=== PATIENT | female | born 1935 | race Caucasian/White ===

== ENCOUNTER 2017-10-30 16:05 | Inpatient (IN) | payer MEDICARE ==
[2017-10-30] MEDS ORDERED: Ondansetron HCl/PF 4 MG/2 ML Vial ONE (16:22)
--- NOTE | 2017-10-30 16:48 | RAD ---
PORTABLE CHEST 10/30/17 PROVIDED CLINICAL HISTORY: Flu-like symptoms. FINDINGS: Comparison 09/02/16. The cardiac and mediastinal silhouette is unchanged in appearance. Vascular calcification involves th e aortic arch. Hiatal hernia is redemonstrated. No focal air space disease, pleural fluid or pneumoth orax apparent. IMPRESSION: No evidence for an acute cardiopulmonary process. POS: OFF
[2017-10-30 16:53] LABS: Hemoglobin 10.9 g/dL (12.0-16.0); Mean Corpuscular HGB CONC 32.3 g/dL (32.0-36.0); Mean Corpuscular Hemoglobin 29.2 pg (27.0-31.0); Mean Corpuscular Volume 90.6 fl (81.0-99.0); Mean Platelet Volume 10.4 fL (7.4-10.4); Platelet Count 66 thou/uL (130-400); RBC Distribution Width 14.7 % (11.5-14.5); Red Blood Cell (RBC) Count 3.72 mill/uL (4.20-5.40); White Blood Cell (WBC) Count 10.9 thou/uL (4.8-10.8)
[2017-10-30] MEDS ORDERED: Piperacillin/Tazobactam 4.5 GM in Sodium Chloride 0.9% 100 ML IVPB SCH (17:00)
[2017-10-30 17:13] LABS: Anisocytosis SLIGHT = 6-15 cells (100X) (0-5/hpf); Band 31 % (5-11); Lymphocytes 11 % (21-51); MDiff Complete? YES; Metamyelocyte 7 % (0-0); Monocytes 13 % (0-10); Neutrophil 33 % (42-75); Ovalocytes SLIGHT = 2-5 cells (100X) (0-1/hpf); PLT Morphology Comment Appears Decreased; Polychromasia SLIGHT = 2-3 cells (100X) (0-2/hpf); Reactive Lymphocytes 5 % (0-10); Tear Drops SLIGHT = 2-5 cells (100X) (0-1/hpf); Vacuoles SLIGHT
[2017-10-30 17:16] LABS: ALT (SGPT) 13 U/L (8-55); AST (SGOT) 35 U/L (5-34); Albumin 2.6 g/dL (3.4-4.8); Alkaline Phosphatase 63 U/L (40-150); Anion Gap 15 mmol/L (10-20); BUN (Urea Nitrogen) 26 mg/dL (9.8-20.1); Bilirubin, Total 0.7 mg/dL (0.2-1.2); Calc. Creatinine Clearance 0 mL/min (70-130); Calcium 6.7 mg/dL (7.8-10.44); Carbon Dioxide 15 mmol/L (23-31); Chloride 106 mmol/L (98-107); Estimated GFR-MDRD 29; Globulin 2.8 g/dL (2.4-3.5); Protein, Total 5.4 g/dL (6.0-8.3); Sodium 133 mmol/L (136-145)
[2017-10-30 17:32] LABS: Glucose 27 mg/dL (83-110); Potassium 2.5 mmol/L (3.5-5.1)
[2017-10-30] MEDS ORDERED: Dextrose 50% Abboject 50 ML SYRINGE ONE (17:36)
[2017-10-30] MEDS ORDERED: Norepinephrine 8 MG/250 ML BAG IVPB PRN (18:54)
[2017-10-30] MEDS ORDERED: D5 1/2 NS w/20 mEq KCL 1,000 ML IV SCH (19:00)
[2017-10-30] MEDS ORDERED: Potassium Chloride 20 MEQ TAB ONE (19:19)
[2017-10-30] MEDS ORDERED: Oseltamivir 75 MG CAP PO SCH (19:30)
[2017-10-30 19:54] LABS: Bilirubin Small (Negative); Blood, Urine Negative (Negative); Clarity CLOUDY (Clear); Glucose, Urine (Dipstick) Negative (Negative); Leukocyte Negative (Negative); Nitrite Negative (Negative); Protein, Urine (Dipstick) 30 mg/dL (Neg-Trace); Specific Gravity, Urine 1.027 (1.002-1.036); Urobilinogen 0.2 mg/dL (0.2-1.0)
[2017-10-30 19:57] LABS: Bacteria/HPF None Seen HPF (None Seen); Squamous Epithelial 0-3 HPF (0-3)
--- NOTE | 2017-10-30 19:59 | RAD ---
PORTABLE CHEST: 10/30/17 HISTORY: Flu symptoms. COMPARISON: 10/30/17 at 4:28 p.m. There are increased interstitial markings in the left lung base which were present on the prior exam dated to 09/02/16. There is no evidence of acute infiltrate. No change from the film earlier today. A central line has been placed via the right subclavian vein and this line appears adequately positio stephanie overlying the SVC. IMPRESSION: Central line appears adequately positioned. No acute change in the chest. POS: [facility]
[2017-10-30 20:00] LABS: Pathc Cast-AUWi Flag 2.98 (0-2.49)
[2017-10-30] MEDS ORDERED: Dexamethasone 10 MG/ML VIAL ONE (20:02)
[2017-10-30 20:03] LABS: CKMB 10.2 ng/mL (0-6.6); Troponin I 0.557 ng/mL (< 0.028)
[2017-10-30 20:14] LABS: Crystals/HPF 1+ AMORPH URATES HPF (Negative); Hyaline Casts/LPF 4-6 HYALINE CAST LPF (0-3 Hyaline); Other Casts/LPF None Seen LPF (0-3 Hyaline)
[2017-10-30] MEDS ORDERED: Norepinephrine 8 MG/0.9% NS 250 ML IVPB SCH (20:45)
[2017-10-30] MEDS ORDERED: Acetaminophen 500 MG TAB PO PRN (20:54)
[2017-10-30] MEDS ORDERED: Ondansetron HCl/PF 4 MG/2 ML Vial IVP PRN (20:54)
[2017-10-30] MEDS ORDERED: Levalbuterol HCl 0.63 MG/3 ML NEB NEB SCH (21:00)
[2017-10-30] MEDS ORDERED: Enoxaparin Sodium 30 MG/0.3 ML SYRINGE SC SCH (21:00)
[2017-10-30 21:05] LABS: Lactic Acid 6.3 mmol/L (0.5-2.2)
[2017-10-30 21:33] LABS: Actual Bicarbonate (HCO3a) 17.9 mEq/L (22-26); Base Excess (BEa) -9.2 mEq/L (0 (+/-) 2.5); CO2 Tension 43.9 mmHg (35.0-45.0); O2 Tension (PaO2) 84.2 mmHg (80.0-100.0); pH, Arterial 7.23 (7.35-7.45)
[2017-10-30 21:34] LABS: Hematocrit-ABG 33.8 % (36.0-47.0)
[2017-10-30 21:35] LABS: Hemoglobin (Hb) 10.3 g/dL (12.0-16.0)
[2017-10-30 21:36] LABS: Analyzer IN Cardio ER; Puncture Site LR
[2017-10-30 21:51] LABS: Troponin I 0.732 ng/mL (< 0.028)
[2017-10-30 21:52] LABS: Anisocytosis SLIGHT = 6-15 cells (100X) (0-5/hpf); Band 55 % (5-11); Burr Cells SLIGHT = 2-5 cells (100X) (0-1/hpf); Lymphocytes 5 % (21-51); MDiff Complete? YES; Mean Corpuscular HGB CONC 31.8 g/dL (32.0-36.0); Mean Corpuscular Hemoglobin 28.9 pg (27.0-31.0); Mean Corpuscular Volume 90.9 fl (81.0-99.0); Mean Platelet Volume 10.4 fL (7.4-10.4); Metamyelocyte 4 % (0-0); Monocytes 16 % (0-10); Neutrophil 20 % (42-75); Ovalocytes SLIGHT = 2-5 cells (100X) (0-1/hpf); PLT Morphology Comment Appears Decreased; Platelet Count 59 thou/uL (130-400); RBC Distribution Width 14.7 % (11.5-14.5); Vacuoles SLIGHT; White Blood Cell (WBC) Count 27.3 thou/uL (4.8-10.8)
[2017-10-30 22:06] LABS: ALT (SGPT) 15 U/L (8-55); AST (SGOT) 40 U/L (5-34); Albumin 2.5 g/dL (3.4-4.8); Alkaline Phosphatase 61 U/L (40-150); Anion Gap 17 mmol/L (10-20); BUN (Urea Nitrogen) 29 mg/dL (9.8-20.1); Bilirubin, Total 0.8 mg/dL (0.2-1.2); Calc. Creatinine Clearance 0 mL/min (70-130); Carbon Dioxide 16 mmol/L (23-31); Chloride 103 mmol/L (98-107); Estimated GFR-MDRD 25; Globulin 2.7 g/dL (2.4-3.5); Glucose 89 mg/dL (83-110); Protein, Total 5.2 g/dL (6.0-8.3); Sodium 133 mmol/L (136-145)
[2017-10-30] MEDS: Piperacillin/Tazobactam 3.375 GM in Sodium Chloride 0.9% 100 ML IVPB SCH (22:27)
[2017-10-30] MEDS ORDERED: Potassium Chloride 40 MEQ in Sodium Chloride 0.9% 250 ML 250 ML IVPB SCH ×2 (23:00→23:30)
[2017-10-30] MEDS ORDERED: Bisacodyl 10 MG SUPP PR PRN (23:08)
[2017-10-30] MEDS ORDERED: Milk Of Magnesia 30 ML UDCUP PO PRN (23:08)
[2017-10-30] MEDS ORDERED: Sodium Chloride 0.9% 1,000 ML IV PRN (23:11)
[2017-10-30] MEDS ORDERED: Vasopressin 40 UNIT, Admixture Fee 1 EACH in Sodium Chloride 0.9% 100 ML IV SCH (23:15)
[2017-10-30] MEDS: Hydrocortisone Sod Succ/PF 100 mg/2 ml Vial IVP SCH (23:47)
[2017-10-30] MEDS: D5 1/2 NS w/20 mEq KCL 1,000 ML IV SCH (23:56)
[2017-10-30] MEDS: Bacteriostatic Water 30 ML VIAL FS SCH (23:56)
--- NOTE | 2017-10-31 02:11 | HP ---
DATE OF ADMISSION: 10/30/2017 CHIEF COMPLAINT: Unresponsiveness. HISTORY OF PRESENT ILLNESS: Patient with flu-like symptoms, body aches, fevers, shortness of breath, congestion. Patient was minimally responsive with EMS evaluation and transport to the emergency dep artment, found to be extremely hypertensive and interosseous and right tibia was placed for initial f luid bolus. Patient became responsive with a glucose resuscitation. Initial glucose was approximate ly 27. She remains hypotensive despite 4 liters normal saline replacement, started on a Levophed dri p, remained alert and speaking throughout. Speaking with the patient, she states she has been feelin g progressively worse over the last week. Had a bout of diarrhea yesterday, unable to have a bowel m ovement today. It feels like she is constipated and reports some abdominal pain. Does report contin ued shortness of breath on nasal cannula; however, she states she has nasal congestion, and cannot br eathe through her nose where the nasal cannula is and is mouth breathing currently. Patient states s he has been compliant with her medications for adrenal insufficiency, blood pressure, and hypothyroid ism on an outpatient basis. History of tobacco use, has p.r.n. Flovent, albuterol inhaler. FORMAL REVIEW OF SYSTEMS: Positive body aches. Positive fever. No eye discharge. Positive congest ion, rhinorrhea. Positive cough, positive shortness of breath. No chest pain or palpitations. Posi tive abdominal pain. Positive diarrhea, positive constipation, no blood in stool. No lower extremit y edema. Patient is weak, denies syncopal episode. 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 Bower, Dr. Kameron israel, Dr. Sharpe, Dr. Benoit on an outpatient basis for prior SIADH with Dr. Benoit. History of lung no dule dating back to 2008, spinal stenosis, and chronic back pain. Patient takes narcotics. OUTPATIENT MEDICATIONS: Include demeclocycline 150 mg, levothyroxine 100 mcg, hydrocortisone 5 mg, E vista 60 mg, temazepam 7.5 mg p.r.n. bedtime, Norvasc 5 mg, ferrous gluconate 324 mg, omeprazole 20 m g, docusate sodium 100 mg, milk of magnesia 400 mg/5 mL, 5 mL p.r.n. SURGERIES: Included bladder suspension, rectocele repair, hysterectomy, removal of pituitary gland p artial in 2011, childbirth x8. SOCIAL HISTORY: Prior tobacco use as above. Nondrinker, no illicit drugs reported. ALLERGIES: SULFA. IMAGING: EKG with rate of 121 accelerated junctional rhythm, slight left axis deviation, no gross ST -wave abnormalities. PHYSICAL EXAMINATION: VITAL SIGNS: On arrival to emergency department, blood pressure of 72/52, pulse of 121, respiratory rate 24, temperature of 97.8, oxygen saturation of 94% on room air. GENERAL: Patient is alert, in mild respiratory distress. HEENT: Normocephalic, atraumatic. Nasal cannula in place. Oral mucosa is dry. NECK: Supple. Patient is elderly and thin. HEART: Tachycardic. No murmurs auscultated. LUNGS: With bilateral rales with expiratory wheezes. ABDOMEN: Protuberant, positive bowel sounds, but slightly diminished. Pain to left lower quadrant. No rebound or guarding present. EXTREMITIES: No lower extremity edema. Prior right tibial myelocyte, right subclavian central line in place, left distal extremity, large bore IV in place. LABORATORY DATA: On review of laboratory work and imaging: Chest x-ray, no pneumothorax, central li ne in place, no acute infiltrates. White blood cell count of 10.9, hemoglobin of 10.9, MCV of 90.6, platelet count of 66, neutrophils of 33%. Sodium of 133, potassium of 2.5, CO2 of 15, creatinine of 1.69, estimated GFR of 29, glucose of 27. Lactic acid of 4.0, calcium of 6.7, AST of 35, ALT of 13. Serum albumin of 2.6, cortisol of 8.9. Troponin I 0.55. Urinalysis cloudy, specific gravity 1.027, positive protein, trace ketones, negative nitrates, small bilirubin, 4 to 6 white blood cells, amaur osis hyaline cast. Influenza type B positive, A negative. ASSESSMENT AND PLAN: Sepsis severe with shock, influenza, hypothyroidism, adrenal insufficiency, acu te kidney injury, acute respiratory failure, hypokalemia, hypoglycemia. Patient is being admitted to ICU on Levophed trip and maintenance fluids running at 150 mL per hour. Repeat CMP and q.2 glucose checks until the patient is stabilized. Trending troponins. At this point, given the patient's thro mbocytopenia, we will hold Lovenox full dose, aspirin; however, at this point. Sequential compressio n devices to be in place. Protonix prophylaxis. Xopenex in scheduled and p.r.n. Regarding the jorgito ent's tobacco history and wheezing. Continue nasal cannula to keep above 90% on Solu-Medrol 20 mg q. 8 hours. Following initial bolus of Decadron in the Emergency Department for a low cortisol and adre nal insufficiency continuing Tamiflu. Continuing vancomycin and Zosyn until cultures were read out a s negative, likely secondary to severe sepsis from influenza following up a TSH, BNP, lactic acid, tr end ABGs. Repeat EKG in a.m. We will trend urine output with strict I's and O's. Petersen catheter in place. Patient reported to be a FULL CODE per her own report with 2 family members at bedside. Thirty minutes of critical care rendered with more than half of that, face to face. We will check ou t to Dr. Richi Mccord, patient's PCP in the morning.
[2017-10-31] MEDS: D5 1/2 NS w/20 mEq KCL 1,000 ML IV SCH (02:41)
[2017-10-31] MEDS: Levalbuterol HCl 0.63 MG/3 ML NEB NEB SCH ×4 (02:42→22:14)
[2017-10-31] MEDS ORDERED: Sodium Chloride 0.9% 1,000 ML IV SCH (03:15)
[2017-10-31 04:17] LABS: Hemoglobin 10.7 g/dL (12.0-16.0); Mean Corpuscular HGB CONC 32.4 g/dL (32.0-36.0); Mean Corpuscular Hemoglobin 29.8 pg (27.0-31.0); Mean Corpuscular Volume 91.9 fl (81.0-99.0); Mean Platelet Volume 10.5 fL (7.4-10.4); Platelet Count 81 thou/uL (130-400); White Blood Cell (WBC) Count 49.6 thou/uL (4.8-10.8)
[2017-10-31 04:19] LABS: ALT (SGPT) 16 U/L (8-55); AST (SGOT) 45 U/L (5-34); Albumin 2.6 g/dL (3.4-4.8); Alkaline Phosphatase 59 U/L (40-150); Anion Gap 13 mmol/L (10-20); BUN (Urea Nitrogen) 25 mg/dL (9.8-20.1); Bilirubin, Total 0.6 mg/dL (0.2-1.2); Calc. Creatinine Clearance 33 mL/min (70-130); Calcium 6.5 mg/dL (7.8-10.44); Carbon Dioxide 15 mmol/L (23-31); Chloride 108 mmol/L (98-107); Estimated GFR-MDRD 38; Globulin 2.6 g/dL (2.4-3.5); Glucose 218 mg/dL (83-110); Potassium 4.1 mmol/L (3.5-5.1); Protein, Total 5.2 g/dL (6.0-8.3); Sodium 132 mmol/L (136-145)
[2017-10-31 04:27] LABS: Critical Call Chem Troponin I RESULT DECREASING; Troponin I 0.602 ng/mL (< 0.028)
[2017-10-31 04:48] LABS: Acanthocytes SLIGHT = 1-5 cells (100X) (None Seen); Band 55 % (5-11); Burr Cells MODERATE= 6-15 cells (100X) (0-1/hpf); Lymphocytes 3 % (21-51); MDiff Complete? YES; Metamyelocyte 12 % (0-0); Monocytes 17 % (0-10); Neutrophil 13 % (42-75); Ovalocytes SLIGHT = 2-5 cells (100X) (0-1/hpf); PLT Morphology Comment Appears Decreased; Vacuoles SLIGHT
[2017-10-31] MEDS: Piperacillin/Tazobactam 3.375 GM in Sodium Chloride 0.9% 100 ML IVPB SCH ×4 (05:14→23:19)
[2017-10-31] MEDS: Hydrocortisone Sod Succ/PF 100 mg/2 ml Vial IVP SCH ×4 (05:14→23:20)
[2017-10-31] MEDS: Bacteriostatic Water 30 ML VIAL FS SCH ×2 (05:15→13:06)
[2017-10-31] MEDS ORDERED: Dextrose 5% in Water 1,000 ML IV PRN (05:45)
[2017-10-31] MEDS ORDERED: Dextrose 50% Abboject 50 ML SYRINGE SLOW IVP PRN (05:45)
[2017-10-31] MEDS ORDERED: Levothyroxine Sodium 100 MCG TAB PO SCH (06:00)
[2017-10-31 07:43] LABS: Free T4 (Free Thyroxine) 1.22 ng/dL (0.70-1.48)
--- NOTE | 2017-10-31 08:23 | PRG ---
DATE OF SERVICE: 10/31/2017 The patient has improved. She is more awake and alert. She complains of being thirsty. Denies ches t pain, denies shortness of breath, just continues to be weak. Of note, she does have a history of a drenal insufficiency. She chronically on Cortef to keep her blood pressure up and her sodium normal. She is tolerating ice chips. OBJECTIVE: VITAL SIGNS: Temperature 94.1, pulse of 95 and regular, respirations 20-24, pulse ox of 95% on 2.5 l iters nasal cannula, blood pressure is now up to 125/58 on Levophed and vasopressin. She was able to wean off of the dopamine. GENERAL: She is awake and alert. She appears uncomfortable, but no acute distress. HEENT: Mucosa is moist. NECK: Supple. HEART: Regular rate and rhythm. LUNGS: With occasional wheezes, but no rales or rhonchi. ABDOMEN: Soft. EXTREMITIES: With no edema. 1+ peripheral pulses in bilateral upper and lower extremities. NEUROLO GIC: She moves all extremities. LABORATORY DATA: White blood cell count is now up to 49.6 thousand. Last night it was 27.3, hemoglo bin and hematocrit 10.7 and 33.1, platelets of 81,000. She has 13% neutrophils, 55% bands, 3% lympho cytes. ABG last night revealed a pH of 7.23, pCO2 of 43.9, pO2 of 48.2, bicarbonate of 17.1, sodium 132, potassium 4.1, chloride 108, CO2 of 15, BUN and creatinine 25 and 1.33 with a GFR of 38, which i s improved from 25 last night. Serum glucose of 218, calcium 6.5, albumin low at 2.6. We will corre ct her calcium, AST of 45, ALT of 16, troponin I is elevated at 0.602. Chest x-ray from last night revealed interstitial markings in the left side, but no acute cardiopulmo nary process. EKG revealed normal sinus rhythm, nonspecific ST-T changes. 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 She has improved somewhat in the ICU, but continues to be on Levophed an d vasopressin to maintain her blood pressure. 1. Respiratory distress and appears to be improved. I doubt that she will need mechanical ventila tion, but will continue to monitor closely. 2. Influenza will continue Tamiflu for influenza type B. 3. Hypotension secondary to shock as well as adrenal insufficiency. We will continue blood pressure support as needed. 4. Adrenal insufficiency. She is on Solu-Cortef. 5. Lymphocytosis, possibly secondary to sepsis. We will continue broad spectrum antibiotics as per Dr. Kapadia. 6. Acute kidney disease has improved with fluid resuscitation. We will continue to monitor. 7. Elevated troponin likely stress due to vasopressors and septic shock. I will check echocardiogra m and consult Cardiology as she has seen Dr. Puga in the past. 8. Electrolyte abnormalities. We will continue to monitor and adjust as necessary. 9. Code status: The patient continues to be full code. We will continue to discuss with family.
[2017-10-31] MEDS: Pantoprazole 40 MG VIAL IVP SCH (09:08)
[2017-10-31] MEDS ORDERED: D5 1/2 NS w/20 mEq KCL 1,000 ML IV SCH (09:13)
[2017-10-31] MEDS: Oseltamivir 6 MG/ML ORAL SUSP PO SCH (09:25)
[2017-10-31] MEDS: Aspirin 325 mg Enteric Coated Tablet PO SCH (09:25)
[2017-10-31] MEDS: Dextrose 5 % And 0.9 % NaCl 1,000 ML IV SCH ×2 (10:00→23:19)
[2017-10-31] MEDS: Calcium Gluconate 4.6 MEQ in Sodium Chloride 0.9% 100 ML IVPB SCH ×2 (10:03→16:27)
--- NOTE | 2017-10-31 10:50 | CON ---
DATE OF CONSULTATION: 10/31/2017 SERVICE: Pulmonary Medicine REASON FOR CONSULTATION: Septic shock. HISTORY OF PRESENT ILLNESS: The patient is an 82-year-old white female with past medical history significant for advanced stage, and adrenal insufficiency, presents to the hospital with flu-like symptoms including bodyaches, fevers, shortness of breath and congestion. She was minimally responsive by EMS when they came to evaluate her. She was hypotensive. An IO was placed in the right tibia. She was brought to the Emergency Department and discovered to have a blood sugar of 27. She got 4 liters of fluid and resuscitation. A central line was placed and she was initiated on Levophed drip. She then recovered her mentation. Urine output never picked up; however, and her blood pressures remain marginal. I got a phone call about her hypotension in the middle of the night. We made some modifications, transduced a CVP and found that she was still low. We started stress doses of steroids, and gave her another liter of fluid. Levophed was titrated up and vasopressin was initiated. This morning, she is making a little bit better urine. She is breathing more comfortably and has no specific complaints presently. PAST MEDICAL HISTORY: 1. Brain neoplasm. 2. Hypothyroidism. 3. Dyslipidemia. 4. Hyponatremia, chronic. 5. Osteoporosis. 6. Hypertension. 7. Adrenal insufficiency. 8. Aortic stenosis. 9. Anemia secondary to iron deficiency. 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 PAST SURGICAL HISTORY: 1. Excision of pituitary gland in 2010. 2. Hysterectomy. 3. Rectocele repair. 4. Bladder suspension surgery. ALLERGIES: SULFA. MEDICATIONS: A list of her inpatient medications were reviewed. Multiple updates were made at this time. SOCIAL HISTORY: Negative for alcohol, tobacco or illicit drug use. She has no exposures to chemicals, asbestos or tuberculosis. FAMILY HISTORY: Noncontributory. REVIEW OF SYSTEMS: General, head, ears, eyes, nose, throat, cardiovascular, respiratory, GI, , musculoskeletal, neurologic and skin is negative except as mentioned in the HPI. PHYSICAL EXAMINATION: VITAL SIGNS: Afebrile, pulse 102, blood pressure 125/58, respirations 22, saturation 98% on 2 liters nasal cannula. GENERAL: The patient is awake and alert. She is in no apparent distress. HEENT: Normocephalic, atraumatic. Sclerae are white, conjunctivae pink. Oral mucosa is moist without lesions. LUNGS: Excellent air entry. There are crackles present in the bibasilar region. HEART: Normal rate, regular. ABDOMEN: Soft, nontender, nondistended. Bowel sounds are positive. MUSCULOSKELETAL: No cyanosis or clubbing. There is no pitting in the bilateral lower extremities. NEUROLOGIC: Grossly nonfocal. LABORATORY DATA: WBC 49.6, hemoglobin 10.7, platelets 81,000. Neutrophil count is 13 with a band count of 55%. PH 7.23, pCO2 43, pO2 85. Creatinine 1.33 and down trending, BUN 25. Chloride 108, sodium 132. AST 45, troponin 0.6 and down trending. Liver function studies are otherwise unremarkable. Blood sugar 205, now. Calcium 6.5. Urinalysis is essentially unremarkable. Blood culture x2 are unremarkable. Influenza A is negative, but influenza B is positive. IMAGING: Chest x-ray demonstrates no acute cardiopulmonary abnormality. There are low lung volumes. Interstitial fullness is present. There is a right- sided subclavian central venous catheter that terminates in perfect position. ASSESSMENT: 1. Acute hypoxic respiratory failure. 2. Acute bronchitis secondary to influenza B. 3. Adrenal insufficiency with current adrenal crisis. 4. Acute kidney injury, resolving. 5. Septic shock. PLAN: We are awaiting blood cultures to result. We are going to continue our empiric antibiotics including Tamiflu for the time being. She is on stress doses of steroids and once she clears her inflammatory profile, she will need to restart her home steroids. We will wean away the Levophed and vasopressin as tolerated. My suspicion is that the shock was not created from the influenza , but more from the adrenal crisis. Once her blood pressures firm up a touch, we will need to start diuresing her as she has had 6-7 liters of fluid over the past 24 hours. Maintenance fluids will be interrupted. 70 minutes have been devoted to this patient in various activities. I personally reviewed all imaging studies and laboratory data noted within this document. For at least half of this time, I was interacting with the patient at the bedside or coordinating care with the care team. For the remainder of the time I was immediately available to the patient in the hospital unit. BAILEE
--- NOTE | 2017-10-31 11:33 | CON ---
DATE OF CONSULTATION: 10/31/2017 RENAL MEDICINE HISTORY OF PRESENT ILLNESS: Ms. Greenwood is an 82-year-old white female who was admitted for decreased mentation. She was found to have flu-like symptoms with body aches and fevers. She was also noted t o be hypoglycemic at that time. At the same time, patient was also noted to be hypotensive. Empiric volume repletion was given with this patient with 4 liters of normal saline. We are now being consu lted for her acute kidney injury. Please note this patient has been seen by the Renal Service previo usly for her hyponatremia. Patient is currently being treated with empiric IV antibiotics. REVIEW OF SYSTEMS: Positive for decreased mentation and decreased appetite. Decreased energy level. No ? of fever. No gross hematuria, no dysuria, no urinary frequency, no syncopal episode, no abdom inal pain, decreased mentation. No diplopia. No gross hematuria, no hematochezia, no melena, no hem atemesis. MEDICATIONS: Currently on D5 half normal saline with 20 mEq at 75 mL per hour, Zosyn 3.375 grams IV q.6, Protonix 40 mg IV, Tamiflu 30 mg once a day, Levophed drip, Solu-CORTEF 50 mg IV q.6, furosemide 40 mg IV daily, calcium gluconate in the IV fluid, Ecotrin 81 mg once a day. PAST MEDICAL HISTORY: Includes the following; 1. History of chronic hyponatremia. 2. Hypothyroidism. 3. Osteoporosis. 4. Hypertension. 5. Adrenal insufficiency. 6. Aortic stenosis. 7. Chronic anemia. 8. History of lung nodules. 9. Brain lesion - benign. PAST SURGICAL HISTORY: Includes, 1. Status post partial removal of the pituitary gland. 2. History of bladder suspension. 3. Status post rectocele repair. 4. Status post hysterectomy. 5. Status post upper and lower GI endoscopy. SOCIAL HISTORY: The patient is and lives in the [place] area, smoked for 10 years one half p ack a day. No IV drug abuse, no alcohol use. No blood transfusions. Sedentary lifestyle. FAMILY HISTORY: No family history of ESRD. ALLERGIES: SULFA. TRAUMA: None. IMMUNIZATIONS: Up to date. HOSPITALIZATIONS: Please see past medical history. PHYSICAL EXAMINATION: VITAL SIGNS: Blood pressure is noted at 187/37, heart rate 66, respiratory rate 23, pulse ox 99%. GENERAL: Awake, lethargic, not in overt distress. SKIN: Decreased turgor. HEENT: She has pinkish conjunctivae, anicteric sclerae. NECK: No neck mass, no carotid bruits, no JVD. CHEST: No deformities. LUNGS: Decreased breath sounds. HEART: Normal sinus rhythm. No murmur, no gallops, no rubs. ABDOMEN: Globular, soft, nontender, no masses. EXTREMITIES: No edema, no deformities. LABORATORY DATA: Laboratories of 10/31/2017; white count 49.6, hemoglobin 10.7. Sodium 132, potassi um 4.1, chloride 108, carbon dioxide 15, BUN 25, creatinine 1.33, glucose 218, calcium 6.5, AST 45, A LT 16, troponin I 0.602. On 10/24/2017, creatinine noted at 1.91. On 09/02/2016, creatinine 0.6. IMAGING DATA: On 10/29/2015, chest x-ray shows no acute process. ASSESSMENT AND PLAN: 1. Acute kidney injury - I suspect this is hemodynamically mediated renal dysfunction based on her h istory of hypertension. She is currently on pressor support. In addition, she received several lite rs of fluid. My plan is to continue current maintenance IV fluid of normal saline at the current rat e of 75 mL per hour. There is no indication for any dialytic intervention with this patient. She is daily on Lasix to enhance urine output. 2. Sepsis - empiric IV antibiotics. 3. Decreased mentation. Clinically, much improved - most likely metabolic in etiology. Agree with current management. Again we will review urinalysis with this patient.
--- NOTE | 2017-10-31 13:55 | CON ---
DATE OF CONSULTATION: 10/31/2017 REASON FOR CONSULTATION: Elevated troponins. HISTORY OF PRESENT ILLNESS: Ms. Greenwood is a very pleasant 82-year-old white female who comes to the ospital for being unresponsive. She was diagnosed with influenza and was hypotensive. She had Levop hed drip started. Blood work showed elevated troponins and Cardiology being consulted for this. She has never really had any heart problems before except for high blood pressure. She saw Dr. Mendiola a very long time ago. She has not seen him in several years. She denies any chest pain, tightness, pressure. She only has flu-like symptoms, fever, chills. She had a bout of diarrhea yesterday as w jillian. PAST MEDICAL HISTORY: 1. Pituitary neoplasia, status post removal. 2. Hypothyroidism. 3. Hyperlipidemia. 4. Chronic hyponatremia. 5. Osteoporosis. 6. Hypertension. 7. Adrenal insufficiency. 8. Aortic stenosis. 9. Anemia secondary to iron deficiency. 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 PAST SURGICAL HISTORY: 1. Pituitary gland excision in 2010. 2. Hysterectomy. 3. Rectocele repair. 4. Bladder suspension. ALLERGIES: Allergic to SULFA DRUGS. OUTPATIENT MEDICATIONS: Reviewed in the MAR and they include, 1. Levothyroxine 100 mcg a day. 2. Docusate p.r.n. 3. Flonase. 4. Tizanidine. 5. Theratears. 6. Evista. 7. Norvasc 5 mg a day. 8. Temazepam 15 mg at bedtime. 9. Hydrocortisone 5 mg a day. 10. Omeprazole 20 mg b.i.d. 11. Demeclocycline 300 mg b.i.d. 12. [place] 10/325 q.4 hours p.r.n. pain. SOCIAL HISTORY: No alcohol, tobacco or drugs. FAMILY HISTORY: Noncontributory. REVIEW OF SYSTEMS: A 12-point review of system is negative unless stated in the history of present i llness. PHYSICAL EXAMINATION: VITAL SIGNS: Temperature 97.7, pulse 100, respiration rate 20, satting 99% on 2 liters, blood pressu re 102/53. GENERAL: Awake, alert and oriented x3, in no respiratory distress. HEENT: Normocephalic, atraumatic. NECK: Supple. Carotid upstroke is normal with no bruits. CARDIOVASCULAR: S1, S2, no S3, S4. There is a grade 3/6 systolic murmur in the right upper sternal border, mid peaking. It radiated to the rest of the precordium. LUNGS: Clear to auscultation. ABDOMEN: Soft, positive bowel sounds. EXTREMITIES: No edema. SKIN: Warm and dry. LABORATORY WORK: Was reviewed. White count of 10 up to 27, then up to 49; hemoglobin of 10.7; plate let count of 81. ABG was reviewed. Chemistries were reviewed. BUN 25, creatinine 1.3 down from 1.9 . Troponin was 0.5, then 0.7, now 0.6. CK-MB was 10, albumin of 2.6. Cortisol was 8.9. Thyroid st udies should just a low free T3 and a low TSH. UA showed trace ketones, small amount of bilirubin, 4 -6 white cells, 4-6 hyaline casts. ASSESSMENT: 1. Non-ST elevation myocardial infarction: Likely demand ischemia from hypotension, which is though t to be from septic shock versus adrenal insufficiency after talking with Dr. Kapadia. 2. Echocardiogram shows normal LV function. 3. Mild aortic valve stenosis: This is unlikely will be causing her blood pressure either. 4. Influenza type B. PLAN: 1. Continue supportive care. 2. She will require further risk stratification as an outpatient about a month or two from now after her acute issues have been resolved. 3. We will continue to follow.
[2017-10-31] MEDS ORDERED: Furosemide 40 MG/4 ML VIAL SLOW IVP SCH (14:00)
[2017-10-31 14:58] VITALS: BMI 29.1
[2017-10-31] MEDS ORDERED: Calcium Gluconate 4.6 MEQ in Sodium Chloride 0.9% 100 ML IVPB SCH (16:00)
[2017-10-31] MEDS: HumaLOG 300 UNITS/3 ML VIAL SC PRN ×2 (19:39→23:20)
[2017-10-31] MEDS ORDERED: Phenergan/Codeine 10-6.25mg/5ml UDCUP PO PRN (20:57)
[2017-10-31] MEDS: Phenergan/Codeine 10-6.25mg/5ml UDCUP PO PRN (21:11)
[2017-10-31] MEDS: Vancomycin HCl 500 MG in Sodium Chloride 0.9% 100 ML IVPB SCH (21:13)
[2017-11-01] MEDS: Phenergan/Codeine 10-6.25mg/5ml UDCUP PO PRN (03:22)
[2017-11-01] MEDS: HumaLOG 300 UNITS/3 ML VIAL SC PRN ×5 (03:35→19:14)
[2017-11-01 04:14] LABS: Band 33 % (5-11); Hemoglobin 9.2 g/dL (12.0-16.0); Lymphocytes 5 % (21-51); MDiff Complete? YES; Mean Corpuscular HGB CONC 32.5 g/dL (32.0-36.0); Mean Corpuscular Hemoglobin 29.3 pg (27.0-31.0); Mean Corpuscular Volume 90.2 fl (81.0-99.0); Mean Platelet Volume 10.3 fL (7.4-10.4); Monocytes 4 % (0-10); Neutrophil 58 % (42-75); PLT Morphology Comment Appears Decreased; Platelet Count 51 thou/uL (130-400); RBC Distribution Width 15.3 % (11.5-14.5); Red Blood Cell (RBC) Count 3.12 mill/uL (4.20-5.40); White Blood Cell (WBC) Count 31.5 thou/uL (4.8-10.8)
[2017-11-01 04:21] LABS: ALT (SGPT) 17 U/L (8-55); AST (SGOT) 35 U/L (5-34); Albumin 2.5 g/dL (3.4-4.8); Alkaline Phosphatase 77 U/L (40-150); Anion Gap 12 mmol/L (10-20); BUN (Urea Nitrogen) 15 mg/dL (9.8-20.1); Bilirubin, Total 0.7 mg/dL (0.2-1.2); Calc. Creatinine Clearance 55 mL/min (70-130); Calcium 6.9 mg/dL (7.8-10.44); Carbon Dioxide 19 mmol/L (23-31); Chloride 102 mmol/L (98-107); Estimated GFR-MDRD 66; Globulin 2.7 g/dL (2.4-3.5); Glucose 201 mg/dL (83-110); Magnesium 1.2 mg/dL (1.6-2.6); Protein, Total 5.2 g/dL (6.0-8.3); Sodium 130 mmol/L (136-145)
[2017-11-01 04:27] LABS: Potassium 2.8 mmol/L (3.5-5.1)
[2017-11-01] MEDS ORDERED: Magnesium Oxide 400 MG TAB PO SCH (06:15)
[2017-11-01] MEDS: Hydrocortisone Sod Succ/PF 100 mg/2 ml Vial IVP SCH ×3 (06:29→17:08)
[2017-11-01] MEDS: HYDROcodone/Acetaminophen 10/325 mg Tablet PO PRN ×2 (06:30→19:15)
[2017-11-01] MEDS ORDERED: Potassium Chloride 20 MEQ TAB PO SCH ×2 (06:30→09:00)
[2017-11-01] MEDS: Piperacillin/Tazobactam 3.375 GM in Sodium Chloride 0.9% 100 ML IVPB SCH ×3 (06:32→17:08)
[2017-11-01] MEDS: Levalbuterol HCl 0.63 MG/3 ML NEB NEB SCH ×3 (06:48→19:02)
[2017-11-01] MEDS: Pantoprazole 40 MG VIAL IVP SCH (08:34)
[2017-11-01] MEDS: Aspirin 325 mg Enteric Coated Tablet PO SCH (08:34)
[2017-11-01] MEDS ORDERED: guaiFENesin/Dextromethorphan 10 ML UDCUP PO PRN (08:58)
[2017-11-01] MEDS ORDERED: Furosemide 40 MG/4 ML VIAL SLOW IVP SCH (09:00)
[2017-11-01] MEDS ORDERED: Magnesium Sulfate 4 GM in Sodium Chloride 0.9% 250 ML 250 ML IVPB SCH (10:00)
[2017-11-01] MEDS: Potassium Chloride 20 MEQ TAB PO SCH ×2 (10:07→15:15)
[2017-11-01] MEDS: Oseltamivir 6 MG/ML ORAL SUSP PO SCH (10:07)
--- NOTE | 2017-11-01 10:22 | PDOC.CTH ---
Cardiology Progress Note - Subjective No new issues. no chest pain, Breathing is at baseline. - Objective Vital Signs Temp Pulse Resp Pulse Ox 11/01/17 09:00 97.7 F 11/01/17 06:52 98 11/01/17 06:48 98 15 98 11/01/17 04:00 98.4 F 10/31/17 23:00 96.4 F L Admit Weight 144 lb Weight 129 lb 10.109 oz 10/31/17 11/01/17 11/02/17 06:59 06:59 06:59 Intake Total 2180 2077.4 600 Output Total 1055 4745 835 Balance 1125 -2667.6 -235 - Physical Examination General/Neuro: alert & oriented x3 Neck: no JVD present Lungs: CTA, unlabored respirations Heart: RRR Abdomen: NT/ND Extremities: other: (no edema) - Telemetry Telemetry Rhythm: NSR - Labs Result Diagrams: 11/01/17 03:31 11/01/17 03:31 Troponin/CKMB CK-MB (CK-2) 10.2 ng/mL (0-6.6) H* 10/30/17 19:05 Troponin I 0.602 ng/mL (< 0.028) H* 10/31/17 03:45 - Assessment/Plan 1. NSTEMI, demand ischemia 2. Influenza type B 3. Mild . PLAN: - Doing well from cardiac standpoint. - May transfer to telemetry floor. - Aspirin and statin before discharge. No indication for full anticoagulation. - Андрей Green
--- NOTE | 2017-11-01 11:44 | PRG ---
DATE OF SERVICE: 11/01/2017 SUBJECTIVE: The patient is feeling much better this morning. She is off of her pressors. She is no w sitting in a chair. She has been okay to be transferred to the floor. OBJECTIVE: VITAL SIGNS: Temperature 97.7, pulse 102, blood pressure 89/45, O2 sat 90%. GENERAL: In no acute distress. She is now sitting in a chair. HEART: Regular rate and rhythm. LUNGS: Relatively clear. ABDOMEN: Soft. EXTREMITIES: With no edema. She is diuresing presently. She diuresed 2600 yesterday and this morni ng she has had greater than 400. LABORATORY DATA: White count 31, down from 49; H and H 9.2 and 28.2. Sodium 130; potassium 2.8; chl oride 102; creatinine 0.83; BUN 15; blood sugar 201, 209, 200. ASSESSMENT: 1. Acute hypoxic respiratory failure, improving. 2. Septic shock from multiple factors including flu B, dehydration, and adrenal crisis. No longer o n pressors. 3. Acute kidney injury, presently being hydrated. 4. Hypokalemia, receiving potassium supplementation. 5. Syndrome of inappropriate antidiuretic hormone secretion. 6. Adrenal insufficiency. 7. Hyponatremia secondary to adrenal adenoma, excised in 2010. 8. Flu with acute bronchitis. 9. FULL CODE. 10. Hypertension. 11. Mild aortic stenosis. 12. [id number]-IC-vmurwgyld myocardial infarction from demand ischemia. PLAN: 1. Transfer to the floor. 2. Continue hydration. 3. We will monitor her diuresis. It seems to be occurring spontaneously. 4. Potassium supplementation. 5. Insulin sliding scale. 6. Maintain Solu-Cortef. 7. Continue Tamiflu. 8. Recheck CBC and comp in a.m.
--- NOTE | 2017-11-01 11:49 | PRG ---
DATE OF SERVICE: 11/01/2017 RENAL MEDICINE SUBJECTIVE: Ms. Greenwood is an 82-year-old white female who was admitted for sepsis syndrome. She had elevated white count. She is being treated with IV antibiotics. She was seen by the Renal Service f or her chronic hyponatremia as well as acute kidney injury. She has been receiving volume repletion and for that reason, creatinine this morning is much improved. She was also seen by Cardiology for t he elevated troponin. Patient is currently feeling better, but still feels tired. She denies any chest pain or shortness o f breath. PHYSICAL EXAMINATION: VITAL SIGNS: Blood pressure is currently 99/45 to as high as 97/49, heart rate 102, respiratory rate 18, and pulse ox 95%. GENERAL: Awake, sitting comfortable, not in distress. SKIN: Adequate turgor. HEENT: Pinkish conjunctivae, anicteric sclerae. NECK: No neck mass, no carotid bruits, no JVD. CHEST: No deformities. LUNGS: Clear breath sounds. No wheezing, no crackles. HEART: Normal sinus rhythm. No murmur, no gallops, no rubs. ABDOMEN: Globular, soft, nontender, no masses. EXTREMITIES: No edema, no deformities. MEDICATIONS: Medications of 11/01/2017 was reviewed. LABORATORY DATA: Laboratories of 11/01/2017; white count 31.5, hemoglobin 9.2, sodium 130, potassium is 2.8, chloride 102, carbon dioxide 19, BUN 15, creatinine 0.83, glucose 201, magnesium 1.2, AST 35 , ALT 17, albumin 2.5. ASSESSMENT AND PLAN: 1. Mild hypokalemia, p.r.n. potassium replacement. 2. Sepsis syndrome - empiric IV antibiotics. 3. Acute kidney injury - hemodynamically mediated renal dysfunction. Creatinine is currently much i mproved after IV hydration. Overall, agree with current management. Continue supportive care. 4. Recheck basic met and CBC in a.m.
--- NOTE | 2017-11-01 11:59 | PRG ---
DATE OF SERVICE: 11/01/2017 SUBJECTIVE: An 82-year-old female, who is complaining of feeling poorly. She got a cough according to family members, nonproductive, but no fever or chills. OBJECTIVE: VITAL SIGNS: Blood pressure 102/51, pulse 105, sats are 97%, respiratory rate 18. CHEST: Reveal decreased breath sounds without any wheezing. CARDIAC: Normal S1, S2. No gallops. ABDOMEN: Soft. No masses. LABORATORY: White count 31,000, H and H 9 and 28, platelet count is low at 51,000. She is thrombocy topenic here. Potassium 2.8, glucose 209. IMPRESSION: 1. Renal failure, stable. 2. Marked leukocytosis. Rule out sepsis. 3. Status post pituitary surgery with ensuing adrenal insufficiency. 4. Influenza B. PLAN: Continue broad-spectrum antibiotics. She can be transferred out of the ICU should her blood p ressure resolve. PT and supportive care. Medicine for cough. We will follow.
[2017-11-01] MEDS: Mometasone/Formoterol 120 PUFF INHALER INH SCH (19:01)
[2017-11-01 21:40] LABS: Vancomycin, Trough 5.5 ug/mL
[2017-11-01] MEDS: Vancomycin HCl 500 MG in Sodium Chloride 0.9% 100 ML IVPB SCH (22:00)
[2017-11-02] MEDS: Hydrocortisone Sod Succ/PF 100 mg/2 ml Vial IVP SCH ×3 (00:14→21:16)
[2017-11-02] MEDS: Piperacillin/Tazobactam 3.375 GM in Sodium Chloride 0.9% 100 ML IVPB SCH ×5 (00:15→23:45)
[2017-11-02] MEDS: HYDROcodone/Acetaminophen 10/325 mg Tablet PO PRN ×4 (03:08→23:51)
[2017-11-02 06:49] LABS: Band 15 % (5-11); Hemoglobin 9.5 g/dL (12.0-16.0); Lymphocytes 2 % (21-51); MDiff Complete? YES; Mean Corpuscular HGB CONC 32.6 g/dL (32.0-36.0); Mean Corpuscular Hemoglobin 28.9 pg (27.0-31.0); Mean Corpuscular Volume 88.5 fl (81.0-99.0); Mean Platelet Volume 11.2 fL (7.4-10.4); Monocytes 5 % (0-10); Neutrophil 77 % (42-75); PLT Morphology Comment Appears Decreased; Platelet Count 47 thou/uL (130-400); RBC Distribution Width 15.3 % (11.5-14.5); Reactive Lymphocytes 1 % (0-10); Red Blood Cell (RBC) Count 3.28 mill/uL (4.20-5.40); White Blood Cell (WBC) Count 28.9 thou/uL (4.8-10.8)
[2017-11-02] MEDS: Levalbuterol HCl 0.63 MG/3 ML NEB NEB SCH ×3 (07:26→22:25)
[2017-11-02] MEDS: Mometasone/Formoterol 120 PUFF INHALER INH SCH ×2 (07:29→22:22)
--- NOTE | 2017-11-02 09:21 | EKG ---
Test Reason : Blood Pressure : / mmHG Vent. Rate : 099 BPM Atrial Rate : 099 BPM P-R Int : 200 ms QRS Dur : 088 ms QT Int : 378 ms P-R-T Axes : 000 031 050 degrees QTc Int : 485 ms Normal sinus rhythm Low voltage QRS Nonspecific T wave abnormality Prolonged QT Abnormal ECG When compared with ECG of 30-OCT-2017 16:23, (Unconfirmed) Significant changes have occurred Confirmed by CHAVA CARREON ([id number]) on 11/02/2017 9:21:06 AM Referred By: JOSE Confirmed By:CHAVA CARREON
[2017-11-02] MEDS: Pantoprazole 40 MG VIAL IVP SCH (09:38)
[2017-11-02] MEDS: Aspirin 325 mg Enteric Coated Tablet PO SCH (09:39)
[2017-11-02] MEDS: Potassium Chloride 20 MEQ TAB PO SCH (09:39)
[2017-11-02] MEDS: Oseltamivir 6 MG/ML ORAL SUSP PO SCH (09:49)
[2017-11-02] MEDS: Vancomycin HCl 500 MG in Sodium Chloride 0.9% 100 ML IVPB SCH ×2 (09:51→21:14)
--- NOTE | 2017-11-02 12:53 | PDOC.CTH ---
Cardiology Progress Note - Subjective She is doing much better today. Feels better overall. Only complaint is cough. - Objective Vital Signs Temp Pulse Resp BP Pulse Ox 11/02/17 12:00 97.8 F 101 H 18 108/67 92 L 11/02/17 08:00 97.7 F 103 H 18 124/75 97 11/02/17 07:26 96 14 97 11/02/17 03:46 97.5 F L 103 H 16 123/72 95 Admit Weight 144 lb Weight 141 lb 1.6 oz 11/01/17 11/02/17 11/03/17 06:59 06:59 06:59 Intake Total 2077.4 4525 240 Output Total 4745 4105 1725 Balance -2667.6 420 -1485 - Physical Examination General/Neuro: alert & oriented x3, NAD Neck: no JVD present Lungs: unlabored respirations Heart: RRR Abdomen: NT/ND Extremities: other: (no edema.) - Labs Result Diagrams: 11/02/17 05:59 11/01/17 03:31 Troponin/CKMB CK-MB (CK-2) 10.2 ng/mL (0-6.6) H* 10/30/17 19:05 Troponin I 0.602 ng/mL (< 0.028) H* 10/31/17 03:45 - Assessment/Plan 1. NSTEMI, demand ischemia 2. Influenza type B 3. Mild . PLAN: - Doing well from cardiac standpoint. - Aspirin and statin before discharge. No indication for full anticoagulation. - Андрей Green
[2017-11-02] MEDS ORDERED: Potassium Chloride 20 MEQ TAB PO SCH ×2 (13:00→17:00)
--- NOTE | 2017-11-02 13:29 | PRG ---
DATE OF SERVICE: 11/02/2017 SUBJECTIVE: Timo is an 82-year-old female who said she is better, less short of breath, less cough. OBJECTIVE: VITAL SIGNS: Sats are 97 on room, pulse 103, temperature 97, blood pressure 124/75.. CHEST: Bilateral crackles. CARDIAC: Normal S1, S2, no gallops. LABORATORY: White count 20, H and H 9 and 29, platelet count is low 47. Renal function is improved. IMPRESSION: 1. Sepsis syndrome, on IV antibiotics. Renal function is improved. 2. Marked deconditioning. 3. Acute thrombocytopenia. PLAN: To note, all cultures are negative. She still has big bandemia, we will continue antibiotics, continue aggressive PT. Continue steroids and deescalate. We will follow.
[2017-11-02 14:24] LABS: Anion Gap 12 mmol/L (10-20); BUN (Urea Nitrogen) 13 mg/dL (9.8-20.1); Calc. Creatinine Clearance 63 mL/min (70-130); Calcium 7.4 mg/dL (7.8-10.44); Carbon Dioxide 24 mmol/L (23-31); Chloride 98 mmol/L (98-107); Estimated GFR-MDRD 79; Glucose 198 mg/dL (83-110); Sodium 131 mmol/L (136-145)
[2017-11-02 14:29] LABS: Potassium 2.7 mmol/L (3.5-5.1)
--- NOTE | 2017-11-02 17:10 | PRG ---
DATE OF SERVICE: 11/02/2017 SUBJECTIVE: The patient continues to improve daily. She is active this morning. She is getting a b ath at this time. She is awake, alert, without complaints. OBJECTIVE: VITAL SIGNS: Temperature 97.8, pulse 101, respirations 18, pulse ox 92, blood pressure 108/67. HEART: Regular rate and rhythm. LUNGS: Clear. ABDOMEN: Soft. EXTREMITIES: Without edema. LABORATORY DATA: White count 28.9, down from 31.5; H and H 9.5 and 29.0, continues to improve; blood sugars 134 and 156. BMP pending. ASSESSMENT: 1. Acute hypoxic respiratory failure, resolved. 2. Septic shock, resolved. 3. Flu B, dehydration. 4. Adrenal crisis, resolved. 5. Acute kidney injury, improving. 6. Hypokalemia, BMP pending this morning. 7. Syndrome of inappropriate antidiuretic hormone. 8. Adrenal insufficiency. 9. Hyponatremia. 10. acute bronchitis. 11. FULL CODE. 12. Hypertension. 13. Mild aortic stenosis. 14. Edk-[id number] myocardial infarction with demand ischemia. PLAN: 1. Continue hydration. 2. Check BMP today. 3. Continue to diurese. 4. Continue insulin sliding scale. 5. Continue to follow.
[2017-11-02] MEDS: HumaLOG 300 UNITS/3 ML VIAL SC PRN (17:19)
--- NOTE | 2017-11-02 21:53 | PRG ---
DATE OF SERVICE: 11/02/2017 SUBJECTIVE: Ms. Greenwood is an 82-year-old white female admitted for sepsis syndrome and was seen by [facility] renal service for acute kidney injury. This was hemodynamically mediated renal dysfunction. There was improvement in renal function with gentle volume repletion. This morning, she was noted to be o n the hypokalemic site. P.r.n. potassium replacement has been given with this patient. We will be a lso checking a magnesium level, if this has not been done yet. No other complaints, she is feeling a little better. Patient denies any chest pain or shortness of breath. OBJECTIVE: VITAL SIGNS: Blood pressure is 108/67, heart rate 96, respiratory rate 16, pulse ox 98%, temperature 97.8. GENERAL: Awake, alert, comfortable, not in distress. SKIN: Adequate turgor. HEENT: She has pinkish conjunctivae, anicteric sclerae. NECK: No neck mass, no carotid bruits, no JVD. CHEST: No deformities. Lungs, clear breath sounds. No wheezing, no crackles. HEART: Normal sinus rhythm. No murmur, no gallops or rubs. ABDOMEN: Globular, soft, nontender. No masses. EXTREMITIES: No edema, no deformities. MEDICATIONS: On 11/02/2017 was reviewed. LABORATORY DATA: On 11/02/2017, white count 28.9, hemoglobin 9.5. Sodium 131, potassium 2.7, chlori de 98, carbon dioxide 24, BUN 13, creatinine 0.71, glucose 198, calcium 7.4. ASSESSMENT AND PLAN: 1. Hypokalemia p.r.n., KCl replacement. We will recheck another potassium and magnesium level in a. m. 2. Acute kidney injury - prerenal azotemia, much improved with volume repletion. 3. Sepsis syndrome - on IV antibiotics. Agree with current management.
[2017-11-03] MEDS: Phenergan/Codeine 10-6.25mg/5ml UDCUP PO PRN ×2 (02:34→23:03)
[2017-11-03] MEDS: Piperacillin/Tazobactam 3.375 GM in Sodium Chloride 0.9% 100 ML IVPB SCH ×4 (05:30→23:03)
[2017-11-03 05:56] LABS: Anion Gap 11 mmol/L (10-20); BUN (Urea Nitrogen) 11 mg/dL (9.8-20.1); Calc. Creatinine Clearance 0 mL/min (70-130); Calcium 7.8 mg/dL (7.8-10.44); Carbon Dioxide 24 mmol/L (23-31); Chloride 103 mmol/L (98-107); Estimated GFR-MDRD 89; Glucose 146 mg/dL (83-110); Magnesium 1.2 mg/dL (1.6-2.6); Potassium 3.4 mmol/L (3.5-5.1); Sodium 135 mmol/L (136-145)
[2017-11-03 06:13] LABS: Band 2 % (5-11); Lymphocytes 4 % (21-51); MDiff Complete? YES; Mean Corpuscular HGB CONC 32.6 g/dL (32.0-36.0); Mean Corpuscular Hemoglobin 29.1 pg (27.0-31.0); Mean Corpuscular Volume 89.3 fl (81.0-99.0); Mean Platelet Volume 10.7 fL (7.4-10.4); Metamyelocyte 1 % (0-0); Monocytes 3 % (0-10); Neutrophil 90 % (42-75); PLT Morphology Comment Appears Decreased; Platelet Count 55 thou/uL (130-400); RBC Distribution Width 15.4 % (11.5-14.5); Red Blood Cell (RBC) Count 3.44 mill/uL (4.20-5.40); White Blood Cell (WBC) Count 13.4 thou/uL (4.8-10.8)
[2017-11-03] MEDS: Levalbuterol HCl 0.63 MG/3 ML NEB NEB SCH ×3 (08:14→22:58)
[2017-11-03] MEDS: Mometasone/Formoterol 120 PUFF INHALER INH SCH (08:17)
--- NOTE | 2017-11-03 08:27 | PRG ---
DATE OF SERVICE: 11/03/2017 SUBJECTIVE: The patient is feeling much better. She has a good appetite, as she complains of some g as pains, which improve with belching. She denies chest pain, shortness of breath, or palpitations. States that she is walking in the room to the bathroom. She continues to have some weakness. Denie s nausea and vomiting. Denies diarrhea. She states that she feels like she is getting better. OBJECTIVE: VITAL SIGNS: Temperature 98.0, pulse of 96, respirations 18, blood pressure 128/78, pulse ox is 97% on room air. GENERAL: She is awake and alert, smiling, in no acute distress. Speech is clear. NECK: Supple. HEART: Regular rate and rhythm with a 3/6 systolic ejection murmur. LUNGS: Clear bilaterally. ABDOMEN: Soft. EXTREMITIES: With no edema. LABORATORY DATA: White blood cell count down to 13,400 from 28,900 with only 2% bands, hemoglobin an d hematocrit 10.0 and 30.7, platelets 55,000. Sodium 135, potassium 3.4, chloride 103, CO2 of 24, BU N and creatinine 11 and 0.64. Serum glucose of 146, calcium 7.8, magnesium is low at 1.2. Blood cul tures have both been negative. Urine culture was negative after 36 hours. C. difficile was negative . Echocardiogram revealed ejection fraction of 50%-55%, grade 1/3 diastolic dysfunction, mild mitral regurg, mild tricuspid regurg, aortic valve sclerosis. ASSESSMENT AND PLAN: This is an 82-year-old female patient with acute influenza, admitted for respir atory failure and dehydration, now improved. 1. Influenza. She is on her last day of Tamiflu. 2. Sepsis syndrome. She has continued to have large bandemia, which is improved today. I will cont inue broad-spectrum antibiotics as per Pulmonary. 3. Hypotension secondary to sepsis syndrome. Hopefully to wean off of her vasopressors today as wel l. 4. Non-Q-wave myocardial infarction secondary to demand ischemia. I appreciate Cardiology. Doing w ell. They recommend aspirin and statin prior to discharge. 5. Acute kidney injury has improved back to her baseline after fluid resuscitation. 6. Hypokalemia. I will continue potassium and magnesium replacement. 7. Deconditioning. Continue physical therapy. I discussed with patient the possibility of a rehabi litation placement. I will initiate consultation and hopefully the patient will be stable for transf er to the rehabilitation or home with home physical therapy in the next couple of days. 8. Adrenal insufficiency. I will continue steroids and slowly wean as she tolerates it.
[2017-11-03] MEDS: Hydrocortisone Sod Succ/PF 100 mg/2 ml Vial IVP SCH (08:35)
[2017-11-03] MEDS: Potassium Chloride 20 MEQ TAB PO SCH (08:36)
[2017-11-03] MEDS: Aspirin 325 mg Enteric Coated Tablet PO SCH (08:36)
[2017-11-03] MEDS ORDERED: Magnesium 2 GM/NS 0.9% 100 ML 2 GM in Premix Bag 1 BAG IVPB SCH (09:00)
[2017-11-03] MEDS ORDERED: Magnesium Oxide 400 MG TAB PO SCH (09:00)
[2017-11-03] MEDS: HYDROcodone/Acetaminophen 10/325 mg Tablet PO PRN ×3 (09:08→20:27)
--- NOTE | 2017-11-03 09:55 | PRG ---
DATE OF SERVICE: 11/03/2017 RENAL MEDICINE SUBJECTIVE: Ms. Greenwood is an 82-year-old white female who was seen by the Renal Service for an acute kidney injury that was hemodynamically mediated. IV volume repletion was done which improved renal f unction. She was noted to be hypokalemic yesterday. P.r.n., potassium replacement was given. I als o noted this morning she was hypomagnesemic. I have given her a dose of 2 grams of IV magnesium. Mihai lamar voices no new complaints. She denies any chest pain, shortness of breath. PHYSICAL EXAMINATION: VITAL SIGNS: Blood pressure is noted at 128/78 with heart rate of 96, respiratory rate is 18, temper ature is 98.6. GENERAL: Awake, alert, comfortable, not in distress. SKIN: Adequate turgor. HEENT: Pinkish conjunctivae. Anicteric sclerae. NECK: No neck mass, no carotid bruits, no JVD. CHEST: No deformities. LUNGS: Clear breath sounds. HEART: Normal sinus rhythm. No murmur, no gallops, no rubs. ABDOMEN: Globular, soft, nontender. No masses. EXTREMITIES: No edema, no deformities. MEDICATIONS: Medications of 11/03/2017 was reviewed. LABORATORY DATA: Laboratories of 11/03/2017; white count 13.4, hemoglobin 10. Sodium 135, potassium 3.4, chloride 103, carbon dioxide 24, BUN 89, BUN is 11, creatinine 0.64, gluco se 146, calcium 7.8, magnesium 1.2. ASSESSMENT AND PLAN: 1. Hypokalemia, much improved. P.r.n. potassium replacement. Try to correct hypomagnesemia at same time. 2. Hypomagnesemia, on magnesium oxide at 400 mg p.o. once daily, 2 grams of IV magnesium sulfate zeeshan l also be given. 3. Acute kidney injury, much improved. Status post volume repletion. Due to the much improved chem istries, we will be signing off. Please recall if needed.
[2017-11-03 09:57] LABS: Vancomycin, Trough 9.8 ug/mL
[2017-11-03] MEDS ORDERED: Vancomycin HCl 750 MG in Sodium Chloride 0.9% 250 ML 250 ML IVPB SCH (11:00)
[2017-11-03] MEDS: Oseltamivir 6 MG/ML ORAL SUSP PO SCH (12:46)
--- NOTE | 2017-11-03 12:56 | PRG ---
DATE OF SERVICE: 11/03/2017 SERVICE: Pulmonary Medicine. INTERVAL HISTORY: The patient is doing absolutely fantastic from a respiratory standpoint. Her bloo d pressures are nice and firm. She denies any current fevers, chills, nausea or vomiting. Otherwise , she is returning to her usual state of health and has no specific complaints. She has been able to transition out of the ICU. She is off of oxygen. PHYSICAL EXAMINATION: VITAL SIGNS: Afebrile, pulse 92, blood pressure 133/76, respirations 22, saturation 93% on room air. GENERAL: Patient is awake, alert, in no apparent distress. LUNGS: Decent air entry. Dependent crackles are minimal. HEART: Normal rate, regular. ABDOMEN: Soft, nontender, nondistended. Bowel sounds are positive. MUSCULOSKELETAL: No cyanosis or clubbing. There is no pitting in the bilateral lower extremities. NEUROLOGIC: Grossly nonfocal. LABORATORY DATA: WBC 13.4 and down trending aggressively, hemoglobin 10.0, platelets 55,000. Potass ium 3.4. Basic metabolic profile is otherwise unremarkable. Magnesium 1.2. C. diff antigen and tox in is unremarkable. Blood cultures x2, urinalysis and urine culture unremarkable. Influenza B is po sitive. ASSESSMENT: 1. Acute hypoxic respiratory failure, resolved. 2. Septic shock, resolved. 3. Adrenal crisis, resolved. 4. Hypokalemia. 5. Hypomagnesemia. PLAN: The patient's acute medical issues are coming to a close. She can be deescalated off of her s tress doses of steroids back on to her p.o. steroids. Magnesium and potassium will be replaced today . Petersen catheter will be removed. We will have her work with physical therapy in order to regain st rength. At this point, no respiratory issue is preventing her disposition. If she demonstrates adeq uate strength, she can likely transition home or to a long-term facility with physical therapy if she does not. Either way, she has no further requirements for inpatient Pulmonary or Critical Car e opinion. I will sign off. Please call with additional questions or concerns.
[2017-11-03] MEDS ORDERED: Potassium Chloride 20 MEQ TAB PO SCH (13:00)
[2017-11-03] MEDS: Vancomycin HCl 500 MG in Sodium Chloride 0.9% 100 ML IVPB SCH (13:03)
[2017-11-03] MEDS: Hydrocortisone 10 mg Tablet PO SCH (20:27)
[2017-11-04] MEDS: Piperacillin/Tazobactam 3.375 GM in Sodium Chloride 0.9% 100 ML IVPB SCH (05:25)
[2017-11-04] MEDS: Phenergan/Codeine 10-6.25mg/5ml UDCUP PO PRN (05:27)
[2017-11-04 05:45] LABS: ALT (SGPT) 16 U/L (8-55); AST (SGOT) 17 U/L (5-34); Alkaline Phosphatase 55 U/L (40-150); Anion Gap 10 mmol/L (10-20); BUN (Urea Nitrogen) 10 mg/dL (9.8-20.1); Calc. Creatinine Clearance 0 mL/min (70-130); Calcium 7.9 mg/dL (7.8-10.44); Carbon Dioxide 35 mmol/L (23-31); Chloride 97 mmol/L (98-107); Estimated GFR-MDRD 89; Globulin 3.1 g/dL (2.4-3.5); Glucose 97 mg/dL (83-110); Magnesium 1.3 mg/dL (1.6-2.6); Protein, Total 6.1 g/dL (6.0-8.3); Sodium 139 mmol/L (136-145)
[2017-11-04 05:49] LABS: Potassium 2.5 mmol/L (3.5-5.1)
[2017-11-04] MEDS ORDERED: Levothyroxine Sodium 100 MCG TAB PO SCH (06:00)
[2017-11-04] MEDS ORDERED: Levothyroxine 150 MCG TAB PO SCH (06:00)
[2017-11-04 06:15] LABS: Band 3 % (5-11); Hemoglobin 9.9 g/dL (12.0-16.0); Lymphocytes 20 % (21-51); MDiff Complete? YES; Mean Corpuscular HGB CONC 32.7 g/dL (32.0-36.0); Mean Corpuscular Hemoglobin 28.8 pg (27.0-31.0); Mean Corpuscular Volume 88.1 fl (81.0-99.0); Mean Platelet Volume 10.6 fL (7.4-10.4); Monocytes 6 % (0-10); Neutrophil 69 % (42-75); PLT Morphology Comment Appears Decreased; Platelet Count 58 thou/uL (130-400); RBC Distribution Width 15.3 % (11.5-14.5); Reactive Lymphocytes 2 % (0-10); Red Blood Cell (RBC) Count 3.42 mill/uL (4.20-5.40); White Blood Cell (WBC) Count 9.7 thou/uL (4.8-10.8)
[2017-11-04] MEDS ORDERED: Potassium Chloride 20 MEQ in Sodium Chloride 0.9% 250 ML 250 ML IVPB SCH (06:30)
[2017-11-04] MEDS ORDERED: Potassium Chloride 20 MEQ TAB PO SCH (08:00)
[2017-11-04 08:11] VITALS: TEMP 97.7
--- NOTE | 2017-11-04 08:26 | DIS ---
ADMISSION DIAGNOSES: 1. Unresponsive episode. 2. Septic shock. 3. Influenza. 4. Renal insufficiency. 5. Acute encephalopathy. 6. Acute respiratory failure. 7. Hypotension. DISCHARGE DIAGNOSES: 1. Respiratory failure, resolved. 2. Influence improved. 3. Adrenal insufficiency with hypotension, resolved. 4. Electrolyte abnormalities. 5. non-ST elevation myocardial infarction CONSULTATIONS: Dr. Kapadia for Critical Care, Dr. Benoit for Nephrology, Dr. Roman for Cardiology. PROCEDURES: ICU monitoring, vasopressors for blood pressure maintenance, IV steroids, IV antibiotics, Tamiflu therapy. 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 History is obtained from the family. She had had flu-like symptoms and body aches and shortness of breath. She had minimal responsiveness with EMS. Upon transport to the emergency department, she was found to be hypotensive, required urgent fluid resuscitation as well as vasopressors including Levophed and dopamine. She was positive for type B influenza. Due to her history of adrenal insufficiency, she was started on IV steroids, due to her sepsis syndrome she was started on broad spectrum antibiotics including vancomycin and Zosyn and was admitted to the ICU at that time. She was seen by Dr. Kapadia due to her need for ICU monitoring. Her respiratory distress improved and did not need mechanical ventilation. He agreed with vasopressors due to the worsening hypotension secondary to the shock. She had slow improvement of her symptoms. She was seen by Dr. Benoit and Dr. Roman was well. Her renal function improved with fluid resuscitation and he felt like the acute renal injury was likely hemodynamically mediated due to the hypotension. He assisted with fluid maintenance and made adjustments to electrolyte replacement. Dr. Roman saw the patient due to the elevated troponin and for a non-ST elevation myocardial infarction, likely secondary to demand ischemia from her hypotension. Echocardiogram revealed normal LV function. He agreed with maintaining fluids and her blood pressure. She continued to improve. She was able to be transferred out of the ICU once her blood pressure and her breathing stabilized. She was slowly weaned off of the vasopressors. Once her blood cultures and urine cultures were all negative her broad spectrum antibiotics were discontinued. She continued a 5-day course of her Tamiflu. She continued to have low potassium, low magnesium levels and those were replaced both IV and orally. Her kidney function returned to her baseline. Both Dr. Kapadia and Dr. Benoit and then eventually Dr. Roman signed off of her case as she was improving. The patient declined rehab placement and home health was arranged for her to be home with PT, OT as well as snf and she was stable for discharge on the day of discharge. DISCHARGE PHYSICAL EXAMINATION: VITAL SIGNS: Temperature 98.2, pulse was 89, respirations 16, pulse oximetry 96 % on room air, blood pressure 144/75. GENERAL: She is awake and alert, in no acute distress. Speech is clear. NECK: Supple. HEART: Regular rate and rhythm. LUNGS: With scattered rhonchi, no wheezes or rales bilaterally. ABDOMEN: Soft. EXTREMITIES: With no edema. DISCHARGE LABORATORY DATA: White blood cell count down to 9.7, hemoglobin and hematocrit 9.9 and 30.1, platelets of 58. Sodium 139, potassium 2.5, but was 3.4 yesterday, chloride 97, CO2 of 35, BUN and creatinine 10 and 0.64 with a GFR of 89, serum glucose 165. Magnesium was 1.3. Albumin of 3.0, calcium 7.9. DISCHARGE MEDICATIONS: Tylenol p.r.n., hydrocodone 10/325 t.i.d. p.r.n. severe pain, aspirin 325 daily, Dulcolax p.r.n., demeclocycline 300 mg b.i.d., Robitussin-DM p.r.n. cough, hydrocortisone 10 mg b.i.d., Xopenex p.r.n., Synthroid 100 mcg daily, K-Dur 20 mEq b.i.d. FOLLOWUP INSTRUCTIONS: The patient to follow up in my office within 1 week. Follow up with her primary care doctor in 1-2 weeks. BAILEE
[2017-11-04] MEDS: Levalbuterol HCl 0.63 MG/3 ML NEB NEB SCH (08:27)
[2017-11-04] MEDS: Hydrocortisone 10 mg Tablet PO SCH (08:27)
[2017-11-04] MEDS: Aspirin 325 mg Enteric Coated Tablet PO SCH (08:27)
[2017-11-04] MEDS ORDERED: Magnesium Oxide 400 MG TAB PO SCH (09:00)
--- NOTE | 2017-11-04 10:03 | PRG ---
DATE OF SERVICE: 11/04/2017 RENAL MEDICINE SUBJECTIVE: Ms. Greenwood is an 82-year-old white female who was seen by the Renal Service for acute kid keiko injury. She was noted to be volume depleted and IV hydration improving renal function. In the l ast few days, her potassium and magnesium has been on the low side. She is currently receiving magne sium supplementation. She continues to be hypokalemic. She is now maintained on KCl 20 mEq twice a day. In addition, I have advised the patient and her daughter to increase her p.o. intake from her d iet. She was given a brief summary of diet rich in potassium. No new complaints. OBJECTIVE: VITAL SIGNS: Blood pressure is 156/74, heart rate 97, respiratory rate 20, temperature 97.7, and pul se ox 97%. GENERAL: Awake, alert, comfortable, not in distress. SKIN: Adequate turgor. HEENT: Pinkish conjunctivae, anicteric sclerae. No neck mass, no JVD. LUNGS: Clear breath sounds. HEART: Normal sinus rhythm. No murmurs, gallops or rubs. ABDOMEN: Globular, soft, nontender. No masses. EXTREMITIES: No edema, no deformities. MEDICATIONS: Of 11/04/2017 reviewed. LABORATORY DATA: Of 11/04/2017, white count 9.7, hemoglobin 9.9, hematocrit 38.1, sodium 135, potass ium is 2.5, chloride 97, carbon dioxide 35, BUN is 10, creatinine is 0.64, magnesium is 1.3, and albu min is 3.0. ASSESSMENT AND PLAN: 1. Hypokalemia - currently on 20 mEq b.i.d. of potassium supplementation. Continue supportive care, increase potassium from the diet. 2. Hypomagnesemia, currently on increased dose of magnesium oxide at 400 mg p.o. b.i.d. 3. Status post acute kidney injury, resolved. I encouraged patient to increase p.o. intake. If the patient is discharged, we will follow her up at the [facility]. Agree with current management.
[2017-11-04 13:00] VITALS: BP 146/62
== END 2017-11-04 12:58 | disposition home health service (06) | DRG 871 ==
LOC: ERS 16:05 → CCU 22:06 → T4-B 11-01 23:09
PROVIDERS: ADMIT Family Medicine; ATTEND Family Medicine
PROC: 02HV33Z Insertion of Infusion Device into Superior Vena Cava, Percutaneous Approach (ICD-10-PCS; principal; 2017-10-30)
DX: A41.89 Other specified sepsis (principal); R65.21 Severe sepsis with septic shock; I21.A1 Myocardial infarction type 2; J96.01 Acute respiratory failure with hypoxia; G93.41 Metabolic encephalopathy; N17.9 Acute kidney failure, unspecified; E22.2 Syndrome of inappropriate secretion of antidiuretic hormone; E27.2 Addisonian crisis; E27.49 Other adrenocortical insufficiency; D69.6 Thrombocytopenia, unspecified; E89.3 Postprocedural hypopituitarism; J10.1 Influenza due to other identified influenza virus with other respiratory manifestations; E03.9 Hypothyroidism, unspecified; E78.5 Hyperlipidemia, unspecified; M81.0 Age-related osteoporosis without current pathological fracture; J20.8 Acute bronchitis due to other specified organisms; I35.0 Nonrheumatic aortic (valve) stenosis; E87.6 Hypokalemia; E16.2 Hypoglycemia, unspecified; I10 Essential (primary) hypertension; Z87.891 Personal history of nicotine dependence; E83.42 Hypomagnesemia
CPT/HCPCS: 36415; 36416; 36556; 51701; 71045; 80048; 80053; 80202; 81003; 81015; 82533; 82553; 82805; 83605; 83735; 83880; 84439; 84443; 84481; 84484; 85025; 85060; 87040; 87086; 87324; 87449; 93005; 93010; 93306; 94640; 96360; 96361; 96365; 96366; 96367; 96368; 96374; 96375; A4216; A4353; C9113; G8978-GP-CM; G8979-GP-CJ; G8987-GO-CK; G8988-GO-CI; J1100; J1265; J1720; J1940; J2405; J2543; J3370; J3475; J3480; J7050; J7070; J7614

== ENCOUNTER 2018-10-15 11:31 | Inpatient (IN) | payer MEDICARE ==
--- NOTE | 2018-10-15 13:06 | CT ---
CT BRAIN WITHOUT CONTRAST: HISTORY: Altered mental status. FINDINGS: Comparison is made with the exam of 08/25/2010. No evidence of infarct, hemorrhage, midline shift, or abnormal extraaxial fluid collections are seen. The ventricular size is appropriate and the basilar cisterns are patent. Changes of chronic small- vessel ischemic fracture are present. The bony calvarium is intact. The visualized paranasal sinuse s and mastoid air cells are well aerated. IMPRESSION: No CT evidence of acute intracranial process. POS: C
[2018-10-15 13:43] LABS: Hemoglobin 15.5 g/dL (12.0-16.0); Mean Corpuscular HGB CONC 32.3 g/dL (32.0-36.0); Mean Corpuscular Hemoglobin 29.1 pg (27.0-31.0); Mean Corpuscular Volume 90.1 fL (78.0-98.0); Mean Platelet Volume 9.6 fL (7.4-10.4); Platelet Count 87 thou/uL (130-400); RBC Distribution Width 12.4 % (11.5-14.5); Red Blood Cell (RBC) Count 5.33 mill/uL (4.20-5.40); White Blood Cell (WBC) Count 7.1 thou/uL (4.8-10.8)
[2018-10-15 13:53] LABS: Band 1 % (5-11); Eosinophils 5 % (0-10); Lymphocytes 27 % (21-51); MDiff Complete? YES; Monocytes 22 % (0-10); Neutrophil 42 % (42-75); Platelet Morphology Comment Appears Decreased; RBC Morphology Normal; Reactive Lymphocytes 3 % (0-10)
[2018-10-15 13:58] LABS: ALT (SGPT) 9 U/L (8-55); AST (SGOT) 25 U/L (5-34); Albumin 3.9 g/dL (3.4-4.8); Alkaline Phosphatase 71 U/L (40-150); Anion Gap 18 mmol/L (10-20); BUN (Urea Nitrogen) 12 mg/dL (9.8-20.1); Bilirubin, Total 1.4 mg/dL (0.2-1.2); Calc. Creatinine Clearance 0 mL/min (70-130); Calcium 9.8 mg/dL (7.8-10.44); Carbon Dioxide 19 mmol/L (23-31); Chloride 95 mmol/L (98-107); Estimated GFR-MDRD 62; Globulin 4.5 g/dL (2.4-3.5); Glucose 68 mg/dL (83-110); Protein, Total 8.4 g/dL (6.0-8.3); Sodium 128 mmol/L (136-145)
[2018-10-15 14:31] LABS: Bilirubin Negative (Negative); Blood, Urine Trace (Negative); Clarity CLEAR (Clear); Glucose, Urine (Dipstick) Negative (Negative); Leukocyte Negative (Negative); Nitrite Negative (Negative); Protein, Urine (Dipstick) Negative (Neg-Trace); Specific Gravity, Urine 1.016 (1.002-1.036); Urobilinogen 0.2 mg/dL (0.2-1.0); pH, Urine 7.5 (5.0-9.0)
[2018-10-15 14:34] LABS: Bacteria/HPF None Seen HPF (None Seen); Hyaline Casts/LPF 0-3 HYALINE CAST LPF (0-3 Hyaline); Pathc Cast-AUWi Flag 0.14 (0-2.49); Squamous Epithelial 0-3 HPF (0-3); WBC/HPF 0-3 HPF (0-3)
[2018-10-15] MEDS ORDERED: HYDROcodone/Acetaminophen 7.5/325 mg Tablet PO PRN (18:05)
[2018-10-15] MEDS ORDERED: Acetaminophen 500 MG TAB PO PRN (18:09)
[2018-10-15] MEDS ORDERED: Non-Formulary Item 1 EACH (Omeprazole [Omeprazole] 20 MG) PO SCH (21:00)
[2018-10-15] MEDS: Hydrocortisone 10 mg Tablet PO SCH (21:13)
[2018-10-15] MEDS: Ondansetron ODT 4 MG TAB PO PRN (21:13)
[2018-10-15] MEDS: Sodium Chloride 0.9% 1,000 ML IV SCH (21:13)
--- NOTE | 2018-10-15 23:22 | HP ---
HISTORY OF PRESENT ILLNESS: This is an 83-year-old white female with history of acquired adrenal insufficiency and hypothyroidism status post partial pituitary gland resection who presents with an altered mental status. The patient has been followed by Dr. Richi Mccord. She normally does well. However, occasionally she stops her medicines and has a bout of hyponatremia with altered mental status. The patient was doing well until before Rodrigo when her medicines was altered by the pharmacist. She became mad and since then had stopped her medications. The family just discovered this. She has refused to take her medications and her mental status has deteriorated since. She presents to the emergency room with a sodium 128. Her 3 daughters are present who are very understanding and pleasant. The patient is somewhat agitated and unpleasant to her daughters. However, the daughter states that once her medications are restarted, she will perk up and be back to her normal self. PAST MEDICAL HISTORY: Includes acquired hypothyroidism, adrenal insufficiency, history of SIADH, chronic idiopathic constipation, recurrent hyponatremia, depression, and psychophysiological insomnia. PAST SURGICAL HISTORY: Includes hysterectomy, bladder suspension, and rectocele repair. Partial removal of pituitary gland in April 2011. MEDICATIONS: 1. Evista 60 daily. 2. Omeprazole 20 daily. 3. Levothyroxine 100 daily. 4. Magnesium 300 daily. 5. Demeclocycline 150 two tabs b.i.d. 6. Cymbalta 20 b.i.d. 7. Hydrocortisone 10 mg b.i.d. 8. KCl 20 b.i.d. FAMILY HISTORY: Father unknown. She does have children with hypertension, has as a brother with thyroid cancer and a brother with multiple myeloma. SOCIAL HISTORY: She is a former smoker. She is retired. She is . ALLERGIES: CIPRO, BACTRIM, AND SULFA. REVIEW OF SYSTEMS: As above. PHYSICAL EXAMINATION: VITAL SIGNS: Blood pressure 119/82, pulse 109, respiration 18, and pulse oximetry 97%. GENERAL: The patient is somewhat agitated, but answers questions appropriately and definitely not herself. HEENT: Clear. NECK: Supple. HEART: Regular rate and rhythm. LUNGS: Clear. ABDOMEN: Soft. EXTREMITIES: With no edema. LABORATORY DATA: White count 7.1, H and H 15 and 48, platelets of 87. Sodium 128, potassium 4.0, creatinine 0.87, BUN 12, and glucose 68, albumin 3.9. UA clear. Brain CT, no acute intracranial process. ASSESSMENT: 1. Altered mental status secondary to medication noncompliance. Off her medicines for questionable duration, more likely has been off her medicines for at least 5 days. 2. Adrenal insufficiency. 3. Acquired hypothyroidism. 4. Hyponatremia. 5. Chronic idiopathic constipation. 6. Physiological insomnia. 7. Depressed mood. 8. Mild aortic stenosis. 9. Full code. PLAN: 1. The patient has agreed to restart all her medications. We will see if this happens. Will restart her hydrocortisone and demeclocycline. Hopefully, her hyponatremia will improve and her altered mental status will resolve. 2. Resume her levothyroxine. 3. Fall precautions. 4. Three daughters are present, who are very pleasant. They will discuss her code status. 5. Dr. Mccord will see in the a.m. Job ID: [id number]
[2018-10-15 23:43] VITALS: BMI 24.3
[2018-10-16] MEDS: Levothyroxine Sodium 100 MCG TAB PO SCH (05:29)
[2018-10-16] MEDS: Sodium Chloride 0.9% 1,000 ML IV SCH (05:30)
[2018-10-16] MEDS ORDERED: Potassium Chloride 20 MEQ TAB PO SCH (08:00)
[2018-10-16 08:05] LABS: Anion Gap 15 mmol/L (10-20); BUN (Urea Nitrogen) 14 mg/dL (9.8-20.1); Calc. Creatinine Clearance 66 mL/min (70-130); Calcium 8.2 mg/dL (7.8-10.44); Carbon Dioxide 21 mmol/L (23-31); Chloride 98 mmol/L (98-107); Estimated GFR-MDRD 84; Glucose 39 mg/dL (83-110); Potassium 3.7 mmol/L (3.5-5.1); Sodium 130 mmol/L (136-145)
[2018-10-16] MEDS ORDERED: Dextrose 50% Abboject 50 ML SYRINGE ONE (08:10)
[2018-10-16] MEDS ORDERED: D5 0.9% NS w/ 20 mEq KCl 1,000 ML IV SCH (08:15)
[2018-10-16 08:33] LABS: Hemoglobin 13.5 g/dL (12.0-16.0); Mean Corpuscular HGB CONC 32.8 g/dL (32.0-36.0); Mean Corpuscular Volume 88.5 fL (78.0-98.0); Mean Platelet Volume 9.4 fL (7.4-10.4); Platelet Count 78 thou/uL (130-400); Red Blood Cell (RBC) Count 4.64 mill/uL (4.20-5.40); White Blood Cell (WBC) Count 8.5 thou/uL (4.8-10.8)
--- NOTE | 2018-10-16 08:49 | PRG ---
DATE OF SERVICE: 10/16/2018 SUBJECTIVE: The patient continues to be confused with argumentative with her daughter. She denies pain. Denies nausea or vomiting. She has not been out of bed due to weakness. Does not feel hungry. No lightheadedness. No dizziness. No diaphoresis. OBJECTIVE: VITAL SIGNS: Temperature 98.3, pulse of 98 to 101, respirations 16, blood pressure 146/68, pulse ox 93% to 97% on room air. GENERAL: She is awake and alert. She is agitated, but no acute distress. Mucosa is dry. NECK: Supple. HEART: Regular rate and rhythm. LUNGS: Clear. ABDOMEN: Soft. EXTREMITIES: With no edema. She moves all extremities without difficulty. LABORATORY DATA: This morning, sodium up to 130, potassium 3.7, chloride 98, BUN and creatinine 14 and 0.67. Serum glucose was very very low at 39. Cortisol level is pending. I reviewed CT from last night. ASSESSMENT/PLAN: This is an 83-year-old female patient with a history of syndrome of inappropriate antidiuretic hormone, hypothyroidism, adrenal insufficiency, chronic pain, who was admitted for mental status change and medication noncompliance. She admits to not taking her medicines for at least 5 days. 1. Hypoglycemia. Will monitor and start dextrose in her IV fluids. Encourage diet 2. Hyponatremia, improved up to 130, and she is back on her oral medications as well as fluid resuscitation. 3. Hypothyroidism. Restarting her levothyroxine. Checking TSH and T4 this morning. 4. Adrenal insufficiency. Awaiting cortisol level at this time. 5. Disposition. May need placement if she is not tolerating. Living at home with her family. Job ID: [id number] [facility]
[2018-10-16] MEDS ORDERED: Aspirin 325 mg Enteric Coated Tablet PO SCH (09:00)
[2018-10-16] MEDS ORDERED: Dextrose 50% Abboject 50 ML SYRINGE SLOW IVP SCH (09:00)
[2018-10-16 09:59] LABS: T4 8.8 ug/dL (4.87-11.72); Thyroid Stimulating Hormone 0.0178 uIU/mL (0.35-4.94)
[2018-10-16] MEDS: Hydrocortisone 10 mg Tablet PO SCH ×2 (10:02→21:09)
[2018-10-16] MEDS: Enoxaparin Sodium 40 MG/0.4 ML SYRINGE SC SCH (10:02)
[2018-10-16 11:19] LABS: Band 20 % (5-11); Lymphocytes 15 % (21-51); MDiff Complete? YES; Monocytes 17 % (0-10); Neutrophil 46 % (42-75); RBC Morphology Normal; Reactive Lymphocytes 2 % (0-10)
[2018-10-16] MEDS: HYDROcodone/Acetaminophen 10/325 mg Tablet PO PRN ×2 (13:29→21:09)
[2018-10-16] MEDS: Ondansetron ODT 4 MG TAB PO PRN (23:08)
[2018-10-17] MEDS ORDERED: OLANZapine 5 MG TAB PO SCH (01:15)
[2018-10-17] MEDS: HYDROcodone/Acetaminophen 10/325 mg Tablet PO PRN ×2 (06:11→14:05)
[2018-10-17] MEDS: Levothyroxine Sodium 100 MCG TAB PO SCH (06:11)
[2018-10-17 06:45] LABS: Anion Gap 13 mmol/L (10-20); BUN (Urea Nitrogen) 8 mg/dL (9.8-20.1); Calc. Creatinine Clearance 65 mL/min (70-130); Calcium 8.2 mg/dL (7.8-10.44); Carbon Dioxide 21 mmol/L (23-31); Chloride 93 mmol/L (98-107); Estimated GFR-MDRD 83; Glucose 90 mg/dL (83-110); Potassium 3.3 mmol/L (3.5-5.1); Sodium 124 mmol/L (136-145)
[2018-10-17] MEDS: Hydrocortisone 10 mg Tablet PO SCH ×2 (08:25→21:43)
[2018-10-17] MEDS: Enoxaparin Sodium 40 MG/0.4 ML SYRINGE SC SCH (08:26)
[2018-10-17 10:37] LABS: Osmolality, Urine 475 mOsm/kg (300-900)
[2018-10-17 10:44] LABS: Sodium, Urine 73 mmol/L (Not Available)
[2018-10-17 10:44] LABS: Free T4 (Free Thyroxine) 1.24 ng/dL (0.70-1.48)
[2018-10-17] MEDS ORDERED: Prazosin HCl 1 MG CAP PO PRN (11:01)
[2018-10-17] MEDS ORDERED: Magnesium 2 GM/50 ML 2 GM in Premix Bag 1 BAG IVPB SCH (11:30)
--- NOTE | 2018-10-17 15:42 | PRG ---
DATE OF SERVICE: 10/17/2018 HISTORY OF PRESENT ILLNESS: Nursing staff had contacted me overnight as the patient had not had any sleep for approximately 36 hours following difficulty with Cymbalta on outpatient basis. Apparently, there was an error with going from 20 mg immediate release once a day to 30 mg extended release by the Pharmacy, and the patient had pseudomanic to hypomania symptoms. This was exacerbated by the patient's sodium fluctuations, which brought her to be inpatient this admission. The patient had only moderate response to benzodiazepines in the past speaking with nursing staff and family member at bedside. The patient responded well to 5 mg of Zyprexa. She is sleeping comfortably this morning, not agitated. She is arousable, following commands, and returns to sleep afterwards. No new complaints per family members at bedside. Verbalized understanding regarding return to hyponatremia and low potassium. 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 On review of vital signs this morning; temperature of 98.3, pulse of 99, respiratory rate of 16, oxygen saturation of 93% on room air, blood pressure of 151/84. Sodium of 124, potassium of 3.3, magnesium of 1.3, serum osmolality of 269, a.m. cortisol level of 12, last serum albumin of 3.9 on 10/15. Blood glucoses have improved from admission, last at 90 this morning. Urine osmolality of 475, urine sodium at 773. PHYSICAL EXAMINATION: GENERAL: The patient is resting comfortably. HEENT: Head is normocephalic, atraumatic. Extraocular movements are intact when aroused, however, quickly falls back to sleep. NECK: Supple. HEART: With harsh systolic murmur best heard over left sternal border, but otherwise regular rhythm. LUNGS: Clear to auscultation bilaterally. ABDOMEN: Soft, nontender. Positive bowel sounds throughout. LOWER EXTREMITIES: Without cyanosis or edema. I did not assess orientation secondary to the patient's somnolence following Zyprexa last night. The patient is moving all extremities on command. 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 Hopefully, a good night sleep will improve the patient's agitation. We will order melatonin tonight and have p.r.n. prazosin in case the patient gets further agitation to see if this modulation will help better than inadequate benzodiazepine response and sedation effect of Zyprexa. Return the patient to [facility], avoid withdrawal side effects tomorrow morning. T3 on labs this morning at 1.1, free T4 of 1.2. The patient on review of past laboratory work had a low T3 earlier last year. The patient will likely be better covered by Porcine thyroid product rather than strict T4 product given that she has inadequate replacement of T3. We will transition the patient to Porcine thyroid product at 60 mg per day initially, she may be needing to down titrate to 45 mg per day rather quickly if her T3 responds in order to not cause further insomnia and agitation. We will continue to monitor while inpatient. We will continue to follow along Dr. Mccord's recommendations for a.m. cortisol levels, spot checking ACTH, as well as aldosterone for further adrenal access. However, given urine osmolality, serum osmolality, sodium levels of urine, and sodium does appear to be hypotonic hyponatremia secondary to inadequate treatment of hypothyroidism with adequate treatment of SIADH. The patient per family at bedside likes to eat ice chips and quite a bit of water at home. Rather than restarting IV fluids or initiating Lasix, we will place the patient on free water restriction of 1000 mL per day and monitor as the patient's thyroid improves. Once the patient is more participatory, would like to consult walking program or physical therapy likely tomorrow if doing well. Job ID: [id number]
--- NOTE | 2018-10-17 20:53 | EKG ---
Test Reason : EMERGENCY Blood Pressure : / mmHG Vent. Rate : 092 BPM Atrial Rate : 092 BPM P-R Int : 240 ms QRS Dur : 078 ms QT Int : 372 ms P-R-T Axes : 083 -14 068 degrees QTc Int : 460 ms Sinus rhythm with 1st degree A-V block Low voltage QRS Inferior infarct , age undetermined Abnormal ECG Confirmed by ATCO CABRERA, ROSETTE Deluna ([id number]), scientific editor YRN NUNEZ ([id number]) on 10/17/2018 8:53:45 PM Referred By: Confirmed By:ROSETTE ESPAÑA MD
[2018-10-17] MEDS: Melatonin 3 MG TAB PO SCH (21:44)
[2018-10-18] MEDS: HYDROcodone/Acetaminophen 10/325 mg Tablet PO PRN ×2 (06:22→16:03)
[2018-10-18] MEDS: Enoxaparin Sodium 40 MG/0.4 ML SYRINGE SC SCH (07:42)
[2018-10-18] MEDS: Hydrocortisone 10 mg Tablet PO SCH ×2 (08:58→20:17)
[2018-10-18] MEDS: Thyroid 60 MG TAB PO SCH (10:23)
[2018-10-18 11:18] LABS: Anion Gap 16 mmol/L (10-20); BUN (Urea Nitrogen) 8 mg/dL (9.8-20.1); Calc. Creatinine Clearance 64 mL/min (70-130); Calcium 8.2 mg/dL (7.8-10.44); Carbon Dioxide 20 mmol/L (23-31); Chloride 93 mmol/L (98-107); Estimated GFR-MDRD 81; Glucose 64 mg/dL (83-110); Potassium 3.3 mmol/L (3.5-5.1); Sodium 126 mmol/L (136-145)
[2018-10-18] MEDS ORDERED: Potassium Chloride 20 MEQ TAB PO SCH (15:00)
--- NOTE | 2018-10-18 19:50 | PRG ---
DATE OF SERVICE: 10/18/2018 HISTORY OF PRESENT ILLNESS: The patient slept well without any sleep bait yesterday, refused melatonin, did not require any further sedation from agitation and is back to her old self per daughter at bedside today. The patient has a long-standing history of wanting to sip on water and ice chips constantly throughout the day. Does like [employer]; however, the patient's daughter verbalized understanding regarding the low T3 and need to change thyroid medication and stable cortisol as of current on the patient's SIADH medications, verbalized understanding regarding move toward the fluid restriction plan and need to modify free water restriction and the patient may do better with sucking on a rag or hard candies, lozenges, sugar freestyle than actual sipping on water going forward to maintain sodium. Review of vital signs temperature of 98.3, pulse of 101, respiratory rate of 18, oxygen saturation 93% on room air, blood pressure 136/83 and the cortisol drawn at 10:20 a.m. slightly outside of ideal window at 3. ACTH reported back from yesterday was normal range. Free T3 is undetectable this morning. The patient's first dose of [place] Thyroid was given after this lab draw. Sodium this a.m. of 126, potassium of 3.3 prior to replacement with 40 mEq of potassium chloride. This is post 2 g of magnesium sulfate. However, blood sugars at 123 and 118 last two checks. PHYSICAL EXAMINATION: GENERAL: The patient is alert x1 to x2. No acute distress. HEENT: Head is normocephalic and atraumatic. Extraocular movements are intact. The patient is thin. HEART: Systolic murmur, still prevalent. LUNGS: Clear to auscultation bilaterally. No rubs or wheezes. ABDOMEN: Soft and nontender. Positive bowel sounds throughout. EXTREMITIES: Lower extremities without cyanosis or edema. NEUROLOGIC: Speech is normal. The patient is slightly tangential on questioning. ASSESSMENT AND PLAN: Hypotonic hyponatremia, history of syndrome of inappropriate antidiuretic hormone secretion, hypothyroidism, hypomagnesemia, and aortic stenosis. Continuing the patient's current SIADH treatment, change to [place] Thyroid and we will trend T3 recommended. The patient may need to be down dosed from prior levothyroxine per daughter at bedside. The patient had only been taking medication every other day at 100 mcg. Given conversion to 60 mg daily of Porcine thyroid, this may be too much for her. However, we would recommend titration with T3. We will check on magnesium level tomorrow following replacement. Magnesium has been replaced and potassium. Given the patient's aortic stenosis, last echo was less than 1 year ago. We would recommend repeat on outpatient basis in the next couple of months for monitoring purposes. Difficult to determine the patient would be a good candidate given her age and general condition for any valvular replacement; however, we will handoff to Dr. Richi Mccord. Continue free water restriction and trend sodium. Job ID: [id number]
[2018-10-18] MEDS: Melatonin 3 MG TAB PO SCH (20:18)
[2018-10-19] MEDS: HYDROcodone/Acetaminophen 10/325 mg Tablet PO PRN ×3 (01:06→14:29)
[2018-10-19] MEDS: Enoxaparin Sodium 40 MG/0.4 ML SYRINGE SC SCH (07:57)
[2018-10-19] MEDS: Hydrocortisone 10 mg Tablet PO SCH ×2 (07:57→20:06)
[2018-10-19] MEDS: Thyroid 60 MG TAB PO SCH (07:58)
[2018-10-19] MEDS ORDERED: Polyvinyl Alcohol 1.4%/Povidone 0.6% Opth Drops EA EYE PRN (08:10)
--- NOTE | 2018-10-19 08:44 | PRG ---
DATE OF SERVICE: 10/19/2018 SUBJECTIVE: The patient seems to be clearing her mentation. She is less confused, less argumentative, now complaining of pain all over. She complains of pain with swallowing, pain in her ankles, and pain in her stomach at times. Still has not been out of bed to ambulate. She is eating better. Denies chest pain or shortness of breath. Denies lightheadedness or dizziness. Per family, she is still confused at times, but seems to be closer to her baseline. OBJECTIVE: VITAL SIGNS: Temperature 98.2, pulse of 98, respirations 18, blood pressure 108/70, and pulse ox 91% to 94% on room air. GENERAL: She is an awake and alert, in no acute distress. HEENT: Mucosa is moist. NECK: Supple. HEART: Regular rate and rhythm with 2/6 systolic ejection murmur. LUNGS: Clear. ABDOMEN: Soft. No epigastric tenderness. EXTREMITIES: No clubbing, cyanosis, or edema. LABORATORY DATA: Morning labs are pending. Sodium yesterday was 126, potassium 3.3, chloride 93, and CO2 of 20. Accu-Cheks have been 85, 136, 118, and 123. ASSESSMENT AND PLAN: This is an 83-year-old female patient with a history of syndrome of inappropriate antidiuretic hormone secretion, hypothyroidism, and adrenal insufficiency, admitted with mental status change and noncompliance, seems to be doing some better, now that we are monitoring her medication intake. 1. Hyponatremia had improved and decreased over the weekend. Awaiting this morning labs. We will continue fluid restriction and oral medications including demeclocycline. 2. Hypothyroidism. I agree with starting [place] Thyroid over the weekend. We will check back in 1 to 2 weeks. 3. Adrenal insufficiency, appears to be stable with cortisol level in normal levels. We will continue to monitor. 4. Confusion, seems to be improved. She is not complaining of more of a chronic pains. 5. Disposition. We will try to ambulate today with physical therapy and hopefully, will be able to get home in the next day or so. Job ID: [id number]
[2018-10-19] MEDS: Bisacodyl 5 MG TAB PO PRN (10:13)
[2018-10-19 13:23] LABS: Anion Gap 10 mmol/L (10-20); BUN (Urea Nitrogen) 12 mg/dL (9.8-20.1); Calc. Creatinine Clearance 59 mL/min (70-130); Carbon Dioxide 23 mmol/L (23-31); Estimated GFR-MDRD 74; Glucose 94 mg/dL (83-110)
[2018-10-19 13:31] LABS: Chloride 93 mmol/L (98-107); Potassium 3.8 mmol/L (3.5-5.1); Sodium 122 mmol/L (136-145)
--- NOTE | 2018-10-19 14:06 | PQF ---
CLINICAL DOCUMENTATION IMPROVEMENT CLARIFICATION FORM: ICD-10 Updated PLEASE DO AN ADDENDUM TO THE PROGRESS NOTE WITH ANY DOCUMENTATION UPDATES OR ADDITIONS AND CARRY THROUGH TO DC SUMMARY. THANK YOU. DATE: 10/19/18 ATTN: Dr. Mccord Please exercise your independent, professional judgment in responding to the clarification form. Clinical indicators are provided on the bottom of this form for your review Please check appropriate box(s): [ xx ] Encephalopathy: Type: [xx ] Acute [ ] Subacute [ ] Chronic Etiology: [xx ] Metabolic [ ] Toxic [ ] Drug induced: [ ] Unspecified [ ] in the setting of underlying dementia [ ] Other (please specify) [ ] Other diagnosis [ ] Unable to determine In addition, please specify: Present on Admission (POA): [ ] Yes [ ] No [ ] Unable to determine For continuity of documentation, please document condition throughout progress notes and discharge summary. Thank You. CLINICAL INDICATORS - SIGNS / SYMPTOMS / LABS ER RECORD 10/15: AMS X2 days LEGAL INSTRUMENTS EXAMINER. H&P 10/15: The pt is somewhat agitated and unpleasant to her daughters. However, the daughter states that once her medications are restarted, she will perk up and be back to her normal self Sodium 128 Altered mental status secondary to medication noncompliance. Off her medicines for questionable duration, more likely has been off her medicines for at least 5 days. Adrenal insufficiency Acquired hypothyroidism Hyponatremia PN 10/16: Serum glucose very very low at 39 Hypoglycemia Hyponatremia improved to 130. PN 10/19: The pt seems to be clearing her mentation. She is less confused, less argumentative, now complaining of pain all over. RISKS: H&P 10/15: 83 yr old. Hx of acquired adrenal insufficiency and hypothyroidism s/ p partial pituitary gland resection. Hx of SIADH, recurrent hyponatremia, depression, and psychophysiological insomnia. TREATMENT: H&P: Will restart her hydrocortisone and demeclocycline. Order 10/15: Regular Diet. Fluid restrictions 1000ml/day Order 10/16: Dextrose 50% 25 gm slow IVP Thank you, Elizabeth (This form is maintained as a part of the permanent medical record) 2015 [employer]. All Rights Reserved Elizabeth Alcocer RN, BSN [email or web address] Office: [phone] [facility]
[2018-10-19] MEDS: Potassium Chloride 20 MEQ TAB PO SCH ×2 (14:28→17:46)
[2018-10-19] MEDS ORDERED: Furosemide 40 MG TAB PO SCH (14:30)
[2018-10-19] MEDS: Melatonin 3 MG TAB PO SCH (20:06)
[2018-10-20] MEDS ORDERED: Furosemide 40 MG TAB PO SCH (07:30)
[2018-10-20] MEDS ORDERED: Potassium Chloride 20 MEQ TAB PO SCH (08:00)
[2018-10-20] MEDS ORDERED: Furosemide 20 MG TAB PO SCH (08:03)
[2018-10-20] MEDS ORDERED: Tolvaptan 15 MG TAB PO SCH (09:00)
[2018-10-20 09:01] LABS: Hemoglobin 13.9 g/dL (12.0-16.0); Mean Corpuscular HGB CONC 31.7 g/dL (32.0-36.0); Mean Corpuscular Hemoglobin 29.9 pg (27.0-31.0); Mean Corpuscular Volume 94.3 fL (78.0-98.0); Platelet Count 113 thou/uL (130-400); RBC Distribution Width 12.5 % (11.5-14.5); Red Blood Cell (RBC) Count 4.66 mill/uL (4.20-5.40); White Blood Cell (WBC) Count 10.7 thou/uL (4.8-10.8)
[2018-10-20 09:17] LABS: Anion Gap 16 mmol/L (10-20); BUN (Urea Nitrogen) 16 mg/dL (9.8-20.1); Calc. Creatinine Clearance 54 mL/min (70-130); Calcium 8.1 mg/dL (7.8-10.44); Carbon Dioxide 20 mmol/L (23-31); Chloride 93 mmol/L (98-107); Estimated GFR-MDRD 68; Glucose 94 mg/dL (83-110); Potassium 4.6 mmol/L (3.5-5.1); Sodium 124 mmol/L (136-145)
--- NOTE | 2018-10-20 09:58 | CT ---
EXAM: BRAIN CT WITHOUT IV CONTRAST: History: Mental status change. Comparison: 10-15-18 FINDINGS: Minimal motion artifact through the skull base region. This somewhat lowers the sensitivity of this s tudy in this region. No focal mass or midline shift. No intra or extraaxial hemorrhage. There is some atrophy and chronic white matter ischemic change. No focal mass or midline shift. No intra or extraaxial hemorrhage. IMPRESSION: Minimal motion artifact. No mass or bleed. Atrophy and chronic white matter ischemic change. If there is clinical concern for acute infarct, follow up MRI study might be of benefit. POS: AARON
--- NOTE | 2018-10-20 09:59 | CON ---
DATE OF CONSULTATION: RENAL MEDICINE HISTORY OF PRESENT ILLNESS: Ms. Greenwood is an 83-year-old white female, who has history of chronic hyponatremia secondary to presumed SIADH, also history of adrenal insufficiency? and admitted for generalized malaise and mental status change. Initially, she had a CAT scan of the brain and was negative. A repeat CT scan of the brain was again done today. Her serum sodium has worsened and the last one was 124 and previous to that, it was 122 and prior to that was 127. We are consulting for her hyponatremia. REVIEW OF SYSTEMS: Positive for sore throat, decreased mentation. No nausea. No vomiting. Decreased energy level. Decreased appetite. No fever or chills. No headache. No diplopia. No syncopal episode. No abdominal pain. No hematochezia. No melena. No dysuria. No urinary frequency. MEDICATIONS: 1. Tylenol 650 mg q.4 p.r.n. 2. Demeclocycline 300 mg p.o. b.i.d. 3. Cymbalta 20 mg daily. 4. Lovenox 40 mg subcu daily. 5. Furosemide 20 mg daily. 6. Cortef 10 mg p.o. b.i.d. 7. K-Dur 20 mEq q.a.m. 8. [place] Thyroid 60 mg once a day. PAST MEDICAL HISTORY: 1. History of chronic hyponatremia. 2. Adrenal insufficiency. 3. Hypothyroidism. 4. Brain lesion-benign. 5. History of lung nodules. 6. Chronic anemia. 7. Aortic stenosis. 8. Hypertension. 9. Osteoporosis. PAST SURGICAL HISTORY: Status post partial removal of pituitary gland, history of bladder suspension, status post rectocele repair, status post hysterectomy, status post upper and lower GI endoscopy. SOCIAL HISTORY: The patient is and lives in the [facility]. Smoked for 10 years, half a pack a day. No IV drug use. No alcohol. No blood transfusion. Sedentary lifestyle. ALLERGIES: SULFA. TRAUMA: None. IMMUNIZATION: Up-to-date. HOSPITALIZATIONS: Please see past medical history. FAMILY HISTORY: No family history of ESRD. PHYSICAL EXAMINATION: VITAL SIGNS: Blood pressure is 119/81, heart rate 106, respiratory rate 18, temperature 97.7, pulse ox 92%. GENERAL: Awake, alert, somewhat lethargic, not in distress. SKIN: Decreased turgor. HEENT: She has pinkish conjunctivae. Anicteric sclerae. No neck mass. No carotid bruits. No JVD. CHEST: No deformities. LUNGS: Clear breath sounds. No wheezing. No crackles. HEART: Normal sinus rhythm. No murmur. No gallops or rubs. ABDOMEN: Globular, soft, and nontender. No masses. EXTREMITIES: No edema. No deformities. LABORATORY DATA: Laboratories of October 20, 2018; white count 10.7, hemoglobin 13.9, sodium 124, potassium 4.6, chloride 93, carbon dioxide 20, BUN 16, creatinine 0.81, glucose 94, calcium 8.1. On October 19, 2018; serum sodium was noted at 122. On October 18, 2018; serum sodium was 126. IMPRESSION: 1. Chronic hyponatremia-consider syndrome of inappropriate antidiuretic hormone secretion. Continue demeclocycline. Tolvaptan 15 mg p.o. has been started. We will recheck basic metabolic panel in a.m. 2. Decreased mentation-I think this is near her baseline. Her CAT scan initially was negative. A repeat CAT scan is pending today. For the moment, agree with current management on gentle diuresis. If needed, we could consider adding 1.5% sodium chloride with this patient depending on what her basic metabolic panel will be in the next 24 hours. Job ID: [id number]
[2018-10-20] MEDS: Hydrocortisone 10 mg Tablet PO SCH ×2 (11:10→21:40)
[2018-10-20] MEDS: Nystatin 500,000 UNITS/5 ML UDCUP SSW SCH ×4 (11:10→21:41)
[2018-10-20] MEDS: Thyroid 60 MG TAB PO SCH (11:11)
[2018-10-20] MEDS: Enoxaparin Sodium 40 MG/0.4 ML SYRINGE SC SCH (11:12)
[2018-10-20 11:25] LABS: Band 4 % (5-11); Eosinophils 1 % (0-10); Lymphocytes 11 % (21-51); MDiff Complete? YES; Monocytes 21 % (0-10); Neutrophil 63 % (42-75); Platelet Morphology Comment Appears Decreased; Polychromasia SLIGHT = 2-3 cells (100X) (0-2/hpf)
--- NOTE | 2018-10-20 11:47 | PRG ---
DATE OF SERVICE: 10/20/2018 SUBJECTIVE: The patient seems more lethargic today. Per the daughter, she was doing okay until yesterday about noon. After talking with her son, she became less responsive. She slept most of the afternoon. She did not tolerate physical therapy due to pain all over her whole body. She is refusing to swallow, stating she is having increased pain when she swallows, even difficulty with swallowing her saliva. Speech Therapy was consulted, but she has not been able to tolerate a Speech Therapy evaluation as she complains of pain all over. She denies any shortness of breath. Denies cough. Her appetite has decreased as well due to her difficulty with swallowing. OBJECTIVE: VITAL SIGNS: Temperature 97.7, pulse of 106, respirations 18, blood pressure 119/81, and pulse ox 92% to 95% on room air and 97% on 2 L nasal cannula. GENERAL: She is lying in bed, in no acute distress. She complains of pain with touching her body. HEENT: Mucosa is dry. NECK: Supple. HEART: Regular rate and rhythm. LUNGS: Clear. ABDOMEN: Soft. EXTREMITIES: With no edema. No calf tenderness. She complains of pain with moving all of her joints as well. LABORATORY DATA: Sodium 124, potassium 4.6, chloride 93, CO2 of 20, BUN and creatinine 16 and 0.81 with a GFR of 68, serum glucose of 94, and calcium of 8.1. Cortisols today was 11.0. White blood cell count 10.7, hemoglobin and hematocrit 13.9 and 43.9, and platelets of 113. Differential is pending. CT of the brain, which was just done this morning reveals no acute infarct, no hemorrhage, and no significant change from admission. ASSESSMENT AND PLAN: This is an 83-year-old female with a long history of chronic hyponatremia, syndrome of inappropriate antidiuretic hormone secretion, history of hypothyroidism, and adrenal insufficiency, admitted with mental status change. 1. Mental status change. She seemed to be improving yesterday and then had an episode, where she has declined again. CT not showing any sign of acute infarct, possibly secondary to her metabolic encephalopathy from hyponatremia. 2. Hyponatremia, not much improvement. Consulting Dr. Benoit, for further evaluation and assistance. Continue diuresis with Lasix 20 mg daily with potassium supplementation. We will await Dr. Benoit's evaluation. 3. Hypothyroidism. Appears to be stable on [place] Thyroid. Her T3 has increased. I will continue to follow. 4. Adrenal insufficiency. Again, appears stable with a hydrocortisone supplement. Cortisol levels will continue to be followed. 5. Functional decline. The patient is not tolerating physical therapy. We will continue to watch closely. Can continue to discuss with family as far as her condition and decline. 6. Dysphagia and odynophagia, possible thrush due to her taking the demeclocycline chronically, unable to the recommend esophagogastroduodenoscopy due to her condition. We will treat empirically with oral nystatin for possible esophagitis. Job ID: [id number]
[2018-10-20 15:28] LABS: Creatinine, Urine 64.81 mg/dL (47-110); Sodium, Urine Less than 20 mmol/L (Not Available)
[2018-10-21] MEDS ORDERED: Conivaptan 20 MG in Premix Bag 1 BAG IVPB SCH (08:30)
[2018-10-21] MEDS ORDERED: Dextrose 5% in Water 1,000 ML IV SCH (08:45)
--- NOTE | 2018-10-21 08:59 | PRG ---
DATE OF SERVICE: 10/21/2018 SUBJECTIVE: Ms. Greenwood is an 83-year-old white female, who was seen by the Renal Service for her hyponatremia. Serum sodium was said to have gone to as low as 122, but yesterday it was 124. I started her on tolvaptan, but she is not able to tolerate the p.o. med. For this reason, I will discontinue it, change it to IV form-conivaptan 20 mg to be given. If needed, we can always challenge this patient with sodium chloride at 1.5% solution. I am awaiting for repeat basic met this morning for this patient. The patient is still agitated and somewhat confused. CT scan of the head was done yesterday which showed no acute intracranial abnormality. The patient has also decreased p.o. intake. For this reason, the patient will be started on IV fluids. OBJECTIVE: VITAL SIGNS: Blood pressure is 118/70, heart rate 118, respiratory rate 20, temperature 98.6, and pulse ox 98%. GENERAL: Noted to be awake, arousable, but somewhat lethargic. SKIN: Decreased turgor. HEENT: She has a pinkish conjunctivae. Anicteric sclerae. No neck mass. No carotid bruits. No JVD. CHEST: No deformities. LUNGS: Clear breath sounds. HEART: Normal sinus rhythm. No murmurs, gallops, or rubs. ABDOMEN: Globular, soft, nontender. No masses. EXTREMITIES: No edema. No deformities. MEDICATIONS: Medications of 10/21/2018 were reviewed. LABORATORY DATA: Laboratories of /[id number]; white count 10.7, hemoglobin 13.9. Sodium 124, potassium 4.6, chloride 93, carbon dioxide 20, BUN 16, creatinine 0.81. 10/21/2018, basic met pending. Cortisol level 11.2. ASSESSMENT AND PLAN: Hyponatremia-consider the possibility of syndrome of inappropriate antidiuretic hormone secretion. However, I could not rule out the possibility of hypovolemic, hyponatremia in view of the fact that the patient has decreased p.o. intake. The patient will be started on IV fluid. We can consider starting the patient on D5 normal saline at 100 mL/h. The patient will also be started on conivaptan since she is not able to tolerate tolvaptan p.o. Overall, agree with current management. Continue supportive care. Job ID: [id number]
[2018-10-21 10:09] LABS: ALT (SGPT) Less than 7 U/L (8-55); AST (SGOT) 22 U/L (5-34); Albumin 3.1 g/dL (3.4-4.8); Alkaline Phosphatase 80 U/L (40-150); Anion Gap 18 mmol/L (10-20); BUN (Urea Nitrogen) 15 mg/dL (9.8-20.1); Bilirubin, Total 1.1 mg/dL (0.2-1.2); Calc. Creatinine Clearance 54 mL/min (70-130); Calcium 9.3 mg/dL (7.8-10.44); Carbon Dioxide 24 mmol/L (23-31); Chloride 92 mmol/L (98-107); Estimated GFR-MDRD 68; Globulin 4.4 g/dL (2.4-3.5); Potassium 4.3 mmol/L (3.5-5.1); Protein, Total 7.5 g/dL (6.0-8.3); Sodium 130 mmol/L (136-145)
[2018-10-21 10:57] LABS: Glucose 58 mg/dL (83-110)
[2018-10-21] MEDS: HYDROcodone/Acetaminophen 10/325 mg Tablet PO PRN (11:25)
[2018-10-21] MEDS: Nystatin 500,000 UNITS/5 ML UDCUP SSW SCH ×2 (11:27→11:54)
[2018-10-21] MEDS: Enoxaparin Sodium 40 MG/0.4 ML SYRINGE SC SCH (11:27)
[2018-10-21] MEDS: Potassium Chloride 20 MEQ TAB PO SCH (11:27)
[2018-10-21] MEDS: Hydrocortisone 10 mg Tablet PO SCH (11:27)
[2018-10-21] MEDS: Thyroid 60 MG TAB PO SCH (11:28)
[2018-10-21] MEDS: Dextrose 5 % And 0.9 % NaCl 1,000 ML IV SCH ×2 (11:34→23:26)
--- NOTE | 2018-10-21 16:03 | EKG ---
Test Reason : Blood Pressure : / mmHG Vent. Rate : 134 BPM Atrial Rate : 134 BPM P-R Int : 168 ms QRS Dur : 076 ms QT Int : 280 ms P-R-T Axes : 075 -47 073 degrees QTc Int : 418 ms Sinus tachycardia with occasional , and consecutive Premature ventricular complexes Left axis deviation Inferior infarct (cited on or before 15-OCT-2018) Anteroseptal infarct , age undetermined Abnormal ECG When compared with ECG of 15-OCT-2018 12:33, Significant changes have occurred Confirmed by MILLICENT CABRERA, DR. Cruz ([id number]) on 10/21/2018 4:02:36 PM Referred By: Trace ALFONSO Confirmed By:DR. Nancy RICKS MD
--- NOTE | 2018-10-21 17:53 | PRG ---
DATE OF SERVICE: 10/21/2018 SUBJECTIVE: The patient continues to not take p.o. well. She is more lethargic, not as responsive. She does respond to verbal stimuli. She wakes up when she is touched or moved. Poor p.o. intake. She is not tolerating physical therapy, but was able to move in bed a little bit better yesterday. She continues to have pain with swallowing. Speech therapy evaluation is in progress. OBJECTIVE: VITAL SIGNS: Temperature 98.6, pulse of 100 to 115, respirations 16 to 20, blood pressure 118/70, pulse ox 98% on room air. GENERAL: She is alert and responds to verbal and painful stimuli. Hesitates to move due to pain. HEENT: Mucosa is dry. NECK: Supple. HEART: Tachycardic. LUNGS: Clear. ABDOMEN: Soft. EXTREMITIES: No edema. LABORATORY DATA: Sodium is 130, potassium 4.3, chloride 92, CO2 is 24, BUN and creatinine are 15 and 0.81, serum glucose of 68, AST and ALT are normal, albumin is down to 3.1, cortisol 11.5. ASSESSMENT AND PLAN: This is an 83-year-old female with a history of syndrome of inappropriate antidiuretic hormone secretion and adrenal insufficiency, admitted for mental status change and hyponatremia. 1. Mental status change. She seems to be clearing in her mentation, but continues to decline as far as her ability to function. CAT scan showed normal brain, no signs of infarction. Hyponatremia is improved. Definitely poor nutrition is related to her decreased function. 2. Hyponatremia is improving. We will continue Lasix and further plan per Dr. Benoit. 3. Hypothyroidism, stable. We will continue the [place] Thyroid. 4. Adrenal insufficiency. Again, appears to be stable with cortisol levels staying within normal limits. 5. Functional decline. Had long discussion with family about her nutritional state. I asked the patient and she fervently declined and does not want to have a PEG tube placed. The family agrees with her eating and risk of aspiration and they would like to proceed with IV fluids and encouraging oral intake. Had discussion with Speech Therapy about best way to reduce her risks and will proceed in that way. 6. Dysphagia, possible thrush. She has not been able to tolerate nystatin. We will try Magic mouthwash with nystatin for likely thrush esophagitis. Job ID: [id number]
[2018-10-21] MEDS: Aluminum & Magnesium Hydroxide 60 ML, diphenhydrAMINE 150 MG, Lidocaine 2% Viscous Solu... SSW SCH ×2 (18:23→23:36)
[2018-10-22 08:47] LABS: Anion Gap 14 mmol/L (10-20); BUN (Urea Nitrogen) 14 mg/dL (9.8-20.1); Calc. Creatinine Clearance 59 mL/min (70-130); Calcium 8.3 mg/dL (7.8-10.44); Carbon Dioxide 21 mmol/L (23-31); Chloride 101 mmol/L (98-107); Estimated GFR-MDRD 74; Glucose 137 mg/dL (83-110); Potassium 3.9 mmol/L (3.5-5.1); Sodium 132 mmol/L (136-145)
[2018-10-22 08:57] LABS: T4 4.9 ug/dL (4.87-11.72)
[2018-10-22 09:04] LABS: Hemoglobin 12.1 g/dL (12.0-16.0); Mean Corpuscular HGB CONC 30.7 g/dL (32.0-36.0); Mean Corpuscular Hemoglobin 29.1 pg (27.0-31.0); Mean Corpuscular Volume 94.8 fL (78.0-98.0); Mean Platelet Volume 8.8 fL (7.4-10.4); Platelet Count 135 thou/uL (130-400); RBC Distribution Width 12.8 % (11.5-14.5); Red Blood Cell (RBC) Count 4.16 mill/uL (4.20-5.40); White Blood Cell (WBC) Count 9.1 thou/uL (4.8-10.8)
--- NOTE | 2018-10-22 09:27 | RAD ---
PORTABLE CHEST: Date: 10/22/18 HISTORY: Fever. COMPARISON: 10/30/17 study. FINDINGS: Heart size within normal limits. There are atherosclerotic changes of the aorta. There is some slight increased density in the right upper lobe. This is probably just related to a confluence of vascular markings and rib, but an infiltrate is not totally excluded, and a pulmonary nodule is also not tota lly excluded. PA and lateral chest film may be helpful in excluding underlying pathology. There are c hronic lung changes noted. IMPRESSION: 1. Chronic lung changes. 2. Slightly prominent right suprahilar density, probably superimpositioned, but a PA and lateral julien st film is recommended for assessment. POS: TPC
--- NOTE | 2018-10-22 09:42 | PRG ---
DATE OF SERVICE: 10/22/2018 SUBJECTIVE: Ms. Greenwood is an 83-year-old female, who was seen for her chronic hyponatremia. She was placed on a restriction of free water and this improved her serum sodium. There was an attempt to use tolvaptan initially, but she could not swallow the pill. I tried to shift that to conivaptan, but the conivaptan was not available. Subsequent repeat serum sodium shows it was improved to 130 yesterday and it is now currently 132. The plan is simply to continue her current demeclocycline, hold off tolvaptan and conivaptan. No other new complaints. The patient is more awake and alert. OBJECTIVE: VITAL SIGNS: Blood pressure 138/73, heart rate 104, temperature is 100.1, respiratory rate 16, and pulse ox 99%. GENERAL: Noted to be awake, alert, comfortable, not in overt distress. SKIN: Adequate turgor. HEENT: She has pinkish conjunctivae. Anicteric sclerae. NECK: No neck mass. No carotid bruits. No JVD. CHEST: No deformities. LUNGS: Clear breath sounds. No wheezing. No crackles. HEART: Normal sinus rhythm. No murmur. No gallops. No rubs. ABDOMEN: Globular, soft, and nontender. No masses. EXTREMITIES: No edema. No deformities. MEDICATIONS: Medications of October 22, 2018 were reviewed. LABORATORY DATA: Laboratories of October 22, 2018; white count 9.1, hemoglobin 12.1. Sodium 132, potassium 3.9, chloride 101, carbon dioxide 21, BUN 14, creatinine 0.75, glucose 137, and calcium 8.3. TSH is 0.0128. ASSESSMENT AND PLAN: 1. Hyponatremia, much improved with free water restriction. Due to the decreased p.o. intake, she was placed on D5 normal saline. She seems to be tolerating the normal saline. We will continue with the free water restriction. No indication for any tolvaptan or conivaptan at the present time, holding off hypertonic saline. We will recheck a basic met tomorrow. 2. Fever? of underlying viral infection. Job ID: [id number]
[2018-10-22] MEDS: Potassium Chloride 20 MEQ TAB PO SCH (09:47)
[2018-10-22] MEDS: Thyroid 60 MG TAB PO SCH ×2 (09:48→11:36)
[2018-10-22] MEDS: Enoxaparin Sodium 40 MG/0.4 ML SYRINGE SC SCH ×2 (09:49→11:35)
[2018-10-22] MEDS: Hydrocortisone 10 mg Tablet PO SCH ×2 (09:49→11:35)
[2018-10-22] MEDS: Aluminum & Magnesium Hydroxide 60 ML, diphenhydrAMINE 150 MG, Lidocaine 2% Viscous Solu... SSW SCH ×2 (10:17→15:03)
[2018-10-22] MEDS: HYDROcodone/Acetaminophen 10/325 mg Tablet PO PRN (10:32)
[2018-10-22 12:11] LABS: Band 5 % (5-11); Lymphocytes 12 % (21-51); MDiff Complete? YES; Monocytes 30 % (0-10); Neutrophil 53 % (42-75); RBC Morphology Normal
[2018-10-22 18:30] LABS: Bilirubin Negative (Negative); Blood, Urine Negative (Negative); Clarity CLEAR (Clear); Glucose, Urine (Dipstick) Negative (Negative); Leukocyte Negative (Negative); Nitrite Negative (Negative); Protein, Urine (Dipstick) Negative (Neg-Trace); Specific Gravity, Urine 1.014 (1.002-1.036)
[2018-10-22 18:31] LABS: Bacteria/HPF None Seen HPF (None Seen); Hyaline Casts/LPF 0-3 HYALINE CAST LPF (0-3 Hyaline); Pathc Cast-AUWi Flag 0.29 (0-2.49); Squamous Epithelial None Seen HPF (0-3); WBC/HPF 0-3 HPF (0-3)
[2018-10-22 18:42] LABS: RBC/HPF None Seen HPF (0-3)
[2018-10-22] MEDS ORDERED: Acetaminophen 650 MG Suppository PR PRN (22:30)
[2018-10-22] MEDS: ALUMINUM TOP SCH (22:53)
[2018-10-22] MEDS: DIPHENHYDRAMINE TOP SCH (22:53)
[2018-10-22] MEDS: [UNRECOGNIZED DRUG - OTHER] TOP SCH (22:53)
[2018-10-22] MEDS: MAGNESIUM HYDROXIDE TOP SCH (22:53)
--- NOTE | 2018-10-23 01:23 | HP ---
SUBJECTIVE: The patient is more awake and alert today, but more agitated, complaining of her family being around. Daughter states that she was able to swallow some sips of water this morning with less pain and wants to continue the partial oral intake. The patient is continued to be evaluated by speech therapy and doing well with swallowing with speech therapy. Family understands that she is swallowing at risk of aspirating. She continues to be weak. She has not been tolerating physical therapy, but is moving better in her bed. Still no bowel movement, but has had little to eat orally. OBJECTIVE: VITAL SIGNS: This morning 100.1, pulse of 110-114, respirations 16, blood pressure 138/73, pulse ox is 99% on room air. GENERAL: She is awake and alert. She does appear agitated, but no acute distress. Mucosa is dry. NECK: Supple. HEART: Tachycardic. LUNGS: Clear bilaterally. ABDOMEN: Soft, nontender, and nondistended. EXTREMITIES: With no edema, but she moves her upper and lower extremities better with no difficulty. LABORATORY DATA: White blood cell count 9100, hemoglobin and hematocrit 12.1 and 39.4, platelets of 135, normal differential. Sodium 132, potassium 3.9, chloride 101, CO2 of 21, BUN and creatinine 14 and 0.75, serum glucose of 137. Accu- Cheks of 122,135,156. Calcium of 8.3. T4 4.9, free T3 was less than 1.0. TSH of 0.0128. Cortisol of 10.4. IMAGING: A chest x-ray showed no active disease and no significant change from prior, but EKG yesterday revealed sinus tachycardia, age undetermined anteroseptal infarct. ASSESSMENT AND PLAN: This is an 83-year-old female patient with a history of syndrome of inappropriate antidiuretic hormone, adrenal insufficiency, admitted for mental status change and hyponatremia. 1. Mental status change. It seems to be close to her baseline. Her mentation does come and go. She does seem more agitated today, but no acute distress. 2. Hyponatremia, is resolved. She is at normal sodium level this time. We will continue Lasix and demeclocycline as well as fluid restriction as per Dr. Benoit. 3. Hypothyroidism. Her T3 continues to decline. She has not been able to swallow her thyroid replacement in the last 2 days. We will continue to monitor when she is able to take p.o. better. 4. Adrenal insufficiency appears to be stable with cortisols levels staying within normal limits. 5. Functional decline, seems to be improving today. Again, the patient's family declining the Percutaneous endoscopic gastrostomy tube for nutrition and she is swallowing at rest. Appreciate speech therapy evaluation and monitoring. The family understands the risk of aspiration and developing pneumonia, if she continues to eat. 6. Dysphagia and odynophagia. Throat culture is pending. Possible thrush. We will continue nystatin and Magic mouthwash to see if that continues to help with her sore throat and esophagitis symptoms. Job ID: [id number] [facility]
[2018-10-23] MEDS: Enoxaparin Sodium 40 MG/0.4 ML SYRINGE SC SCH (08:09)
[2018-10-23] MEDS: Thyroid 60 MG TAB PO SCH (08:10)
[2018-10-23] MEDS: Hydrocortisone 10 mg Tablet PO SCH (08:10)
[2018-10-23] MEDS: Potassium Chloride 20 MEQ TAB PO SCH (08:10)
[2018-10-23] MEDS: Dextrose 5 % And 0.9 % NaCl 1,000 ML IV SCH ×3 (08:11→15:48)
--- NOTE | 2018-10-23 08:33 | PRG ---
DATE OF SERVICE: 10/23/2018 SUBJECTIVE: The patient seems to be mentally clearing. She is alert. She answers questions appropriately. Per her daughter, she continues to be "mean" especially when the family is around. She has swallowed some milk this morning, but is continued to have problems swallowing, eating, and taking her medications. I discussed with speech therapy yesterday and they state that she is still having aspiration with swallowing. Family understands the risks. The patient continues to be weak due to poor nutrition per the family. She is more interested in having a PEG tube placed and in discussion with the patient, she has been in agreement to having a feeding tube placed at this point. OBJECTIVE: VITAL SIGNS: Temperature 98.7, T-max of 101.7, pulse of 117, respirations 20, blood pressure 130/77, pulse ox is 98% on room air. GENERAL: She is awake and alert. She is lethargic but answers questions appropriately. She smiles. HEENT: Mucosa is dry. NECK: Supple. HEART: Regular rate and rhythm. LUNGS: Clear anteriorly. ABDOMEN: Soft. EXTREMITIES: With no edema. 2+ peripheral pulses bilaterally. LABORATORY DATA: Laboratory data is pending. Accu-Cheks of 129, 124, 122, 135. Urinalysis from yesterday was clear. No signs of UTI. Chest x-ray yesterday showed no active disease. Throat culture growing gram-negative concepción, but no single organism at this time. Blood cultures are pending. ASSESSMENT AND PLAN: This is an 83-year-old female patient with a history of syndrome of inappropriate antidiuretic hormone secretion and adrenal insufficiency, history of dementia and anxiety, who is admitted for mental status change and hyponatremia. 1. Mental status change. She seems to be back to her baseline, still has periods of agitation. 2. Hyponatremia, appears to resolve. Continue fluid restriction. Lasix and demeclocycline. Further plan as per Dr. Benoit. Awaiting labs from this morning. 3. Dysphagia and odynophagia, possible esophagitis. The patient is now willing to have a PEG tube placed. We will consult GI for EGD and PEG tube placement. May do this and they would also like to look at the esophagus as far as the cause of her problems, pain with swallowing. 4. Hypothyroidism. We will continue with thyroid replacement. Hopefully will be better controlled once the PEG tube is placed. Job ID: [id number]
[2018-10-23 08:40] LABS: Anion Gap 11 mmol/L (10-20); BUN (Urea Nitrogen) 11 mg/dL (9.8-20.1); Calc. Creatinine Clearance 58 mL/min (70-130); Calcium 8.1 mg/dL (7.8-10.44); Carbon Dioxide 21 mmol/L (23-31); Chloride 106 mmol/L (98-107); Estimated GFR-MDRD 73; Glucose 118 mg/dL (83-110); Potassium 3.6 mmol/L (3.5-5.1); Sodium 134 mmol/L (136-145)
[2018-10-23] MEDS: ALUMINUM TOP SCH ×3 (09:26→20:52)
[2018-10-23] MEDS: DIPHENHYDRAMINE TOP SCH ×3 (09:26→20:52)
[2018-10-23] MEDS: [UNRECOGNIZED DRUG - OTHER] TOP SCH ×3 (09:26→20:52)
[2018-10-23] MEDS: MAGNESIUM HYDROXIDE TOP SCH ×3 (09:26→20:52)
--- NOTE | 2018-10-23 10:39 | RAD ---
PA AND LATERAL CHEST: HISTORY: Fever. COMPARISON: Exam from the previous day. FINDINGS: The heart size is normal. The lungs are well expanded with an infiltrate in the left lung base. No pneumothoraces are seen. A small left pleural effusion may be present. IMPRESSION: Left-sided pneumonia. POS: C
[2018-10-23] MEDS ORDERED: CEFAZOLIN 2 GM/50 ML BAG ONE (12:24)
[2018-10-23] MEDS ORDERED: Promethazine HCl 25 MG/ML VIAL IM PRN (13:03)
[2018-10-23] MEDS ORDERED: Ondansetron HCl/PF 4 MG/2 ML Vial IVP PRN (13:03)
[2018-10-23] MEDS ORDERED: Promethazine HCl 25 MG/ML VIAL SLOW IVP PRN (13:03)
[2018-10-23] MEDS ORDERED: Lidocaine 1% PF 5 ML VIAL ONE (13:51)
[2018-10-23] MEDS ORDERED: PROPOFOL 200 MG/20 ML VIAL ONE (13:51)
--- NOTE | 2018-10-23 14:28 | CON ---
DATE OF CONSULTATION: REASON FOR CONSULTATION: Request for PEG tube placement. HISTORY OF PRESENT ILLNESS: Ms. Greenwood is an 83-year-old female admitted with hyponatremia and altered mental status. Apparently, she has had fluctuating issues with hyponatremia and being worked up by primary physician and Nephrology. Apparently, she also has history of early dementia and failure to thrive. She has not been eating well recently. After a long conversation between her primary physician from clinic who is seeing her in the hospital and her family, we have decided to proceed with a PEG tube placement. She has been admitted since October 15 and ultimately they all come to a conclusion that they want to place a feeding tube. PAST HISTORY: Hypothyroidism, adrenal insufficiency, history of SIADH, chronic idiopathic constipation, recurrent hyponatremia, depression, psychotropic insomnia. PAST SURGICAL HISTORY: Hysterectomy, bladder suspension, rectocele repair, partial removal of pituitary gland in 2010. MEDICATIONS: 1. Evista. 2. Omeprazole. 3. Levothyroxine. 4. Magnesium. 5. Demeclocycline. 6. Cymbalta. 7. Hydrocortisone. 8. Potassium chloride. FAMILY HISTORY: Brother with thyroid cancer and brother with multiple myeloma. SOCIAL HISTORY: Former smoker. She is retired. She history. ALLERGIES: CIPRO, BACTRIM, SULFA. HOME MEDICATIONS: 1. Temazepam. 2. Potassium chloride. 3. Polyethylene glycol. 4. Omeprazole. 5. Magnesium. 6. Synthroid. 7. Cortef. 8. [place]. 9. Demeclocycline. 10. Cymbalta. 11. Norvasc. MEDICATIONS HERE: 1. Tylenol. 2. Lidocaine. 3. Nystatin. 4. Diphenhydramine topical. 5. Dulcolax. 6. Demeclocycline. 7. Lovenox, last dose this morning, prophylactic. 8. Hydrocodone. 9. Cortef. 10. Protonix. 11. Potassium chloride. 12. Synthroid. PHYSICAL EXAMINATION: GENERAL: The patient is resting comfortably in bed. She is in no distress. She does not relate much history. She denies any abdominal pain. VITAL SIGNS: Temperature is 98, pulse 97, T-max 101.7 on 10/22, blood pressure 166/97. LUNGS: Clear. HEENT: Oropharynx dry. HEART: Regular rate and rhythm. ABDOMEN: Nontender. LABORATORY DATA: White count 10.7 on , yesterday white count 9.1, hemoglobin 12.1, platelet count 135. Sodium 134, potassium 3.6, chloride 106, bicarb 21. BUN and creatinine 11 and 0.76. Albumin was 3.1, protein was 7.5, globulin was 4.4. On 10/21, liver function tests were normal. Chest x-ray reveals questionable hilar fullness. On 10/22, CAT scan reveals atrophic white matter. Repeat x-ray on 10/23/2018, left-sided pneumonia. ASSESSMENT: 1. Oropharyngeal dysphagia with aspiration. 2. Some dementia. 3. History of syndrome of inappropriate antidiuretic hormone secretion. 4. History of adrenocortical insufficiency. PLAN: At this time, the family and the primary physician discussed options for feeding versus palliative care. They want to go ahead and proceed with PEG tube feeding or enteral feeding and I have asked to place a PEG tube. Risks, benefits, and possible complications of procedure including perforation, bleeding, aspiration, infection, and ongoing risk of aspiration with tube feedings. The patient's family has agreed and wants to proceed. Job ID: [id number]
--- NOTE | 2018-10-23 14:57 | OP ---
DATE OF PROCEDURE: 10/23/2018 PROCEDURE: Esophagogastroduodenoscopy with percutaneous endoscopic gastrostomy tube placement. PREPROCEDURE DIAGNOSES: 1. Oropharyngeal dysphagia. 2. Aspiration. 3. Altered mental status. 4. Chronic failure to thrive over the past couple of months. POSTPROCEDURE DIAGNOSES: 1. A 7-cm sliding-type hiatal hernia with hiatus at 40 cm. 2. Normal esophagus. 3. Otherwise, normal stomach. 4. Normal duodenum. 5. Percutaneous endoscopic gastrostomy tube placed by Ponsky pull technique. ANESTHESIA TIVA. Ancef 2 g IV given for prophylaxis. RECOMMENDATIONS: 1. Start tube feeds in 4 hours. Start use of PEG for medicine in 2 hours. 2. Keep head of bed elevated to decrease risk of aspiration hiatal hernia. 3. Tube feeds per Primary Service and Dietary Services. ANESTHESIA: TIVA. DESCRIPTION OF PROCEDURE: The patient was informed of the risks, benefits, and possible complications of endoscopy including perforation, reaction to medication, and aspiration, informed consent was obtained. After the risks and benefits were reviewed with the granddaughter at the bedside and the consent from daughter the patient was brought to the endoscopy suite, where she was sedated in gradual fashion. The endoscope was advanced through the bite block to esophagus, and the second and third portion of duodenum. The hiatal hernia was noted and documented in forward and retroflexed views. No other lesions were noted there. The stomach and duodenum otherwise appeared normal. Adequate place for PEG tube placement was identified by finger indentation and transillumination. The PEG tube was placed by Ponsky pull technique. Second look revealed good position. The scope was removed and the patient tolerated the procedure well. No complications. Job ID: [id number]
--- NOTE | 2018-10-23 18:42 | PRG ---
DATE OF SERVICE: 10/23/2018 RENAL MEDICINE. SUBJECTIVE: Ms. Greenwood is an 83-year-old white female seen by the Renal Service for her acute hyponatremia on top of her chronic hyponatremia. She was at that time placed on a strict free water restriction. Empiric D5 normal saline was also given and it improved her serum sodium. She is also currently on demeclocycline. In the interim, she has been having dysphagia and aspiration. An upper GI endoscopy was done with percutaneous endoscopic gastrostomy. Gastrostomy tube placement was also done. No other complaints today. OBJECTIVE: VITAL SIGNS: Blood pressure is noted 130/77, temperature is 98.2, heart rate 76, respiratory rate 24, and pulse ox 98%. GENERAL: Noted to be awake, comfortable, not in overt distress. SKIN: Adequate turgor. HEENT: Pinkish conjunctivae. Anicteric sclerae. NECK: No neck mass. No carotid bruits. No JVD. CHEST: No deformities. LUNGS: Decreased breath sounds. HEART: Normal sinus rhythm. No murmurs, gallops, or rubs. ABDOMEN: Globular, soft, nontender. Positive for PEG tube. EXTREMITIES: No edema. No deformities. MEDICATIONS: Medications of October 23, 2018, reviewed. LABORATORY DATA: Laboratories of October 23, 2018; sodium 134, potassium 3.6, chloride 106, carbon dioxide 21, BUN 11, creatinine 0.76, glucose 118, calcium 8.1. ASSESSMENT AND PLAN: 1. Hyponatremia - acute on chronic - stabilizing serum sodium. Serum sodium is actually much improved with conservative management. Continue free water restriction. The patient currently on D5 normal saline. In addition, we will continue demeclocycline. 2. Fever/aspiration pneumonia - currently on Levaquin. The patient has a percutaneous endoscopic gastrostomy tube placed now. Feeding will be done by percutaneous endoscopic gastrostomy tube. Overall agree with current management. Job ID: [id number]
[2018-10-23] MEDS: Acetaminophen 325 MG TAB PO PRN (20:49)
[2018-10-23] MEDS: HYDROcodone/Acetaminophen 10/325 mg Tablet PO PRN (23:15)
[2018-10-24] MEDS: HYDROcodone/Acetaminophen 10/325 mg Tablet PO PRN ×3 (04:58→21:37)
[2018-10-24] MEDS: Dextrose 5 % And 0.9 % NaCl 1,000 ML IV SCH ×2 (05:30→17:43)
[2018-10-24 06:04] LABS: Anion Gap 10 mmol/L (10-20); BUN (Urea Nitrogen) 11 mg/dL (9.8-20.1); Calc. Creatinine Clearance 57 mL/min (70-130); Calcium 8.2 mg/dL (7.8-10.44); Carbon Dioxide 24 mmol/L (23-31); Chloride 110 mmol/L (98-107); Estimated GFR-MDRD 71; Glucose 112 mg/dL (83-110); Potassium 3.6 mmol/L (3.5-5.1); Sodium 140 mmol/L (136-145)
[2018-10-24 06:40] LABS: Band 15 % (5-11); Eosinophils 4 % (0-10); Hemoglobin 11.4 g/dL (12.0-16.0); Lymphocytes 19 % (21-51); MDiff Complete? YES; Mean Corpuscular HGB CONC 32.6 g/dL (32.0-36.0); Mean Corpuscular Hemoglobin 30.5 pg (27.0-31.0); Mean Corpuscular Volume 93.5 fL (78.0-98.0); Mean Platelet Volume 8.6 fL (7.4-10.4); Monocytes 18 % (0-10); Neutrophil 44 % (42-75); Platelet Count 101 thou/uL (130-400); Platelet Morphology Comment Appears Decreased; RBC Distribution Width 12.6 % (11.5-14.5); Red Blood Cell (RBC) Count 3.75 mill/uL (4.20-5.40); White Blood Cell (WBC) Count 6.9 thou/uL (4.8-10.8)
[2018-10-24] MEDS: Enoxaparin Sodium 40 MG/0.4 ML SYRINGE SC SCH (07:43)
[2018-10-24] MEDS: Hydrocortisone 10 mg Tablet PO SCH (07:44)
[2018-10-24] MEDS: Thyroid 60 MG TAB PO SCH (07:44)
[2018-10-24] MEDS: ALUMINUM TOP SCH ×3 (07:45→21:41)
[2018-10-24] MEDS: [UNRECOGNIZED DRUG - OTHER] TOP SCH ×3 (07:45→21:41)
[2018-10-24] MEDS: MAGNESIUM HYDROXIDE TOP SCH ×3 (07:45→21:41)
[2018-10-24] MEDS: Potassium Chloride 20 MEQ TAB PO SCH (07:45)
[2018-10-24] MEDS: DIPHENHYDRAMINE TOP SCH ×3 (07:45→21:41)
--- NOTE | 2018-10-24 12:19 | PRG ---
DATE OF SERVICE: 10/24/2018 SUBJECTIVE: Ms. Greenwood is an 83-year-old white female, who was initially seen by the Renal Service for her acute hyponatremia/chronic hyponatremia. Fluid restriction was done. She was felt also to be volume depleted and for that reason, was given D5 normal saline. This has improved her serum sodium well over time. She has been on chronic demeclocycline. Due to the much improved serum sodium, we will discontinue the demeclocycline for the moment. She also had a PEG tube placed due to her aspiration pneumonia. She is complaining of diffuse myalgia. No complaints of shortness of breath. OBJECTIVE: VITAL SIGNS: Blood pressure is 148/79, heart rate 92, respiratory rate 20, temperature 97.4, and pulse ox 95%. GENERAL: Noted to be awake, alert, comfortable, not in overt distress. SKIN: Adequate turgor. HEENT: She has a pinkish conjunctivae. Anicteric sclerae. NECK: No neck mass. No carotid bruits. No JVD. CHEST: No deformities. LUNGS: Clear breath sounds. No wheezing. No crackles. HEART: Normal sinus rhythm. No murmurs. No gallops. No rubs. ABDOMEN: Globular, soft, nontender. No masses. Positive for PEG tube. EXTREMITIES: No edema. No deformities. MEDICATIONS: Medications of October 24, 2018, was reviewed. LABORATORY DATA: Laboratories of October 24, 2018; white count 6.9, hemoglobin 11.4. Sodium 140, potassium 3.6, chloride 110, carbon dioxide 24, BUN 11, creatinine 0.78, glucose 112, and calcium 8.2. ASSESSMENT AND PLAN: 1. Hyponatremia, much improved serum sodium. Continue current management. No indication for any conivaptan or tolvaptan for the moment. We will discontinue the demeclocycline. 2. Aspiration pneumonia - currently, the patient has a PEG tube placed. Continue current management. 3. Diffuse myalgia. P.r.n. pain medications. Recheck basic metabolic panel and CBC in a.m. Job ID: [id number]
[2018-10-24] MEDS: Albuterol Sulfate 1.25 MG/3 ML NEB NEB SCH ×3 (13:00→23:42)
--- NOTE | 2018-10-24 13:03 | PRG ---
DATE OF SERVICE: 10/24/2018 SUBJECTIVE: This morning, the daughter, Lily, is present. She states that the patient is restless and in some pain. Somewhat more agitated this morning. Presently being treated for aspiration pneumonia, which may have occurred 2 days ago. The patient was continuing to drink and eat at that time. Yesterday, she had a PEG placed and awaiting orders for her to be in tube feeds. OBJECTIVE: VITAL SIGNS: Temperature 97.4, pulse 92, respirations 20, pulse ox 95, and blood pressure 140/79. HEART: Regular rate and rhythm. LUNGS: With bilateral occasional rhonchi. ABDOMEN: Soft. LABORATORY DATA: White count 6.9, H and H are 11 and 35. Sodium 140, potassium 3.6, creatinine 0.78, and blood sugar 112. ASSESSMENT: 1. Postop day #1, status post percutaneous endoscopic gastrostomy placement. 2. Syndrome of inappropriate antidiuretic hormone secretion with adrenal insufficiency. 3. Left-sided aspiration pneumonia. 4. Hypothyroidism. PLAN: 1. Begin PEG feeds. 2. Add albuterol neb treatments q.6. 3. Continue IV Levaquin. 4. We will continue to follow. Job ID: [id number]
--- NOTE | 2018-10-24 14:25 | PRG ---
DATE OF SERVICE: 10/24/2018 Ms. Greenwood is tolerating tube feeds that have been started. She is breathing well. Vital signs are stable. Abdomen is nontender. PEG tube site looks clean and dry, I have inspected and a bumper loosened. ASSESSMENT: Status post PEG tube with good functioning and good appearance. RECOMMENDATIONS: Clean site daily with soap and water. We will sign off. If I can be of any further assistance in this patient's care if there is any issue with the PEG, please do not hesitate to contact me. Job ID: [id number]
[2018-10-25] MEDS: HYDROcodone/Acetaminophen 10/325 mg Tablet PO PRN ×2 (05:22→13:40)
[2018-10-25] MEDS: Albuterol Sulfate 1.25 MG/3 ML NEB NEB SCH ×3 (07:19→18:33)
[2018-10-25] MEDS: Thyroid 60 MG TAB PO SCH (07:47)
[2018-10-25] MEDS: Hydrocortisone 10 mg Tablet PO SCH (07:47)
[2018-10-25] MEDS: Potassium Chloride 20 MEQ TAB PO SCH (07:47)
[2018-10-25] MEDS: Enoxaparin Sodium 40 MG/0.4 ML SYRINGE SC SCH (07:47)
[2018-10-25] MEDS: [UNRECOGNIZED DRUG - OTHER] TOP SCH ×3 (07:48→19:21)
[2018-10-25] MEDS: ALUMINUM TOP SCH ×3 (07:48→19:21)
[2018-10-25] MEDS: MAGNESIUM HYDROXIDE TOP SCH ×3 (07:48→19:21)
[2018-10-25] MEDS: DIPHENHYDRAMINE TOP SCH ×3 (07:48→19:21)
[2018-10-25 08:06] LABS: Anion Gap 10 mmol/L (10-20); BUN (Urea Nitrogen) 10 mg/dL (9.8-20.1); Calc. Creatinine Clearance 65 mL/min (70-130); Calcium 8.3 mg/dL (7.8-10.44); Carbon Dioxide 22 mmol/L (23-31); Chloride 110 mmol/L (98-107); Estimated GFR-MDRD 83; Glucose 117 mg/dL (83-110); Potassium 3.4 mmol/L (3.5-5.1); Sodium 139 mmol/L (136-145)
[2018-10-25 08:20] LABS: Band 3 % (5-11); Eosinophils 4 % (0-10); Hemoglobin 11.3 g/dL (12.0-16.0); Lymphocytes 33 % (21-51); MDiff Complete? YES; Mean Corpuscular HGB CONC 31.1 g/dL (32.0-36.0); Mean Corpuscular Hemoglobin 29.7 pg (27.0-31.0); Mean Corpuscular Volume 95.4 fL (78.0-98.0); Mean Platelet Volume 9.5 fL (7.4-10.4); Monocytes 13 % (0-10); Neutrophil 47 % (42-75); Platelet Count 93 thou/uL (130-400); Platelet Morphology Comment Appears Decreased; RBC Distribution Width 12.8 % (11.5-14.5); Red Blood Cell (RBC) Count 3.81 mill/uL (4.20-5.40); White Blood Cell (WBC) Count 6.4 thou/uL (4.8-10.8)
[2018-10-25] MEDS: Dextrose 5 % And 0.9 % NaCl 1,000 ML IV SCH ×2 (11:09→22:02)
--- NOTE | 2018-10-25 11:49 | PRG ---
DATE OF SERVICE: 10/25/2018 SUBJECTIVE: The patient is relatively stable. PEG tube feedings have begun. Trying to restrict the patient from drinking and eating. She remains somewhat combative. Daughter states that she gets this way when her sodium gets low and then takes days to recover. She is very verbally abusive to her daughters. OBJECTIVE: VITAL SIGNS: Temperature 99.5, pulse 86, respirations 19, pulse ox 95, blood pressure 120/70. HEART: Regular rate. LUNGS: Clear. ABDOMEN: Soft. PEG intact, clear. LABORATORY DATA: White count 6.4, H and H are 11 and 36. Sodium 139, potassium 3.4, chloride 110, CO2 22, creatinine 0.68, BUN 10. Blood sugar on 10/14, 117. ASSESSMENT: 1. Postop day #2, status post percutaneous endoscopic gastrostomy placement. 2. Syndrome of inappropriate antidiuretic hormone secretion with adrenal insufficiency. 3. Left-sided aspiration pneumonia, improving. 4. Hypothyroid. PLAN: 1. Continue PEG feeds. 2. Recheck labs in a.m. 3. Continue neb treatments. 4. Continue IV Levaquin. 5. Daughter today is very frustrated from the verbal abuse from the patient. She is requesting Endocrinology evaluation. I agree that this will have to be done on an outpatient basis. There are no beam doffer to come to the hospital. We will talk with Dr. Mccord. We will have to coordinate the patient's care between the four sisters that alternate care. Evidently, the patient is being seen by a home physician on regular basis and occasionally sees Dr. Mccord. We will discuss with Dr. Mccord. Job ID: [id number]
[2018-10-25] MEDS: Acetaminophen 325 MG TAB PO PRN (19:18)
[2018-10-25] MEDS: Bisacodyl 5 MG TAB PO PRN (19:19)
[2018-10-26] MEDS: Albuterol Sulfate 1.25 MG/3 ML NEB NEB SCH ×4 (00:15→18:49)
[2018-10-26] MEDS: Acetaminophen 325 MG TAB PO PRN ×2 (04:28→21:16)
[2018-10-26] MEDS ORDERED: Bisacodyl 10 MG SUPP PR PRN (08:09)
[2018-10-26] MEDS: Enoxaparin Sodium 40 MG/0.4 ML SYRINGE SC SCH (08:42)
[2018-10-26] MEDS: Potassium Chloride 20 MEQ TAB PO SCH (08:42)
[2018-10-26] MEDS: Hydrocortisone 10 mg Tablet PO SCH (08:42)
[2018-10-26] MEDS: DIPHENHYDRAMINE TOP SCH ×3 (08:43→21:10)
[2018-10-26] MEDS: ALUMINUM TOP SCH ×3 (08:43→21:10)
[2018-10-26] MEDS: [UNRECOGNIZED DRUG - OTHER] TOP SCH ×3 (08:43→21:10)
[2018-10-26] MEDS: MAGNESIUM HYDROXIDE TOP SCH ×3 (08:43→21:10)
--- NOTE | 2018-10-26 08:51 | PRG ---
DATE OF SERVICE: 10/26/2018 SUBJECTIVE: The patient continues to be confused, more agitated at night, yelling out at family members at night, poor sleep since she has not been getting her usual Ambien at nighttime. Tolerating physical therapy better. Sat up to the end of the bed over the weekends. Family states that her strength seems to be better and overall seems to be improved except for the agitation and irritability. OBJECTIVE: VITAL SIGNS: Temperature 98.0, pulse of 85, respirations 17, blood pressure 125/65, and pulse ox 92% to 94% on room air. GENERAL: She is alert, in no acute distress. HEENT: Mucosa is moist. NECK: Supple. HEART: Regular rate and rhythm with 2/6 systolic ejection murmur. LUNGS: Clear. ABDOMEN: Soft. EXTREMITIES: No edema. LABORATORY DATA: White blood cell count 6400, hemoglobin and hematocrit are 11.3 and 36.3, and platelets of 93. Sodium 139, potassium 3.4, chloride 110, CO2 of 22, BUN and creatinine are 10 and 0.68, serum glucose 119, 139, 135, and 142. DIAGNOSTIC DATA: Chest x-ray is pending. ASSESSMENT AND PLAN: This is an 83-year-old female patient with a history of SIADH, adrenal insufficiency, dementia, and anxiety, admitted for mental status change. 1. Mental status change. Continues to have some irritability and mood swings since stopping her sleeping medicine. We will give a trial of Seroquel at bedtime. 2. Hyponatremia is resolved. Dr. Benoit has stopped the demeclocycline. Continue fluid restriction and Lasix. 3. Dysphagia and odynophagia, status post PEG tube placement, seems to be tolerating the tube feeds. We will continue per Nutrition. 4. Esophagitis. I will continue nystatin treatments. 5. Left-sided pneumonia. We will re-check chest x-ray. Continue antibiotics at this time. 6. History of severe hyponatremia with mental status change. We will check MRI of her brain. 7. Disposition. Family is wanting her to have entry to go to [facility]. We will consult Case Management. Job ID: [id number]
[2018-10-26] MEDS: Thyroid 60 MG TAB PO SCH (08:53)
--- NOTE | 2018-10-26 13:49 | MRI ---
MRI BRAIN WITHOUT CONTRAST: Date: 10/26/18 HISTORY: Mental status changes. Altered mental status. FINDINGS: Correlation is made with CT scan of 10/20/18. There is a small linear focus of restricted diffusion in the left side of the [place]. No evidence of tr anscortical infarction, hemorrhage, or midline shift is seen. An old left basal ganglia infarction is noted. The ventricular size is appropriate and the basilar cisterns are patent. There are a few patc hy areas of T2 prolongation in the periventricular white matter consistent with mild chronic small ve ssel ischemic disease. There is a small amount of fluid in the left mastoid air cells. The visualized paranasal sinuses are well aerated. IMPRESSION: Small acute left pontine infarction. POS: C
[2018-10-27] MEDS: Albuterol Sulfate 1.25 MG/3 ML NEB NEB SCH ×5 (00:26→23:54)
[2018-10-27 07:01] LABS: ALT (SGPT) Less than 7 U/L (8-55); AST (SGOT) 14 U/L (5-34); Albumin 2.4 g/dL (3.4-4.8); Alkaline Phosphatase 49 U/L (40-150); Anion Gap 10 mmol/L (10-20); BUN (Urea Nitrogen) 14 mg/dL (9.8-20.1); Bilirubin, Total 0.4 mg/dL (0.2-1.2); Calc. Creatinine Clearance 67 mL/min (70-130); Calcium 8.4 mg/dL (7.8-10.44); Carbon Dioxide 29 mmol/L (23-31); Chloride 103 mmol/L (98-107); Estimated GFR-MDRD 86; Glucose 105 mg/dL (83-110); Potassium 3.6 mmol/L (3.5-5.1); Protein, Total 5.4 g/dL (6.0-8.3); Sodium 138 mmol/L (136-145)
[2018-10-27 07:20] LABS: Thyroid Stimulating Hormone 0.0227 uIU/mL (0.35-4.94)
--- NOTE | 2018-10-27 08:07 | PRG ---
DATE OF SERVICE: 10/27/2018 SUBJECTIVE: The patient seems to be doing much better. She had a good night. She slept well with Seroquel last night. No further yelling out. She is more awake and alert this morning, answering questions appropriately. Denies pain. Just states that she is thirsty and wanting water in her mouth. OBJECTIVE: VITAL SIGNS: Temperature 98.0, pulse 95 to 97, respirations 18, blood pressure 152/81, pulse ox 96% on room air. GENERAL: She is awake and alert, in no acute distress. Speech is clear. NECK: Supple. HEART: Regular rate and rhythm. LUNGS: Clear bilaterally. ABDOMEN: Soft. PEG tube site appears clean and dry. No redness. EXTREMITIES: No edema. LABORATORY DATA: Sodium 138, potassium 3.6, chloride 103, CO2 of 29, BUN and creatinine 14 and 0.66 with a GFR of 86, serum glucose 105. Accu-Cheks 114, 84, 111. Thyroid function tests are pending. ASSESSMENT AND PLAN: This is an 83-year-old female patient with a history of syndrome of inappropriate antidiuretic hormone secretion, adrenal insufficiency , and anxiety, admitted for mental status change. 1. Mental status change appears to be improving. She seems to be back at her baseline. Did well with Seroquel at nighttime. 2. Hyponatremia is resolved. I will continue fluid restriction and PEG tube feedings. 3. Dysphagia and odynophagia, better. She seems to continue to have pain when she is swallowing her saliva. We will continue nystatin and discontinue the Magic mouthwash. 4. Left-sided pneumonia. I will continue antibiotic treatment for 7 days. 5. Acute pontine cerebrovascular accident. I will continue rehab. We will discontinue Lovenox and start low-dose aspirin. Continue PT, OT, and speech therapy. 6. Disposition: Awaiting Case Management. May benefit from short-term rehab. Family is now not wanting her to go to [facility]. Job ID: [id number] [id number]
[2018-10-27] MEDS: Potassium Chloride 20 MEQ TAB PO SCH (08:13)
[2018-10-27] MEDS: Aspirin 81 mg Enteric Coated Tablet PO SCH (08:13)
[2018-10-27] MEDS: Nystatin 500,000 UNITS/5 ML UDCUP PO SCH ×4 (08:13→20:40)
[2018-10-27] MEDS: Hydrocortisone 10 mg Tablet PO SCH (08:14)
[2018-10-27] MEDS: Thyroid 60 MG TAB PO SCH (08:14)
--- NOTE | 2018-10-27 11:51 | PQF ---
CLINICAL DOCUMENTATION IMPROVEMENT CLARIFICATION FORM: ICD-10 Updated PLEASE DO AN ADDENDUM TO THE PROGRESS NOTE WITH ANY DOCUMENTATION UPDATES OR ADDITIONS AND CARRY THROUGH TO DC SUMMARY. THANK YOU. DATE: 10/27/2018; 10/28/2018 ATTN: Dr. Mccord Please exercise your independent, professional judgment in responding to the clarification form. Clinical indicators are provided on the bottom of this form for your review Please check appropriate box(s): [ ] Hyponatremia please specify etiology, if known [ xx] Hyponatremia due to SIADH (Syndrome of Inappropriate Secretion of Antidiuretic Hormone) [ ] Other diagnosis [ ] Unable to determine In addition, please specify: Present on Admission (POA): [ xx ] Yes [ ] No [ ] Unable to determine CLINICAL INDICATORS - SIGNS / SYMPTOMS / LABS H&P 10/15: Sodium 128 Altered mental status secondary to medication noncompliance. Hyponatremia Nephrology pn 10/22: Hyponatremia, much improved with free water restriction. PN 10/24-10/25: Syndrome of inappropriate antidiuretic hormone secretion with adrenal insufficiency. PN 10/27: Hyponatremia is resolved. RISKS: PN 10/27: 83 yr old with a history of syndrome of inappropriate antidiuretic hormone secretion, adrenal insufficiency, and anxiety, admitted for mental status change. TREATMENT: Nephrology Consult ordered 10/19 PN 25: I will continue fluid restriction and Peg tube feedings. Thank you, Elizabeth (This form is maintained as a part of the permanent medical record) 2015 [employer] All Rights Reserved Elizabeth Alcocer RN, BSN [email or web address] Office: [phone] [facility]
--- NOTE | 2018-10-27 17:20 | HP ---
HISTORY OF PRESENT ILLNESS: Ms. Greenwood is an 83-year-old white female, who was seen by the Renal Service for her acute hyponatremia on top of her chronic hyponatremia. She was at that time placed on a free water restriction. In addition, given normal saline. Significantly, her serum sodium improved with IV hydration suggesting this is a component of hypovolemic hyponatremia. She was also noted to be having aspiration pneumonia. For that reason, a PEG tube was in place. She is currently tolerating her PEG tube feeding. Her serum sodium continued to be normal. Please note that a few days ago, her demeclocycline was discontinued. This afternoon, she voices no new complaints. No chest pain or shortness of breath. PHYSICAL EXAMINATION: VITAL SIGNS: Blood pressure is 145/80, heart rate 97, respiratory rate 20, temperature 98.6, and pulse ox 96%. GENERAL: Noted to be awake, alert, comfortable, not in distress. SKIN: Adequate turgor. HEENT: Pinkish conjunctivae. Anicteric sclerae. No neck mass. No carotid bruits. No JVD. CHEST: No deformities. LUNGS: Decreased breath sounds. HEART: Normal sinus rhythm. No murmur. No gallops. No rubs. ABDOMEN: Globular, soft, and nontender. No masses. EXTREMITIES: No edema. No deformities. MEDICATIONS: Medications of October 27, 2018, reviewed. LABORATORY DATA: Laboratories of October 25, 2018; white count 6.4, hemoglobin 11.3. On October 27, 2018; sodium 138, potassium 3.6, chloride 103, carbon dioxide 29, BUN 14, creatinine 0.66, glucose 105, calcium 8.4, AST 14, ALT less than 7, albumin 2.4. TSH is 0.0227, thyroxine 3.0, free T3 is 1.21. ASSESSMENT AND PLAN: 1. Hyponatremia-previously thought to be having underlying syndrome of inappropriate antidiuretic hormone secretion. The patient is also on cortisone replacement for her adrenal insufficiency. She may need some further replacement or adjustment of her [place] Thyroid. 2. Aspiration pneumonia, currently PEG tube has been placed. She is currently on PEG tube feeding. The patient is doing well. Awaiting possible fdc placement. The patient is being considered to be placed in a [facility]. 3. Overall, due to the improved serum sodium, we will be signing off. Please call if needed. Job ID: [id number]
[2018-10-27] MEDS: Acetaminophen 325 MG TAB PO PRN (20:42)
[2018-10-28] MEDS: Albuterol Sulfate 1.25 MG/3 ML NEB NEB SCH ×2 (05:55→11:34)
[2018-10-28] MEDS: Hydrocortisone 10 mg Tablet PO SCH (08:22)
[2018-10-28] MEDS: Nystatin 500,000 UNITS/5 ML UDCUP PO SCH ×4 (08:22→20:51)
[2018-10-28] MEDS: Aspirin 81 mg Enteric Coated Tablet PO SCH (08:22)
[2018-10-28] MEDS: Potassium Chloride 20 MEQ TAB PO SCH (08:22)
[2018-10-28] MEDS: Thyroid 60 MG TAB PO SCH (08:23)
[2018-10-28] MEDS: HYDROcodone/Acetaminophen 5/325 mg Tablet PO PRN ×2 (08:24→16:16)
--- NOTE | 2018-10-28 09:04 | PRG ---
DATE OF SERVICE: 10/28/2018 SUBJECTIVE: The patient states that she is feeling some better. She denies chest pain or shortness of breath. She just states that she is weak and has pain with movement. Her mentation is clearing. She is sleeping much better at least 6 to 8 hours with the Seroquel. She continues to be agitated with her family, asking for drinking water in spite of her choking on it and she wants to go home. She does state that she feels more depressed and less motivated to get better. OBJECTIVE: VITAL SIGNS: Temperature 98.8, pulse of 91, respirations 20, blood pressure 129/77, pulse ox is 95% on room air. GENERAL: She is awake and alert, in no acute distress. She answers questions appropriately. HEENT: Mucosa is dry. NECK: Supple. HEART: Regular rate and rhythm with 2/6 systolic ejection murmur. LUNGS: Clear bilaterally. No wheezes, rales, or rhonchi. ABDOMEN: Soft. EXTREMITIES: With no edema. NEUROLOGIC: She does have decreased strength in upper and lower extremities. Mostly, she refuses to move her extremities. She does have a flat affect. LABORATORY DATA: Accu-Cheks 109, 93, 115, 107. Chemistry from today is pending. ASSESSMENT AND PLAN: This is an 83-year-old female patient with a history of syndrome of inappropriate antidiuretic hormone secretion, adrenal insufficiency, admitted for mental status change. 1. Mental status change. She appears to be back at her baseline. 2. Hyponatremia, is resolved. 3. Dysphagia and odynophagia, is improved. We will continue PEG tube feeding. Geraldine in her throat, culture. We will continue nystatin. 4. Left-sided pneumonia, appears to be resolving. We will complete her antibiotic treatment tomorrow. 5. Acute pontine cerebrovascular accident. We will continue rehab. I will discontinue the Lovenox and start low-dose aspirin. Continue PT, OT, and speech therapy. 6. Depression. We had initially discontinued the Cymbalta due to her fatigue and drowsiness. We will restart a low dose at 20 mg daily. 7. Disposition. Awaiting placement either short-term rehab or local care home facility. Job ID: [id number]
[2018-10-28] MEDS ORDERED: Albuterol Sulfate 1.25 MG/3 ML NEB NEB PRN (11:39)
[2018-10-29] MEDS: HYDROcodone/Acetaminophen 5/325 mg Tablet PO PRN ×2 (00:32→08:49)
[2018-10-29] MEDS: Acetaminophen 325 MG TAB PO PRN (03:14)
[2018-10-29 05:53] LABS: ALT (SGPT) Less than 7 U/L (8-55); AST (SGOT) 16 U/L (5-34); Albumin 2.4 g/dL (3.4-4.8); Alkaline Phosphatase 48 U/L (40-150); Anion Gap 11 mmol/L (10-20); BUN (Urea Nitrogen) 19 mg/dL (9.8-20.1); Bilirubin, Total 0.4 mg/dL (0.2-1.2); Calc. Creatinine Clearance 69 mL/min (70-130); Calcium 8.3 mg/dL (7.8-10.44); Carbon Dioxide 28 mmol/L (23-31); Chloride 99 mmol/L (98-107); Estimated GFR-MDRD 89; Globulin 3.2 g/dL (2.4-3.5); Glucose 99 mg/dL (83-110); Potassium 3.6 mmol/L (3.5-5.1); Protein, Total 5.6 g/dL (6.0-8.3); Sodium 134 mmol/L (136-145)
[2018-10-29 06:06] LABS: Band 3 % (5-11); Eosinophils 7 % (0-10); Hemoglobin 10.6 g/dL (12.0-16.0); Lymphocytes 25 % (21-51); MDiff Complete? YES; Mean Corpuscular HGB CONC 32.9 g/dL (32.0-36.0); Mean Corpuscular Hemoglobin 30.4 pg (27.0-31.0); Mean Corpuscular Volume 92.3 fL (78.0-98.0); Mean Platelet Volume 9.1 fL (7.4-10.4); Monocytes 19 % (0-10); Neutrophil 46 % (42-75); Platelet Count 97 thou/uL (130-400); Platelet Morphology Comment Appears Decreased; RBC Distribution Width 12.6 % (11.5-14.5); Red Blood Cell (RBC) Count 3.48 mill/uL (4.20-5.40); White Blood Cell (WBC) Count 5.4 thou/uL (4.8-10.8)
[2018-10-29 08:15] VITALS: BP 102/65; TEMP 97.2
[2018-10-29] MEDS: Thyroid 60 MG TAB PO SCH (08:49)
[2018-10-29] MEDS: Hydrocortisone 10 mg Tablet PO SCH (08:50)
[2018-10-29] MEDS: Potassium Chloride 20 MEQ TAB PO SCH (08:50)
[2018-10-29] MEDS: Aspirin 81 mg Enteric Coated Tablet PO SCH (08:50)
[2018-10-29] MEDS ORDERED: Docusate 100 MG CAP PO SCH (09:00)
--- NOTE | 2018-10-29 09:34 | PRG ---
DATE OF SERVICE: 10/29/2018 SUBJECTIVE: Ms. Greenwood is an 83-year-old white female, who is followed up by the Renal Service for her chronic hyponatremia secondary to superimposed SIADH. Her serum sodium has been much improved in the last few days, but recently serum sodium was started to go down with the most recent value at 134. Her demeclocycline was discontinued also a few days ago, but our plan is to resume it back. The reason in her serum sodium is going down because the patient's intake of free water is now increasing. She has a PEG tube placed on her. This was initially placed due to aspiration pneumonia. No new complaints today. The patient is feeling better. OBJECTIVE: VITAL SIGNS: Blood pressure 102/65, heart rate 85, respiratory rate 18, temperature 97.2, and pulse ox 94%. GENERAL: Awake, alert, comfortable, not in distress. SKIN: Adequate turgor. HEENT: Pinkish conjunctivae. Anicteric sclerae. No neck mass. No carotid bruits. No JVD. CHEST: No deformities. LUNGS: Clear breath sounds. No wheezing. No crackles. HEART: Normal sinus rhythm. No murmurs. No gallops. No rubs. ABDOMEN: Globular, soft, and nontender. Positive for PEG tube. EXTREMITIES: No edema. MEDICATIONS: Medications of October 29, 2018, was reviewed. LABORATORY DATA: Laboratories of October 29, 2018, sodium 134, potassium 3.6, chloride 99, carbon dioxide 28, BUN 19, creatinine 0.64, AST is 16 with ALT less than 7, and albumin 2.4. ASSESSMENT AND PLAN: 1. Hyponatremia - we will resume demeclocycline at 300 mg p.o. b.i.d. The patient most likely has an underlying syndrome of inappropriate secretion of antidiuretic hormone. She has also some degree of adrenal insufficiency. For that reason, she is on steroid supplementation. 2. Aspiration pneumonia, much improved. The patient has a PEG tube. 3. Agree with current management. Job ID: [id number] [facility]
--- NOTE | 2018-10-29 10:52 | RAD ---
CHEST 1 VIEW: HISTORY: Pneumonia. COMPARISON: Radiograph of 10/26/2018. FINDINGS: Overall, the left lung base airspace opacity is improved. No new suspicious pulmonary opacity. Bila teral rotator cuff arthropathy. Cardiac silhouette and mediastinal contours are similar. Dense calc ifications transverse aorta. No acute osseous abnormality. IMPRESSION: Improving left basilar airspace opacity. POS: [facility]
--- NOTE | 2018-10-30 00:45 | DIS ---
DATE OF ADMISSION: 10/15/2018 DATE OF DISCHARGE: 10/29/2018 ADMISSION DIAGNOSES: Mental status change, severe hyponatremia, noncompliance. DISCHARGE DIAGNOSES: Left pontine cerebrovascular accident, hyponatremia, left-sided pneumonia, dysphagia and odynophagia, candidal esophagitis. OTHER DIAGNOSES: Chronic syndrome of inappropriate antidiuretic hormone with hyponatremia, adrenal insufficiency. PROCEDURES: CT brain, MRI brain, PEG tube placement. CONSULTATIONS: 1. Dr. Benoit for Nephrology. 2. Dr. Rodriguez for Gastroenterology. HOSPITAL COURSE: This is an 83-year-old female patient with a long history of syndrome of inappropriate antidiuretic hormone secretion and adrenal insufficiency, chronically on demeclocycline and hydrocortisone, who presented to the emergency department for gradual worsening of her mental state. She stopped taking her medicines. She was hoarding her medicines in her bed and not taking her pills. She became more and more confused until her function began to deteriorate. She presented to the emergency department with her family. Sodium was low at 128, in the past had been as low as 118. She was placed on fluid restriction, restarted on her medications with the hopes of her returning back to her baseline. Throughout her hospitalization, she initially began to worsen. She was not taking p.o. well. She was refusing to take her medicines. She was seen by Dr. Benoit for consultation who agreed with her plan, agreed with fluid restriction and starting back on her demeclocycline as well as diuresis with Lasix. She did require concentrated sodium for a short period until her sodium became normal. CT of the brain was done, which showed no active disease. She continued to show confusion and problems with her mental state. Repeat CT again was normal and then an MRI of her brain on 10/26/2018 revealed small acute left pontine infarction, which could cause problems with her mental state as well as problem swallowing. On admission, she was started on nystatin for her problems and pain swallowing. She did have some thrush in her mouth with thoughts of candidal infection in her esophagus as well. This slowly improved during her hospitalization. She continued to decline as far as being more dehydrated. Initially, the family had declined her having a PEG tube, but then the patient and the family agreed to have a PEG tube placement. She was seen by Dr. Rodriguez, underwent PEG tube placement without difficulties with no complications. She was found to have a left-sided pneumonia, likely secondary to aspiration as she was initially feeding at risk and swallowing and coughing while she was trying to swallow. Once the PEG tube was placed, she was not taking anything else by mouth and she continued to improve. Her sodium and cortisol remained stable. Her mental state was back at her baseline. Due to her increased weakness and difficulty moving and not able to get out of bed, it was thought that she needs to go into inpatient rehab prior to being discharged home. It was arranged and she was stable for transfer on the day of discharge. DISCHARGE PHYSICAL EXAMINATION: VITAL SIGNS: Temperature 97.2, pulse of 85, respirations 18, blood pressure 102/65, pulse ox of 94% on room air. GENERAL: She is awake and alert, in no acute distress. Speech is clear. NECK: Supple. Mucosa is moist. HEART: Regular rate and rhythm. LUNGS: Clear bilaterally. ABDOMEN: Soft. EXTREMITIES: With no edema, but she does have pain with movement of all of her extremities. DISCHARGE LABORATORY DATA: Sodium 134, potassium 3.6, chloride 99, CO2 of 28, BUN and creatinine 19 and 0.64 with a GFR of 89, serum glucose 99. Liver functions are normal. White blood cell count 5400, hemoglobin and hematocrit are 10.6 and 32, platelets of 97. Chest x-ray from this morning is pending. DISCHARGE MEDICATIONS: Include: 1. Tylenol p.r.n. pain. 2. Hydrocodone q.6 p.r.n. pain. 3. Aspirin 81 mg daily. 4. Dulcolax 10 mg p.r.n. constipation. 5. Cymbalta 20 mg daily. 6. Hydrocortisone 5 mg daily. 7. Levaquin 250 mg for one more day. 8. Nystatin to paint the mouth q.i.d. for 4 more days. 9. Protonix 40 mg b.i.d. 10. Seroquel 25 mg at bedtime. 11. [place] Thyroid 60 mg daily. FOLLOWUP INSTRUCTIONS: The patient to be transferred to inpatient rehab and follow up in my office and by Dr. Mariano in [place] with home visit. Job ID: [id number]
== END 2018-10-29 11:01 | DRG 643 ==
LOC: ERS 11:31 → ERHOLD 15:49 → T4-A 19:20
PROVIDERS: ADMIT Family Medicine; ATTEND Family Medicine
PROC: 0DJ08ZZ Inspection of Upper Intestinal Tract, Via Natural or Artificial Opening Endoscopic (ICD-10-PCS; principal; 2018-10-23)
PROC: 0DH63UZ Insertion of Feeding Device into Stomach, Percutaneous Approach (ICD-10-PCS; 2018-10-23)
PROC: 3E0G76Z Introduction of Nutritional Substance into Upper GI, Via Natural or Artificial Opening (ICD-10-PCS; 2018-10-23)
DX: E22.2 Syndrome of inappropriate secretion of antidiuretic hormone (principal); J69.0 Pneumonitis due to inhalation of food and vomit; G93.41 Metabolic encephalopathy; I63.9 Cerebral infarction, unspecified; E27.40 Unspecified adrenocortical insufficiency; B37.81 Candidal esophagitis; E03.9 Hypothyroidism, unspecified; R13.10 Dysphagia, unspecified; F32.9 Major depressive disorder, single episode, unspecified; F51.04 Psychophysiologic insomnia; K59.04 Chronic idiopathic constipation; Z91.14 Patient's other noncompliance with medication regimen; I35.0 Nonrheumatic aortic (valve) stenosis; R62.7 Adult failure to thrive; Z68.24 Body mass index [BMI] 24.0-24.9, adult; K44.9 Diaphragmatic hernia without obstruction or gangrene; D64.9 Anemia, unspecified; I10 Essential (primary) hypertension; M81.0 Age-related osteoporosis without current pathological fracture; Z88.2 Allergy status to sulfonamides; Z87.891 Personal history of nicotine dependence; Z82.49 Family history of ischemic heart disease and other diseases of the circulatory system; Z80.9 Family history of malignant neoplasm, unspecified
CPT/HCPCS: 36415; 36416; 51701; 70450; 70551; 71045; 71046; 80048; 80053; 81001; 81003; 81015; 82024; 82088; 82533; 82570; 83735; 83930; 83935; 84300; 84436; 84439; 84443; 84481; 84482; 84484; 85025; 87040; 87070; 87077; 87086; 87186; 87631; 93005; 93010; 93306; 94640; 96360; A4353; J1650; J1956; J2001; J2704; J3475; Q0162; Q0163

== ENCOUNTER 2018-11-30 12:57 | Inpatient (IN) | payer MEDICARE ==
[2018-11-30] MEDS ORDERED: Piperacillin/Tazobactam 4.5 GM VIAL ONE (13:47)
[2018-11-30 14:35] LABS: Hemoglobin 12.2 g/dL (12.0-16.0); Mean Corpuscular HGB CONC 31.8 g/dL (32.0-36.0); Mean Corpuscular Hemoglobin 30.1 pg (27.0-31.0); Mean Corpuscular Volume 94.6 fL (78.0-98.0); Mean Platelet Volume 9.6 fL (7.4-10.4); Platelet Count 74 thou/uL (130-400); RBC Distribution Width 14.7 % (11.5-14.5); Red Blood Cell (RBC) Count 4.04 mill/uL (4.20-5.40); White Blood Cell (WBC) Count 20.7 thou/uL (4.8-10.8)
--- NOTE | 2018-11-30 14:36 | RAD ---
CHEST 1 VIEW: Date: 11/30/18 HISTORY: Fever, neck pain for 1 day, hypotensive, prior CVA. COMPARISON: 10/29/18. FINDINGS: Patchy parenchymal changes noted in the right parahilar region, new from prior study. The left chest is stable. Heart size is within normal limits. Possible small hiatal hernia. IMPRESSION: Patchy parenchymal changes in the right upper and lower perihilar regions, more prominent than on lily or study, raising concern for minimal patchy pneumonia or pneumonitis versus asymmetric edema. Heart size is normal and the left chest is stable. Probable small hiatal hernia. Atherosclerosis of aorta. POS: [facility]
[2018-11-30 14:39] LABS: ALT (SGPT) 8 U/L (8-55); AST (SGOT) 17 U/L (5-34); Albumin 2.9 g/dL (3.4-4.8); Alkaline Phosphatase 83 U/L (40-150); Anion Gap 14 mmol/L (10-20); BUN (Urea Nitrogen) 15 mg/dL (9.8-20.1); Bilirubin, Total 1.2 mg/dL (0.2-1.2); Calc. Creatinine Clearance 0 mL/min (70-130); Calcium 7.8 mg/dL (7.8-10.44); Carbon Dioxide 18 mmol/L (23-31); Chloride 104 mmol/L (98-107); Estimated GFR-MDRD 71; Globulin 3.6 g/dL (2.4-3.5); Protein, Total 6.5 g/dL (6.0-8.3); Sodium 132 mmol/L (136-145)
[2018-11-30 14:46] LABS: Band 11 % (5-11); Eosinophils 1 % (0-10); Lymphocytes 5 % (21-51); MDiff Complete? YES; Monocytes 13 % (0-10); Neutrophil 70 % (42-75); Ovalocytes SLIGHT = 2-5 cells (100X) (0-1/hpf); Platelet Morphology Comment Appears Decreased; Polychromasia SLIGHT = 2-3 cells (100X) (0-2/hpf); Tear Drops SLIGHT = 2-5 cells (100X) (0-1/hpf)
[2018-11-30 14:47] LABS: Glucose 53 mg/dL (83-110)
[2018-11-30 15:33] LABS: Bilirubin Negative (Negative); Blood, Urine Negative (Negative); Clarity CLEAR (Clear); Glucose, Urine (Dipstick) Negative (Negative); Leukocyte Negative (Negative); Nitrite Negative (Negative); Protein, Urine (Dipstick) Negative (Neg-Trace); Specific Gravity, Urine 1.012 (1.002-1.036); pH, Urine 7.5 (5.0-9.0)
[2018-11-30 18:17] LABS: Lactic Acid 2.5 mmol/L (0.5-2.2)
[2018-11-30] MEDS ORDERED: Polyvinyl Alcohol 1.4%/Povidone 0.6% Opth Drops EA EYE PRN (19:34)
[2018-11-30] MEDS ORDERED: Acetaminophen 650 MG/20.3 ML UDCUP PER TUBE PRN (19:34)
[2018-11-30] MEDS ORDERED: HYDROcodone/Acetaminophen 5/325 mg Tablet PER TUBE PRN (19:34)
[2018-11-30] MEDS ORDERED: Furosemide 40 MG/4 ML VIAL ONE (19:43)
[2018-11-30] MEDS ORDERED: Furosemide 40 MG/4 ML VIAL SLOW IVP SCH (20:00)
[2018-11-30] MEDS ORDERED: Acetaminophen 325 MG/10.15 ML UDCUP ONE (21:34)
[2018-11-30] MEDS ORDERED: Acetaminophen 650 MG/20.3 ML UDCUP ONE (21:38)
[2018-11-30] MEDS: Sodium Chloride 0.9% 1,000 ML IV SCH (22:40)
[2018-11-30] MEDS ORDERED: Norepinephrine 8 MG/0.9% NS 250 ML ONE (23:23)
[2018-11-30] MEDS: Norepinephrine 8 MG/250 ML BAG IVPB PRN (23:45)
[2018-12-01 00:03] LABS: Actual Bicarbonate (HCO3a) 18.2 mEq/L (22-28); CO2 Tension 27.9 mmHg (35.0-45.0); Calcium, Ionized 1.06 mmol/L (1.12-1.30); Carboxyhemoglobin (COHb) 0.9 gm% (0.0-3.0); Hemoglobin (Hb) 10.5 g/dL (12.0-16.0); Potassium - ABG Lab 3.22 mmol/L (3.70-5.30); pH, Arterial 7.43 (7.35-7.45)
[2018-12-01 00:06] LABS: O2 Tension (PaO2) 58.8 mmHg (> 60.0)
[2018-12-01 00:07] LABS: Puncture Site LBR
[2018-12-01 00:08] LABS: ALV-art Gradient 191.525 (0-20)
[2018-12-01] MEDS ORDERED: Lorazepam 2 MG/ML VIAL SLOW IVP PRN (00:09)
[2018-12-01] MEDS ORDERED: Hydrocortisone Sod Succ/PF 100 mg/2 ml Vial IVP SCH (00:15)
[2018-12-01 00:34] LABS: Troponin I 0.297 ng/mL (< 0.028)
[2018-12-01 01:14] LABS: Glucose 58 mg/dL (83-110)
[2018-12-01] MEDS ORDERED: Hydrocortisone Sod Succ/PF 300 MG in Sodium Chloride 0.9% 250 ML 250 ML IVP SCH (01:15)
[2018-12-01] MEDS: Piperacillin/Tazobactam 4.5 GM in Sodium Chloride 0.9% 100 ML IVPB SCH ×4 (01:26→22:01)
--- NOTE | 2018-12-01 01:52 | HP ---
CHIEF COMPLAINT: Weakness, fever, and low blood pressure. HISTORY OF PRESENT ILLNESS: This is an 83-year-old female patient with multiple medical problems including adrenal insufficiency, hypothyroidism, SIADH, recent CVA, a recent admission for left-sided pneumonia and altered mental state, who presented to the emergency department with increasing weakness. The patient was recently discharged from the hospital and sent to rehab and had been doing quite well at home. Of note, during her last hospitalization, she was found to have a subacute left pontine infarct. This caused her to have difficulty swallowing. She failed swallow evaluations during her last hospitalization and ended up having a PEG tube placement for feeding. During her rehab stay, her swallowing improved. She became more awake and alert. She passed her swallow evaluation including a modified barium swallow, and she was swallowing with little difficulty. At home, she seemed to be continued to be swallowing well and had been doing well and getting stronger until about 2 days ago when she started having more cough and shortness of breath, more difficulty getting around, and then yesterday developed a fever. Today, she became more and more weak. They called EMS. She was tachycardic with a heart rate in the 130s to 140s and her systolic blood pressure began to drop down and per EMS was down to the 70s to 80s systolic. In the emergency department, she was resuscitated with fluids and started on IV antibiotics. She was found to have a right-sided pneumonia, likely secondary to aspiration and she is now being admitted for further evaluation and treatment. PAST MEDICAL HISTORY: Hypothyroidism, adrenal insufficiency with history of adrenal crisis, history of SIADH, depression, chronic pain due to lumbar disk disease with chronic opiate usage, recurrent hyponatremia, pontine stroke and recurrent pneumonia. PAST SURGICAL HISTORY: Includes hysterectomy, bladder suspension, rectocele, recent PEG tube placement. MEDICATIONS: Upon discharge during her last hospitalization include: 1. Tylenol p.r.n. 2. Hydrocodone q.6 p.r.n. severe pain. 3. Aspirin 81 mg daily. 4. Dulcolax p.r.n. 5. Cymbalta 20 mg b.i.d. 6. Hydrocortisone 5 mg daily. 7. Protonix 40 mg b.i.d. 8. Seroquel 25 mg at bedtime. 9. Temazepam p.r.n. sleep. 10. [place] Thyroid 60 mg daily. ALLERGIES: CIPRO, BACTRIM, SULFA. FAMILY HISTORY: Father unknown. Children with hypertension. Brother with thyroid cancer. Brother with multiple myeloma. SOCIAL HISTORY: She is a former smoker. She is retired, , lives at home with her family. REVIEW OF SYSTEMS: CONSTITUTIONAL: As per the history of present illness. Positive for fever up to 102 to 103. Positive for generalized weakness. HEENT: No visual or hearing changes. CARDIAC: Denies chest pain or palpitations. PULMONARY: Positive cough. Positive shortness of breath. GI: No nausea, vomiting, abdominal pain, melena, or hematochezia. : No recent episodes of dysuria or hematuria. NEUROLOGIC: Positive weakness and difficulty getting out of bed, unable to ambulate on her own. PHYSICAL EXAMINATION: VITAL SIGNS: In the emergency department; temperature 97.8, pulse of 129 to 135 , respirations 25 to 30, blood pressure initially was down to 79/51, now to 120/ 76. GENERAL: She is awake. She is lethargic, but no acute distress. No conversational dyspnea but fatigued. NECK: Supple. HEENT: Mucosa is moist. HEART: Tachycardic. LUNGS: Scattered rhonchi throughout, but no wheezes. ABDOMEN: Positive bowel sounds. Soft. PEG tube is in place. Nontender. No masses. EXTREMITIES: No clubbing, cyanosis, or edema. Extremities are warm to touch. LABORATORY DATA: White blood cell count 20,700 with a left shift. Hemoglobin and hematocrit 12.2 and 38.2, platelets of 74. Sodium 132, potassium 4.0, chloride 104, CO2 of 18, BUN and creatinine 15 and 0.78, and serum glucose of 53. Lactic acid 2.8 and 2.5. AST and ALT are normal. Urinalysis was negative. Chest x-ray reveals right-sided infiltrate. ASSESSMENT AND PLAN: This is an 83-year-old female with multiple medical problems including functional decline with recent admission with a pontine stroke and left-sided pneumonia, now with aspiration pneumonia. 1. We will continue Zosyn and vancomycin for coverage for aspiration pneumonia and sepsis. 2. Sepsis syndrome. We will admit to IMCU. IV fluid resuscitation. Watch her blood pressure. No need for pressors at this time. I will consult Pulmonology for evaluation and management as well. 3. Adrenal insufficiency. We will continue her hydrocortisone supplementation. 4. History of syndrome of inappropriate antidiuretic hormone secretion. I will watch her fluid status. 5. Hypothyroidism. We will continue thyroid replacement. 6. Resuscitation status. The patient emphatically states that she wants to be a full code. Job ID: [id number] [facility]
[2018-12-01] MEDS ORDERED: Dextrose 50% Abboject 50 ML SYRINGE IVP PRN (02:09)
[2018-12-01] MEDS ORDERED: Dextrose 5% in Water 1,000 ML IV PRN (02:09)
[2018-12-01 04:27] LABS: Hemoglobin 10.9 g/dL (12.0-16.0); Mean Corpuscular HGB CONC 31.8 g/dL (32.0-36.0); Mean Corpuscular Hemoglobin 29.5 pg (27.0-31.0); Mean Corpuscular Volume 92.9 fL (78.0-98.0); Mean Platelet Volume 9.7 fL (7.4-10.4); Platelet Count 76 thou/uL (130-400); RBC Distribution Width 14.6 % (11.5-14.5); White Blood Cell (WBC) Count 44.3 thou/uL (4.8-10.8)
[2018-12-01 04:39] LABS: Band 35 % (5-11); Lymphocytes 2 % (21-51); MDiff Complete? YES; Metamyelocyte 1 % (0-0); Monocytes 12 % (0-10); Neutrophil 50 % (42-75); Platelet Morphology Comment Appears Decreased
[2018-12-01 04:55] LABS: ALT (SGPT) 22 U/L (8-55); AST (SGOT) 32 U/L (5-34); Albumin 2.7 g/dL (3.4-4.8); Alkaline Phosphatase 99 U/L (40-150); Anion Gap 12 mmol/L (10-20); BUN (Urea Nitrogen) 21 mg/dL (9.8-20.1); Bilirubin, Total 1.5 mg/dL (0.2-1.2); Calc. Creatinine Clearance 33 mL/min (70-130); Calcium 7.5 mg/dL (7.8-10.44); Carbon Dioxide 18 mmol/L (23-31); Chloride 107 mmol/L (98-107); Estimated GFR-MDRD 37; Globulin 3.2 g/dL (2.4-3.5); Glucose 89 mg/dL (83-110); Potassium 3.4 mmol/L (3.5-5.1); Protein, Total 5.9 g/dL (6.0-8.3); Sodium 134 mmol/L (136-145)
--- NOTE | 2018-12-01 08:13 | CON ---
DATE OF CONSULTATION: 12/01/2018 HISTORY OF PRESENT ILLNESS: The patient is an 83-year-old female, presenting today around lunchtime with complaints of fatigue, neck pain, and malaise. History is obtained from the daughter. She was admitted to the critical care unit [facility]. She is noted to be hypotensive and I was consulted. She had no complaints. She was febrile in the emergency department. Past medical history is remarkable for adrenal insufficiency. I found a cortisol level in 2015, it was less than 1. Apparently in 2013, an MRI showed a pituitary mass. She has had hyponatremia on and off and it has been documented multiple times that she has had marginal compliance. She now has a PEG in place after a recent stroke. She is cared for at the [facility]. Her sodium on presentation today was 132. PAST MEDICAL HISTORY: 1. Remarkable for recently being in the hospital in October. Swallow evaluation did not show any aspiration. 2. History of multiple admissions with hyponatremia. 3. History of hypothyroidism, on replacement. She was on Synthroid and is now on [place] Thyroid. 4. History of reportedly of lung nodules according to old notes, but I do not see any on her chest x-ray. 5. History of anemia. 6. History of aortic stenosis. 7. History of hypertension. 8. History of osteoporosis. 9. History of removal of a pituitary tumor. 10. History of bladder suspension. 11. History of a rectocele repair. 12. Status post hysterectomy. 13. History of upper and lower endoscopy in the past. SOCIAL HISTORY: She formerly lived in [place], now lives at the [facility]. She smoked for only 10 years, half pack a day. She is not a drinker. ALLERGIES: SHE REPORTS ALLERGIES TO SULFA FAMILY HISTORY: Negative for lung disease in early age. REVIEW OF SYSTEMS: 10 point review of systems completed, otherwise negative. PHYSICAL EXAMINATION: GENERAL: patient is an 83-year-old female, presenting today around lunchtime with complaints of fatigue, neck pain, and malaise. VITAL SIGNS: Pressures in the 70s when I arrived Heart rate was 114. She is in sinus rhythm. Respiratory rate was in the 20s. She had BiPAP in place. HEENT: Pupils are equal. NECK: Supple. LUNGS: Clear anteriorly. HEART: Regular rhythm. Grade 2/6 systolic murmur. ABDOMEN: Soft. She is mildly tender in the left lower quadrant, but said she needed to have a bowel movement. EXTREMITIES: Without clubbing, cyanosis, or edema. LABORATORY DATA: Sodium 132, potassium 4, chloride 104, bicarb 18, BUN 15, and creatinine 0.7. White count 20, hemoglobin 12.2, platelets 74,000. She had 70% segs in the peripheral smear, manual differential was not done. Chest radiograph may show an infiltrate behind her diaphragm on AP view, although this is definite. IMPRESSION: 1. Hypotension, but quite likely is largely adrenal crisis. She may have a pneumonia mixed in with this. She is afebrile. Antimicrobial therapy has been started. Other issues include hypothyroidism, on [place] Thyroid, status post PEG placement, history of chronic hyponatremia. 2. History of a recent cerebrovascular accident. Hopefully, she will stabilize overnight. Recommended central line placement. I would agree with antimicrobial therapy. She will be volume resuscitated as her daughter reports poor p.o. intake yesterday and today. CRITICAL CARE TIME: 50 minutes. Job ID: [id number] MTDD
[2018-12-01] MEDS: Sodium Chloride 0.9% 1,000 ML IV SCH ×2 (08:36→17:21)
[2018-12-01] MEDS: Norepinephrine 8 MG/250 ML BAG IVPB PRN (08:36)
[2018-12-01] MEDS: Aspirin 81 mg Enteric Coated Tablet PER TUBE SCH (08:39)
[2018-12-01] MEDS: Vancomycin HCl 1.25 GM in Sodium Chloride 0.9% 250 ML 250 ML IVPB SCH (08:41)
[2018-12-01] MEDS: Pantoprazole 40 MG VIAL IVP SCH (08:41)
[2018-12-01] MEDS ORDERED: HYDROCORTISONE 5 MG PER TUBE SCH (09:00)
[2018-12-01] MEDS ORDERED: Prevnar 13-Val Conj/PF 0.5 ML SYRINGE IM ONE (09:00)
[2018-12-01] MEDS ORDERED: Hydrocortisone 10 mg Tablet PER TUBE SCH (09:00)
[2018-12-01] MEDS ORDERED: Thyroid 60 MG TAB PER TUBE SCH (09:00)
--- NOTE | 2018-12-01 09:15 | OP ---
DATE OF PROCEDURE: 12/01/2018 PROCEDURE PERFORMED: Central line placement. DESCRIPTION OF PROCEDURE: Right groin was cleansed with chlorhexidine followed by Betadine. The femoral vein was cannulated. The femoral vein was fairly flat. I was able to pass a wire followed by vein dilator. The wire was withdrawn after the catheter is inserted and sewn in place x2. Good blood return was obtained from all 3 ports. Central line was connected to IV fluids as well as Levophed. Sterile dressing was applied. Job ID: [id number]
--- NOTE | 2018-12-01 09:22 | RAD ---
CHEST ONE VIEW: History: Follow up fever, neck pain, hypotension and prior CVA, BIPAP. FINDINGS: Minimal increased linear and interstitial markings bilaterally, slightly more prominent in the right perihilar region. No new confluent pneumonia. Evidence for a hiatal hernia. IMPRESSION: Patchy linear and interstitial increased markings bilaterally, somewhat more prominent in the right p erihilar region. No significant new confluent process. Evidence for hiatal hernia. Continued short te rm follow up. POS: AARON
[2018-12-01] MEDS ORDERED: Iopamidol 370 76% 100 ML VIAL ONE (11:42)
[2018-12-01] MEDS ORDERED: Levothyroxine 100 MCG SDV IVP SCH (12:45)
[2018-12-01] MEDS: methylPREDNISolone Sod Succ 40 MG VIAL IVP SCH ×3 (13:01→23:59)
--- NOTE | 2018-12-01 14:42 | PQF ---
CAYDEN BLANC DIANE GUPTA DO [id number] CLINICAL DOCUMENTATION IMPROVEMENT CLARIFICATION FORM: ICD-10 Updated PLEASE DO AN ADDENDUM TO THE PROGRESS NOTE WITH ANY DOCUMENTATION UPDATES OR ADDITIONS AND CARRY THROUGH TO DC SUMMARY. THANK YOU. DATE: 12/01/18 ,12/02 ATTN: DR. Kendal GUPTA Please exercise your independent, professional judgment in responding to the clarification form. Clinical indicators are provided on the bottom of this form for your review. Please check appropriate box(s): [xx ] Acute Respiratory Failure: [ ] with Hypoxia [ ] with Hypercapnia [ ] Acute Respiratory Failure due to: (etiology) [ ] Other diagnosis [ ] Unable to determine In addition, please specify: Present on Admission (POA): [ xx ] Yes [ ] No [ ] Unable to determine For continuity of documentation, please document condition throughout progress notes and discharge summary. Thank You. CLINICAL INDICATORS - SIGNS / SYMPTOMS / LABS 11/30 ED ON ADMISSION : O2 SAT 90-93 % RA > 94% 3L/NC > 94-97 % BIPAP; RESP - 24-34; NURSING ASSESSMENT: BREATH SOUNDS DIMINISHED TO RIGHT LOWER LOBE, TACHYPNEIC PT TRANSFERRED TO ICU ON BIPAP RISK: ASPIRATION PNEUMONIA RECENT CVA (SEP 2018) TREATMENTS: PULMONARY CONSULT BIPAP (11/30-12/01; 2L 12/01) THANK YOU! MICHAELA (This form is maintained as a part of the permanent medical record) 2014 [employer]. All Rights Reserved SUMIT [email or web address] [phone] MTDD
--- NOTE | 2018-12-01 17:00 | PRG ---
DATE OF SERVICE: 12/01/2018 SUBJECTIVE: She is off pressors, she is off BiPAP this morning. OBJECTIVE: VITAL SIGNS: Blood pressure is 114/59, heart rate is 108, and respiratory rate is in the 20s. LUNGS: Clear. HEART: Regular rhythm. S1 and S2 are normal. No S3 is heard. She does have a grade 2/6 systolic murmur. ABDOMEN: Diffusely tender today, much more so than late last night. EXTREMITIES: Without edema. LABORATORY DATA: White count 44.3, hemoglobin 10.9, and platelets of 76. She has 35% bands on her peripheral smear. Sodium 134, potassium 3.4, chloride 107, bicarb 18, BUN 21, and creatinine 1.38. IMPRESSION: 1. Adrenal crisis, resolved. 2. ? ischemic bowel. I have asked Gastroenterology to look at her. I reviewed today's chest radiograph and it is really not very impressive from a pneumonia standpoint. She does have a little infiltrate in the right perihilar area, maybe extending down below her diaphragm. We will continue broad antimicrobial therapy and await Gastroenterology's input. I met with the daughter and answered all of her questions. CRITICAL CARE TIME: 30 minutes. Job ID: [id number]
--- NOTE | 2018-12-01 18:16 | EKG ---
Test Reason : STAT Blood Pressure : / mmHG Vent. Rate : 120 BPM Atrial Rate : 120 BPM P-R Int : 000 ms QRS Dur : 062 ms QT Int : 312 ms P-R-T Axes : 000 -09 069 degrees QTc Int : 440 ms sinus tachycardia with 1 degree AV block Low voltage QRS Inferior infarct (cited on or before 15-OCT-2018) Cannot rule out Anterior infarct (cited on or before 21-OCT-2018) Abnormal ECG When compared with ECG of @13:[address] Chanda NG (3) on 12/01/2018 6:15:54 PM Referred By: TANYA Confirmed By:DR. Chanda NG
--- NOTE | 2018-12-01 18:48 | PRG ---
DATE OF SERVICE: 12/01/2018 SUBJECTIVE: Events of night out were noted. The patient ended up being transferred to the ICU instead of the IMCU last night after having another episode of her blood pressure dropping and pulse oximetry dropping. She was seen by Dr. Magana urgently last night, who adjusted her medications and placed her on BiPAP. She apparently had a more restful night on the BiPAP, even though she fought at first. She is breathing more comfortably and tolerating the BiPAP. History is obtained from the daughter and states that she had a restful night last night. OBJECTIVE: VITAL SIGNS: From this morning revealed a temperature of 98.8, pulse of 103, respirations 19 to 20, blood pressure 118/62, and pulse oximetry was 100% on BiPAP. GENERAL: She is asleep and resting comfortably on the BiPAP. She arouses easily. NECK: Supple. HEART: Tachycardic. LUNGS: With rhonchi, worse on the left, but no wheezes. ABDOMEN: Soft. PEG tube in place. EXTREMITIES: With no edema. NEUROLOGIC: She moves all extremities. LABORATORY DATA: White blood cell count jumped up to 44,300 from 20,700, hemoglobin and hematocrit of 10.9 and 34.4, and platelets 76,000. ABG last night revealed a pH of 7.43, pCO2 of 27.9, PO2 of 58.8 prior to BiPAP. Sodium 134, potassium 4.3, chloride 107, CO2 of 18, BUN and creatinine of 21 and 1.38 with a GFR of 37, calcium low at 7.5. Total bilirubin 1.5. Troponin 0.297. Albumin low at 2.7. Chest x-ray from this morning reveals patchy linear interstitial markings bilaterally, more prominent in the right perihilar region. No new confluent process. ASSESSMENT AND PLAN: This is an 83-year-old female with recent admission for failure to thrive, pontine cerebrovascular accident, and dysphagia, now with supposed aspiration pneumonia. 1. We will continue broad-spectrum antibiotics for aspiration pneumonia. 2. Sepsis syndrome, requiring pressors now. I appreciate Dr. Magana's assistance. 3. Adrenal insufficiency with adrenal crisis. We will continue steroid therapy. 4. History of syndrome of inappropriate secretion of antidiuretic hormone. 5. Hypothyroidism. 6. Further plan per resin filterer. Job ID: [id number]
--- NOTE | 2018-12-01 23:41 | CT ---
CT ABDOMEN AND PELVIS WITH IV CONTRAST 12/01/18 HISTORY: Diffuse abdominal pain and sepsis. COMPARISON: 10/24/15. FINDINGS: Small bilateral pleural effusions are present. There is passive atelectasis on the left. There is a g reater degree of consolidation at the right lung base and while this could related to passive atelect asis as well, there are adjacent patchy parenchymal changes and this could be related to pneumonia. T here are reticulonodular densities seen at each lung bases which may be related to infectious or infl ammatory process. There are two separate pulmonary nodules left lung base measuring 5 mm and 4 mm respectively. There w as an approximately 3 mm pulmonary nodule in this region on a prior exam. There are several reticulon odular densities at the left lung base and this may be related to the infectious or inflammatory proc ess at each lung base. Hiatal hernia is again present. Gastrostomy tube is now noted in place. There are gallbladder calculi visualized, and the gallbladder is mildly distended measuring 4.7 cm in diameter. The liver, spleen, and pancreas as well as bilateral adrenal glands demonstrate a normal CT appearanc e. There is a hypodense lesion in the mid portion left kidney again seen and stable likely related to a cyst. There is a hypodense lesion in the inferior pole right kidney which is larger in size compared to the prior exam and it is difficult to accurately characterize the size and this measures 1.4 cm. t he rectum is dilated and filled with large amount of retained fecal material. The rectum measures 9.6 cm in greatest transverse dimension. There is perirectal inflammatory stranding as well as fluid. Th e guaman of the rectum do not appear particularly thickened and no definitive gas is seen within the b owel wall and the rectum. However, there is thickening of the guaman involving the sigmoid colon as we ll as the descending colon with associated pericolonic inflammatory changes suggesting colitis. There is mild to moderate amount of retained fecal material seen throughout the remainder of the colon. Opacified loops of small bowel have a normal appearance. Vascular calcifications seen in the abdominal aorta and involving the iliac arteries. Postsurgical ch anges in the abdomen at the level of the umbilicus are again seen. The Petersen catheter is present in a decompressed urinary bladder. 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 IMPRESSION: 1. Thickening involving the guaman of the descending and sigmoid colon with pericolonic inflammat ory changes suggesting colitis which may be infectious or inflammatory in etiology. Ischemic colitis while a possibility is felt less likely given the overall length of involvement of the colon. There i s dilatation of the rectum with large amount of retained fecal material and pericolonic inflammatory changes suggesting fecal impaction. 2. Bilateral pleural effusions and atelectasis. There is consolidation and patchy parenchymal de nsities at the right lung base which could be related to pneumonia or aspiration pneumonitis. There a re bilateral reticulonodular densities suggesting infectious or inflammatory process. 3. Hiatal hernia. 4. Cholelithiasis with mild distension of the gallbladder. 5. Bilateral renal cysts. 6. Small amount of free fluid in the pelvis. POS: AARON
[2018-12-02] MEDS: Sodium Chloride 0.9% 1,000 ML IV SCH ×4 (01:48→21:26)
--- NOTE | 2018-12-02 03:31 | CON ---
DATE OF CONSULTATION: HISTORY OF PRESENT ILLNESS: The patient is an 83-year-old female, who was admitted on 11/30/2018. She was admitted with a diagnosis of left-sided pneumonia and sepsis syndrome. She was also adrenal insufficient. She was admitted to the ICU and was on pressors for blood pressure management for a short period of time. Subsequently, the patient has developed abdominal pain. Tonight, when I saw her, she was awaken from sleep, told me she had significant abdominal pain. She describes it in her left side, left lower quadrant. She has had no prior nausea or vomiting. No weight loss. No melena or hematochezia. PAST MEDICAL HISTORY: Significant for hypothyroidism, adrenal insufficiency, SIADH, chronic pain secondary to lumbar disk disease, stroke, recurrent pneumonia. PAST SURGICAL HISTORY: Includes hysterectomy, bladder suspension, rectocele, and PEG placement. MEDICATIONS: Include; 1. Hydrocodone. 2. Aspirin. 3. Dulcolax. 4. Cymbalta. 5. Hydrocortisone. 6. Protonix. 7. Seroquel. 8. Temazepam. 9. [place]olson Thyroid. ALLERGIES: INCLUDE CIPRO, BACTRIM, AND SULFA. SOCIAL HISTORY: She is , lives at home with her family. FAMILY HISTORY: Negative for GI or liver disease. REVIEW OF SYSTEMS: CONSTITUTIONAL: Positive for fever or chills. Negative for weight loss. HEENT: No blurred vision or double vision. ENT: No sore throat or earaches. CARDIOVASCULAR: No chest pain or palpitation. PULMONARY: Positive for cough. Positive for shortness of breath. GI: See above. : No hematuria or dysuria. MUSCULOSKELETAL: Negative for joint pain or weight loss. NEUROLOGIC: No numbness or seizure activity. PHYSICAL EXAMINATION: GENERAL: Shows an elderly white female, sleeping comfortably. VITAL SIGNS: Pulse is 104, respiratory rate is 17, blood pressure 107/61, temperature 98.8. HEENT: Unremarkable. NECK: Supple. CHEST: Clear. CARDIOVASCULAR: Regular rate and rhythm without murmurs or gallops. ABDOMEN: Soft, diffusely tender with some guarding. No rebound. Bowel sounds are present. RECTAL: Deferred. EXTREMITIES: Normal. NEUROLOGIC: Nonfocal. LABORATORY DATA: Shows a white blood cell count of 44.3, hemoglobin 10.9, hematocrit 34.4. She has 35% neutrophils, 35% bands. Chemistry shows sodium of 134, potassium 3.4, CO2 18, BUN 21, creatinine 1.38. Lactic acid level is 2.5, calcium 7.5, total bilirubin 1.5, albumin 2.7. Urinalysis is negative. ASSESSMENT: 1. Hypotensive episode. 2. Adrenal crisis. 3. Syndrome of inappropriate antidiuretic hormone secretion. 4. Hypothyroidism. 5. Diffuse abdominal pain and also concern here would be ischemic bowel secondary to her hypotensive episode. RECOMMENDATIONS: CT of the abdomen and pelvis. Job ID: [id number]
[2018-12-02 05:01] LABS: Band 25 % (5-11); Hemoglobin 9.7 g/dL (12.0-16.0); Hypochromia SLIGHT = 6-15 cells (100X) (0-5/hpf); Lymphocytes 4 % (21-51); MDiff Complete? YES; Mean Corpuscular HGB CONC 31.6 g/dL (32.0-36.0); Mean Corpuscular Hemoglobin 29.4 pg (27.0-31.0); Mean Corpuscular Volume 92.9 fL (78.0-98.0); Mean Platelet Volume 9.7 fL (7.4-10.4); Monocytes 5 % (0-10); Neutrophil 66 % (42-75); Platelet Count 65 thou/uL (130-400); Platelet Morphology Comment Appears Adequate; RBC Distribution Width 14.8 % (11.5-14.5); Red Blood Cell (RBC) Count 3.31 mill/uL (4.20-5.40); White Blood Cell (WBC) Count 27.8 thou/uL (4.8-10.8)
[2018-12-02 05:04] VITALS: BMI 29.2
[2018-12-02 05:06] LABS: ALT (SGPT) 25 U/L (8-55); AST (SGOT) 31 U/L (5-34); Albumin 2.5 g/dL (3.4-4.8); Alkaline Phosphatase 78 U/L (40-150); Anion Gap 14 mmol/L (10-20); BUN (Urea Nitrogen) 22 mg/dL (9.8-20.1); Bilirubin, Total 1.1 mg/dL (0.2-1.2); Calc. Creatinine Clearance 45 mL/min (70-130); Calcium 7.5 mg/dL (7.8-10.44); Carbon Dioxide 17 mmol/L (23-31); Chloride 106 mmol/L (98-107); Estimated GFR-MDRD 51; Glucose 131 mg/dL (83-110); Protein, Total 5.5 g/dL (6.0-8.3); Sodium 134 mmol/L (136-145)
[2018-12-02 05:23] LABS: Vancomycin, Trough 16.6 ug/mL
[2018-12-02] MEDS: Piperacillin/Tazobactam 4.5 GM in Sodium Chloride 0.9% 100 ML IVPB SCH ×3 (05:37→21:22)
[2018-12-02] MEDS: methylPREDNISolone Sod Succ 40 MG VIAL IVP SCH ×3 (05:39→21:03)
[2018-12-02] MEDS: Levothyroxine 100 MCG SDV IVP SCH (05:40)
[2018-12-02] MEDS: Vancomycin HCl 1.25 GM in Sodium Chloride 0.9% 250 ML 250 ML IVPB SCH (07:47)
[2018-12-02] MEDS ORDERED: CCU Electrolyte Replacement 1 EACH FS ONE (08:06)
[2018-12-02] MEDS ORDERED: Potassium Phosphate 12 MMOL in Sodium Chloride 0.9% 250 ML 250 ML IV PRN (08:09)
[2018-12-02] MEDS ORDERED: Potassium Phosphate 15 MMOL in Sodium Chloride 0.9% 250 ML 250 ML IV PRN (08:09)
[2018-12-02] MEDS ORDERED: Potassium Chloride 40 MEQ in Premix Bag 1 BAG IVPB PRN (08:09)
[2018-12-02] MEDS ORDERED: Magnesium 2 GM/50 ML 2 GM in Premix Bag 1 BAG IVPB PRN (08:09)
[2018-12-02] MEDS ORDERED: Potassium Chloride 40 MEQ in Sodium Chloride 0.9% 250 ML 250 ML IVPB PRN (08:09)
[2018-12-02] MEDS ORDERED: Magnesium Oxide 400 MG TAB PO PRN ×2 (08:09)
[2018-12-02] MEDS ORDERED: Potassium Chloride 20 MEQ TAB PO PRN (08:09)
[2018-12-02] MEDS ORDERED: Potassium Phosphate 9 MMOL in Sodium Chloride 0.9% 100 ML IVPB PRN (08:09)
[2018-12-02] MEDS ORDERED: CCU ELECTROLYTE REPLACEMENT PROTOCOL FS PRN (08:09)
[2018-12-02] MEDS ORDERED: Acetaminophen 325 MG TAB PER TUBE PRN (08:27)
[2018-12-02] MEDS: Pantoprazole 40 MG VIAL IVP SCH (09:33)
[2018-12-02] MEDS: Aspirin 81 mg Enteric Coated Tablet PER TUBE SCH (13:26)
[2018-12-02] MEDS: HYDROcodone/Acetaminophen 5/325 mg Tablet PO SCH ×2 (13:27→21:01)
--- NOTE | 2018-12-02 17:30 | PRG ---
DATE OF SERVICE: 12/02/2018 SUBJECTIVE: Ms. Greenwood says her abdomen is not as uncomfortable as it was yesterday, although she is still quite tender in the left lower quadrant. CT scan of her abdomen showed sigmoid and distal colon wall thickening suggestive of colitis. I suspect this is ischemic colitis. Blood pressures have been stable. We will plan to remove her central line today. She is chronically on hydrocodone as we plan to place her back on her hydrocodone three times a day as needed. OBJECTIVE: VITAL SIGNS: She is afebrile. Heart rate is 106, respiratory rate is 20, oximetry is 98% on room air, blood pressure 134/81. HEAD AND NECK: Exam is unchanged. LUNGS: Clear. HEART: Regular rhythm. S1 and S2 are normal. ABDOMEN: Soft and nontender. EXTREMITIES: No clubbing, cyanosis, or edema. LABORATORY DATA: White count 27.8, hemoglobin 9.7, platelets 65,000, sodium 134 , potassium 3, chloride 106, bicarb 17, BUN 22, creatinine 1.04. Family wanted her Cymbalta restarted, but I have relayed to them that Cymbalta has been associated with hyponatremia, so I for now would avoid this drug. IMPRESSION: 1. Status post adrenal crisis. 2. ? pneumonia. 3. History of adrenal insufficiency and hypothyroidism related to pituitary surgery in the past. She probably needs to be on 20 of hydrocortisone in the morning, 10 in the afternoon or 5 of prednisone and 2.5 prednisone in the afternoon. She probably does not need Florinef with hydrocortisone is used, may not need it if prednisone is used. I would keep her on IV steroids and IV thyroid replacement for now given that she is having loose bowel movements. She is stable to move out of critical care unit in my opinion. Job ID: [id number] [facility]
--- NOTE | 2018-12-02 18:13 | PRG ---
DATE OF SERVICE: 12/02/2018 SUBJECTIVE: The patient is feeling much better. She continues to say that her abdomen is painful, but has improved. She is now comfortable off BiPAP, off oxygen, and breathing without difficulties. She was able to wean off her pressors yesterday and likely will be moving off ICU today. Continues on antibiotics for possible sepsis syndrome. OBJECTIVE: VITAL SIGNS: Temperature 98.6, pulse of 108, respirations 22, blood pressure 125/78, and pulse ox is 100% on room air. GENERAL: She is awake and alert. She appears frail, but in no acute distress. HEENT: Mucosa is moist. NECK: Supple. HEART: Regular rate and rhythm. LUNGS: Clear anteriorly. ABDOMEN: She has diffuse tenderness, worse in the lower abdomen. No rebound. No guarding. Positive bowel sounds. No peritoneal signs. EXTREMITIES: No clubbing, cyanosis, or edema. A 2+ peripheral pulses bilaterally. LABORATORY DATA: White blood cell count is down to 27.8, hemoglobin and hematocrit 9.7 and 30.8, and platelets of 65,000. Sodium 134, potassium 3.0, chloride 106, CO2 of 17, BUN and creatinine 22 and 1.04 with a GFR of 51, which is improved from 37 yesterday. Serum glucose is 131. Calcium was low at 7.5, but her albumin was 2.5. AST and ALT are normal. Vancomycin trough is 16.6. Abdominal CT from last night revealed thickening wall to the descending and sigmoid colon with pericolonic inflammatory changes consistent with colitis, dilatation of the rectum with large retained fecal matter and suggestion of fecal impaction, bilateral pleural effusions with atelectasis, hiatal hernia, cholelithiasis with mild distention of the gallbladder, renal cysts, and small amount of free fluid in the pelvis. ASSESSMENT AND PLAN: This is an 83-year-old female patient admitted for shock with possible sepsis syndrome and possible aspiration pneumonia, likely much related to adrenal crisis. 1. Possible aspiration pneumonia. We will continue antibiotics as per Pulmonary. Speech Therapy is working with her as far as her ability to swallow and prevent further aspiration. 2. Possible sepsis syndrome. She is off her pressors. Blood pressure is stable at this point. 3. Adrenal crisis. Steroid therapy has improved this. 4. Hypothyroidism. We will continue thyroid replacement as well. 5. History of syndrome of inappropriate antidiuretic hormone is much improved with steroid therapy as well. 6. Abdominal pain with colitis. Further plan as per Gastroenterology, likely to improve now that her blood pressure is stabilized. We will continue antibiotics for coverage as well. 7. History of aspiration and dysphagia. We will continue n.p.o. and percutaneous endoscopic gastrostomy feeding at this point, and proceed with oral diet more cautiously. Job ID: [id number]
[2018-12-02] MEDS ORDERED: Magnesium Citrate 300 ML BOT PO SCH (20:30)
--- NOTE | 2018-12-02 21:04 | PRG ---
DATE OF SERVICE: 12/02/2018 SUBJECTIVE: The patient is complaining of left-sided abdominal pain. Does not seem to be any better or worse than yesterday. OBJECTIVE: VITAL SIGNS: Temperature 97.6, pulse 104, respiratory rate 20, blood pressure 134/81. CHEST: Clear. CARDIOVASCULAR: Regular rate and rhythm. ABDOMEN: Soft, tender in the left lower quadrant with some guarding, no rebound. RECTAL: Performed and shows some stool in the vault, but no significant impaction is appreciable. LABORATORY DATA: White blood cell count 27.8, hemoglobin 9.7, hematocrit 30.8. She has 25% bands. Chemistry shows sodium of 134, potassium 3.0, CO2 17, BUN 22, glucose 131. CT of the abdomen and pelvis showed fecal impaction, thickening involving the guaman of the descending and sigmoid colon with pericolonic inflammation changes suggestive of colitis. ASSESSMENT: 1. Fecal impaction by CT scan, not much of stool presumable by examination. 2. Left-sided colitis. I suspect this is ischemic colitis. Her white count and band count seem to be improving. 3. Hypotensive episode. 4. Adrenal crisis. RECOMMENDATIONS: 1. Continue to monitor white blood cell count, fever, and abdominal exam. 2. She may need a sigmoidoscopy if it worsens and/or a surgical input. 3. Bottle of magnesium citrate. Job ID: [id number]
[2018-12-03] MEDS: Mag-Al 1200 mg/1200 mg/30 ML UDCUP PO SCH ×2 (00:35→02:35)
[2018-12-03] MEDS ORDERED: Pantoprazole 40 MG VIAL IVP SCH (02:15)
[2018-12-03] MEDS: Sodium Chloride 0.9% 1,000 ML IV SCH ×2 (05:05→16:28)
[2018-12-03] MEDS: Levothyroxine 100 MCG SDV IVP SCH (05:06)
[2018-12-03] MEDS: Piperacillin/Tazobactam 4.5 GM in Sodium Chloride 0.9% 100 ML IVPB SCH (05:21)
[2018-12-03 07:32] LABS: Hemoglobin 11.5 g/dL (12.0-16.0); Mean Corpuscular HGB CONC 31.4 g/dL (32.0-36.0); Mean Corpuscular Hemoglobin 29.7 pg (27.0-31.0); Mean Corpuscular Volume 94.6 fL (78.0-98.0); Mean Platelet Volume 10.4 fL (7.4-10.4); Platelet Count 57 thou/uL (130-400); RBC Distribution Width 15.1 % (11.5-14.5); Red Blood Cell (RBC) Count 3.87 mill/uL (4.20-5.40); White Blood Cell (WBC) Count 10.2 thou/uL (4.8-10.8)
[2018-12-03 07:33] LABS: ALT (SGPT) 27 U/L (8-55); AST (SGOT) 34 U/L (5-34); Albumin 2.7 g/dL (3.4-4.8); Alkaline Phosphatase 81 U/L (40-150); Anion Gap 17 mmol/L (10-20); BUN (Urea Nitrogen) 19 mg/dL (9.8-20.1); Bilirubin, Total 1.2 mg/dL (0.2-1.2); Calc. Creatinine Clearance 56 mL/min (70-130); Calcium 8.2 mg/dL (7.8-10.44); Carbon Dioxide 14 mmol/L (23-31); Chloride 110 mmol/L (98-107); Estimated GFR-MDRD 66; Globulin 3.7 g/dL (2.4-3.5); Glucose 135 mg/dL (83-110); Protein, Total 6.4 g/dL (6.0-8.3); Sodium 138 mmol/L (136-145)
[2018-12-03 07:39] LABS: Potassium 2.9 mmol/L (3.5-5.1)
[2018-12-03] MEDS: HYDROcodone/Acetaminophen 5/325 mg Tablet PO SCH ×4 (08:16→22:10)
[2018-12-03] MEDS: Aspirin 81 mg Enteric Coated Tablet PER TUBE SCH (08:16)
[2018-12-03] MEDS: Pantoprazole 40 MG VIAL IVP SCH ×2 (08:18→20:16)
[2018-12-03] MEDS: methylPREDNISolone Sod Succ 40 MG VIAL IVP SCH ×2 (08:18→20:17)
[2018-12-03 08:30] LABS: Band 24 % (5-11); Burr Cells MODERATE= 6-15 cells (100X) (0-1/hpf); Lymphocytes 7 % (21-51); MDiff Complete? YES; Monocytes 2 % (0-10); Neutrophil 67 % (42-75); Platelet Morphology Comment Appears Decreased; Polychromasia SLIGHT = 2-3 cells (100X) (0-2/hpf)
[2018-12-03] MEDS ORDERED: Docusate Sodium 100 MG/10 ML UDCUP PO PRN (09:19)
--- NOTE | 2018-12-03 09:50 | PRG ---
DATE OF SERVICE: 12/03/2018 SUBJECTIVE: The patient is feeling some better. She denies cough or shortness of breath. She does admit to some abdominal pain, but improved over the last couple of days. No fevers or chills. No nausea or vomiting. She did fail a bedside swallow evaluation and she is n.p.o. once again, but seems to be tolerating fluids from the PEG tube. The family states that she had a rough night last night due to abdominal pain and restlessness. OBJECTIVE: VITAL SIGNS: Temperature 98.2, pulse of 96, respirations 19, blood pressure 144/82, and pulse ox is 97% on room air. GENERAL: She is awake and alert. She is lethargic, but answers questions appropriately. HEENT: Mucosa is moist. NECK: Supple. HEART: Regular rate and rhythm. LUNGS: Clear anteriorly. ABDOMEN: Positive bowel sounds in all 4 quadrants. Soft. Minimal tenderness in the lower abdomen. No rebound. No guarding. EXTREMITIES: No edema. LABORATORY DATA: White blood cell count down to 10.2, hemoglobin and hematocrit 11.5 and 36.7, and platelets of 57,000 down from 65,000 yesterday. Sodium 138, potassium 2.9, chloride 110, CO2 of 14, BUN and creatinine 19 and 0.83 with a GFR of 66, serum glucose of 135, calcium up to 8.2, albumin of 2.7, total bilirubin 1.2, and AST and ALT are normal. Gastric occult blood was positive. Urine culture was negative. Blood cultures are negative. ASSESSMENT AND PLAN: This is an 83-year-old female patient with multiple medical problems including recent history of pontine cerebrovascular accident, dysphagia requiring percutaneous endoscopic gastrostomy tube placement and now admitted for possible aspiration pneumonia, sepsis syndrome, and adrenal crisis. 1. Possible aspiration pneumonia. Continuing antibiotic as per Pulmonary. 2. Sepsis syndrome, seems to be resolving. She is off her pressors. Blood pressure is stable. Adrenal crisis, continuing steroid therapy as per Dr. Magana's recommendations. 3. Hypothyroidism. Continue thyroid replacement. 4. Abdominal pain with colitis. I appreciate Dr. Flowers's assistance suspicious of ischemic colitis. Hopefully will improve. 5. Constipation. We will continue stool softeners. No results with a dose of magnesium citrate yesterday. Dr. Flowers continuing to follow. May need surgical evaluation versus sigmoidoscopy. 6. Electrolyte disturbances. Low potassium. We will replace as well. 7. History of anxiety and depression. Had been on Cymbalta. Has been stopped at this point due to low sodium and we will continue to monitor closely. Job ID: [id number]
[2018-12-03] MEDS ORDERED: Milk Of Magnesia 30 ML UDCUP PO SCH (11:45)
--- NOTE | 2018-12-03 12:12 | PRG ---
DATE OF SERVICE: 12/03/2018 SUBJECTIVE: The patient is feeling better today. She has not had much bowel movements after magnesium citrate. OBJECTIVE: VITAL SIGNS: Temperature 98.2, pulse 96, respiratory rate 19, blood pressure 144/82. CHEST: Clear. CARDIOVASCULAR: Regular rate and rhythm. ABDOMEN: Soft, less tender than yesterday. EXTREMITIES: Unchanged. LABORATORY DATA: White blood cell count 10.2, hemoglobin 11.5, hematocrit of 36.7, platelet count is 57, 24% bands. Chemistry significant for a potassium 2.9, CO2 14, glucose 135. ASSESSMENT: 1. Fecal impaction. 2. Left-sided colitis, which I suspect is ischemic colitis. 3. Hypokalemia. 4. Hypotensive episode, secondary to adrenal crisis. RECOMMENDATIONS: 1. Trial of milk of magnesia. 2. May need a Fleet enema. 3. Correct potassium. Job ID: [id number]
--- NOTE | 2018-12-03 13:27 | PRG ---
DATE OF SERVICE: 12/03/2018 SUBJECTIVE: Ms. Ramya Greenwood wants to go home. Her granddaughter is concerned about return of depression without Cymbalta. The viable alternative would be to put her on Pamelor at bedtime. This will help her sleep, may help with depression mediation. OBJECTIVE: VITAL SIGNS: She is afebrile. Heart rate is 94, respiratory rate is 20, oximetry is 97%, and blood pressure is 144/82. LUNGS: Clear. HEART: Regular rhythm. ABDOMEN: Soft. She had not had a bowel movement in 2 days. She was nauseated all the night after getting magnesium citrate placed in her PEG tube. She wants some ice water. We will continue to follow with other docs,until GI function is adequate, I would continue her on IV steroids and IV Synthroid. Zosyn can be switched to Augmentin in my opinion. We will continue to follow. Job ID: [id number] MTDD
[2018-12-03] MEDS: Amoxicillin/Potassium Clav 875 MG TAB PO SCH (20:16)
[2018-12-04] MEDS: Levothyroxine 100 MCG SDV IVP SCH (05:18)
[2018-12-04] MEDS: Sodium Chloride 0.9% 1,000 ML IV SCH (05:18)
[2018-12-04 06:48] LABS: Anion Gap 14 mmol/L (10-20); BUN (Urea Nitrogen) 23 mg/dL (9.8-20.1); Calc. Creatinine Clearance 60 mL/min (70-130); Calcium 8.4 mg/dL (7.8-10.44); Carbon Dioxide 19 mmol/L (23-31); Chloride 108 mmol/L (98-107); Estimated GFR-MDRD 72; Glucose 183 mg/dL (83-110); Potassium 3.7 mmol/L (3.5-5.1); Sodium 137 mmol/L (136-145)
[2018-12-04 07:49] LABS: Hemoglobin 11.1 g/dL (12.0-16.0); Mean Corpuscular Hemoglobin 29.3 pg (27.0-31.0); Mean Corpuscular Volume 91.5 fL (78.0-98.0); Platelet Count 68 thou/uL (130-400); RBC Distribution Width 14.8 % (11.5-14.5); Red Blood Cell (RBC) Count 3.77 mill/uL (4.20-5.40); White Blood Cell (WBC) Count 6.3 thou/uL (4.8-10.8)
[2018-12-04 07:53] LABS: Anisocytosis SLIGHT = 6-15 cells (100X) (0-5/hpf); Band 13 % (5-11); Lymphocytes 19 % (21-51); MDiff Complete? YES; Monocytes 3 % (0-10); Neutrophil 65 % (42-75); Platelet Morphology Comment Appears Decreased
--- NOTE | 2018-12-04 08:22 | PRG ---
DATE OF SERVICE: 12/04/2018 SUBJECTIVE: The patient states that she is feeling much better. Daughter states that she did have an episode of being tearful yesterday, but seems much better. She has minimal abdominal pain any more. She states that she had a good bowel movement, several of them yesterday. No nausea or vomiting. Denies fevers or chills. States she only wants to drink water or coffee. She has not been out of bed. OBJECTIVE: VITAL SIGNS: Temperature 97.7, pulse of 100, respirations 16, blood pressure 149/85, and pulse ox is 100% on room air. GENERAL: She is awake and alert, in no acute distress. HEENT: Mucosa is moist. NECK: Supple. HEART: Regular rate and rhythm with 2/6 systolic ejection murmur at right sternal border. LUNGS: Clear anteriorly. ABDOMEN: PEG tube is in place with no redness. No drainage. Positive bowel sounds. Abdomen is soft, nontender, and nondistended. EXTREMITIES: With no edema. No calf tenderness. LABORATORY DATA: White blood cell count down to 6.3, hemoglobin and hematocrit 11.1 and 34.5, platelets up to 68,000. Sodium 137, potassium 3.7, chloride 108, CO2 of 19, BUN and creatinine 23 and 0.77 with a GFR of 72. Serum glucose of 183, calcium is now 8.4. C diff culture was negative. Urine cultures are negative. Blood cultures have been negative. ASSESSMENT AND PLAN: This is an 83-year-old female with a long history of recent pontine cerebrovascular accident, history of dysphagia requiring recent percutaneous endoscopic gastrostomy tube placement, history of adrenal insufficiency and syndrome of inappropriate antidiuretic hormone secretion, now admitted for aspiration pneumonia, sepsis syndrome and adrenal crisis. 1. Aspiration pneumonia. Switch to oral Augmentin as per Dr. Magana. She seems to be doing much better. 2. Sepsis syndrome, resolving. She is off pressors. Blood pressure is stable. 3. Adrenal crisis. Continue steroid therapy as per Dr. Magana's recommendations. She is still on IV hydrocortisone at this time. We will switch to oral when she continues to be stable. 4. Hypothyroidism, appears to be stable on current regimen. 5. Colitis, seems to be improving with improved blood pressure as well as constipation, resolving. 6. Hypokalemia, has improved with replacement. We will check magnesium level as well. 7. History of anxiety and depression. She is off Cymbalta at this point. Consider Pamelor if she becomes more depressed. 8. Activity, we will initiate PT, OT. 9. Disposition, possibly home. If she continues to be stable, then can be switched to oral thyroid and steroid replacement. Again, we will initiate therapies and home health evaluation. Job ID: [id number]
[2018-12-04] MEDS ORDERED: Magnesium Oxide 400 MG TAB PO SCH (09:00)
[2018-12-04] MEDS: methylPREDNISolone Sod Succ 40 MG VIAL IVP SCH (09:29)
[2018-12-04] MEDS: HYDROcodone/Acetaminophen 5/325 mg Tablet PO SCH ×2 (09:29→16:30)
[2018-12-04] MEDS: Aspirin 81 mg Enteric Coated Tablet PER TUBE SCH (09:30)
[2018-12-04] MEDS: Amoxicillin/Potassium Clav 875 MG TAB PO SCH (09:31)
[2018-12-04] MEDS: Pantoprazole 40 MG VIAL IVP SCH ×2 (09:31→20:52)
--- NOTE | 2018-12-04 10:24 | PRG ---
DATE OF SERVICE: 12/04/2018 SUBJECTIVE: The patient is feeling better. She is tolerating tube feedings. 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 The pain seems to be less. OBJECTIVE: VITAL SIGNS: Temperature 98.8, pulse 102, respiratory rate 18, and blood pressure 158/89. CHEST: Clear. CARDIOVASCULAR: Regular rate and rhythm. ABDOMEN: Soft. Tender in the left lower quadrant, but less so. EXTREMITIES: Normal. LABORATORY DATA: Significant for CO2 of 19, BUN 23, and glucose 183. White blood cell count 6.3, hemoglobin 11.1, hematocrit 34.5, platelet count is 68, bands are 13. ASSESSMENT: 1. Ischemic colitis-improving. 2. Adrenal crisis. 3. Fecal impaction-the patient had a good bowel movement yesterday and will give her more milk of magnesia today. RECOMMENDATIONS: 1. Another dose of milk of magnesia today. 2. Continue present management. 3. Dr. Mcduffie is covering. Job ID: [id number]
[2018-12-04] MEDS ORDERED: Milk Of Magnesia 30 ML UDCUP PO SCH (11:45)
[2018-12-04] MEDS ORDERED: Docusate Sodium 100 MG/10 ML UDCUP PER TUBE PRN (17:58)
--- NOTE | 2018-12-04 18:38 | PRG ---
DATE OF SERVICE: 12/04/2018 SUBJECTIVE: Ms. Greenwood is doing well. She apparently had a bowel movement today according to the granddaughter. She has no complaints. She wants to go home again. OBJECTIVE: VITAL SIGNS: She is afebrile. Heart rate is 102, respiratory rate is 18, oximetry is 96% on room air, and blood pressure 159/89. LUNGS: Clear. HEART: Regular rhythm. ABDOMEN: Soft. EXTREMITIES: Without edema. Her abdominal tenderness is for the most part, almost completely resolved. IMPRESSION: 1. Ischemic colitis. 2. Adrenal crisis, resolved. 3. Fecal impaction with improving bowel function. 4. Swallowing dysfunction with a PEG in place. I will switch her to hydrocortisone 20 mg in the morning and 10 mg in the evening. She will start Synthroid at 75 mcg per day. This should be almost adequate, but her TSH can be followed as an outpatient. She still needs to get a MedicAlert bracelet as I have explained to multiple family members, documenting that she has adrenal insufficiency. She is now on all medicines for her via her PEG tube. Her electrolytes remained stable. She has had no recurrence of her hyponatremia. We will sign off. Job ID: [id number]
[2018-12-04] MEDS: HYDROcodone/Acetaminophen 5/325 mg Tablet PER TUBE SCH (20:51)
[2018-12-04] MEDS: Hydrocortisone 10 mg Tablet PER TUBE SCH (20:51)
[2018-12-04] MEDS: Amoxicillin/Potassium Clav 875 MG TAB PER TUBE SCH (20:51)
[2018-12-04] MEDS ORDERED: Hydrocortisone 10 mg Tablet PO SCH (21:00)
[2018-12-05] MEDS: Levothyroxine Sodium 75 MCG TAB PER TUBE SCH (05:07)
[2018-12-05] MEDS ORDERED: Levothyroxine Sodium 75 MCG TAB PO SCH (06:00)
[2018-12-05 06:23] LABS: Anion Gap 10 mmol/L (10-20); BUN (Urea Nitrogen) 30 mg/dL (9.8-20.1); Calc. Creatinine Clearance 57 mL/min (70-130); Calcium 8.1 mg/dL (7.8-10.44); Carbon Dioxide 27 mmol/L (23-31); Chloride 102 mmol/L (98-107); Estimated GFR-MDRD 68; Glucose 165 mg/dL (83-110); Potassium 3.7 mmol/L (3.5-5.1); Sodium 135 mmol/L (136-145)
[2018-12-05 06:54] LABS: Band 5 % (5-11); Hemoglobin 10.4 g/dL (12.0-16.0); Lymphocytes 17 % (21-51); MDiff Complete? YES; Mean Corpuscular HGB CONC 32.7 g/dL (32.0-36.0); Mean Corpuscular Hemoglobin 29.8 pg (27.0-31.0); Mean Corpuscular Volume 91.2 fL (78.0-98.0); Mean Platelet Volume 10.1 fL (7.4-10.4); Monocytes 5 % (0-10); Neutrophil 72 % (42-75); Nucleated RBC 1 % (0); Platelet Count 60 thou/uL (130-400); Platelet Morphology Comment Appears Decreased; RBC Distribution Width 14.4 % (11.5-14.5); Reactive Lymphocytes 1 % (0-10); Red Blood Cell (RBC) Count 3.49 mill/uL (4.20-5.40); White Blood Cell (WBC) Count 11.3 thou/uL (4.8-10.8)
[2018-12-05] MEDS: Pantoprazole 40 MG VIAL IVP SCH ×2 (08:45→20:05)
[2018-12-05] MEDS: Hydrocortisone 10 mg Tablet PER TUBE SCH ×2 (08:46→20:04)
[2018-12-05] MEDS: HYDROcodone/Acetaminophen 5/325 mg Tablet PER TUBE SCH ×3 (08:47→20:04)
[2018-12-05] MEDS: Amoxicillin/Potassium Clav 875 MG TAB PER TUBE SCH ×2 (08:47→20:05)
[2018-12-05] MEDS: Aspirin 81 mg Enteric Coated Tablet PER TUBE SCH (08:47)
[2018-12-05] MEDS ORDERED: Hydrocortisone 10 mg Tablet PO SCH (09:00)
--- NOTE | 2018-12-05 16:31 | DIS ---
DATE OF ADMISSION: 11/30/2018 DATE OF DISCHARGE: 12/05/2018 ADMITTING DIAGNOSES: Adrenal crisis with possible pneumonia, hypothyroidism, chronic hyponatremia secondary to syndrome of inappropriate antidiuretic hormone secretion issue, and history of fairly recent cerebrovascular accident with dysphagia and a percutaneous endoscopic gastrostomy placement. 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 HOSPITAL COURSE: The patient is an 83-year-old female patient of Dr. Weeks, who has came in to the emergency room with weakness. Family has seen this before, they knew that it was likely an adrenal crisis issue. She was put on the unit, Dr. Magana saw her there in consultation. Her initial sodium was 134, initial potassium was 3.4. The sodium never really dipped, but the potassium went down to 2.9, and on day of discharge is back up to 3.7. Her lactic acid was slightly elevated initially at 2.8 and that went down to normal levels. Her sugar was low upon arrival, but then she started getting her replacement. Her sugars have been high in the last several days, so there is possibility of renal induced diabetes and her renal function at day of discharge, her BUN was 30, creatinine 0.81, and GFR 68 with a sugar of 165. Her calcium is normal at 8.1. Her CBC showed a white count 11.3 with red blood cells of 3.5, H and H are 10.5 and 31.8 respectively. Her MCV is normal at 91 and platelet counts at 60,000, so there has definitely been some bone marrow impact from this adrenal crisis. Her initial white blood cell count was 20,000 and went up to 44,000 very quickly, but then right back down to 27,000. So in the previous stay in September, she received the PEG tube and then spent time in rehab and never really used the PEG tube. She was swallowing well and taken solid and liquid without issue. Here in the hospital, Speech Therapy was consulted and she was having trouble with swallowing and their bedside eval showed she was unsafe to swallow solids or liquids, so she has been reconfined to the PEG tube. Family is aware of fluid restriction needs to maintain a sodium level. So, the plan at this point is to discharge back to home. Long discussion with the daughter that is here in the room as well as another daughter on the phone on the need to maintain [address] Mccord as they were also seeing Dr. Maravilla as a secondary primary physician, who was controlling her home health orders. I am encouraging them to not do that, but she will need to get all her medicines through her PEG tube and she will be on a diabetic tube feeding to do about 120 mL every 4 hours followed by 30 mL of water as a flush. She will be on aspirin 81 mg daily. She has hydrocortisone 20 mg in the morning and 10 mg in the evening and Synthroid 75 mcg daily. Family questioned that as she had been on [place] in the past and I strongly recommended that they avoid armor at all cost due to her diagnosis, she needs to be on the more consistent dosing of Synthroid. Also, omeprazole 20 mg daily, sodium chloride tablet 1 g t.i.d., demeclocycline 300 mg twice a day, Cymbalta 20 mg twice a day, and the temazepam 15 mg at bedtime. She was on amlodipine 5 mg daily, but only p.r.n., we are going to continue that. She needs to be on MiraLAX 17 g per 8 ounces of water at least once a day up to 3 times a day and also on Citrucel 1 dose daily. She will need to follow up with Dr. Mccord this week and also follow up with Speech Therapy this week. There were no further questions by family. The Synthroid as a new med will be provided directly to her Pharmacy. Job ID: [id number]
--- NOTE | 2018-12-05 17:13 | EKG ---
Test Reason : TACHYCARDIA Blood Pressure : / mmHG Vent. Rate : 130 BPM Atrial Rate : 130 BPM P-R Int : 152 ms QRS Dur : 060 ms QT Int : 304 ms P-R-T Axes : -28 -40 074 degrees QTc Int : 447 ms Sinus tachycardia Left axis deviation Inferior infarct , age undetermined Anterior infarct , age undetermined Abnormal ECG Confirmed by NEAL CABRERA, ETTA ([id number]), television news video editor FRANCISCO ANGEL ([id number]) on 12/05/2018 5:12:55 PM Referred By: NEAL Confirmed By:ETTA DE JESUS MD
[2018-12-06] MEDS: Levothyroxine Sodium 75 MCG TAB PER TUBE SCH (05:27)
[2018-12-06 07:29] LABS: Anion Gap 13 mmol/L (10-20); BUN (Urea Nitrogen) 31 mg/dL (9.8-20.1); Calc. Creatinine Clearance 62 mL/min (70-130); Calcium 8.6 mg/dL (7.8-10.44); Carbon Dioxide 28 mmol/L (23-31); Chloride 98 mmol/L (98-107); Estimated GFR-MDRD 74; Glucose 96 mg/dL (83-110); Potassium 3.5 mmol/L (3.5-5.1); Sodium 135 mmol/L (136-145)
[2018-12-06 08:14] LABS: Band 8 % (5-11); Eosinophils 2 % (0-10); Hemoglobin 11.5 g/dL (12.0-16.0); Lymphocytes 21 % (21-51); MDiff Complete? YES; Mean Corpuscular HGB CONC 32.8 g/dL (32.0-36.0); Mean Corpuscular Hemoglobin 29.6 pg (27.0-31.0); Mean Corpuscular Volume 90.2 fL (78.0-98.0); Mean Platelet Volume 10.3 fL (7.4-10.4); Monocytes 6 % (0-10); Neutrophil 63 % (42-75); Nucleated RBC 1 % (0); Platelet Count 81 thou/uL (130-400); RBC Distribution Width 14.4 % (11.5-14.5); Red Blood Cell (RBC) Count 3.89 mill/uL (4.20-5.40); White Blood Cell (WBC) Count 15.2 thou/uL (4.8-10.8)
[2018-12-06] MEDS: Hydrocortisone 10 mg Tablet PER TUBE SCH ×2 (09:30→22:20)
[2018-12-06] MEDS: Aspirin 81 mg Enteric Coated Tablet PER TUBE SCH (09:31)
[2018-12-06] MEDS: Amoxicillin/Potassium Clav 875 MG TAB PER TUBE SCH ×2 (09:31→22:19)
[2018-12-06] MEDS: HYDROcodone/Acetaminophen 5/325 mg Tablet PER TUBE SCH ×3 (09:31→22:20)
[2018-12-06] MEDS: Pantoprazole 40 MG VIAL IVP SCH ×2 (09:32→22:22)
--- NOTE | 2018-12-06 14:10 | PRG ---
DATE OF SERVICE: 12/06/2018 Yesterday dictated discharge summary, thought she was going home. When therapy arrived to get her transported over into a wheelchair and to go, she was too weak to even do her own transfers and finally at that point agreed that they did not have the support at home, to be able to handle this, so they said that best thing would be to get her to the rehab in [place] to be able to do more appropriate level care before they got home, so she stayed the night. Her vital signs today are better. She feels fine. Her pressure is normal. She is afebrile. Her sodium came back today at 135. White count has gone up slightly to 15,000. Her glucose back down to 96 since transitioning over to a lower sugar tube feed. PHYSICAL EXAMINATION: GENERAL: Essentially unremarkable. LUNGS: Clear. HEART: S1, S2. No rubs, murmurs, or gallops. EXTREMITIES: Peripheral pulses are palpable in all four extremities. ABDOMEN: Soft, nontender. ASSESSMENT: Renal insufficiency with recent acute adrenal crisis with known chronic hyponatremia and syndrome of inappropriate antidiuretic hormone history with recent colitis. No evidence of continued pneumonia. We will need to follow her labs. PLAN: With her global weakness, she will need to go [facility] for further strengthening. Dr. Mccord will be back in the morning. Job ID: [id number]
--- NOTE | 2018-12-06 15:13 | PRG ---
DATE OF SERVICE: 12/06/2018 SUBJECTIVE: Ramya Greenwood has no new problems. She is unable to ambulate without assistance, so the plan is now for to go into some type of rehab environment. OBJECTIVE: LUNGS: Unchanged. HEART: Unchanged. ABDOMEN: Unchanged. Her hemodynamics has been stable. I noticed that the Cymbalta was recommended to discharge. I have recommended the family that this would be held. It may not be the cause of her hyponatremia at times, but there is no easy way to rule that out. She was hyponatremic before she was on Cymbalta, but she also was diagnosed with adrenal insufficiency at that time. We will sign off. Job ID: [id number]
[2018-12-07 01:01] LABS: Hemoglobin 10.2 g/dL (12.0-16.0); Mean Corpuscular HGB CONC 32.6 g/dL (32.0-36.0); Mean Corpuscular Hemoglobin 29.6 pg (27.0-31.0); Mean Platelet Volume 9.7 fL (7.4-10.4); Platelet Count 77 thou/uL (130-400); RBC Distribution Width 14.2 % (11.5-14.5); Red Blood Cell (RBC) Count 3.42 mill/uL (4.20-5.40); White Blood Cell (WBC) Count 17.8 thou/uL (4.8-10.8)
[2018-12-07 01:16] LABS: Band 9 % (5-11); Eosinophils 1 % (0-10); Lymphocytes 11 % (21-51); MDiff Complete? YES; Metamyelocyte 2 % (0-0); Monocytes 4 % (0-10); Myelocyte 4 % (0-0); Neutrophil 67 % (42-75); Platelet Morphology Comment Appears Decreased; Reactive Lymphocytes 2 % (0-10)
[2018-12-07] MEDS: Levothyroxine Sodium 75 MCG TAB PER TUBE SCH (05:40)
[2018-12-07 07:54] LABS: Anion Gap 18 mmol/L (10-20); BUN (Urea Nitrogen) 27 mg/dL (9.8-20.1); Calc. Creatinine Clearance 66 mL/min (70-130); Calcium 8.7 mg/dL (7.8-10.44); Carbon Dioxide 23 mmol/L (23-31); Chloride 98 mmol/L (98-107); Estimated GFR-MDRD 80; Glucose 68 mg/dL (83-110); Potassium 3.7 mmol/L (3.5-5.1); Sodium 135 mmol/L (136-145)
--- NOTE | 2018-12-07 08:14 | RAD ---
PORTABLE CHEST: 12/07/2018 PROVIDED CLINICAL HISTORY: Evidence for aspiration. COMPARISON: 12/01/2018 FINDINGS: The cardiac and mediastinal silhouette are unchanged in appearance. Vascular calcification involves the aortic arch. No focal consolidation, pleural fluid, or pneumothorax apparent. IMPRESSION: No evidence for an acute cardiopulmonary process. POS: OFF
[2018-12-07 08:45] LABS: Anisocytosis SLIGHT = 6-15 cells (100X) (0-5/hpf); Band 9 % (5-11); Differential Comment Immature Cell(s); Hemoglobin 11.2 g/dL (12.0-16.0); Hypersemented Neutrophil SLIGHT; Lymphocytes 13 % (21-51); MDiff Complete? YES; Mean Corpuscular Hemoglobin 29.7 pg (27.0-31.0); Mean Corpuscular Volume 92.8 fL (78.0-98.0); Mean Platelet Volume 10.2 fL (7.4-10.4); Metamyelocyte 2 % (0-0); Monocytes 11 % (0-10); Myelocyte 5 % (0-0); Neutrophil 59 % (42-75); Platelet Count 98 thou/uL (130-400); Platelet Morphology Comment Appears Decreased; Polychromasia SLIGHT = 2-3 cells (100X) (0-2/hpf); RBC Distribution Width 14.6 % (11.5-14.5); Red Blood Cell (RBC) Count 3.77 mill/uL (4.20-5.40); Reflex for Review?? YES; White Blood Cell (WBC) Count 19.6 thou/uL (4.8-10.8)
[2018-12-07] MEDS: HYDROcodone/Acetaminophen 5/325 mg Tablet PER TUBE SCH (09:26)
[2018-12-07] MEDS: Aspirin 81 mg Enteric Coated Tablet PER TUBE SCH (09:27)
[2018-12-07] MEDS: Pantoprazole 40 MG VIAL IVP SCH (09:27)
[2018-12-07] MEDS: Amoxicillin/Potassium Clav 875 MG TAB PER TUBE SCH (09:27)
[2018-12-07] MEDS: Hydrocortisone 10 mg Tablet PER TUBE SCH (09:30)
--- NOTE | 2018-12-07 12:11 | DIS ---
DATE OF ADMISSION: 11/30/2018 DATE OF DISCHARGE: 12/05/2018 ADDENDUM: CONSULTATIONS: Consultations on this patient were with Dr. Magana from Critical Care and Dr. Donavan Flowers from Gastroenterology. DIAGNOSES: Another diagnosis on this patient was ischemic colitis and constipation with fecal impaction, which had resolved. Job ID: [id number]
[2018-12-07 13:04] LABS: Bilirubin Negative (Negative); Blood, Urine Negative (Negative); Glucose, Urine (Dipstick) Negative (Negative); Leukocyte Negative (Negative); Nitrite Negative (Negative); Protein, Urine (Dipstick) Negative (Neg-Trace); Specific Gravity, Urine 1.015 (1.005-1.030)
[2018-12-07 13:07] LABS: Clarity CLEAR (Clear)
[2018-12-07 13:10] LABS: Urine Culture Reflex No No
[2018-12-07 13:18] LABS: Bacteria/HPF None Seen HPF (None Seen); Hyaline Casts/LPF NONE SEEN LPF (0-3 Hyaline); RBC/HPF None Seen HPF (0-3); Squamous Epithelial 0-3 HPF (0-3); WBC/HPF None Seen HPF (0-3)
[2018-12-07 15:23] VITALS: BP 148/84; TEMP 97.6
--- NOTE | 2018-12-08 09:57 | PQF ---
[employer] Cash Processing Specialist [employer] Winform ViewerFILAR,DIANE POWER DO [id number] CLINICAL DOCUMENTATION IMPROVEMENT CLARIFICATION FORM: ICD-10 Updated PLEASE DO AN ADDENDUM TO THE PROGRESS NOTE WITH ANY DOCUMENTATION UPDATES OR ADDITIONS AND CARRY THROUGH TO DC SUMMARY. THANK YOU. DATE: 12/08/2018 ATTN: DR. DIANE GUPTA Please exercise your independent, professional judgment in responding to the clarification form. Clinical indicators are provided on the bottom of this form for your review. Please check appropriate box(s) to clarify if the following diagnosis has been ruled in or ruled out: SEPSIS [ ] Ruled in diagnosis [ ] Continue to treat [ ] Resolved [ xx ] Ruled out diagnosis [ ] Other diagnosis [ ] Unable to determine In addition, please specify: Present on Admission (POA): [ ] Yes [ xx ] No [ ] Unable to determine For continuity of documentation, please document condition throughout progress notes and discharge summary. Thank You. CLINICAL INDICATORS - SIGNS / SYMPTOMS / LABS 11/30 ED : PRESENTS TO ED TEMP 102.1-103.5, PULSE 120-140, RESP 24-34, BP 58/42- 119-56, O2 SAT 85-92 ON RA> 94% ON 3L NC> 94-97 % BIPAP ED PHYSICIAN FINAL DX : PNA, SEVERE SEPSIS 11/30 PN ([facility]) ASSESSMENT AND PLAN 1) WE WILL CONTINUE ZOSYN AND VANCOMYCIN FOR COVERAGE FOR ASPIRATION PNA AND SEPSIS. 2) [facility]PSIS SYNDROME 12/01- 12/04 [facility] ASSESSMENT AND PLAN : 2) SEPSIS SYNDROME 12/05 DISCHARGE SUMMARY ( [facility]) NO MENTION OF SEPSIS RISK: ACUTE RESPIRATORY FAILURE ASPIRATION PNEUMONIA TREATMENTS: TRANSFERRED TO UNIT ZOSYN IV (11/30-12/03) VANC IV (11/30- 12/02) PRESSORS (12/01) THANK YOU! MICHAELA (This form is maintained as a part of the permanent medical record) 2014 [employer] All Rights Reserved [employer] [email or web address] [phone] MTDD
== END 2018-12-07 15:09 | DRG 177 ==
LOC: ERS 12:57 → ERHOLD 16:07 → CCU 22:15 → T4-B 12-02 15:12
PROVIDERS: ADMIT Family Medicine; ATTEND Family Medicine
PROC: 5A09457 Assistance with Respiratory Ventilation, 24-96 Consecutive Hours, Continuous Positive Airway Pressure (ICD-10-PCS; 2018-11-30)
PROC: 3E033XZ Introduction of Vasopressor into Peripheral Vein, Percutaneous Approach (ICD-10-PCS; 2018-11-30)
PROC: 02HV33Z Insertion of Infusion Device into Superior Vena Cava, Percutaneous Approach (ICD-10-PCS; principal; 2018-12-01)
DX: J69.0 Pneumonitis due to inhalation of food and vomit (principal); J96.00 Acute respiratory failure, unspecified whether with hypoxia or hypercapnia; E22.2 Syndrome of inappropriate secretion of antidiuretic hormone; E27.2 Addisonian crisis; K55.9 Vascular disorder of intestine, unspecified; E27.40 Unspecified adrenocortical insufficiency; I69.391 Dysphagia following cerebral infarction; Z93.1 Gastrostomy status; F32.9 Major depressive disorder, single episode, unspecified; M51.36 Other intervertebral disc degeneration, lumbar region; Z87.01 Personal history of pneumonia (recurrent); Z90.710 Acquired absence of both cervix and uterus; Z79.82 Long term (current) use of aspirin; Z79.891 Long term (current) use of opiate analgesic; Z79.52 Long term (current) use of systemic steroids; Z79.899 Other long term (current) drug therapy; Z88.1 Allergy status to other antibiotic agents; Z88.2 Allergy status to sulfonamides; Z87.891 Personal history of nicotine dependence; D64.9 Anemia, unspecified; I35.0 Nonrheumatic aortic (valve) stenosis; I10 Essential (primary) hypertension; Z87.39 Personal history of other diseases of the musculoskeletal system and connective tissue; K56.41 Fecal impaction; E11.9 Type 2 diabetes mellitus without complications; F41.9 Anxiety disorder, unspecified; E87.6 Hypokalemia; E89.0 Postprocedural hypothyroidism; M81.0 Age-related osteoporosis without current pathological fracture
CPT/HCPCS: 36415; 36416; 51702; 71045; 74177; 80048; 80053; 80202; 81001; 81003; 82271; 82805; 83605; 83735; 84484; 85025; 85060; 87040; 87086; 87149; 87324; 87449; 87804; 93005; 93010; 94660; 96361; 96365; A4353; C9113; J1720; J1940; J2543; J2920; J3370; J3480; J7050; Q9967

== ENCOUNTER 2019-07-13 21:47 | Inpatient (IN) | payer MEDICARE ==
[2019-07-13] MEDS ORDERED: Norepinephrine 8 MG in Dextrose 5% in Water 242 ML IVPB PRN (22:18)
[2019-07-13 22:45] LABS: ALT (SGPT) 13 U/L (8-55); AST (SGOT) 17 U/L (5-34); Albumin 3.7 g/dL (3.4-4.8); Alkaline Phosphatase 94 U/L (40-110); Anion Gap 12 mmol/L (10-20); BUN (Urea Nitrogen) 31 mg/dL (9.8-20.1); Bilirubin, Total 0.4 mg/dL (0.2-1.2); CK (CPK) 22 U/L (29-168); Calc. Creatinine Clearance 0 mL/min (70-130); Calcium 8.5 mg/dL (7.8-10.44); Carbon Dioxide 33 mmol/L (23-31); Chloride 95 mmol/L (98-107); Estimated GFR-MDRD 29; Globulin 3.2 g/dL (2.4-3.5); Glucose 100 mg/dL (83-110); Lipase 77 U/L (8-78); Potassium 5.6 mmol/L (3.5-5.1); Protein, Total 6.9 g/dL (6.0-8.3); Sodium 134 mmol/L (136-145)
[2019-07-13] MEDS ORDERED: Cefepime 2 GM VIAL ONE (22:45)
[2019-07-13 22:52] LABS: Band 9 % (5-11); Hemoglobin 9.7 g/dL (12.0-16.0); Hypochromia SLIGHT = 6-15 cells (100X) (0-5/hpf); Lymphocytes 4 % (21-51); MDiff Complete? YES; Mean Corpuscular HGB CONC 31.4 g/dL (32.0-36.0); Mean Corpuscular Hemoglobin 25.2 pg (27.0-31.0); Mean Corpuscular Volume 80.2 fL (78.0-98.0); Mean Platelet Volume 10.3 fL (7.4-10.4); Monocytes 14 % (0-10); Neutrophil 73 % (42-75); Platelet Count 90 thou/uL (130-400); Platelet Morphology Comment Appears Decreased; RBC Distribution Width 15.7 % (11.5-14.5); Red Blood Cell (RBC) Count 3.85 mill/uL (4.20-5.40); White Blood Cell (WBC) Count 12.3 thou/uL (4.8-10.8)
[2019-07-13 23:19] LABS: Bilirubin Negative (Negative); Blood, Urine Negative (Negative); Clarity Clear (Clear); Glucose, Urine (Dipstick) Normal (Negative); Leukocyte Negative Leu/uL (Negative); Nitrite Negative (Negative); Protein, Urine (Dipstick) 20 mg/dL (Neg-Trace)
[2019-07-13 23:23] LABS: Actual Bicarbonate (HCO3a) 30.2 mEq/L (22-28); Analyzer IN Cardio ER; Base Excess (BEa) 2.5 mEq/L (-2.0 to +3.0); Calcium, Ionized 1.08 mmol/L (1.12-1.30); Carboxyhemoglobin (COHb) 0.6 gm% (0.0-3.0); Hemoglobin (Hb) 8.6 g/dL (12.0-16.0); O2 Tension (PaO2) 341.4 mmHg (> 60.0); Potassium - ABG Lab 4.95 mmol/L (3.70-5.30); pH, Arterial 7.27 (7.35-7.45)
[2019-07-13 23:29] LABS: CO2 Tension 66.8 mmHg (35.0-45.0); Puncture Site RRA
[2019-07-13] MEDS ORDERED: Dexamethasone 10 MG/ML VIAL ONE (23:35)
[2019-07-13] MEDS ORDERED: Pantoprazole 40 MG VIAL ONE (23:58)
[2019-07-13] MEDS ORDERED: Ondansetron PF 4 MG/2 ML Vial ONE (23:58)
[2019-07-14] MEDS ORDERED: Pantoprazole 80 MG in Sodium Chloride 0.9% 100 ML IVPB SCH (00:15)
[2019-07-14 00:16] LABS: PTT 28.6 SEC (22.9-36.1); Prothrombin Time 13.2 SEC (12.0-14.7)
[2019-07-14] MEDS ORDERED: Norepinephrine 8 MG in Dextrose 5% in Water 242 ML IVPB PRN (00:28)
[2019-07-14] MEDS ORDERED: Hydrocortisone Sod Succ/PF 100 mg/2 ml Vial IVP SCH (00:30)
[2019-07-14] MEDS ORDERED: CCU Electrolyte Replacement 1 EACH IVPB SCH (00:45)
[2019-07-14 01:17] LABS: Anion Gap 13 mmol/L (10-20); BUN (Urea Nitrogen) 17 mg/dL (9.8-20.1); Calc. Creatinine Clearance 0 mL/min (70-130); Carbon Dioxide 28 mmol/L (23-31); Chloride 100 mmol/L (98-107); Estimated GFR-MDRD 30; Potassium 5.4 mmol/L (3.5-5.1); Sodium 136 mmol/L (136-145)
[2019-07-14 01:18] LABS: Calcium 7.8 mg/dL (7.8-10.44); Glucose 96 mg/dL (83-110)
[2019-07-14] MEDS ORDERED: Potassium Phosphate 9 MMOL in Sodium Chloride 0.9% 100 ML IVPB PRN (01:24)
[2019-07-14] MEDS ORDERED: CCU ELECTROLYTE REPLACEMENT PROTOCOL FS PRN (01:24)
[2019-07-14] MEDS ORDERED: Magnesium 2 GM/50 ML 2 GM in Premix Bag 1 BAG IVPB PRN (01:24)
[2019-07-14] MEDS ORDERED: Potassium Chloride 40 MEQ in Sodium Chloride 0.9% 250 ML 250 ML IVPB PRN (01:24)
[2019-07-14] MEDS ORDERED: Potassium Chloride 20 MEQ TAB PO PRN (01:24)
[2019-07-14] MEDS ORDERED: Potassium Phosphate 12 MMOL in Sodium Chloride 0.9% 250 ML 250 ML IV PRN (01:24)
[2019-07-14] MEDS ORDERED: Potassium Chloride 40 MEQ in Premix Bag 1 BAG IVPB PRN (01:24)
[2019-07-14] MEDS ORDERED: Potassium Phosphate 15 MMOL in Sodium Chloride 0.9% 250 ML 250 ML IV PRN (01:24)
[2019-07-14] MEDS ORDERED: Magnesium Oxide 400 MG TAB PO PRN ×2 (01:24)
[2019-07-14] MEDS ORDERED: PHOS-NAK 1 PKT PACK PO PRN ×2 (01:24)
[2019-07-14 03:29] VITALS: BMI 32.5
[2019-07-14] MEDS: Sodium Chloride 0.9% 1,000 ML IV SCH ×3 (04:16→14:33)
[2019-07-14 05:26] LABS: Actual Bicarbonate (HCO3a) 27.6 mEq/L (22-28); Base Excess (BEa) 0.2 mEq/L (-2.0 to +3.0); Carboxyhemoglobin (COHb) 2.6 gm% (0.0-3.0); Hemoglobin (Hb) 9.6 g/dL (12.0-16.0); O2 Tension (PaO2) 61.2 mmHg (> 60.0); Potassium - ABG Lab 5.07 mmol/L (3.70-5.30); pH, Arterial 7.28 (7.35-7.45)
[2019-07-14 05:29] LABS: CO2 Tension 60.3 mmHg (35.0-45.0)
[2019-07-14 05:31] LABS: Puncture Site LRA
[2019-07-14 05:32] LABS: ALV-art Gradient 120.105 (0-20)
[2019-07-14] MEDS: Piperacillin/Tazobactam 2.25 GM in Sodium Chloride 0.9% 100 ML IVPB SCH ×3 (05:55→22:18)
[2019-07-14] MEDS: Hydrocortisone Sod Succ/PF 100 mg/2 ml Vial IVP SCH ×3 (05:55→22:17)
[2019-07-14] MEDS ORDERED: Piperacillin/Tazobactam 4.5 GM in Sodium Chloride 0.9% 100 ML IVPB SCH (06:00)
[2019-07-14] MEDS ORDERED: Levothyroxine Sodium 75 MCG TAB PER TUBE SCH (06:00)
--- NOTE | 2019-07-14 07:05 | HP ---
CHIEF COMPLAINT: Change in mental status and fever. HISTORY OF PRESENT ILLNESS: The patient is an 84-year-old female with a history of adrenal insufficiency, hypothyroidism, who presents to the hospital with her family with complaints of change in mental status. The patient's family who is at the bedside states that the daughter the patient was living with, has been having nausea, vomiting, and diarrhea going on since Friday. Today, the patient started having some nausea and vomiting which occurred about couple of times. She did have one large emesis in the ER and it appeared to be coffee-grounds emesis per the ER staff. The family denied any diarrhea for the patient. However, the family did state that the patient has not been eating or drinking very much for about 24 hours now. Denies any fevers or chills, however, does complain of nausea and vomiting. The patient in the ER had a fever of 101. The patient's family stated that she recently had a thoracic fracture which was spontaneous. She did not have any falls. She does have severe osteoporosis. She was supposed to get into the Neurosurgery office for further evaluation, however, has been unable to do so. The patient did take some hydrocodone, however, yesterday the family gave her gabapentin, because her pain was severe and this morning she also took two additional gabapentin for her pain. REVIEW OF SYSTEMS: Unable to really obtain. The patient has her eyes closed and only answers certain questions. 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 PAST SURGICAL HISTORY: She has history of PEG tube, which was removed after her stroke. 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 Also, has a hysterectomy and a bladder lift. SOCIAL HISTORY: She lives at home. She is currently a full code. I did discuss code status with the family, however, they want her to be full code for now. No history of alcohol abuse or smoking or drug use, however, she did have a history of former smoker about 10 years ago. ALLERGIES: SHE IS ALLERGIC TO SULFA. MEDICATIONS: She is on; 1. Levothyroxine 75 mcg daily. 2. Hydrocortisone 20 mg in the morning and 10 mg at night. 3. Lasix 20 mg daily. 4. Amlodipine 5 mg twice a day. 5. Sodium chloride daily. 6. Demeclocycline 300 mg twice a day. 7. Quetiapine 25 mg daily. 8. Omeprazole 20 mg twice a day. PHYSICAL EXAMINATION: VITAL SIGNS: Temperature rectally was 101.4, pain was 10, 100% on 4 L . GENERAL: She is awake, alert, and oriented x3. Does not appear in any distress. HEENT: Normocephalic, atraumatic. No lymphadenopathy noted. Pupils are equal and reactive to light. CV: S1 and S2 present. No murmurs, rubs, gallops. LUNGS: Clear to auscultation. No rhonchi or wheezes noted. ABDOMEN: Soft. Bowel sounds present x2. Initially when I did palpate the abdomen, she had no pain, however, when I did deep palpation, she did have some epigastric pain and pain all around her abdomen area. EXTREMITIES: Lower extremity; she does have some lower extremity pitting edema. NEUROVASCULAR: There are no focal deficits noted. SKIN: No cuts, lesions, or bruises noted. LABORATORY RESULTS: As of the following; WBCs of 12.3, hemoglobin of 9.7, hematocrit of 30.9, platelets of 90. She had no bands. Chemistry; sodium of 136, potassium initially of 5.6, which improved to 5.4, BUN of 31, creatinine of 1.68. Her lactic acid was 1.3. Troponin x1 was negative. Her urine appeared to be significantly normal. Her chest x-ray did not really show any significant abnormalities. She did have a CT of abdomen and pelvis, however, the read has not up as of yet. ASSESSMENT AND PLAN: The patient is an 84-year-old female, who presents to the hospital with altered mental status. 1. Acute metabolic encephalopathy. This could be secondary to her underlying sepsis, unknown source at this moment. Her urine appears normal. She has been having family who has been having nausea, vomiting, diarrhea, however, the patient had nausea, vomiting, but no diarrhea. We will continue some broad-spectrum antibiotics for now and monitor her. Blood cultures have been drawn. Chest x-ray did not show any acute abnormalities. 2. Sepsis. Again, this is most likely due to unclear etiology as she has been resuscitated appropriately. We will continue IV hydration and also start her on Levophed. Her lactic acid is normal. Most of the reasons for her to have the Levophed is because of her adrenal insufficiency and I have already given her 100 mg of Solu-Cortef and she did receive 10 mg of Decadron in the ER. 3. Hyperkalemia. We will continue to monitor. Her potassium did improve from before with some gentle hydration. No other intervention was done. 4. Hypercapnic respiratory failure. The patient's CO2 was 60.3 and her pH was 7.27. I will put her on a little bit of BiPAP to see if that would help her and we will continue to monitor her. 5. Deep venous thrombosis prophylaxis. We will put the patient on enoxaparin, however, her platelets are low, which is chronic. It is not new. We will continue to monitor that. 6. I did discuss code status with the patient, patient's family and they said currently they want the patient to be full code. Job ID: [id number]
--- NOTE | 2019-07-14 08:59 | RAD ---
PORTABLE AP CHEST: Date: 07/13/19 HISTORY: Altered mental status and fever. COMPARISON: 12/06/18. FINDINGS: A right internal jugular vein central venous catheter is noted in place with the tip overlying the ex pected location of the SVC. No pneumothorax or pleural effusion is seen, and there is no consolidatio n. Cardiac silhouette and pulmonary vasculature are within normal limits. There is increased density seen at the medial left lung base. Patient was noted to have a small to moderate size hiatal hernia, which likely accounts for this finding. Vascular calcifications are seen in the thoracic aorta. There is osteopenia. IMPRESSION: 1. No acute cardiopulmonary process. 2. Right internal jugular vein central venous catheter noted in place without evidence of a pneumoth orax. 3. Hiatal hernia. POS: OFF
[2019-07-14] MEDS ORDERED: Vancomycin HCl 1 GM in Premix Bag 1 BAG IVPB SCH (09:00)
[2019-07-14] MEDS ORDERED: Prevnar 13-Val Conj/PF 0.5 ML SYRINGE IM ONE (09:00)
--- NOTE | 2019-07-14 09:15 | CT ---
PRELIMINARY REPORT/[facility]/EMERGENCY AFTER HOURS PROCEDURE: PROCEDURE INFORMATION: Exam: CT Abdomen And Pelvis Without Contrast Exam date and time: 07/14/2019 12:22 AM Clinical history: 84 years old, female; Prior surgery; Patient HX: Er 13. 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 Nausea, vomting. Fever. Surgical history of feeding tube placement, g tube, hys terectomy, bladder lift TECHNIQUE: Imaging protocol: Computed tomography of the abdomen and pelvis without contrast. COMPARISON: No relevant prior studies available. FINDINGS: Pleural space: There is a small left pleural effusion and there is bibasilar atelectatic change or sc arring. There may be treated in bud opacities at the left lung base suspicious for bronchiolitis ther e may be a few 5 mm or less indeterminate left lower lobe pulmonary nodules.For patients at low risk (m inimal or absent history of smoking and of other known risk factors), no routine follow-up is indicat ed. For patients at high risk (history of smoking or of other known risk factors), consider optional CT at 12 months. (Torri et al., Fleischner Society, 2017). Mediastinum: There is moderate hiatal hernia. Liver: Normal. No mass. Gallbladder and bile ducts: There is cholelithiasis without pericholecystic inflammatory change. Pancreas: Normal. No ductal dilation. Spleen: Normal. No splenomegaly. Adrenals: Normal. No mass. Kidneys and ureters: Normal. No hydronephrosis. Stomach and bowel: Unremarkable. No obstruction. No mucosal thickening. Appendix: The appendix is not visualized. Intraperitoneal space: Unremarkable. No free air. No significant fluid collection. Vasculature: There are atherosclerotic aortic and iliac and femoral artery calcifications. Lymph nodes: Unremarkable. No enlarged lymph nodes. Bladder: Unremarkable as visualized. Reproductive: There are postoperative changes of hysterectomy. Bones/joints: There is diffuse osteopenia and there are degenerative changes of the spine. There is m oderate levoscoliosis of the lumbar spine. Soft tissues: There is suture material of the ventral abdominal wall in the umbilical region. IMPRESSION: 1. There is a small left pleural effusion and there is bibasilar atelectatic change or scarring. Ther e may be treated in bud opacities at the left lung base suspicious for bronchiolitis there may be a f ew 5 mm or less indeterminate left lower lobe pulmonary nodules.For patients at low risk (minimal or absen t history of smoking and of other known risk factors), no routine follow-up is indicated. For patients at high risk (history of smoking or of other known risk factors), consider optional CT at 12 months. (Torri et al., Fleischner Society, 2017). 2. There is moderate hiatal hernia. 3. There is cholelithiasis without pericholecystic inflammatory change. Thank you for allowing us to participate in the care of your patient. Dictated and Authenticated by: Nick Ureña MD 07/14/2019 12:57 AM Central Time ([place] & [place]) FINAL REPORT CT ABDOMEN AND PELVIS WITHOUT CONTRAST: IMPRESSION: I agree with the preliminary report given by Lucy. POS: AARON
[2019-07-14] MEDS ORDERED: Morphine 2 MG/ML SYRINGE SLOW IVP PRN (10:18)
[2019-07-14] MEDS: Sodium Chloride 1 GM TAB PER TUBE SCH ×3 (10:55→22:17)
[2019-07-14] MEDS: Aspirin Chewable 81 MG TAB PER TUBE SCH (10:55)
[2019-07-14] MEDS: Saccharomyces boulardii 250 MG CAP PER TUBE SCH (10:55)
[2019-07-14] MEDS: traMADol HCl 50 MG TAB PO PRN ×2 (10:57→22:21)
[2019-07-14] MEDS ORDERED: Pantoprazole 80 MG, Admixture Fee 1 EACH in Sodium Chloride 0.9% 100 ML IVPB SCH (11:15)
[2019-07-14 12:32] LABS: Hemoglobin 8.1 g/dL (12.0-16.0); Mean Corpuscular HGB CONC 30.4 g/dL (32.0-36.0); Mean Corpuscular Hemoglobin 24.5 pg (27.0-31.0); Mean Corpuscular Volume 80.6 fL (78.0-98.0); Mean Platelet Volume 10.1 fL (7.4-10.4); Platelet Count 68 thou/uL (130-400); RBC Distribution Width 15.3 % (11.5-14.5); Red Blood Cell (RBC) Count 3.31 mill/uL (4.20-5.40); White Blood Cell (WBC) Count 13.5 thou/uL (4.8-10.8)
[2019-07-14 12:37] LABS: Band 11 % (5-11); Hypochromia SLIGHT = 6-15 cells (100X) (0-5/hpf); Lymphocytes 8 % (21-51); MDiff Complete? YES; Metamyelocyte 1 % (0-0); Monocytes 5 % (0-10); Neutrophil 75 % (42-75); Platelet Morphology Comment Appears Decreased; Polychromasia SLIGHT = 2-3 cells (100X) (0-2/hpf); Stomatocytes SLIGHT = 2-5 cells (100X) (0-1/hpf)
[2019-07-14] MEDS: HYDROcodone/Acetaminophen 7.5/325 mg Tablet PO SCH ×3 (14:28→19:47)
[2019-07-14 16:26] LABS: Actual Bicarbonate (HCO3a) 27.3 mEq/L (22-28); Base Excess (BEa) -0.2 mEq/L (-2.0 to +3.0); Calcium, Ionized 1.06 mmol/L (1.12-1.30); Carboxyhemoglobin (COHb) 1.6 gm% (0.0-3.0); Hemoglobin (Hb) 8.4 g/dL (12.0-16.0); Potassium - ABG Lab 4.73 mmol/L (3.70-5.30); pH, Arterial 7.26 (7.35-7.45)
[2019-07-14 16:34] LABS: CO2 Tension 62.6 mmHg (35.0-45.0); O2 Tension (PaO2) 52.6 mmHg (> 60.0); Puncture Site RRA
--- NOTE | 2019-07-14 17:09 | CON ---
DATE OF CONSULTATION: 07/14/2019 SERVICE: Pulmonary Medicine. REASON FOR CONSULTATION: ICU patient. HISTORY OF PRESENT ILLNESS: The patient is an 84-year-old white female with past medical history significant for adrenal insufficiency. She was in her usual state of health when she started having increasing confusion that came on over a day and a half. Otherwise, it is not clear if she had any shortness of breath, chest discomfort, nausea, vomiting, or other acute inciting events. Her granddaughter noticed that she was not acting like herself and brought her to the emergency department. At that location, she was discovered to have hypercapnic failure and low blood pressure. A central line was placed, and she was put on some pressors. Overnight, she was placed on some BiPAP. She was given a holiday this morning. Since then, she is returning to her usual state of health. She does have a little bit of increasing confusion. She is starting to have waxing and waning consciousness and pulling on lines and tubes are attached to her. She does not have any known history of dementia based on family's recollection. PAST MEDICAL HISTORY: 1. Adrenal insufficiency. 2. Hypothyroidism. 3. Hyponatremia, chronic. 4. Dyslipidemia. 5. Hypertension. 6. History of pontine stroke. 7. History of pituitary tumor, status post radiation therapy in 2013. PAST SURGICAL HISTORY: 1. PEG tube placement with subsequent removal. 2. Hysterectomy. 3. Bladder suspension surgery. SOCIAL HISTORY: She currently lives at home and is fully functional in her ADLs. She has no exposure to chemicals, dust, asbestos, or tuberculosis. She has a remote history of smoking. She did this for over 30 years, but quit 10 years ago. FAMILY HISTORY: Noncontributory. ALLERGIES: SULFA. MEDICATIONS: List of her inpatient medications was reviewed. Multiple updates were made at this time. Specifically, since she is tolerating p.o., her IV fluids were interrupted. I discontinued levothyroxine, put her on milk of magnesia schedule per request and gave her some Muscle Rub, per request. REVIEW OF SYSTEMS: General; head, ears, eyes, nose, throat; cardiovascular; respiratory; GI; ; musculoskeletal; neurologic; and skin are negative except as mentioned in the HPI. PHYSICAL EXAMINATION: VITAL SIGNS: Afebrile for the duration of this hospital stay. That being said, there are reports of fevers on presentation rectally to 101.4. Pulse 74, blood pressure 101/52, respirations 24, and saturation 100%, currently on 2 L nasal cannula. GENERAL: The patient is awake and alert. She is in no apparent distress. LUNGS: Decent air entry anteriorly. There is a slightly prolonged expiratory phase and minimal polyphonic wheezing anteriorly. That being said, crackles predominate in the posterior lung calderón. HEART: Normal rate. Regular. ABDOMEN: Soft, nontender, and nondistended. Bowel sounds are positive. MUSCULOSKELETAL: No cyanosis or clubbing. There is no pitting in the bilateral lower extremities. NEUROLOGIC: Grossly nonfocal. LABORATORY DATA: WBC 13.5 and gently uptrending, hemoglobin 8.1 and downtrending, platelets 68,000, also downtrending. Her band count was 11% today. INR 1.0. A pH 7.28, pCO2 of 60, pO2 of 61 when she was on 36% FiO2 at that time. Potassium 5.4. This is downtrending gently. Basic metabolic profile is otherwise unremarkable. Creatinine 1.64, is above her baseline of 0.8. Liver function studies are unremarkable. Troponin is negative x1, TSH 0.07 is very significantly suppressed. Urinalysis is unremarkable. Blood cultures x2, influenza A and B, and urine culture all negative to date. ASSESSMENT: 1. Acute hypoxic and hypercapnic respiratory failure. 2. COPD with acute exacerbation, vs acute bronchitis. 3. Septic shock, resolved. 4. Adrenal insufficiency with adrenal crisis. 5. Acute febrile illness, resolving. 6. Acute kidney injury. 7. Hyperthyroidism, apparently iatrogenic. 8. Delirium. 9. Obstructive sleep apnea, suspected. DISCUSSION AND PLAN: I will repeat an ABG. If her pCO2 has improved, we will likely send her to the floor. If it has not, she may need to be transitioned to the [facility] to wear BiPAP this evening. I will schedule nebulized medications 4 times daily. She is already on antibiotics and steroids, treating a COPD exacerbation if present. We will repeat some simple laboratories tomorrow morning. We will start mobilizing the patient with weightbearing as tolerated. Since she has been weaned off the Levophed, the IJ and external catheter will be removed from her. If we can do without telemetry, that will be in her best interest given her increasing confusional state. She does have some aspiration related changes in the bibasilar regions of the lung and a moderate hiatal hernia. I will make certain to elevate head of bed and we will try to avoid any p.o. within 2 hours of being supine. She identifies Dr. Magana as the hand brush filler that cares for her in the hospital and would very much like to see him again. As such, I will notify him of Ms. Greenwood' s presence. 70 minutes have been devoted to this patient in various activities. I personally reviewed all imaging studies and laboratory data noted within this document. For fifty percent of this time, I was interacting with the patient at the bedside or coordinating care with the care team. For the remainder of the time I was immediately available to the patient in the hospital unit. Job ID: [id number] MTDD
[2019-07-14] MEDS: Methyl Salicylate/Menthol 85 GM TUBE TOP PRN (20:25)
[2019-07-14] MEDS ORDERED: Temazepam 15 MG CAP PER TUBE SCH (21:00)
[2019-07-14 22:19] LABS: Vancomycin, Trough 5.5 ug/mL
[2019-07-14] MEDS ORDERED: Vancomycin HCl 1.5 GM in Sodium Chloride 0.9% 250 ML 300 ML IVPB SCH (22:45)
[2019-07-14] MEDS ORDERED: Vancomycin HCl 750 MG in Sodium Chloride 0.9% 250 ML 250 ML IVPB SCH (23:00)
[2019-07-15] MEDS: Piperacillin/Tazobactam 2.25 GM in Sodium Chloride 0.9% 100 ML IVPB SCH ×3 (05:14→21:35)
[2019-07-15] MEDS: Hydrocortisone Sod Succ/PF 100 mg/2 ml Vial IVP SCH ×3 (05:16→21:34)
[2019-07-15] MEDS: Methyl Salicylate/Menthol 85 GM TUBE TOP PRN (05:39)
[2019-07-15 06:25] LABS: ALT (SGPT) 17 U/L (8-55); AST (SGOT) 24 U/L (5-34); Albumin 3.4 g/dL (3.4-4.8); Alkaline Phosphatase 70 U/L (40-110); Anion Gap 10 mmol/L (10-20); BUN (Urea Nitrogen) 24 mg/dL (9.8-20.1); Bilirubin, Total 0.3 mg/dL (0.2-1.2); Calc. Creatinine Clearance 46 mL/min (70-130); Calcium 7.3 mg/dL (7.8-10.44); Carbon Dioxide 26 mmol/L (23-31); Chloride 100 mmol/L (98-107); Estimated GFR-MDRD 45; Glucose 133 mg/dL (83-110); Potassium 4.3 mmol/L (3.5-5.1); Protein, Total 6.4 g/dL (6.0-8.3); Sodium 132 mmol/L (136-145)
[2019-07-15] MEDS: traMADol HCl 50 MG TAB PO PRN (06:43)
[2019-07-15] MEDS: Saccharomyces boulardii 250 MG CAP PER TUBE SCH (09:22)
[2019-07-15] MEDS: HYDROcodone/Acetaminophen 7.5/325 mg Tablet PO SCH ×4 (09:22→21:36)
[2019-07-15] MEDS: Aspirin Chewable 81 MG TAB PER TUBE SCH (09:23)
[2019-07-15] MEDS: Milk Of Magnesia 30 ML UDCUP PO SCH (09:24)
[2019-07-15] MEDS: Sodium Chloride 1 GM TAB PER TUBE SCH ×3 (09:33→19:57)
--- NOTE | 2019-07-15 09:54 | PRG ---
DATE OF SERVICE: 07/15/2019 SUBJECTIVE: Ms. Greenwood is in no distress. She does not recall coming to the hospital yesterday. OBJECTIVE: VITAL SIGNS: Oximetry is 99% on 2 L, blood pressure 125/60, heart rate is 81. LUNGS: Clear. HEART: Regular rhythm. ABDOMEN: Soft. EXTREMITIES: Without asymmetry or edema. NEURO: Grossly nonfocal. LABORATORY DATA: Urine culture is negative. Influenza screen is negative. Blood cultures are negative. IMPRESSION: Improved clinical condition overall. She probably could be transferred out of the Critical Care Unit. She is currently in no distress and actually quite pleasant, sitting in bedside chair with no complaints. Her creatinine is 1.15 today. Her hemoglobin is 8.1. Her white count is 13.5. Job ID: [id number]
[2019-07-15 15:06] LABS: Hemoglobin 8.1 g/dL (12.0-16.0)
--- NOTE | 2019-07-15 18:15 | PDOC.HOSPP ---
- Subjective Encounter Date: 07/15/19 Encounter Time: 09:40 Subjective: Pt seen for followup re: sepsis. Says she feels much better. - Objective Vital Signs & Weight: Vital Signs (12 hours) Temp Pulse Pulse Pulse Resp BP BP 07/15/19 12:38 98 16 07/15/19 12:00 98.3 F 07/15/19 11:35 104 H 106 H 125/60 155/67 H 07/15/19 07:54 07/15/19 07:00 97.9 F 07/15/19 06:45 96 16 Pulse Ox Pulse Ox Pulse Ox 07/15/19 12:38 07/15/19 12:00 07/15/19 11:35 99 100 07/15/19 07:54 99 07/15/19 07:00 07/15/19 06:45 Weight Weight 172 lb 6.424 oz Most Recent Monitor Data Heart Rate from ECG 97 NIBP 155/67 NIBP BP-Mean 96 Respiration from ECG 15 SpO2 100 I&O: 07/14/19 07/15/19 07/16/19 06:59 06:59 06:59 Intake Total 3381 360 Output Total 1160 690 Balance 2221 -330 Result Diagrams: 07/15/19 14:58 07/15/19 05:33 Additional Labs: Labs and MARs reviewed by nd Hospitalist ROS - Review of Systems Respiratory: denies: cough, dry, shortness of breath, hemoptysis, SOB with excertion, pleuritic pain, sputum, wheezing Cardiovascular: denies: chest pain, palpitations, orthopnea, paroxysmal noc. dyspnea, edema, light headedness - Medication Medications: Active Medications Generic Name Dose Route Start Last Admin Trade Name Freq PRN Reason Stop Dose Admin Hydrocodone Bitart/Acetaminophen 1 tab 07/14/19 13:00 07/15/19 12:23 [place] 7.5/325 PO 1 tab QID LANI Administration Albuterol/Ipratropium 3 ml 07/14/19 19:00 07/15/19 12:38 Duoneb NEB 3 ml [id number] LANI Administration Aspirin 81 mg 07/14/19 09:00 07/15/19 09:23 Aspirin Chewable PER TUBE 81 mg DAILY LANI Administration Demeclocycline HCl 300 mg 07/14/19 09:00 07/15/19 09:34 Declomycin PER TUBE 300 mg BID LANI Administration Hydrocortisone Sodium Succinate 50 mg 07/14/19 06:00 07/15/19 14:25 Solu-Cortef IVP 50 mg Q8HR LANI Administration Piperacillin Sod/Tazobactam 100 mls @ 200 mls/hr 07/14/19 06:00 07/15/19 14: 22 Sod 2.25 gm/ Sodium Chloride IVPB 100 mls Q8HR LANI Administration Magnesium Hydroxide 30 ml 07/15/19 09:00 07/15/19 09:24 Milk Of Magnesium PO 30 ml DAILY LANI Administration Menthol/Methyl Salicylate 1 gm 07/14/19 16:01 07/15/19 05:39 Muscle Rub Cream (Bengay) TOP 1 gm QID PRN Administration Pain Saccharomyces Boulardii 250 mg 07/14/19 09:00 07/15/19 09:22 Florastor PER TUBE 250 mg DAILY ALNI Administration Sodium Chloride 1 gm 07/14/19 09:00 07/15/19 15:23 Sodium Chloride PER TUBE 1 gm TID LANI Administration Sodium Chloride 10 ml 07/14/19 09:00 07/15/19 09:24 Flush - Normal Saline IVF 10 ml Q12HR LANI Administration Sodium Chloride 10 ml 07/14/19 01:30 07/15/19 09:25 Flush - Normal Saline IVF 10 ml PRN PRN Administration Saline Flush Tramadol HCl 50 mg 07/14/19 10:18 07/14/19 22:21 Ultram PO 50 mg Q6H PRN Administration Mild-Moderate Pain (1-5) Tramadol HCl 100 mg 07/14/19 10:18 07/15/19 06:43 Ultram PO 100 mg Q6H PRN Administration Moderate to Severe Pain (6-10) - Exam General Appearance: NAD Eye: anicteric sclera ENT: normocephalic atraumatic, moist mucosa Neck: supple Heart: RRR, no rubs Respiratory: CTAB Gastrointestinal: soft, non-tender Skin: no rashes Psychiatric: normal affect, normal behavior, A&O x 3 Hosp A/P (1) Acute respiratory failure with hypoxia and hypercapnia Code(s): J96.01 - ACUTE RESPIRATORY FAILURE WITH HYPOXIA; J96.02 - ACUTE RESPIRATORY FAILURE WITH HYPERCAPNIA Status: Acute (2) Adrenal insufficiency Code(s): E27.40 - UNSPECIFIED ADRENOCORTICAL INSUFFICIENCY Status: Chronic (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 Pt was treated with BiPAP, now off of BiPAP. [id number] due to SIADH, continue demeclocycline and sodium tablets. Continue hydrocortisone.
[2019-07-15 22:57] LABS: Vancomycin, Trough 12.7 ug/mL
[2019-07-15] MEDS ORDERED: Vancomycin HCl 750 MG in Sodium Chloride 0.9% 250 ML 250 ML IVPB SCH (23:00)
[2019-07-16] MEDS: Levothyroxine Sodium 75 MCG TAB PO SCH (05:11)
[2019-07-16] MEDS: Hydrocortisone Sod Succ/PF 100 mg/2 ml Vial IVP SCH ×3 (05:11→21:10)
[2019-07-16] MEDS: Piperacillin/Tazobactam 2.25 GM in Sodium Chloride 0.9% 100 ML IVPB SCH ×3 (05:11→21:43)
[2019-07-16] MEDS: traMADol HCl 50 MG TAB PO PRN (05:12)
[2019-07-16 06:14] LABS: ALT (SGPT) 18 U/L (8-55); AST (SGOT) 20 U/L (5-34); Albumin 3.2 g/dL (3.4-4.8); Alkaline Phosphatase 62 U/L (40-110); Anion Gap 12 mmol/L (10-20); BUN (Urea Nitrogen) 25 mg/dL (9.8-20.1); Bilirubin, Total 0.3 mg/dL (0.2-1.2); Calc. Creatinine Clearance 53 mL/min (70-130); Carbon Dioxide 25 mmol/L (23-31); Chloride 103 mmol/L (98-107); Estimated GFR-MDRD 51; Globulin 2.8 g/dL (2.4-3.5); Glucose 134 mg/dL (83-110); Potassium 4.3 mmol/L (3.5-5.1); Sodium 136 mmol/L (136-145)
[2019-07-16] MEDS: Milk Of Magnesia 30 ML UDCUP PO SCH (09:40)
[2019-07-16] MEDS: Sodium Chloride 1 GM TAB PER TUBE SCH ×3 (09:40→21:10)
[2019-07-16] MEDS: HYDROcodone/Acetaminophen 7.5/325 mg Tablet PO SCH ×4 (09:41→21:10)
[2019-07-16] MEDS: Saccharomyces boulardii 250 MG CAP PER TUBE SCH (09:41)
[2019-07-16] MEDS: Aspirin Chewable 81 MG TAB PER TUBE SCH (09:42)
--- NOTE | 2019-07-16 16:38 | PDOC.HOSPP ---
- Subjective Subjective: Seen and examined. Patient overall states that she is feeling much better. Patient saturating well on low-flow nasal cannula. Denies pain. Blood pressure improved on IV steroids. Cultures negative of 48 hours, de-escalation of antibiotics. - Objective Vital Signs & Weight: Vital Signs (12 hours) Temp Pulse Pulse Pulse Pulse Resp BP 07/16/19 15:35 98.0 F 07/16/19 14:36 113 H 140 H 115 H 124/68 07/16/19 14:00 102 H 22 H 07/16/19 11:06 98.4 F 07/16/19 07:36 98 20 07/16/19 07:35 07/16/19 07:27 97.9 F BP Pulse Ox Pulse Ox 07/16/19 15:35 07/16/19 14:36 139/68 94 L 07/16/19 14:00 100 07/16/19 11:06 07/16/19 07:36 100 07/16/19 07:35 98 07/16/19 07:27 Weight Weight 181 lb Most Recent Monitor Data Heart Rate from ECG 104 NIBP 111/57 NIBP BP-Mean 75 Respiration from ECG 15 SpO2 98 I&O: 07/15/19 07/16/19 07/17/19 06:59 06:59 06:59 Intake Total 3381 1590 Output Total 1160 1290 Balance 2221 300 Result Diagrams: 07/15/19 14:58 07/16/19 05:37 Radiology Reviewed by me: Yes (CT abdomen/ pelvis) Hospitalist ROS - Review of Systems All other systems reviewed; all pertinent +/- noted in HPI/Subj - Medication Medications: Active Medications Generic Name Dose Route Start Last Admin Trade Name Freq PRN Reason Stop Dose Admin Hydrocodone Bitart/Acetaminophen 1 tab 07/14/19 13:00 07/16/19 14:19 [place] 7.5/325 PO 1 tab QID LANI Administration Albuterol/Ipratropium 3 ml 07/14/19 19:00 07/16/19 14:00 Duoneb NEB 3 ml [id number] LANI Administration Aspirin 81 mg 07/14/19 09:00 07/16/19 09:42 Aspirin Chewable PER TUBE 81 mg DAILY LANI Administration Demeclocycline HCl 300 mg 07/14/19 09:00 07/16/19 09:41 Declomycin PER TUBE 300 mg BID LANI Administration Hydrocortisone Sodium Succinate 50 mg 07/14/19 06:00 07/16/19 14:21 Solu-Cortef IVP 50 mg Q8HR LANI Administration Piperacillin Sod/Tazobactam 100 mls @ 200 mls/hr 07/14/19 06:00 07/16/19 14: 25 Sod 2.25 gm/ Sodium Chloride IVPB 100 mls Q8HR LANI Administration Levothyroxine Sodium 75 mcg 07/16/19 06:00 07/16/19 05:11 Synthroid PO 75 mcg 0600 LANI Administration Magnesium Hydroxide 30 ml 07/15/19 09:00 07/16/19 09:40 Milk Of Magnesium PO 30 ml DAILY LANI Administration Menthol/Methyl Salicylate 1 gm 07/14/19 16:01 07/15/19 05:39 Muscle Rub Cream (Bengay) TOP 1 gm QID PRN Administration Pain Saccharomyces Boulardii 250 mg 07/14/19 09:00 07/16/19 09:41 Florastor PER TUBE 250 mg DAILY LANI Administration Sodium Chloride 1 gm 07/14/19 09:00 07/16/19 14:20 Sodium Chloride PER TUBE 1 gm TID LANI Administration Sodium Chloride 10 ml 07/14/19 09:00 07/16/19 09:42 Flush - Normal Saline IVF 10 ml Q12HR LANI Administration Sodium Chloride 10 ml 07/14/19 01:30 07/15/19 09:25 Flush - Normal Saline IVF 10 ml PRN PRN Administration Saline Flush Tramadol HCl 50 mg 07/14/19 10:18 07/14/19 22:21 Ultram PO 50 mg Q6H PRN Administration Mild-Moderate Pain (1-5) Tramadol HCl 100 mg 07/14/19 10:18 07/16/19 05:12 Ultram PO 100 mg Q6H PRN Administration Moderate to Severe Pain (6-10) - Exam General Appearance: NAD, awake alert Eye: PERRL ENT: normocephalic atraumatic, moist mucosa Neck: supple, no lymphadenopathy Heart: no murmur, no gallops, no rubs Respiratory: CTAB, no wheezes, no rales, no ronchi, normal chest expansion Gastrointestinal: soft, non-tender, no guarding, no rigidity Extremities: no edema Skin: no lesions, no rashes Neurological: cranial nerve grossly intact, no focal deficits Musculoskeletal: generalized weakness Psychiatric: normal affect, A&O x 3 Hosp A/P (1) Acute respiratory failure with hypoxia and hypercapnia Code(s): J96.01 - ACUTE RESPIRATORY FAILURE WITH HYPOXIA; J96.02 - ACUTE RESPIRATORY FAILURE WITH HYPERCAPNIA Status: Acute (2) Aspiration pneumonia Code(s): J69.0 - PNEUMONITIS DUE TO INHALATION OF FOOD AND VOMIT Status: Acute (3) Dysphagia Code(s): R13.10 - DYSPHAGIA, UNSPECIFIED Status: Acute (4) 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 Code(s): Z86.73 - PRSNL HX OF TIA (TIA), AND CEREB INFRC W/O RESID DEFICITS Status: Acute (5) Adrenal insufficiency Code(s): E27.40 - UNSPECIFIED ADRENOCORTICAL INSUFFICIENCY Status: Chronic (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 - AUTOIMMUNE THYROIDITIS Status: Chronic (7) SIADH (syndrome of inappropriate ADH production) Status: Chronic (8) Hypotension Status: Resolved (9) CATHY (acute kidney injury) Code(s): N17.9 - ACUTE KIDNEY FAILURE, UNSPECIFIED Status: Acute - Plan Plan: IMCU, pending downgraded to medical unit with telemetry pulmonology/critical-care consultation, recommendations appreciated blood pressure now normalized on IV steroids cultures are negative at 48 hours, de-escalation of antibiotics bronchitis/bronchiolitis seen on CT chest component of chronic aspiration as possible with old CVA blood sugar control continue home medications as able
--- NOTE | 2019-07-16 19:12 | PRG ---
DATE OF SERVICE: 07/16/2019 SUBJECTIVE: Ms. Ramya Greenwood says she is feeling much better. She says she feels like she can go home. OBJECTIVE: VITAL SIGNS: She is afebrile. She is still mildly tachycardic. Heart rate 112 this afternoon, respiratory rate 20, oximetry is 99% on 2 L, and blood pressure 139/66. LUNGS: Remarkable for diffuse small wheezes. HEART: Regular rhythm. ABDOMEN: Soft. IMPRESSION: Asthmatic bronchitis. She has no history of being admitted for wheezing in the past. It has never been told she had asthma or chronic obstructive pulmonary disease. Once she has recovered from this, pulmonary function test can be ordered. She could be moved out of the intermediate care unit. Job ID: [id number]
[2019-07-17] MEDS: Piperacillin/Tazobactam 2.25 GM in Sodium Chloride 0.9% 100 ML IVPB SCH ×3 (05:08→21:22)
[2019-07-17] MEDS: Hydrocortisone Sod Succ/PF 100 mg/2 ml Vial IVP SCH (05:09)
[2019-07-17] MEDS: Levothyroxine Sodium 75 MCG TAB PO SCH (05:09)
[2019-07-17 06:21] LABS: ALT (SGPT) 18 U/L (8-55); AST (SGOT) 24 U/L (5-34); Alkaline Phosphatase 56 U/L (40-110); Anion Gap 10 mmol/L (10-20); BUN (Urea Nitrogen) 24 mg/dL (9.8-20.1); Bilirubin, Total 0.4 mg/dL (0.2-1.2); Calc. Creatinine Clearance 64 mL/min (70-130); Calcium 8.2 mg/dL (7.8-10.44); Carbon Dioxide 28 mmol/L (23-31); Chloride 104 mmol/L (98-107); Estimated GFR-MDRD 62; Globulin 2.7 g/dL (2.4-3.5); Glucose 100 mg/dL (83-110); Potassium 4.2 mmol/L (3.5-5.1); Protein, Total 5.7 g/dL (6.0-8.3); Sodium 138 mmol/L (136-145)
[2019-07-17] MEDS ORDERED: Sodium Chloride 1 GM TAB PO SCH (09:00)
[2019-07-17] MEDS: HYDROcodone/Acetaminophen 7.5/325 mg Tablet PO SCH ×4 (10:52→21:22)
[2019-07-17] MEDS: Saccharomyces boulardii 250 MG CAP PER TUBE SCH (10:53)
[2019-07-17] MEDS: Aspirin Chewable 81 MG TAB PER TUBE SCH (10:53)
[2019-07-17] MEDS: Milk Of Magnesia 30 ML UDCUP PO SCH (10:54)
[2019-07-17] MEDS: Hydrocortisone 10 mg Tablet PO SCH ×2 (10:57→21:28)
[2019-07-17] MEDS: traMADol HCl 50 MG TAB PO PRN (13:10)
--- NOTE | 2019-07-17 13:38 | PDOC.HOSPP ---
- Subjective Subjective: Seen and examined. More somnolent this a.m., after restarting her nighttime mood stabilizing medication she is more sleepy. Answers questions appropriately. States she is breathing better. Does not have much appetite. - Objective Vital Signs & Weight: Vital Signs (12 hours) Temp Pulse Resp BP Pulse Ox 07/17/19 11:20 97.9 F 112 H 18 140/90 92 L 07/17/19 08:19 97.3 F L 109 H 20 124/60 91 L 07/17/19 07:51 108 H 22 H 97 07/17/19 03:32 97.6 F 110 H 16 130/60 93 L Weight Weight 182 lb 14.4 oz Most Recent Monitor Data Heart Rate from ECG 103 NIBP 139/66 NIBP BP-Mean 90 Respiration from ECG 15 SpO2 97 I&O: 07/16/19 07/17/19 07/18/19 06:59 06:59 06:59 Intake Total 1590 1300 Output Total 1290 150 Balance 300 1150 Result Diagrams: 07/15/19 14:58 07/17/19 05:18 Radiology Reviewed by me: Yes (CXR) Hospitalist ROS - Review of Systems All other systems reviewed; all pertinent +/- noted in HPI/Subj - Medication Medications: Active Medications Generic Name Dose Route Start Last Admin Trade Name Adriana PRN Reason Stop Dose Admin Hydrocodone Bitart/Acetaminophen 1 tab 07/14/19 13:00 07/17/19 10:52 [place] 7.5/325 PO 1 tab QID LANI Administration Albuterol/Ipratropium 3 ml 07/14/19 19:00 07/17/19 07:51 Duoneb NEB 3 ml [id number] LANI Administration Aspirin 81 mg 07/14/19 09:00 07/17/19 10:53 Aspirin Chewable PER TUBE 81 mg DAILY LANI Administration Demeclocycline HCl 300 mg 07/14/19 09:00 07/17/19 13:08 Declomycin PER TUBE 300 mg BID LANI Administration Hydrocortisone 20 mg 07/17/19 09:00 07/17/19 10:57 Cortef PO 20 mg BID LANI Administration Piperacillin Sod/Tazobactam 100 mls @ 200 mls/hr 07/14/19 06:00 07/17/19 05: 08 Sod 2.25 gm/ Sodium Chloride IVPB 100 mls Q8HR LANI Administration Levothyroxine Sodium 75 mcg 07/16/19 06:00 07/17/19 05:09 Synthroid PO 75 mcg 0600 LANI Administration Magnesium Hydroxide 30 ml 07/15/19 09:00 07/17/19 10:54 Milk Of Magnesium PO 30 ml DAILY LANI Administration Menthol/Methyl Salicylate 1 gm 07/14/19 16:01 07/15/19 05:39 Muscle Rub Cream (Bengay) TOP 1 gm QID PRN Administration Pain Pantoprazole Sodium 40 mg 07/17/19 09:00 07/17/19 10:53 Protonix PO 40 mg BID LANI Administration Saccharomyces Boulardii 250 mg 07/14/19 09:00 07/17/19 10:53 Florastor PER TUBE 250 mg DAILY LANI Administration Sodium Chloride 10 ml 07/14/19 09:00 07/16/19 21:10 Flush - Normal Saline IVF 10 ml Q12HR LANI Administration Sodium Chloride 10 ml 07/14/19 01:30 07/15/19 09:25 Flush - Normal Saline IVF 10 ml PRN PRN Administration Saline Flush Tramadol HCl 50 mg 07/14/19 10:18 07/14/19 22:21 Ultram PO 50 mg Q6H PRN Administration Mild-Moderate Pain (1-5) Tramadol HCl 100 mg 07/14/19 10:18 07/17/19 13:10 Ultram PO 100 mg Q6H PRN Administration Moderate to Severe Pain (6-10) - Exam General Appearance: NAD Eye: PERRL, anicteric sclera ENT: normocephalic atraumatic, moist mucosa Neck: supple, symmetric, no JVD Heart: no murmur, no gallops, no rubs Respiratory: CTAB, no wheezes, no rales, rhonchi Gastrointestinal: soft, non-tender, no guarding, no rigidity Extremities: no edema Skin: no lesions, no rashes Neurological: cranial nerve grossly intact, no focal deficits Musculoskeletal: no muscle wasting Psychiatric: A&O x 3, somnolent Hosp A/P (1) Acute respiratory failure with hypoxia and hypercapnia Code(s): J96.01 - ACUTE RESPIRATORY FAILURE WITH HYPOXIA; J96.02 - ACUTE RESPIRATORY FAILURE WITH HYPERCAPNIA Status: Acute (2) Aspiration pneumonia Code(s): J69.0 - PNEUMONITIS DUE TO INHALATION OF FOOD AND VOMIT Status: Acute (3) Dysphagia Code(s): R13.10 - DYSPHAGIA, UNSPECIFIED Status: Acute (4) 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 Code(s): Z86.73 - PRSNL HX OF TIA (TIA), AND CEREB INFRC W/O RESID DEFICITS Status: Acute (5) Adrenal insufficiency Code(s): E27.40 - UNSPECIFIED ADRENOCORTICAL INSUFFICIENCY Status: Chronic (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 - AUTOIMMUNE THYROIDITIS Status: Chronic (7) SIADH (syndrome of inappropriate ADH production) Status: Chronic (8) Hypotension Status: Resolved (9) CATHY (acute kidney injury) Code(s): N17.9 - ACUTE KIDNEY FAILURE, UNSPECIFIED Status: Acute - Plan Plan: Oncology unit, medical floor pulmonology/critical-care consultation, recommendations appreciated Transition from IV steroids to oral steroids cultures remain negative for growth to date, de-escalation of antibiotics bronchitis/bronchiolitis seen on CT chest component of chronic aspiration is possible with old CVA blood sugar control continue home medications as able Stop home medication seroquel - caused somnolence
[2019-07-17] MEDS: Sodium Chloride 1 GM TAB PER TUBE SCH (19:35)
[2019-07-17] MEDS: Sodium Chloride 1 GM TAB PO SCH (21:22)
[2019-07-18] MEDS: Piperacillin/Tazobactam 2.25 GM in Sodium Chloride 0.9% 100 ML IVPB SCH ×3 (05:02→21:04)
[2019-07-18] MEDS: Levothyroxine Sodium 75 MCG TAB PO SCH (05:02)
[2019-07-18 05:05] LABS: ALT (SGPT) 20 U/L (8-55); AST (SGOT) 35 U/L (5-34); Albumin 2.9 g/dL (3.4-4.8); Alkaline Phosphatase 54 U/L (40-110); Anion Gap 16 mmol/L (10-20); BUN (Urea Nitrogen) 22 mg/dL (9.8-20.1); Bilirubin, Total 0.6 mg/dL (0.2-1.2); Calc. Creatinine Clearance 73 mL/min (70-130); Calcium 8.5 mg/dL (7.8-10.44); Carbon Dioxide 24 mmol/L (23-31); Chloride 108 mmol/L (98-107); Estimated GFR-MDRD 73; Globulin 2.7 g/dL (2.4-3.5); Glucose 98 mg/dL (83-110); Protein, Total 5.6 g/dL (6.0-8.3); Sodium 143 mmol/L (136-145)
[2019-07-18] MEDS: traMADol HCl 50 MG TAB PO PRN (06:37)
[2019-07-18] MEDS: Milk Of Magnesia 30 ML UDCUP PO SCH (09:33)
[2019-07-18] MEDS: Aspirin Chewable 81 MG TAB PER TUBE SCH (09:33)
[2019-07-18] MEDS: Saccharomyces boulardii 250 MG CAP PER TUBE SCH (09:33)
[2019-07-18] MEDS: HYDROcodone/Acetaminophen 7.5/325 mg Tablet PO SCH ×4 (09:33→21:03)
[2019-07-18] MEDS: Sodium Chloride 1 GM TAB PO SCH ×2 (09:33→21:03)
[2019-07-18] MEDS: Hydrocortisone 10 mg Tablet PO SCH ×2 (09:41→21:03)
--- NOTE | 2019-07-18 14:43 | PDOC.HOSPP ---
- Subjective Subjective: Seen and examined. Pulmonary status still tenuous. Cough with significant rhonchi and wheezing. She is not getting up much phlegm. Patient feels week, states she feels too weak to feed herself breakfast this morning. Physical therapy/ occupational therapy has been ordered. - Objective Vital Signs & Weight: Vital Signs (12 hours) Temp Pulse Resp BP Pulse Ox 07/18/19 14:22 106 H 20 97 07/18/19 08:00 95 07/18/19 07:59 97.9 F 103 H 18 141/76 H 95 07/18/19 07:05 99 07/18/19 06:52 90 24 H 99 Weight Weight 182 lb 14.4 oz Most Recent Monitor Data Heart Rate from ECG 103 NIBP 139/66 NIBP BP-Mean 90 Respiration from ECG 15 SpO2 97 I&O: 07/17/19 07/18/19 07/19/19 06:59 06:59 06:59 Intake Total 1300 800 Output Total 150 Balance 1150 800 Result Diagrams: 07/15/19 14:58 07/18/19 04:30 Radiology Reviewed by me: Yes (Echo) Hospitalist ROS - Review of Systems All other systems reviewed; all pertinent +/- noted in HPI/Subj - Medication Medications: Active Medications Generic Name Dose Route Start Last Admin Trade Name Freq PRN Reason Stop Dose Admin Hydrocodone Bitart/Acetaminophen 1 tab 07/14/19 13:00 07/18/19 13:51 [place] 7.5/325 PO 1 tab QID LANI Administration Albuterol/Ipratropium 3 ml 07/14/19 19:00 07/18/19 14:22 Duoneb NEB 3 ml [id number] LANI Administration Aspirin 81 mg 07/14/19 09:00 07/18/19 09:33 Aspirin Chewable PER TUBE 81 mg DAILY LANI Administration Demeclocycline HCl 300 mg 07/14/19 09:00 07/18/19 09:51 Declomycin PER TUBE 300 mg BID LANI Administration Hydrocortisone 20 mg 07/17/19 09:00 07/18/19 09:41 Cortef PO 20 mg BID LANI Administration Piperacillin Sod/Tazobactam 100 mls @ 200 mls/hr 07/14/19 06:00 07/18/19 14: 00 Sod 2.25 gm/ Sodium Chloride IVPB 100 mls Q8HR LANI Administration Levothyroxine Sodium 75 mcg 07/16/19 06:00 07/18/19 05:02 Synthroid PO 75 mcg 0600 LANI Administration Magnesium Hydroxide 30 ml 07/15/19 09:00 07/18/19 09:33 Milk Of Magnesium PO 30 ml DAILY LANI Administration Menthol/Methyl Salicylate 1 gm 07/14/19 16:01 07/15/19 05:39 Muscle Rub Cream (Bengay) TOP 1 gm QID PRN Administration Pain Pantoprazole Sodium 40 mg 07/17/19 09:00 07/18/19 09:33 Protonix PO 40 mg BID LANI Administration Saccharomyces Boulardii 250 mg 07/14/19 09:00 07/18/19 09:33 Florastor PER TUBE 250 mg DAILY LANI Administration Sodium Chloride 10 ml 07/14/19 09:00 07/18/19 09:40 Flush - Normal Saline IVF 10 ml Q12HR LANI Administration Sodium Chloride 10 ml 07/14/19 01:30 07/15/19 09:25 Flush - Normal Saline IVF 10 ml PRN PRN Administration Saline Flush Sodium Chloride 1 gm 07/17/19 21:00 07/18/19 09:33 Sodium Chloride PO 1 gm BID LANI Administration Tramadol HCl 50 mg 07/14/19 10:18 07/18/19 06:37 Ultram PO 50 mg Q6H PRN Administration Mild-Moderate Pain (1-5) Tramadol HCl 100 mg 07/14/19 10:18 07/17/19 13:10 Ultram PO 100 mg Q6H PRN Administration Moderate to Severe Pain (6-10) - Exam General Appearance: NAD, awake alert Eye: anicteric sclera ENT: normocephalic atraumatic, moist mucosa Neck: supple, symmetric, no lymphadenopathy Heart: no gallops, no rubs Heart - other findings: Systolic murmur present right upper sternal boarder Respiratory: no rales, normal chest expansion, no tachypnea, rhonchi, wheezes Gastrointestinal: soft, non-tender, non-distended, no guarding, no rigidity Extremities: no edema Skin: no lesions, no rashes Neurological: cranial nerve grossly intact, no focal deficits Musculoskeletal: generalized weakness Psychiatric: normal affect, A&O x 3 Hosp A/P (1) Acute respiratory failure with hypoxia and hypercapnia Code(s): J96.01 - ACUTE RESPIRATORY FAILURE WITH HYPOXIA; J96.02 - ACUTE RESPIRATORY FAILURE WITH HYPERCAPNIA Status: Acute (2) Aspiration pneumonia Code(s): J69.0 - PNEUMONITIS DUE TO INHALATION OF FOOD AND VOMIT Status: Acute (3) Dysphagia Code(s): R13.10 - DYSPHAGIA, UNSPECIFIED Status: Acute (4) 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 Code(s): Z86.73 - PRSNL HX OF TIA (TIA), AND CEREB INFRC W/O RESID DEFICITS Status: Acute (5) Adrenal insufficiency Code(s): E27.40 - UNSPECIFIED ADRENOCORTICAL INSUFFICIENCY Status: Chronic (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 - AUTOIMMUNE THYROIDITIS Status: Chronic (7) SIADH (syndrome of inappropriate ADH production) Status: Chronic (8) Hypotension Status: Resolved (9) CATHY (acute kidney injury) Code(s): N17.9 - ACUTE KIDNEY FAILURE, UNSPECIFIED Status: Acute - Plan Plan: Oncology unit, medical floor pulmonology/critical-care consultation, recommendations appreciated Start Guaifenesin 1200mg BID for 3 days scheduled to loosen secretions so that she can cough them out Continue oral steroids cultures remain negative for growth to date, responding to current ABX bronchitis/bronchiolitis seen on CT chest component of chronic aspiration is possible with old CVA blood sugar control continue home medications as able Stop home medication seroquel - caused somnolence
[2019-07-18] MEDS ORDERED: guaiFENesin ER 600 MG TAB PO SCH (15:45)
[2019-07-18] MEDS: guaiFENesin ER 600 MG TAB PO SCH (21:03)
[2019-07-19 04:52] LABS: ALT (SGPT) 19 U/L (8-55); AST (SGOT) 18 U/L (5-34); Alkaline Phosphatase 51 U/L (40-110); Anion Gap 8 mmol/L (10-20); BUN (Urea Nitrogen) 18 mg/dL (9.8-20.1); Bilirubin, Total 0.7 mg/dL (0.2-1.2); Calc. Creatinine Clearance 70 mL/min (70-130); Calcium 8.4 mg/dL (7.8-10.44); Carbon Dioxide 34 mmol/L (23-31); Chloride 101 mmol/L (98-107); Estimated GFR-MDRD 69; Globulin 2.5 g/dL (2.4-3.5); Glucose 97 mg/dL (83-110); Potassium 3.9 mmol/L (3.5-5.1); Protein, Total 5.5 g/dL (6.0-8.3); Sodium 139 mmol/L (136-145)
[2019-07-19] MEDS: Piperacillin/Tazobactam 2.25 GM in Sodium Chloride 0.9% 100 ML IVPB SCH ×3 (06:25→21:03)
[2019-07-19] MEDS: Levothyroxine Sodium 75 MCG TAB PO SCH (06:25)
[2019-07-19] MEDS: Hydrocortisone 10 mg Tablet PO SCH ×2 (08:03→21:03)
[2019-07-19] MEDS: HYDROcodone/Acetaminophen 7.5/325 mg Tablet PO SCH ×4 (08:10→21:04)
[2019-07-19] MEDS: Sodium Chloride 1 GM TAB PO SCH ×2 (08:10→21:03)
[2019-07-19] MEDS: Milk Of Magnesia 30 ML UDCUP PO SCH (08:10)
[2019-07-19] MEDS: guaiFENesin ER 600 MG TAB PO SCH ×2 (08:10→21:04)
[2019-07-19] MEDS: Aspirin Chewable 81 MG TAB PER TUBE SCH (08:10)
[2019-07-19] MEDS: Saccharomyces boulardii 250 MG CAP PER TUBE SCH (08:10)
--- NOTE | 2019-07-19 15:31 | PDOC.HOSPP ---
- Subjective Subjective: Seen and examined. Granddaughter bedside. Clinically improved. Breathing is better, less coughing, wheezing, and less phlegm coming up. Decision at this point is whether the patient will need to go home with oxygen therapy or she will go home without oxygen. Discuss case with nurse and recommended that the patient be ambulated on room air and document lowest O2 saturation, if O2 saturation less than 88% will pursue home oxygen. - Objective Vital Signs & Weight: Vital Signs (12 hours) Temp Pulse Resp BP Pulse Ox 07/19/19 14:24 97 18 92 L 07/19/19 08:36 108 H 20 99 07/19/19 08:00 95 07/19/19 07:35 98.1 F 100 20 173/74 H 95 Weight Weight 182 lb 14.4 oz Most Recent Monitor Data Heart Rate from ECG 103 NIBP 139/66 NIBP BP-Mean 90 Respiration from ECG 15 SpO2 97 I&O: 07/18/19 07/19/19 07/20/19 06:59 06:59 06:59 Intake Total 800 1900 Balance 800 1900 Result Diagrams: 07/15/19 14:58 07/19/19 04:09 Hospitalist ROS - Review of Systems All other systems reviewed; all pertinent +/- noted in HPI/Subj - Medication Medications: Active Medications Generic Name Dose Route Start Last Admin Trade Name Freq PRN Reason Stop Dose Admin Hydrocodone Bitart/Acetaminophen 1 tab 07/14/19 13:00 07/19/19 13:46 [place] 7.5/325 PO 1 tab QID LANI Administration Albuterol/Ipratropium 3 ml 07/14/19 19:00 07/19/19 14:24 Duoneb NEB 3 ml [id number] LANI Administration Aspirin 81 mg 07/14/19 09:00 07/19/19 08:10 Aspirin Chewable PER TUBE 81 mg DAILY LANI Administration Demeclocycline HCl 300 mg 07/14/19 09:00 07/19/19 08:13 Declomycin PER TUBE 300 mg BID LANI Administration Guaifenesin 1,200 mg 07/18/19 21:00 07/19/19 08:10 Mucinex PO 1,200 mg Q12HR LANI Administration Hydrocortisone 20 mg 07/17/19 09:00 07/19/19 08:03 Cortef PO 20 mg BID LANI Administration Piperacillin Sod/Tazobactam 100 mls @ 200 mls/hr 07/14/19 06:00 07/19/19 13: 48 Sod 2.25 gm/ Sodium Chloride IVPB 100 mls Q8HR LANI Administration Levothyroxine Sodium 75 mcg 07/16/19 06:00 07/19/19 06:25 Synthroid PO 75 mcg 0600 LANI Administration Magnesium Hydroxide 30 ml 07/15/19 09:00 07/19/19 08:10 Milk Of Magnesium PO 30 ml DAILY LANI Administration Menthol/Methyl Salicylate 1 gm 07/14/19 16:01 07/15/19 05:39 Muscle Rub Cream (Bengay) TOP 1 gm QID PRN Administration Pain Pantoprazole Sodium 40 mg 07/17/19 09:00 07/19/19 08:10 Protonix PO 40 mg BID LANI Administration Saccharomyces Boulardii 250 mg 07/14/19 09:00 07/19/19 08:10 Florastor PER TUBE 250 mg DAILY LANI Administration Sodium Chloride 10 ml 07/14/19 09:00 07/19/19 08:23 Flush - Normal Saline IVF 10 ml Q12HR LANI Administration Sodium Chloride 10 ml 07/14/19 01:30 07/19/19 13:49 Flush - Normal Saline IVF 10 ml PRN PRN Administration Saline Flush Sodium Chloride 1 gm 07/17/19 21:00 07/19/19 08:10 Sodium Chloride PO 1 gm BID LANI Administration Tramadol HCl 50 mg 07/14/19 10:18 07/18/19 06:37 Ultram PO 50 mg Q6H PRN Administration Mild-Moderate Pain (1-5) Tramadol HCl 100 mg 07/14/19 10:18 07/17/19 13:10 Ultram PO 100 mg Q6H PRN Administration Moderate to Severe Pain (6-10) - Exam General Appearance: NAD Eye: PERRL, anicteric sclera ENT: normocephalic atraumatic, moist mucosa Neck: supple, symmetric, no lymphadenopathy Heart: no murmur, no gallops, no rubs Respiratory: CTAB, no wheezes, no rales, no ronchi Gastrointestinal: soft, non-tender, non-distended, no guarding, no rigidity Extremities: no edema Skin: no lesions, no rashes Neurological: cranial nerve grossly intact, no focal deficits Musculoskeletal: generalized weakness Psychiatric: normal affect, A&O x 3 Hosp A/P (1) Acute respiratory failure with hypoxia and hypercapnia Code(s): J96.01 - ACUTE RESPIRATORY FAILURE WITH HYPOXIA; J96.02 - ACUTE RESPIRATORY FAILURE WITH HYPERCAPNIA Status: Acute (2) Aspiration pneumonia Code(s): J69.0 - PNEUMONITIS DUE TO INHALATION OF FOOD AND VOMIT Status: Acute (3) Dysphagia Code(s): R13.10 - DYSPHAGIA, UNSPECIFIED Status: Acute (4) 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 Code(s): Z86.73 - PRSNL HX OF TIA (TIA), AND CEREB INFRC W/O RESID DEFICITS Status: Acute (5) Adrenal insufficiency Code(s): E27.40 - UNSPECIFIED ADRENOCORTICAL INSUFFICIENCY Status: Chronic (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 - AUTOIMMUNE THYROIDITIS Status: Chronic (7) SIADH (syndrome of inappropriate ADH production) Status: Chronic (8) Hypotension Status: Resolved (9) CATHY (acute kidney injury) Code(s): N17.9 - ACUTE KIDNEY FAILURE, UNSPECIFIED Status: Acute - Plan Plan: Oncology unit, medical floor pulmonology/critical-care consultation, recommendations appreciated Case management consultation, recommendations appreciated Plan for home with home health tomorrow, unclear at this time if the patient will need home oxygen Asked RN/PT to ambulate patient on room air and document lowest O2 sat, if less than 88% will need home O2 Continue Guaifenesin 1200mg BID for 3 days scheduled to loosen secretions so that she can cough phlegm out Continue oral steroids cultures remain negative for growth to date, responding to current ABX, will transition to oral ABX on D/c bronchitis/bronchiolitis seen on CT chest component of chronic aspiration is possible with old CVA blood sugar control continue home medications as able Stop home medication seroquel - caused somnolence
[2019-07-20 05:26] LABS: ALT (SGPT) 19 U/L (8-55); AST (SGOT) 18 U/L (5-34); Alkaline Phosphatase 49 U/L (40-110); Anion Gap 7 mmol/L (10-20); BUN (Urea Nitrogen) 15 mg/dL (9.8-20.1); Bilirubin, Total 0.8 mg/dL (0.2-1.2); Calc. Creatinine Clearance 78 mL/min (70-130); Calcium 8.3 mg/dL (7.8-10.44); Carbon Dioxide 37 mmol/L (23-31); Chloride 98 mmol/L (98-107); Estimated GFR-MDRD 77; Globulin 2.4 g/dL (2.4-3.5); Glucose 111 mg/dL (83-110); Potassium 3.4 mmol/L (3.5-5.1); Protein, Total 5.4 g/dL (6.0-8.3); Sodium 139 mmol/L (136-145)
[2019-07-20] MEDS: Piperacillin/Tazobactam 2.25 GM in Sodium Chloride 0.9% 100 ML IVPB SCH (05:47)
[2019-07-20] MEDS: Levothyroxine Sodium 75 MCG TAB PO SCH (05:47)
[2019-07-20] MEDS: Saccharomyces boulardii 250 MG CAP PER TUBE SCH (08:49)
[2019-07-20] MEDS: Sodium Chloride 1 GM TAB PO SCH ×2 (08:49→20:13)
[2019-07-20] MEDS: guaiFENesin ER 600 MG TAB PO SCH ×2 (08:50→20:13)
[2019-07-20] MEDS: Aspirin Chewable 81 MG TAB PER TUBE SCH (08:51)
[2019-07-20] MEDS: HYDROcodone/Acetaminophen 7.5/325 mg Tablet PO SCH ×4 (08:51→20:14)
[2019-07-20] MEDS: Hydrocortisone 10 mg Tablet PO SCH ×2 (08:53→20:13)
[2019-07-20] MEDS: Milk Of Magnesia 30 ML UDCUP PO SCH (08:55)
[2019-07-20] MEDS ORDERED: Amlodipine 5 MG TAB PO SCH (09:00)
[2019-07-20] MEDS: Amlodipine 5 MG TAB PO SCH ×2 (10:59→20:14)
[2019-07-20] MEDS: Simethicone Chewable 80 MG TAB PO PRN ×2 (10:59→20:17)
[2019-07-20] MEDS: Amoxicillin/Potassium Clav 875 MG TAB PO SCH ×2 (11:01→20:13)
--- NOTE | 2019-07-20 18:38 | PDOC.HOSPP ---
- Subjective Subjective: Seen and examined. Due to the severity of patients chronic bronchitis she will require oxygen therapy to go home with. After several days of antibiotic therapy the patient's pulmonary status has not improved to the point where she can be weaned from oxygen. At rest patient's oxygen status is 90% without talking. Patient he saturates below 88% with any ambulation. Case management consultation requested to set up oxygen therapy. - Objective Vital Signs & Weight: Vital Signs (12 hours) Temp Pulse Resp BP BP BP BP 07/20/19 16:00 98.8 F 97 16 175/79 H 07/20/19 13:33 95 16 07/20/19 12:03 182/74 H 180/74 H 07/20/19 11:32 98.8 F 93 20 170/75 H 07/20/19 10:59 99 188/81 H 07/20/19 08:17 98.1 F 99 16 188/75 H 07/20/19 08:00 89 16 Pulse Ox 07/20/19 16:00 94 L 07/20/19 13:33 96 07/20/19 12:03 07/20/19 11:32 84 L 07/20/19 10:59 07/20/19 08:17 98 07/20/19 08:00 2 L Weight Weight 179 lb 12.8 oz Most Recent Monitor Data Heart Rate from ECG 103 NIBP 139/66 NIBP BP-Mean 90 Respiration from ECG 15 SpO2 97 I&O: 07/19/19 07/20/19 07/21/19 06:59 06:59 06:59 Intake Total 1900 240 Balance 1900 240 Result Diagrams: 07/15/19 14:58 07/20/19 04:39 Hospitalist ROS - Review of Systems All other systems reviewed; all pertinent +/- noted in HPI/Subj - Medication Medications: Active Medications Generic Name Dose Route Start Last Admin Trade Name Freq PRN Reason Stop Dose Admin Hydrocodone Bitart/Acetaminophen 1 tab 07/14/19 13:00 07/20/19 16:37 [place] 7.5/325 PO 1 tab QID LANI Administration Albuterol/Ipratropium 3 ml 07/14/19 19:00 07/20/19 13:33 Duoneb NEB 3 ml [id number] LANI Administration Amlodipine Besylate 5 mg 07/20/19 09:00 07/20/19 10:59 Norvasc PO 5 mg BID LANI Administration Amoxicillin/Clavulanate Potassium 875 mg 07/20/19 09:00 07/20/19 11:01 Augmentin PO 875 mg Q12HR LANI Administration Aspirin 81 mg 07/14/19 09:00 07/20/19 08:51 Aspirin Chewable PER TUBE 81 mg DAILY LANI Administration Demeclocycline HCl 300 mg 07/14/19 09:00 07/20/19 11:00 Declomycin PER TUBE 300 mg BID [facility] Administration Guaifenesin 1,200 mg 07/18/19 21:00 07/20/19 08:50 Mucinex PO 1,200 mg Q12HR LANI Administration Hydrocortisone 20 mg 07/17/19 09:00 07/20/19 08:53 Cortef PO 20 mg BID LANI Administration Levothyroxine Sodium 75 mcg 07/16/19 06:00 07/20/19 05:47 Synthroid PO 75 mcg 0600 [facility] Administration Magnesium Hydroxide 30 ml 07/15/19 09:00 07/20/19 08:55 Milk Of Magnesium PO Not Given DAILY [facility] Menthol/Methyl Salicylate 1 gm 07/14/19 16:01 07/15/19 05:39 Muscle Rub Cream (Bengay) TOP 1 gm QID PRN Administration Pain Pantoprazole Sodium 40 mg 07/17/19 09:00 07/20/19 08:50 Protonix PO 40 mg BID [facility] Administration Saccharomyces Boulardii 250 mg 07/14/19 09:00 07/20/19 08:49 Florastor PER TUBE 250 mg DAILY [facility] Administration Simethicone 80 mg 07/16/19 09:37 07/20/19 10:59 Mylicon Chewable PO 80 mg BID PRN Administration Gas Pain Sodium Chloride 10 ml 07/14/19 09:00 07/20/19 08:56 Flush - Normal Saline IVF 10 ml Q12HR LANI Administration Sodium Chloride 10 ml 07/14/19 01:30 07/19/19 13:49 Flush - Normal Saline IVF 10 ml PRN PRN Administration Saline Flush Sodium Chloride 1 gm 07/17/19 21:00 07/20/19 08:49 Sodium Chloride PO 1 gm BID LANI Administration Tramadol HCl 50 mg 07/14/19 10:18 07/18/19 06:37 Ultram PO 50 mg Q6H PRN Administration Mild-Moderate Pain (1-5) Tramadol HCl 100 mg 07/14/19 10:18 07/17/19 13:10 Ultram PO 100 mg Q6H PRN Administration Moderate to Severe Pain (6-10) - Exam General Appearance: NAD, awake alert Eye: PERRL, anicteric sclera ENT: normocephalic atraumatic, moist mucosa Neck: supple, no lymphadenopathy Heart: no murmur, no gallops, no rubs Respiratory: no rales, normal chest expansion, no tachypnea, rhonchi, wheezes Gastrointestinal: soft, non-tender, non-distended, no guarding, no rigidity Extremities: no edema Skin: no lesions, no rashes Neurological: cranial nerve grossly intact, no focal deficits Musculoskeletal: generalized weakness Psychiatric: normal affect, A&O x 3 Hosp A/P (1) Chronic bronchitis Code(s): J42 - UNSPECIFIED CHRONIC BRONCHITIS Status: Chronic (2) Acute respiratory failure with hypoxia and hypercapnia Code(s): J96.01 - ACUTE RESPIRATORY FAILURE WITH HYPOXIA; J96.02 - ACUTE RESPIRATORY FAILURE WITH HYPERCAPNIA Status: Acute (3) Aspiration pneumonia Code(s): J69.0 - PNEUMONITIS DUE TO INHALATION OF FOOD AND VOMIT Status: Acute (4) Dysphagia Code(s): R13.10 - DYSPHAGIA, UNSPECIFIED Status: Acute (5) 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 Code(s): Z86.73 - PRSNL HX OF TIA (TIA), AND CEREB INFRC W/O RESID DEFICITS Status: Acute (6) Adrenal insufficiency Code(s): E27.40 - UNSPECIFIED ADRENOCORTICAL INSUFFICIENCY Status: Chronic (7) Autoimmune hypothyroidism Code(s): E06.3 - AUTOIMMUNE THYROIDITIS Status: Chronic (8) SIADH (syndrome of inappropriate ADH production) Status: Chronic (9) Hypotension Status: Resolved (10) CATHY (acute kidney injury) Code(s): N17.9 - ACUTE KIDNEY FAILURE, UNSPECIFIED Status: Acute - Plan Plan: Oncology unit, medical floor pulmonology/critical-care consultation, recommendations appreciated Case management consultation, recommendations appreciated Due to the severity of patient chronic bronchitis she has been unsuccessfully weaned from oxygen therapy. Patient will require home oxygen. Patient does desaturate to lower than 88% with ambulation. Continue Guaifenesin 1200mg BID for 3 days scheduled to loosen secretions so that she can cough phlegm out Continue oral steroids transition to oral ABX on D/c bronchitis/bronchiolitis seen on CT chest component of chronic aspiration is possible with old CVA blood sugar control continue home medications as able Stop home medication seroquel - caused somnolence
[2019-07-21 05:07] LABS: ALT (SGPT) 16 U/L (8-55); AST (SGOT) 17 U/L (5-34); Alkaline Phosphatase 49 U/L (40-110); Anion Gap 9 mmol/L (10-20); BUN (Urea Nitrogen) 12 mg/dL (9.8-20.1); Bilirubin, Total 0.7 mg/dL (0.2-1.2); Calc. Creatinine Clearance 83 mL/min (70-130); Calcium 8.3 mg/dL (7.8-10.44); Carbon Dioxide 37 mmol/L (23-31); Chloride 96 mmol/L (98-107); Estimated GFR-MDRD 84; Globulin 2.5 g/dL (2.4-3.5); Glucose 102 mg/dL (83-110); Potassium 3.1 mmol/L (3.5-5.1); Protein, Total 5.5 g/dL (6.0-8.3); Sodium 139 mmol/L (136-145)
[2019-07-21] MEDS: Levothyroxine Sodium 75 MCG TAB PO SCH (05:30)
[2019-07-21 07:39] VITALS: BP 172/75; TEMP 97.8
[2019-07-21] MEDS: guaiFENesin ER 600 MG TAB PO SCH (08:13)
[2019-07-21] MEDS: Amoxicillin/Potassium Clav 875 MG TAB PO SCH (08:13)
[2019-07-21] MEDS: HYDROcodone/Acetaminophen 7.5/325 mg Tablet PO SCH ×2 (08:14→13:20)
[2019-07-21] MEDS: Hydrocortisone 10 mg Tablet PO SCH (08:16)
[2019-07-21] MEDS: Saccharomyces boulardii 250 MG CAP PER TUBE SCH (08:16)
[2019-07-21] MEDS: Amlodipine 5 MG TAB PO SCH (08:16)
[2019-07-21] MEDS: Aspirin Chewable 81 MG TAB PER TUBE SCH (08:16)
[2019-07-21] MEDS: Sodium Chloride 1 GM TAB PO SCH (08:16)
[2019-07-21] MEDS: Milk Of Magnesia 30 ML UDCUP PO SCH (08:17)
--- NOTE | 2019-07-21 18:46 | DIS ---
DATE OF ADMISSION: 07/14/2019 DATE OF DISCHARGE: 07/21/2019 REASON FOR HOSPITALIZATION: Shortness of breath. SIGNIFICANT FINDINGS: The patient was found to have community-acquired pneumonia. PROCEDURES PERFORMED/TREATMENTS RENDERED: The patient had maximum medical therapy including admitting her to the intermediate medical care floor, starting on broad-spectrum antibiotics, she was seen and evaluated by fire investigation lieutenant, the patient had appropriate antibiotic therapy adjustment and small volume nebulizer administration. Unfortunately, the patient could not be weaned from oxygen and she required home oxygen for discharge. CONDITION ON DISCHARGE: Stable. SPECIFIC INSTRUCTIONS FOR THE PATIENT/FAMILY: 1. The patient is recommended to complete a full course of oral antibiotics for resolution of symptoms. The patient is recommended to continue all other home medications to be re-evaluated by primary care physician in the outpatient setting in the next 5 to 7 days. 2. The patient is recommended to wear oxygen therapy to maintain O2 saturations greater than 88%. 3. The patient is recommended to return to acute care hospital immediately if signs or symptoms return, worsen, or any other new symptoms occur. DISCHARGE MEDICATIONS: Please see full discharge medication list for details with the following changes. 1. Amoxicillin/clavulanic acid 875 mg one tablet p.o. b.i.d. for the next eight days, 16 tablets. 2. Lactobacillus acidophilus/FOS one tablet p.o. t.i.d. for the next 14 days, #42 tablets. All other medications were continued without changes: 1. Omeprazole 1 tablet p.o. b.i.d. 2. Demeclocycline two tablets p.o. b.i.d. 3. Furosemide 1 tablet p.o. daily. 4. Amlodipine 1 tablet p.o. b.i.d. 5. Hydrocortisone 20 mg one tablet p.o. b.i.d. 6. Levothyroxine one tablet p.o. daily. 7. [place] 7.5 mg one tablet p.o. q.6 hours p.r.n. pain. 8. Zofran sublingual one tablet p.o. q.6 hours p.r.n. nausea, vomiting. 9. Sodium chloride tablet 1 mg one tablet p.o. daily. 10. Seroquel 1 tablet p.o. at bedtime. 11. Potassium chloride 20 mEq one tablet p.o. b.i.d.. HOSPITAL COURSE: Ms. Filar is a very pleasant 84-year-old white female, who presented to the [facility] on 07/14/2019, with shortness of breath, she was also identified to have adrenal crisis with hypotension and she was admitted to the intermediate medical care floor. The patient required IV fluid resuscitation in addition to IV steroids. With adrenal crisis, the patient did respond to IV steroids and blood pressure stabilized. The patient with community-acquired pneumonia and severe bronchitis, was placed on appropriate antibiotic therapy by admitting physician and titrated appropriately by a fire investigation lieutenant. Please see full history and physical and consultation notes in addition to progress notes for full details. With maximum medical therapy by Pulmonology and Internal Medicine, the patient did make improvements throughout her hospitalization. Her shortness of breath and coughing did improve, however, unfortunately she was unable to be weaned from oxygen therapy. Due to the severity of the patient's chronic bronchitis, she required oxygen therapy in the home setting. I went through efforts to set up the patient with oxygen therapy prior to discharge and coordinated this with Case Management. Oxygen was delivered to her room on 07/21/2019 to ensure compliance. The patient was transitioned to oral antibiotics and recommended to complete a full course for resolution of pneumonia and bronchitis. The patient is recommended to follow up with Primary Care Physician and Pulmonology in the outpatient setting in the next 1 to 2 weeks. The patient recommended to return to acute care hospital immediately if signs or symptoms return, worsen, or any other new symptoms occur. Greater than 40 minutes spent coordinating care and discharge process for this patient. Job ID: [id number]
--- NOTE | 2019-07-23 00:43 | PQF ---
CAYDEN BLANC ERIK [id number] [facility]- B04 [id number] CLINICAL DOCUMENTATION CLARIFICATION FORM: POST DISCHARGE Addendum to original discharge summary date: ____ Late entry note date: __ DATE: 07/23/19 ATTN: Getachew Goodman Please exercise your independent, professional judgment in responding to the clarification form. Clinical indicators are provided on the bottom of this form for your review Diagnosis: Aspiration Pneumonia Present on Admission (POA): [ XX ] Yes [ ] No [ ] Unable to determine Coding guidelines require hospitals to identify whether a diagnosis was present on admission (POA) or not. To accurately assign the appropriate POA indicator, this information must be clearly documented within the medical record. CLINICAL INDICATORS - SIGNS / SYMPTOMS / LABS Chest X-ray 07/13 Impression : No acute carduipulmonary process H&P p1 07/14 Dr Celestin She did have one large emersis in ER and it appeared to be coffee-grounds emesis per the ER staff H&P p3 07/14 Dr Celestin Sepsis. Again, this is most likely due to unclear etiology as she has been resuscitated appropriately. Hospitalist PN p6 07/16 Aspiration Pneumonia component of chronic aspiration as possible with old CVA RISK FACTORS: H&P p1 07/14 - 84-year-old Female H&P p1 07/14 -History of Pontine Stroke Consult 3 07/15 Acute hypoxic and hypercapnic respiratory failure Consult 07/15 Septic shock TREATMENT: NOV 29 IV Vancomycin NOV 29 IV LEvephed NOV 29 Solu-Cortef 100 mg and 10 mg Decadron Pulmo Consult 07/14 Dr Kapadia Consult 07/15 On Bipap (This form is maintained as a part of the permanent medical record) 2014 [employer]. All Rights Reserved [email or web address] [not provided] [email or web address]
== END 2019-07-21 13:53 | disposition home health service (06) | DRG 177 ==
LOC: ERS 21:47 → CCU 07-14 03:14 → IMCU/EMU 07-15 19:02 → ONC 07-16 19:03
PROVIDERS: ADMIT Internal Medicine; ATTEND Internal Medicine
PROC: 5A09357 Assistance with Respiratory Ventilation, Less than 24 Consecutive Hours, Continuous Positive Airway Pressure (ICD-10-PCS; principal; 2019-07-14)
PROC: 02HV33Z Insertion of Infusion Device into Superior Vena Cava, Percutaneous Approach (ICD-10-PCS; 2019-07-14)
PROC: 3E043XZ Introduction of Vasopressor into Central Vein, Percutaneous Approach (ICD-10-PCS; 2019-07-14)
DX: J69.0 Pneumonitis due to inhalation of food and vomit (principal); A41.9 Sepsis, unspecified organism; J96.01 Acute respiratory failure with hypoxia; J96.02 Acute respiratory failure with hypercapnia; R65.21 Severe sepsis with septic shock; G93.41 Metabolic encephalopathy; E27.2 Addisonian crisis; N17.9 Acute kidney failure, unspecified; E22.2 Syndrome of inappropriate secretion of antidiuretic hormone; E03.9 Hypothyroidism, unspecified; E87.5 Hyperkalemia; E78.5 Hyperlipidemia, unspecified; I10 Essential (primary) hypertension; E06.3 Autoimmune thyroiditis; J44.9 Chronic obstructive pulmonary disease, unspecified; Z88.2 Allergy status to sulfonamides; Z86.73 Personal history of transient ischemic attack (TIA), and cerebral infarction without residual deficits; Z79.899 Other long term (current) drug therapy; Z28.21 Immunization not carried out because of patient refusal; Z87.891 Personal history of nicotine dependence; Z79.890 Hormone replacement therapy
CPT/HCPCS: 36415; 36556; 51701; 71045; 74176; 80048; 80053; 80202; 81003; 82550; 82805; 83605; 83690; 84443; 84484; 85014; 85018; 85025; 85610; 85730; 86850; 86900; 86901; 87040; 87086; 87804; 93005; 93306; 94640; 94660; 96365; 96366; 96368; 96375; 96376; A4353; C9113; J0692; J1100; J1720; J2405; J2543; J3370; J3490; J7050; J7070; J7620

== ENCOUNTER 2019-09-08 22:34 | Inpatient (IN) | payer MEDICARE ==
[2019-09-09 01:37] LABS: Hemoglobin 7.3 g/dL (12.0-16.0); Mean Corpuscular HGB CONC 30.4 g/dL (32.0-36.0); Mean Corpuscular Hemoglobin 24.7 pg (27.0-31.0); Mean Corpuscular Volume 81.3 fL (78.0-98.0); Mean Platelet Volume 11.3 fL (7.4-10.4); Platelet Count 71 thou/uL (130-400); RBC Distribution Width 16.5 % (11.5-14.5); Red Blood Cell (RBC) Count 2.95 mill/uL (4.20-5.40); White Blood Cell (WBC) Count 26.9 thou/uL (4.8-10.8)
[2019-09-09 01:57] LABS: ALT (SGPT) 18 U/L (8-55); AST (SGOT) 16 U/L (5-34); Albumin 4.1 g/dL (3.4-4.8); Alkaline Phosphatase 129 U/L (40-110); Anion Gap 14 mmol/L (10-20); BUN (Urea Nitrogen) 17 mg/dL (9.8-20.1); Bilirubin, Total 0.5 mg/dL (0.2-1.2); Calc. Creatinine Clearance 0 mL/min (70-130); Calcium 9.4 mg/dL (7.8-10.44); Carbon Dioxide 31 mmol/L (23-31); Chloride 96 mmol/L (98-107); Estimated GFR-MDRD 46; Globulin 3.3 g/dL (2.4-3.5); Glucose 131 mg/dL (83-110); Potassium 4.3 mmol/L (3.5-5.1); Protein, Total 7.4 g/dL (6.0-8.3); Sodium 137 mmol/L (136-145)
[2019-09-09 02:08] LABS: Band 2 % (5-11); Lymphocytes 7 % (21-51); MDiff Complete? YES; Metamyelocyte 1 % (0-0); Monocytes 23 % (0-10); Neutrophil 67 % (42-75); Platelet Morphology Comment Appears Decreased
[2019-09-09] MEDS ORDERED: Cefepime 2 GM VIAL ONE (02:55)
--- NOTE | 2019-09-09 06:32 | RAD ---
RADIOGRAPH CHEST 1 VIEW: DATE: 09/09/2019 TIME: 1:08 AM HISTORY: 84-year-old female with dyspnea COMPARISON: 07/13/2019 FINDINGS: New finding of patchy alveolar infiltrates in the left upper lobe, especially at mid lung zone, and a t the left base. New mild alveolar small infiltrates at right perihilar midlung zone and right medial base. No cardiomegaly. Previously demonstrated right IJ central line has been removed. Lung ap ices are clear. IMPRESSION: New alveolar infiltrates, left greater than right: Suspicious for pneumonia.
[2019-09-09 08:20] LABS: Actual Bicarbonate (HCO3a) 32.1 mEq/L (22-28); CO2 Tension 58.2 mmHg (35.0-45.0); Calcium, Ionized 1.14 mmol/L (1.12-1.30); Carboxyhemoglobin (COHb) 1.9 gm% (0.0-3.0); Hemoglobin (Hb) 6.3 g/dL (12.0-16.0); Potassium - ABG Lab 5.09 mmol/L (3.70-5.30); pH, Arterial 7.36 (7.35-7.45)
[2019-09-09 08:24] LABS: O2 Tension (PaO2) 58.9 mmHg (> 60.0); Puncture Site LRA
[2019-09-09] MEDS ORDERED: guaiFENesin ER 600 MG TAB PO SCH (09:00)
[2019-09-09] MEDS ORDERED: Ondansetron ODT 4 MG TAB PO PRN (09:40)
[2019-09-09] MEDS ORDERED: Acetaminophen 325 MG TAB PO PRN (09:40)
[2019-09-09] MEDS ORDERED: Guaifenesin DM 100-10/5 ML UDCUP PO PRN (09:40)
[2019-09-09] MEDS ORDERED: Ondansetron PF 4 MG/2 ML Vial IVP PRN (09:40)
[2019-09-09] MEDS ORDERED: Senokot S 8.6-50 MG TAB PO PRN (09:40)
[2019-09-09] MEDS ORDERED: Acetaminophen 650 MG Suppository PR PRN (09:40)
[2019-09-09] MEDS ORDERED: Hydrocortisone Sod Succ/PF 100 mg/2 ml Vial IVP SCH (09:45)
--- NOTE | 2019-09-09 11:40 | HP ---
PRIMARY CARE PHYSICIAN: Amanda Walker MD CHIEF COMPLAINT: Chest tightness and shortness of breath. HISTORY OF PRESENT ILLNESS: This is an 84-year-old white female with a known history of COPD and adrenal insufficiency. She was seen in the hospital for COPD exacerbation two months ago, had some hypotension also from her adrenal insufficiency at that time. The patient has been doing well since. She did have an episode of some swelling in her feet sometime in the last couple of months and was increased on her Lasix by Cardiology with resolution of the feet swelling. She was in her normal state of health until yesterday evening when she started to become short of breath, had a minimal cough and some chest tightness. The patient presented to the emergency room. In the ER, she was found to have some significant hypoxia compared to normal. She usually is on 2 L of oxygen and runs about 90% to 92%. She was in mid to low 80s, however, had to have her oxygen increased up to 4 L with good saturations after that. The patient was found to have significantly elevated white blood cell count of 26,000, which is more than typical for her. Most recently, it was 13,000 in her last admission. She was also noted to have hemoglobin of 7.3, uncertain etiology. She usually runs low, but not that low, most recent was 8.1 last admission and she had a complete metabolic panel showing some mild renal insufficiency, creatinine of 1.12, otherwise normal. Brain natriuretic peptide was newly elevated at 482. Troponin was negative. The patient had a chest x-ray that showed bilateral patchy infiltrates consistent with pneumonia. She was given in her recent hospitalization antibiotics at that time. She was started on Levaquin, cefepime, and vancomycin in the emergency room. Her blood pressure was doing fine at that time was admitted to the medical floor. Early this morning, she did have some significantly increased work of breathing. I did get an ABG done on her, which showed some mild hypercapnia, but no acidosis. This is not as severe as her ABG from the last hospitalization. She actually has improved since then. States that she felt like she was having a panic attack and is resolved. She feels much more comfortable and was able to talk in full sentences at this time. Her blood pressure has been running low normal 90s to 100, and she has not had any steroids since coming to the hospital. REVIEW OF SYSTEMS: CONSTITUTIONAL: No fevers. No chills. EYES: No double vision or blurred vision. ENT: No congestion, drainage, or sore throat. PULMONARY: See HPI. She has had a little bit of chest tightness. This is actually not that uncommon for her due to scoliosis and chronic pain in her ribs, but was a little worse last night. CARDIOVASCULAR: No chest pain other than the tightness. No palpitations or racing heart. No current lower extremity edema. GASTROINTESTINAL: No abdominal pain. No nausea or vomiting. No diarrhea or constipation. GENITOURINARY: No dysuria or hematuria. MUSCULOSKELETAL: No muscle aches or joint pain. SKIN: No rashes or other lesions. NEUROLOGIC: No numbness, tingling, or focal weakness. PAST MEDICAL HISTORY: 1. Hypothyroidism. 2. Adrenal insufficiency, on daily hydrocortisone. 3. SIADH, on salt supplementation and fluid restriction, which she states she follows. 4. Hypercholesterolemia. 5. Hypertension. 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 Does not thicken all of her liquids now that she has still thickened some of them. 7. Pituitary tumor, status post radiation therapy in 2014. PAST SURGICAL HISTORY: 1. PEG tube placement with subsequent removal. 2. Hysterectomy. 3. Bladder suspension surgery. SOCIAL HISTORY: The patient lives at home and is able to ambulate by herself. She previously smoked, but quit over 30 years ago. No alcohol or illicit drug use. She is present in the emergency room with her daughter, who is her medical decision maker, Starr Julio. The patient states that she is a full code. ALLERGIES: SULFA ANTIBIOTICS. CURRENT MEDICATIONS: 1. Furosemide 20 mg daily. 2. Zofran as needed. 3. Amlodipine 5 mg twice a day. 4. Declomycin 150 mg 2 tablets twice a day. 5. Hydrocodone/acetaminophen 7.5/325 mg one tablet every 6 hours, which she takes religiously. 6. Hydrocortisone 20 mg twice a day. 7. Levothyroxine 75 mcg daily. 8. Omeprazole 20 mg twice a day. 9. Potassium chloride 20 mEq twice a day. 10. Seroquel 25 mg daily. 11. Sodium chloride 1 g daily. PHYSICAL EXAMINATION: VITAL SIGNS: Blood pressure 104/61, pulse 96, O2 saturation 90% to 92% on 4 L nasal cannula, respirations ranging between 20 to 24 breaths per minute. GENERAL: This is a well-developed, well-nourished white female, in no acute respiratory distress on my exam. HEENT: Pupils are equal, round, and reactive to light. Oropharynx with dry mucous membranes, otherwise clear. NECK: Supple. No lymphadenopathy. No thyroid nodules or enlargement. No significant JVD. HEART: Regular rate and rhythm. No murmurs, rubs, or gallops. LUNGS: She has some coarse breath sounds in bilateral bases. No significant crackles on my exam, though they were noted in the emergency room. ABDOMEN: Soft, nontender to palpation. Normoactive bowel sounds. No hepatosplenomegaly or other masses. EXTREMITIES: No clubbing, cyanosis, or edema. SKIN: No rashes or other lesions noted. NEUROLOGIC: Intact strength and sensation in all extremities. No facial droop. PSYCHIATRIC: Alert and oriented x3. Normal mood and affect. LABORATORY DATA: CBC with a white blood cell count of 26,000, no bandemia. She does have a monocyte predominance to white blood cells, hemoglobin 7.3, hematocrit 24.0, the MCV is low normal at 81, and platelet count low at 71, which is about baseline for her. Complete metabolic panel is notable for chloride of 96, creatinine of 1.12, up from 0.67 in her last hospitalization, glucose of 131, alkaline phosphatase of 129. The rest was normal. Troponin was negative at 0.012. Brain natriuretic peptide was elevated at 482.9, previously last check was one year ago when it was 31. IMAGING STUDIES: Chest x-ray, I did review the chest x-ray done in the emergency room along with the radiologist's report. The patient does have some patchy bilateral alveolar infiltrates, left greater than right, suspicious for pneumonia. ASSESSMENT: 1. Acute on chronic hypoxic and hypercapnic respiratory failure. The patient is currently requiring increased dose of oxygen. She is not in acute respiratory distress at this time and does not need BiPAP that she has needed in the past and we will need to keep a close eye on her in case she needs transfer to the IMCU or ICU for BiPAP treatment. Currently, she appears comfortable in the bed here on just oxygen. We will give the patient DuoNebs every 6 hours and then p.r.n. as needed. 2. Acute bacterial pneumonia with hospitalization a couple of months ago. We will continue patient's cefepime, Levaquin, and vancomycin renally dosed. Given her acute illness and her history of adrenal insufficiency as well as previous hypotension with acute illness, we will go ahead and give her 100 mg hydrocortisone dose IV, and then I will increase her hydrocortisone p.o. to 40 mg 3 times a day. 3. Elevated brain natriuretic peptide with history of restrictive pattern on her most recent echocardiogram concerning for congestive heart failure. Clinically, she does not appear incredibly wet. For now, we will just give a small dose of Lasix IV twice a day, and we will consult the patient's hybrid corn breeder, I believe, Dr. Alvarado is on-call for Dr. Roman. We will have her come in and assist with taking care of this patient. 4. Hypertension. We will resume the patient's antihypertensives. We will hold these if her blood pressure drops any. 5. Hypothyroidism. We will resume the patient's levothyroxine. 6. Gastrointestinal prophylaxis. We will continue the patient's proton pump inhibitor. 7. History of pontine stroke with dysphagia. We will continue normal diet, which she is eating at home right now, but we will have Speech Therapy come and evaluate her to see if there is any evidence of her possibly aspirating as the source of this pneumonia. 8. Deep venous thrombosis prophylaxis. The patient on Lovenox subcu. 9. Code status. I did discuss with the patient. She is a full code. Should she be incapacitated, her medical decision makers would be her daughter, Starr Julio, and her son, Josué Mahajan. Job ID: [id number]
[2019-09-09] MEDS: Furosemide 20 MG/2 ML VIAL SLOW IVP SCH (12:04)
[2019-09-09] MEDS: Vancomycin HCl 750 MG in Sodium Chloride 0.9% 250 ML 250 ML IVPB SCH (12:05)
[2019-09-09] MEDS: HYDROcodone/Acetaminophen 7.5/325 mg Tablet PO SCH ×2 (12:16→17:52)
--- NOTE | 2019-09-09 15:36 | CON ---
DATE OF CONSULTATION: HISTORY OF PRESENT ILLNESS: Ramya Greenwood is an 84-year-old female, who sees Dr. Magana in our office, presented with shortness of breath, cough, and fever with no chills or sweats. Sputum that she is coughing up is dirty yellow. X-ray showed bilateral pulmonary infiltrates. There is a daughter at the bedside, who states that she was here recently in June with hypotension and bronchitis. She got better. She is a former smoker, a pack a day, quit smoking about 30 years ago. She has had a stroke. She has difficulty getting around, but apparently uses a walker. PAST MEDICAL HISTORY: A diagnosis of adrenal insufficiency and hyponatremia was made. She is taking medicine for that. History of hyperlipidemia, history of COPD, and pneumonia. Hypertension. PAST SURGICAL HISTORY: Previous surgery including a hysterectomy, bladder lift surgery, and history of radiation for pituitary tumor. Previous surgeries, previous PEG, since removed; hysterectomy; bladder suspension surgery. HOME MEDICATIONS: Includes; 1. Sodium chloride. 2. Seroquel. 3. Potassium. 4. Zofran. 5. Synthroid. 6. Solu-Cortef 20 twice a day. 7. Lasix. 8. Hydrocodone. 9. Declomycin 300 twice a day. 10. Amlodipine 5 mg a day. ALLERGIES: SULFA. REVIEW OF SYSTEMS: Otherwise, unremarkable. PHYSICAL EXAMINATION: GENERAL: Awake, alert, and responsive, in mild respiratory distress. VITAL SIGNS: O2 saturation 90% on 2 L, respirations 24, temperature 98, pulse 96, and blood pressure 104/61. CHEST: Bilateral rhonchi and crackles. CARDIAC: Normal S1 and S2. No gallops. ABDOMEN: No masses. LABORATORY DATA: White count 26,000, H and H are 7 and 24, and platelet count is 71. Thrombocytopenia appears to be chronic. A pO2 was 58, pCO2 of 50, and pH of 7.36 on 3 L. Lytes are normal. Sodium is 137. BNP is mildly elevated at 42. X-ray shows bilateral infiltrates, new since June of this year. IMPRESSION AND PLAN: 1. Bilateral bronchopneumonia, former smoker, and chronic obstructive pulmonary disease. 2. History of pontine stroke. 3. Hypoadrenal probably status post pituitary radiation. 4. Normal ejection fraction. 5. Chronic hyponatremia. She appears to be on an adequate antibiotics at this stage. Neb treatments have been scheduled. Broad-spectrum antibiotics have been started. I agree with hydrocortisone as prescribed. Await sputum results. Deescalate antibiotics once we have all the information back. Consultation note, 70 minutes, 50% direct patient care. We will notify Dr. Magana. Job ID: [id number]
[2019-09-09] MEDS: Hydrocortisone 10 mg Tablet PO SCH ×2 (16:43→20:42)
--- NOTE | 2019-09-09 18:14 | CON ---
DATE OF CONSULTATION: 09/09/2019 INDICATION FOR CONSULTATION: An 84-year-old female with some shortness of breath. HISTORY OF PRESENT ILLNESS: This unfortunate 84-year-old female, who has severe osteoporosis, is on chronic pain medications, has history of anxiety attacks, who has been followed by Dr. Roman in the office, where she recently had a stress test as well as an echocardiogram. Her most recent echocardiogram showed ejection fraction of 60% to 65%, this was performed in May 2019. She had grade 1 diastolic dysfunction. She has mild left atrial dilatation. She does have [id number]-[id number]-xuzopxam aortic valve stenosis. She had mild mitral valve regurgitation, mild tricuspid valve regurgitation, and PA pressure was felt to be normal. The stress test was performed in April of 2019, this showed ejection fraction to be about 59% to 60% with no evidence of ischemia. At this time, she was at home yesterday evening and last night became increasing shortness of breath. She thought she was having a panic attack, did not go away. She also says that she has some chest tightness, which she always complains of chronic pain. She then was presented to the emergency room. O2 saturations reported were 83%. She was diagnosed with bilateral pneumonias. At this time, she is somewhat more comfortable, still complains of some shortness of breath and also pain. She has chronic pulmonary problems and has been seen by Dr. Magana in the past. Her chest x-ray showed what appeared to be some infiltrates, more so on the left than the right, was suspicious for the pneumonia on the chest x-ray. Her laboratory data showed a BNP of 482. She does have mild diastolic dysfunction and she does also have some mild lower extremity edema, which could account for some mild congestive heart failure symptoms. Her pO2 this morning at 8:15 was 58.9 on the blood gases with a pH of 7.36 and a pO2 of 58. Her WBC is 26.9 and hemoglobin was 7.3. She does appear to be somewhat chronically ill and based on her history, it appears after review of the records she does have a history of chronic anemia. She has not been as low as 7.3 in the past; however, and her cardiac enzymes were negative for any evidence of myocardial infarction. Her EKG showed a sinus rhythm with decreased R-wave progression in V1 through V3, but no acute ST-segment changes to indicate ischemia appears to be some degree of left ventricular hypertrophy. At this time, from a cardiac standpoint, she had no new complaints. PAST MEDICAL HISTORY: Significant for a non-ST segment elevation myocardial infarction in October 2017. She had a CVA in 2019. She apparently has a history of adrenal insufficiency with some history of hypertension. She has had respiratory problems. She has thyroid disease and pituitary gland tumor. She has a history of scoliosis. She has had a hysterectomy, tonsillectomy, and cholecystectomy. FAMILY HISTORY: Positive for some siblings with hypertension and diabetes and also heart disease in some of her brothers and sisters. SOCIAL HISTORY: She smoked in the past, but stopped about 40 years ago. She has no alcohol use. She lives at home. ALLERGIES: SHE IS ALLERGIC TO BACTRIM, WHICH SHE SAYS CAUSES HER TO HAVE MEMORY LOSS. MEDICATIONS: Prior to admission include; 1. Potassium 10 mEq a day. 2. Hydrocodone/acetaminophen 5/325, she takes this at almost every 4 to 6 hours according to the family. 3. Hydrocortisone 10 mg two tablets in the morning and one in the evening. 4. She is on sodium chloride tablets. 5. She is on omeprazole 20 mg twice a day. 6. Amlodipine 5 mg once a day. 7. Levothyroxine 75 mcg daily. 8. She is on Zofran as needed. 9. She is on demeclocycline/hydrochloride 150 mg tablets two every 12 hours. 10. Lasix 20 mg a day. REVIEW OF SYSTEMS: HEENT: She denies any HEENT complaints. PULMONARY: She complains of shortness of breath. CARDIOVASCULAR: She denied any palpitations, but complains of chest pain or chest pressure, which may be related to the just work of breathing and pneumonia. GI: She denies any nausea, vomiting, or diarrhea. EXTREMITIES: She has had some mild edema. NEUROLOGIC: She has had no seizures or gross focal motor deficits. PHYSICAL EXAMINATION: GENERAL: Reveals an elderly female. VITAL SIGNS: Her blood pressure is 117/66, temperature is a 100.1, heart rates 90 to 104 and regular, respiratory rate 20 to 22, and O2 saturation on 2 L is 91. HEENT: Shows the head to be normocephalic and atraumatic. Carotid pulses are present. I cannot hear any significant bruits. CHEST: Her chest has decreased breath sounds bilaterally with crackles in the bases. CARDIOVASCULAR: Reveals a regular rate and rhythm. Slightly tachycardic. She has a soft systolic murmur at the upper sternal border compatible with aortic valve stenosis or sclerosis. ABDOMEN: Soft and nontender. Positive bowel sounds are present. EXTREMITIES: Show no clubbing or cyanosis. She does have some mild lower leg posteriorly edema, which may be due to dependent edema. Pedal pulses were not palpable. NEUROLOGIC: There are no gross focal motor deficits. LABORATORY DATA: EKG as noted as above, normal sinus rhythm, but no acute changes, but appear to be chronic changes with decreased R-wave progression V1 through V3, which likely due to her left ventricular hypertrophy. Chest x-ray did show infiltrates. Laboratory data as noted above. IMPRESSION AND PLAN: 1. Probable bilateral pneumonia with increasing shortness of breath and panic attack associated with this to the increased work of breathing. She has been placed on antibiotics. We would agree with this plan. Her enzymes are negative. Her EKG is unremarkable. Recent echocardiogram shows mild diastolic dysfunction. At this time, we would continue the present medication as you are. She has also been placed on subcu Lovenox, we would agree with this for this time since she is bedridden. Her main complaint at this time is overall generalized discomfort and pain, most likely due to her osteoporosis and she also has scoliosis. 2. Diastolic dysfunction. This actually appears to be stable at this time. I would agree with the same medications that she is already on. She is already on some diuretics. We will continue this medication. 3. History of osteoporosis and scoliosis is to be dealt by the primary care service. She has been on routine medications. 4. Ixzk-lf-tdbgebor aortic valve stenosis. This does not appear to be a significant problem at this time, but we will need to monitor her to ensure that she does not become too hypotensive. 5. Adrenal insufficiency. We will need to follow carefully for the blood pressure. We will be more than happy to continue to follow the patient with you. Further care of the patient will be by Dr. Roman when he visits with the patient tomorrow, but right now, at this point from a cardiac standpoint, she appears to be stable. Job ID: [id number]
[2019-09-09] MEDS: Potassium Chloride 20 MEQ TAB PO SCH (20:42)
[2019-09-09] MEDS ORDERED: Simethicone Chewable 80 MG TAB PO PRN (20:59)
[2019-09-09] MEDS ORDERED: Amlodipine 5 MG TAB PO SCH (21:00)
[2019-09-09] MEDS ORDERED: Hydrocortisone 10 mg Tablet PO SCH (21:00)
[2019-09-09] MEDS: Sodium Chloride 1 GM TAB PO SCH (21:38)
[2019-09-10] MEDS: HYDROcodone/Acetaminophen 7.5/325 mg Tablet PO SCH ×4 (00:30→17:22)
[2019-09-10] MEDS: Levothyroxine Sodium 75 MCG TAB PO SCH (05:17)
[2019-09-10] MEDS: Furosemide 20 MG/2 ML VIAL SLOW IVP SCH ×2 (05:17→15:40)
[2019-09-10] MEDS: Cefepime 2 GM in Sodium Chloride 0.9% 100 ML IVPB SCH (05:18)
[2019-09-10 06:10] LABS: Anion Gap 15 mmol/L (10-20); BUN (Urea Nitrogen) 17 mg/dL (9.8-20.1); Calc. Creatinine Clearance 52 mL/min (70-130); Calcium 8.9 mg/dL (7.8-10.44); Carbon Dioxide 30 mmol/L (23-31); Chloride 91 mmol/L (98-107); Estimated GFR-MDRD 55; Glucose 125 mg/dL (83-110); Potassium 4.5 mmol/L (3.5-5.1); Sodium 131 mmol/L (136-145)
[2019-09-10 06:36] LABS: Hemoglobin 6.6 g/dL (12.0-16.0); Mean Corpuscular HGB CONC 30.6 g/dL (32.0-36.0); Mean Corpuscular Hemoglobin 24.6 pg (27.0-31.0); Mean Corpuscular Volume 80.5 fL (78.0-98.0); Mean Platelet Volume 12.1 fL (7.4-10.4); Platelet Count 65 thou/uL (130-400); RBC Distribution Width 16.5 % (11.5-14.5); Red Blood Cell (RBC) Count 2.69 mill/uL (4.20-5.40)
[2019-09-10 07:25] LABS: Band 5 % (5-11); Hypochromia MODERATE=16-30 cells (100X) (0-5/hpf); Lymphocytes 9 % (21-51); MDiff Complete? YES; Metamyelocyte 1 % (0-0); Monocytes 5 % (0-10); Myelocyte 2 % (0-0); Neutrophil 78 % (42-75); Ovalocytes SLIGHT = 2-5 cells (100X) (0-1/hpf); Platelet Morphology Comment Appears Decreased; Polychromasia SLIGHT = 2-3 cells (100X) (0-2/hpf); Reflex for Review?? NO
[2019-09-10] MEDS: Sodium Chloride 1 GM TAB PO SCH ×3 (07:48→21:40)
[2019-09-10] MEDS: Hydrocortisone 10 mg Tablet PO SCH ×3 (07:50→22:45)
[2019-09-10] MEDS: Potassium Chloride 20 MEQ TAB PO SCH ×2 (07:50→21:40)
[2019-09-10] MEDS: Amlodipine 10 MG TAB PO SCH (07:53)
[2019-09-10] MEDS: Enoxaparin Sodium 40 MG/0.4 ML SYRINGE SC SCH (07:55)
[2019-09-10] MEDS ORDERED: Sodium Chloride 1 GM TAB PO SCH (09:00)
[2019-09-10 11:25] LABS: Actual Bicarbonate (HCO3a) 23.6 mEq/L (22-28); Base Excess (BEa) -2.9 mEq/L (-2.0 to +3.0); CO2 Tension 50.6 mmHg (35.0-45.0); Calcium, Ionized 1.34 mmol/L (1.12-1.30); Hemoglobin (Hb) 7.5 g/dL (12.0-16.0); Potassium - ABG Lab 3.79 mmol/L (3.70-5.30); pH, Arterial 7.29 (7.35-7.45)
[2019-09-10 11:27] LABS: Puncture Site RRA
[2019-09-10] MEDS: Vancomycin HCl 750 MG in Sodium Chloride 0.9% 250 ML 250 ML IVPB SCH (12:24)
--- NOTE | 2019-09-10 13:16 | RAD ---
EXAM: XR Chest 1 View Portable PROVIDED CLINICAL HISTORY: Dyspnea COMPARISON: 09/09/2019 FINDINGS: Interval intubation, tip of the endotracheal tube overlying the thoracic inlet. The patient is positi oned in kyphosis, limiting evaluation. Enteric catheter is also seen, distal aspects of which overlies the left upper quadrant. Bilateral perihilar airspace disease is now present. Left basilar p leural and/or parenchymal opacity. No evidence for pneumothorax. IMPRESSION: 1. Development of conspicuous bilateral perihilar airspace disease suspicious for alveolar edema. 2. Left basilar pleural and/or parenchymal opacity. 3. Interval intubation and placement of enteric catheter.
--- NOTE | 2019-09-10 14:45 | PDOC.CPN ---
- Subjective Date: 09/10/19 Time: 14:39 Interval history: She had a code blue this morning, unclear what rhythm, She was found to have agonal breathing, code blue called, chest compressions and epi given. Eventually she regained pulse. She is currently intubated in the unit, not sedated. Nurse opened her eyes she turned her eyes to see him then she dosed off back to sleep on no pressors. - Review of Systems General: denies: fever/chills, weight/appetite/sleep changes, night sweats, fatigue Respiratory: denies: cough, congestion, shortness of breath, exercise intolerance Cardiovascular: denies: chest pain, palpitation, edema, paroxysmal nocturnal dyspnea, orthopnea Gastrointestinal: denies: nausea, vomiting, diarrhea, constipation, abd pain, GI bleeding Musculoskeletal: denies: pain, tenderness, stiffness, swelling, arthritis/ arthralgias Neurological: denies: numbness, syncope, seizure, weakness - Objective Allergies/Adverse Reactions: Allergies Allergy/AdvReac Type Severity Reaction Status Date / Time Sulfa (Sulfonamide Allergy Verified 09/09/19 05:15 Antibiotics) Visit Medications: Current Medications Acetaminophen (Tylenol) 650 mg PO Q4H PRN PRN Reason: Headache/Fever/Mild Pain (1-3) Acetaminophen (Tylenol) 650 mg AR Q4H PRN PRN Reason: Headache/Fever/Mild Pain (1-3) Hydrocodone Bitart/Acetaminophen ([place] 7.5/325) 1 tab PO Q6HR [facility] Last Admin: 09/10/19 12:17 Dose: Not Given Albuterol/Ipratropium (Duoneb) 3 ml NEB [id number] [facility] Last Admin: 09/10/19 13:58 Dose: 3 ml Albuterol/Ipratropium (Duoneb) 3 ml NEB [id number] PRN PRN Reason: SOB &/or Wheezing Amlodipine Besylate (Norvasc) 10 mg PO DAILY [facility] Last Admin: 09/10/19 07:53 Dose: Not Given Demeclocycline HCl (Declomycin) 300 mg PO BID [facility] Last Admin: 09/10/19 07:52 Dose: 300 mg Enoxaparin Sodium (Lovenox) 40 mg SC 0900 [facility] Last Admin: 09/10/19 07:55 Dose: Not Given Furosemide (Lasix) 20 mg SLOW IVP 0600,1400 [facility] Last Admin: 09/10/19 05:17 Dose: 20 mg Guaifenesin/Dextromethorphan (Robitussin Dm) 15 ml PO Q4H PRN PRN Reason: Cough Hydrocortisone (Cortef) 40 mg PO TID [facility] Last Admin: 09/10/19 07:50 Dose: 40 mg Levofloxacin 750 mg/ Device 150 mls @ 100 mls/hr IVPB Q2DAYS [facility] Cefepime HCl 2 gm/ Sodium (Chloride) 100 mls @ 200 mls/hr IVPB 0600 [facility] Last Admin: 09/10/19 05:18 Dose: 100 mls Vancomycin HCl 750 mg/ Sodium (Chloride) 250 mls @ 250 mls/hr IVPB 1100 [facility] Last Admin: 09/10/19 12:24 Dose: 250 mls Levothyroxine Sodium (Synthroid) 75 mcg PO 0600 [facility] Last Admin: 09/10/19 05:17 Dose: 75 mcg Miscellaneous Medication (Pharmacy To Dose) 1 each IVPB PRN PRN PRN Reason: Pharmacy to dose Ondansetron HCl (Zofran Odt) 4 mg PO Q6H PRN PRN Reason: Nausea/Vomiting Ondansetron HCl (Zofran) 4 mg IVP Q6H PRN PRN Reason: Nausea/Vomiting Pantoprazole Sodium (Protonix) 40 mg PO DAILY [facility] Last Admin: 09/10/19 07:53 Dose: 40 mg Potassium Chloride (K-Dur) 20 meq PO BID [facility] Last Admin: 09/10/19 07:50 Dose: 20 meq Quetiapine Fumarate (Seroquel) 25 mg PO HS [facility] Last Admin: 09/09/19 22:20 Dose: 25 mg Senna/Docusate Sodium (Senokot S) 2 tab PO BIDPRN PRN PRN Reason: Constipation Simethicone (Mylicon Chewable) 80 mg PO PCHS PRN PRN Reason: Gas Pain Sodium Chloride (Sodium Chloride) 1 gm PO TID [facility] Last Admin: 09/10/19 07:48 Dose: 1 gm Vital Signs & Weight: Vital Signs Temp Pulse Resp BP BP BP Pulse Ox 09/10/19 14:28 97 09/10/19 14:02 106 H 09/10/19 14:00 20 09/10/19 12:00 97.7 F 20 09/10/19 11:10 114 H 160/78 H 09/10/19 08:00 93 L 09/10/19 07:54 98.2 F 97 18 95/60 93 L 09/10/19 07:53 91 95/60 09/10/19 06:33 93 L 09/10/19 06:20 91 16 09/10/19 05:07 98.1 F 91 18 126/70 92 L Weight 165 lb - Physical Exam General: other (Intubated, responds to stimuli.) HEENT: mucus membranes moist Neck: supple neck Cardiac: regular rate and rhythm Lungs: scattered rhonchi Neuro: no lateralizing findings Abdomen: active bowel sounds Extremities: no edema Skin: clear Musculoskeletal: no fluid collection - Labs Result Diagrams: 09/10/19 05:27 09/10/19 05:27 Troponin/CKMB Troponin I 0.012 ng/mL (< 0.028) 09/09/19 01:27 - Telemetry Sinus rhythms and dysrhythmias: sinus rhythm - Assessment/Plan Assessment/Plan: 1. Pneumonia, possible aspiration. 2. Diastolic dysfunction. 3. Mild to moderate aortic valve stenosis. 4. Acute hypoxic respiratory insufficiency. PLAN: - Supportive care. - No new recs.
[2019-09-10] MEDS ORDERED: Sodium Bicarb 50 MEQ/50 ML Abboject 8.4% SYRINGE ONE (15:10)
[2019-09-10] MEDS ORDERED: EPINEPHrine 1 MG/10 ML Abboject SYRINGE ONE (15:10)
[2019-09-10] MEDS ORDERED: Calcium Chloride 1 GM/10 ML Abboject SYRINGE ONE (15:10)
[2019-09-10] MEDS ORDERED: fentaNYL Citrate/PF 2,000 MCG in Sodium Chloride 0.9% 60 ML IV SCH (16:49)
[2019-09-10] MEDS ORDERED: Fentanyl BOLUS 250 ML IVPB PRN (16:49)
[2019-09-10] MEDS ORDERED: Propofol BOLUS 1,000 MG/100 ML VIAL IV PRN (16:49)
[2019-09-10] MEDS ORDERED: Morphine 2 MG/ML SYRINGE SLOW IVP PRN (16:49)
[2019-09-10] MEDS: Lorazepam 2 MG/ML VIAL SLOW IVP PRN (17:23)
--- NOTE | 2019-09-10 19:31 | PDOC.HOSPP ---
- Subjective Encounter Date: 09/10/19 Encounter Time: 11:26 Subjective: 84 y/o female withCOPD, adrenal insufficiency, SIADH, HTN, diastolic HF, CAD and prior CVA with dysphagia admitted with worsening SOB and chest tightness.Impression COPD exacerbation and pneumonia was made and she was started on broad spectrum antibiotics. Had acute respiratory distress earlier today and soon eas in cardiac arrest requiring CPR with ROSC,. Was subsequenlt intubated and transfered to ICU. - Objective Vital Signs & Weight: Vital Signs (12 hours) Temp Pulse Resp BP BP Pulse Ox 09/10/19 19:21 101 H 09/10/19 19:19 100 20 100 09/10/19 18:00 20 09/10/19 17:08 105 H 09/10/19 16:00 20 09/10/19 15:00 98.1 F 09/10/19 14:28 97 09/10/19 14:02 106 H 09/10/19 14:00 20 09/10/19 12:00 97.7 F 20 09/10/19 11:10 114 H 160/78 H 09/10/19 08:00 93 L 09/10/19 07:54 98.2 F 97 18 95/60 93 L 09/10/19 07:53 91 95/60 Weight Weight 165 lb Most Recent Monitor Data Heart Rate from ECG 97 NIBP 120/54 NIBP BP-Mean 76 Respiration from ECG 20 SpO2 100 I&O: 09/09/19 09/10/19 09/11/19 06:59 06:59 06:59 Intake Total 1100 729 Output Total 500 1050 Balance 600 -321 Result Diagrams: 09/10/19 05:27 09/10/19 05:27 Additional Labs: Accuchecks 09/10/19 10:52 POC Glucose 246 H Hospitalist ROS - Medication Medications: Active Medications Generic Name Dose Route Start Last Admin Trade Name Freq PRN Reason Stop Dose Admin Hydrocodone Bitart/Acetaminophen 1 tab 09/09/19 12:00 09/10/19 17:22 [place] 7.5/325 PO Not Given Q6HR [facility]I Albuterol/Ipratropium 3 ml 09/09/19 13:00 09/10/19 19:19 Duoneb NEB 3 ml [id number] [facility] Administration Amlodipine Besylate 10 mg 09/10/19 09:00 09/10/19 07:53 Norvasc PO Not Given DAILY [facility] Demeclocycline HCl 300 mg 09/09/19 21:00 09/10/19 07:52 Declomycin PO 300 mg BID [facility] Administration Enoxaparin Sodium 40 mg 09/10/19 09:00 09/10/19 07:55 Lovenox SC Not Given 0900 [facility] Furosemide 20 mg 09/09/19 14:00 09/10/19 15:40 Lasix SLOW IVP 20 mg 0600,1400 [facility] Administration Hydrocortisone 40 mg 09/09/19 15:00 09/10/19 16:29 Cortef PO 40 mg TID [facility] Administration Cefepime HCl 2 gm/ Sodium 100 mls @ 200 mls/hr 09/10/19 06:00 09/10/19 05:18 Chloride IVPB 100 mls 0600 [facility] Administration Vancomycin HCl 750 mg/ Sodium 250 mls @ 250 mls/hr 09/09/19 11:00 09/10/19 12 :24 Chloride IVPB 250 mls 1100 [facility] Administration Levothyroxine Sodium 75 mcg 09/10/19 06:00 09/10/19 05:17 Synthroid PO 75 mcg 0600 [facility] Administration Lorazepam 2 mg 09/10/19 16:49 09/10/19 17:23 Ativan SLOW IVP 10/10/19 16:49 2 mg Q1H PRN Administration Breakthrough agitation Pantoprazole Sodium 40 mg 09/10/19 09:00 09/10/19 07:53 Protonix PO 40 mg DAILY [facility] Administration Potassium Chloride 20 meq 09/09/19 21:00 09/10/19 07:50 K-Dur PO 20 meq BID [facility] Administration Quetiapine Fumarate 25 mg 09/09/19 21:00 09/09/19 22:20 Seroquel PO 25 mg HS [facility] Administration Sodium Chloride 1 gm 09/09/19 21:00 09/10/19 15:43 Sodium Chloride PO 1 gm TID [facility] Administration - Exam General - other findings: unresponsive ENT: normocephalic atraumatic ENT - other findings: ET and OG tubes in place Heart: RRR Respiratory - other findings: fair air entry with ventilator transmitted sound Gastrointestinal: soft, normal bowel sounds Gastrointestinal - other findings: obese Extremities: no edema Neurological - other findings: unresponsive Hosp A/P (1) Cardiopulmonary arrest with successful resuscitation Code(s): I46.9 - CARDIAC ARREST, CAUSE UNSPECIFIED Status: Acute (2) CAD (coronary artery disease) Code(s): I25.10 - ATHSCL HEART DISEASE OF [place] CORONARY ARTERY W/O ANG PCTRS Status: Acute (3) Diastolic heart failure Code(s): I50.30 - UNSPECIFIED DIASTOLIC (CONGESTIVE) HEART FAILURE Status: Acute (4) Pneumonia Code(s): J18.9 - PNEUMONIA, UNSPECIFIED ORGANISM Status: Acute (5) COPD exacerbation Code(s): J44.1 - CHRONIC OBSTRUCTIVE PULMONARY DISEASE W (ACUTE) EXACERBATION Status: Acute (6) Hyponatremia Code(s): E87.1 - HYPO-OSMOLALITY AND HYPONATREMIA Status: Acute (7) CATHY (acute kidney injury) Code(s): N17.9 - ACUTE KIDNEY FAILURE, UNSPECIFIED Status: Acute (8) Acute respiratory failure with hypoxia and hypercapnia Code(s): J96.01 - ACUTE RESPIRATORY FAILURE WITH HYPOXIA; J96.02 - ACUTE RESPIRATORY FAILURE WITH HYPERCAPNIA Status: Acute (9) Aspiration pneumonia Code(s): J69.0 - PNEUMONITIS DUE TO INHALATION OF FOOD AND VOMIT Status: Acute (10) Dysphagia Code(s): R13.10 - DYSPHAGIA, UNSPECIFIED Status: Acute (11) 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 Get serial troponin and echo. Vent management as per Pulmonary. Supportive care to continue. NPO.
[2019-09-10 20:17] LABS: Troponin I 1.469 ng/mL (< 0.028)
--- NOTE | 2019-09-10 20:59 | PRG ---
DATE OF SERVICE: 09/10/2019 SUBJECTIVE: Ramya Greenwood was evaluated today. Apparently, she had a cardiorespiratory arrest on the floor this morning. She was transferred to the critical care unit after she was resuscitated. Followup chest x-ray showed bilateral alveolar infiltrates and a dense alveolar infiltrate in the left base. Hemodynamics post code had been reasonably stable. She was seen by Cardiology. OBJECTIVE: VITAL SIGNS: She is afebrile. Heart rates in the 90s, blood pressures in the 90s most of the morning and then went up to the 160s around lunchtime. LUNGS: Remarkable for coarse equal breath sounds. HEART: Regular rhythm. 2/6 systolic murmur. ABDOMEN: Soft and nontender. EXTREMITIES: Without asymmetry or edema. NEURO: Nonfocal. She actually looks older than her age. I used to take care of her , have not seen her in a while. She looks much older than she did when I last saw her. LABORATORY DATA: White count 16, hemoglobin 6.6, platelets 65,000. Electrolytes are normal. IMPRESSION: 1. Status post code. 2. Anemia, unclear etiology. PLAN: She needs to be transfused. Continue to follow post code blood gas shows a pH 7.29, pCO2 of 50, pO2 of 208. . Job ID: [id number]
[2019-09-11] MEDS: HYDROcodone/Acetaminophen 7.5/325 mg Tablet PO SCH ×5 (01:48→23:42)
[2019-09-11 04:51] LABS: Anion Gap 17 mmol/L (10-20); BUN (Urea Nitrogen) 17 mg/dL (9.8-20.1); Calc. Creatinine Clearance 49 mL/min (70-130); Calcium 9.1 mg/dL (7.8-10.44); Carbon Dioxide 27 mmol/L (23-31); Chloride 93 mmol/L (98-107); Estimated GFR-MDRD 51; Glucose 115 mg/dL (83-110); Sodium 134 mmol/L (136-145)
[2019-09-11] MEDS: Cefepime 2 GM in Sodium Chloride 0.9% 100 ML IVPB SCH (05:22)
[2019-09-11] MEDS: Furosemide 20 MG/2 ML VIAL SLOW IVP SCH ×2 (05:23→12:39)
[2019-09-11] MEDS: Levothyroxine Sodium 75 MCG TAB PO SCH (05:23)
[2019-09-11 05:31] LABS: Band 6 % (5-11); Hemoglobin 10.3 g/dL (12.0-16.0); Large Platelets SLIGHT; Lymphocytes 4 % (21-51); MDiff Complete? YES; Mean Corpuscular HGB CONC 32.9 g/dL (32.0-36.0); Mean Corpuscular Hemoglobin 26.6 pg (27.0-31.0); Mean Corpuscular Volume 80.9 fL (78.0-98.0); Mean Platelet Volume 11.6 fL (7.4-10.4); Metamyelocyte 1 % (0-0); Monocytes 15 % (0-10); Myelocyte 1 % (0-0); Neutrophil 73 % (42-75); Ovalocytes SLIGHT = 2-5 cells (100X) (0-1/hpf); Platelet Count 48 thou/uL (130-400); Platelet Morphology Comment Appears Decreased; Polychromasia SLIGHT = 2-3 cells (100X) (0-2/hpf); RBC Distribution Width 15.6 % (11.5-14.5); Red Blood Cell (RBC) Count 3.87 mill/uL (4.20-5.40)
--- NOTE | 2019-09-11 07:34 | RAD ---
EXAM: Portable chest PROVIDED CLINICAL HISTORY: Respiratory insufficiency COMPARISON: 09/10/2019 FINDINGS: Mild interval improvement in bilateral perihilar airspace disease. Additional significant interval ch carlotta with respect to the prior examination is not apparent. IMPRESSION: As above.
[2019-09-11 08:24] LABS: Actual Bicarbonate (HCO3a) 28.5 mEq/L (22-28); CO2 Tension 33.6 mmHg (35.0-45.0); Calcium, Ionized 1.06 mmol/L (1.12-1.30); Carboxyhemoglobin (COHb) 1.2 gm% (0.0-3.0); O2 Tension (PaO2) 74.8 mmHg (> 60.0)
[2019-09-11 08:27] LABS: Puncture Site RR; pH, Arterial 7.55 (7.35-7.45)
[2019-09-11] MEDS: Sodium Chloride 1 GM TAB PO SCH ×3 (09:37→20:38)
[2019-09-11] MEDS: Potassium Chloride 20 MEQ TAB PO SCH ×2 (09:37→20:38)
[2019-09-11] MEDS: Enoxaparin Sodium 40 MG/0.4 ML SYRINGE SC SCH (09:38)
[2019-09-11] MEDS: Amlodipine 10 MG TAB PO SCH (09:38)
[2019-09-11] MEDS: Hydrocortisone 10 mg Tablet PO SCH ×3 (10:11→20:38)
[2019-09-11] MEDS: Vancomycin HCl 750 MG in Sodium Chloride 0.9% 250 ML 250 ML IVPB SCH (10:32)
[2019-09-11] MEDS: Lorazepam 2 MG/ML VIAL SLOW IVP PRN (10:44)
--- NOTE | 2019-09-11 12:35 | PRG ---
DATE OF SERVICE: 09/11/2019 SUBJECTIVE: Ramya Greenwood wakes up and follows commands. She is on pressure support and PEEP at this time. She appears stable. Since she is only 24 hours out from her arrest, I would like to wait to extubate her. Her daughter says that she was helping and turn her in bed and the mother was having some respiratory distress, but did not appear to to be failing. It does not sound like she was hypercarbic or encephalopathic leading up to the arrest, which makes me wonder if this cardiac rhythm disturbance. In any event, she has had no dysrhythmias. OBJECTIVE: VITAL SIGNS: Heart rate is 90, blood pressure 119/72, respiratory rate in the 20s, minute volume is about 9 L a minute. LUNGS: Clear. HEART: Regular rhythm. ABDOMEN: Soft and nontender. EXTREMITIES: Without clubbing, cyanosis, or edema. NEUROLOGIC: Grossly nonfocal after her arrest. LABORATORY DATA: White count 21, hemoglobin 10.3, platelets 48,000. Sodium 134 , potassium 3, chloride 93, bicarb 27, BUN 17, and creatinine 1.03. IMPRESSION: 1. Respiratory failure after cardiorespiratory arrest. 2. Community-acquired pneumonia. 3. History of dyspnea of unclear etiology. We spent a long time talking to 2 daughters about mother's shortness of breath with exertion. Obviously, cannot sort this out at this time. We will try to sort this out at a later date. Hopefully , we can extubate her in the morning. CRITICAL CARE TIME: 30 minutes. Job ID: [id number] MTDD
[2019-09-11] MEDS: Propofol 1,000 MG/100 ML VIAL IV PRN ×2 (12:38→19:38)
--- NOTE | 2019-09-11 16:26 | PDOC.HOSPP ---
- Subjective Encounter Date: 09/11/19 Encounter Time: 11:21 Subjective: 84 y/o with COPD, prior CVA with dysphagia, adrenal insufficiency admitted with worsening SOB and chest tightness and started on broad spectrum antibiotic for COPD exacerbation and pneumonia. Later had acute onset of worsening respiratory distress and soon became unresponsive and was coded with prompt ROSC. Still intubated. Recieved 2 PRBC for acute on chronic anemia. - Objective Vital Signs & Weight: Vital Signs (12 hours) Temp Pulse Resp BP Pulse Ox 09/11/19 16:00 14 09/11/19 15:34 110 H 102/58 L 09/11/19 14:00 14 09/11/19 13:00 98.5 F 09/11/19 12:00 97 14 101/54 L 09/11/19 11:30 107 H 116/64 09/11/19 10:00 23 H 09/11/19 09:38 105 H 138/73 09/11/19 08:12 105 H 138/73 09/11/19 07:27 19 09/11/19 07:16 100 09/11/19 07:00 99.2 F 09/11/19 06:00 20 Weight Admit Weight 165 lb 6.4 oz Weight 164 lb 10.965 oz Most Recent Monitor Data Heart Rate from ECG 114 NIBP 102/57 NIBP BP-Mean 72 Respiration from ECG 14 SpO2 100 I&O: 09/10/19 09/11/19 09/12/19 06:59 06:59 06:59 Intake Total 1100 1569 350 Output Total 500 2320 1560 Balance 198 -182 -5352 Result Diagrams: 09/11/19 03:35 09/11/19 03:35 Hospitalist ROS - Medication Medications: Active Medications Generic Name Dose Route Start Last Admin Trade Name Freq PRN Reason Stop Dose Admin Acetaminophen 650 mg 09/09/19 09:40 09/10/19 22:47 Tylenol PO 650 mg Q4H PRN Administration Headache/Fever/Mild Pain (1-3) Hydrocodone Bitart/Acetaminophen 1 tab 09/09/19 12:00 09/11/19 15:43 [place] 7.5/325 PO Not Given Q6HR LANI Albuterol/Ipratropium 3 ml 09/09/19 13:00 09/11/19 14:08 Duoneb NEB 3 ml [id number] LANI Administration Amlodipine Besylate 10 mg 09/10/19 09:00 09/11/19 09:38 Norvasc PO 10 mg DAILY LANI Administration Demeclocycline HCl 300 mg 09/09/19 21:00 09/11/19 09:38 Declomycin PO 300 mg BID LANI Administration Furosemide 20 mg 09/09/19 14:00 09/11/19 12:39 Lasix SLOW IVP 20 mg 0600,1400 LANI Administration Hydrocortisone 40 mg 09/09/19 15:00 09/11/19 15:42 Cortef PO 40 mg TID LANI Administration Levofloxacin 750 mg/ Device 150 mls @ 100 mls/hr 09/11/19 06:00 09/11/19 07: 06 IVPB 150 mls Q2DAYS LANI Administration Cefepime HCl 2 gm/ Sodium 100 mls @ 200 mls/hr 09/10/19 06:00 09/11/19 05:22 Chloride IVPB 100 mls 0600 LANI Administration Vancomycin HCl 750 mg/ Sodium 250 mls @ 250 mls/hr 09/09/19 11:00 09/11/19 10 :32 Chloride IVPB 250 mls 1100 LANI Administration Levothyroxine Sodium 75 mcg 09/10/19 06:00 09/11/19 05:23 Synthroid PO 75 mcg 0600 LANI Administration Lorazepam 2 mg 09/10/19 16:49 09/11/19 10:44 Ativan SLOW IVP 10/10/19 16:49 2 mg Q1H PRN Administration Breakthrough agitation Pantoprazole Sodium 40 mg 09/10/19 09:00 09/11/19 09:37 Protonix PO 40 mg DAILY LANI Administration Potassium Chloride 20 meq 09/09/19 21:00 09/11/19 09:37 K-Dur PO 20 meq BID LANI Administration Propofol 1,000 mg 09/10/19 16:49 09/11/19 12:38 Diprivan IV 10/10/19 16:49 1,000 mg INF PRN Administration TO ACHIEVE GOAL RASS Protocol Quetiapine Fumarate 25 mg 09/09/19 21:00 09/10/19 21:40 Seroquel PO 25 mg HS LANI Administration Sodium Chloride 1 gm 09/09/19 21:00 09/11/19 15:42 Sodium Chloride PO 1 gm TID LANI Administration - Exam General - other findings: drowsy but obeying commands Eye: anicteric sclera ENT: normocephalic atraumatic ENT - other findings: ET and OG tubes in place Neck: supple, symmetric Heart: RRR Respiratory: no wheezes, no ronchi, normal chest expansion Respiratory - other findings: fair air entry with ventilator transmitted sound Gastrointestinal: soft, non-tender, non-distended, normal bowel sounds Extremities: no edema Neurological: cranial nerve grossly intact Neurological - other findings: drowsy but opens eye with stimulation. obeying command Hosp A/P (1) Cardiopulmonary arrest with successful resuscitation Code(s): I46.9 - CARDIAC ARREST, CAUSE UNSPECIFIED Status: Acute (2) CAD (coronary artery disease) Code(s): I25.10 - ATHSCL HEART DISEASE OF [place] CORONARY ARTERY W/O ANG PCTRS Status: Acute (3) Diastolic heart failure Code(s): I50.30 - UNSPECIFIED DIASTOLIC (CONGESTIVE) HEART FAILURE Status: Acute (4) Pneumonia Code(s): J18.9 - PNEUMONIA, UNSPECIFIED ORGANISM Status: Acute (5) COPD exacerbation Code(s): J44.1 - CHRONIC OBSTRUCTIVE PULMONARY DISEASE W (ACUTE) EXACERBATION Status: Acute (6) Hyponatremia Code(s): E87.1 - HYPO-OSMOLALITY AND HYPONATREMIA Status: Acute (7) CATHY (acute kidney injury) Code(s): N17.9 - ACUTE KIDNEY FAILURE, UNSPECIFIED Status: Acute (8) Acute respiratory failure with hypoxia and hypercapnia Code(s): J96.01 - ACUTE RESPIRATORY FAILURE WITH HYPOXIA; J96.02 - ACUTE RESPIRATORY FAILURE WITH HYPERCAPNIA Status: Acute (9) Aspiration pneumonia Code(s): J69.0 - PNEUMONITIS DUE TO INHALATION OF FOOD AND VOMIT Status: Acute (10) Dysphagia Code(s): R13.10 - DYSPHAGIA, UNSPECIFIED Status: Acute (11) 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 Code(s): Z86.73 - PRSNL HX OF TIA (TIA), AND CEREB INFRC W/O RESID DEFICITS Status: Acute (12) Adrenal insufficiency Code(s): E27.40 - UNSPECIFIED ADRENOCORTICAL INSUFFICIENCY Status: Chronic (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 Replete electrolytes as indicated Vent management as per Pulmonary. Continue steroid therapy given adrenal insufficiency Supportive care to continue.
[2019-09-12] MEDS: Propofol 1,000 MG/100 ML VIAL IV PRN (01:56)
[2019-09-12 04:31] LABS: Anion Gap 13 mmol/L (10-20); BUN (Urea Nitrogen) 23 mg/dL (9.8-20.1); Calc. Creatinine Clearance 39 mL/min (70-130); Calcium 8.7 mg/dL (7.8-10.44); Carbon Dioxide 31 mmol/L (23-31); Chloride 98 mmol/L (98-107); Estimated GFR-MDRD 39; Glucose 155 mg/dL (83-110); Potassium 3.3 mmol/L (3.5-5.1); Sodium 139 mmol/L (136-145)
[2019-09-12] MEDS: Cefepime 2 GM in Sodium Chloride 0.9% 100 ML IVPB SCH (05:44)
[2019-09-12] MEDS: Levothyroxine Sodium 75 MCG TAB PO SCH (05:46)
[2019-09-12] MEDS: HYDROcodone/Acetaminophen 7.5/325 mg Tablet PO SCH ×3 (05:47→18:29)
[2019-09-12] MEDS: Furosemide 20 MG/2 ML VIAL SLOW IVP SCH (05:47)
[2019-09-12 05:48] LABS: Anisocytosis SLIGHT = 6-15 cells (100X) (0-5/hpf); Band 8 % (5-11); Hemoglobin 9.1 g/dL (12.0-16.0); Large Platelets SLIGHT; Lymphocytes 4 % (21-51); MDiff Complete? YES; Mean Corpuscular HGB CONC 32.8 g/dL (32.0-36.0); Mean Corpuscular Hemoglobin 26.5 pg (27.0-31.0); Mean Corpuscular Volume 80.9 fL (78.0-98.0); Mean Platelet Volume 7.5 fL (7.4-10.4); Monocytes 12 % (0-10); Neutrophil 76 % (42-75); Platelet Count 49 thou/uL (130-400); Platelet Morphology Comment Appears Decreased; Polychromasia SLIGHT = 2-3 cells (100X) (0-2/hpf); Red Blood Cell (RBC) Count 3.43 mill/uL (4.20-5.40); White Blood Cell (WBC) Count 15.7 thou/uL (4.8-10.8)
--- NOTE | 2019-09-12 07:29 | RAD ---
EXAM: XR Chest 1 View Portable PROVIDED CLINICAL HISTORY: Respiratory insufficiency COMPARISON: 09/11/2019 FINDINGS: Accounting for differences in positioning, interval improvement in bilateral perihilar airspace disea se. Layering bilateral pleural fluid suggested. No evidence for pneumothorax. Endotracheal tube and enteric catheter are in similar positions. IMPRESSION: Improvement in bilateral perihilar airspace disease.
[2019-09-12] MEDS: Sodium Chloride 1 GM TAB PO SCH ×3 (09:34→21:54)
[2019-09-12] MEDS: Potassium Chloride 20 MEQ TAB PO SCH ×2 (09:34→14:20)
[2019-09-12] MEDS: Hydrocortisone 10 mg Tablet PO SCH ×3 (09:34→21:54)
[2019-09-12 10:57] LABS: Vancomycin, Trough 11.2 ug/mL
[2019-09-12] MEDS ORDERED: Vancomycin HCl 1.25 GM in Sodium Chloride 0.9% 250 ML 250 ML IVPB SCH (12:00)
[2019-09-12] MEDS ORDERED: Carvedilol 3.125 MG TAB PO SCH (12:15)
[2019-09-12] MEDS: Amlodipine 10 MG TAB PO SCH (12:36)
[2019-09-12] MEDS: Vancomycin HCl 750 MG in Sodium Chloride 0.9% 250 ML 250 ML IVPB SCH (12:36)
--- NOTE | 2019-09-12 12:36 | PRG ---
DATE OF SERVICE: 09/12/2019 SUBJECTIVE: Ramya ruelas is wide awake on the ventilator. Her minute volume on pressure support of 10, 5 of PEEP is about 7 L a minute. OBJECTIVE: VITAL SIGNS: Heart rate is 100, blood pressure 149/74. HEAD AND NECK: Unchanged. LUNGS: Clear anteriorly. HEART: Regular rhythm. ABDOMEN: Soft. EXTREMITIES: Without edema. IMAGING DATA: Chest x-ray is unchanged. LABORATORY DATA: White count 15.7, hemoglobin 9.1, and platelets 49,000. Sodium 139, potassium 3.3, chloride 98, bicarb 31, BUN 22, and creatinine 1.29. Intake and outputs -417. IMPRESSION: 1. Respiratory failure associated with pneumonia, status post cardiorespiratory arrest with no neurological deficit. 2. Normal ejection fraction by echocardiogram. 3. Mild renal dysfunction. Her baseline creatinine is around 1. I think she is a candidate for extubation. Waiting for her chest x-ray to clear is not a reasonable criteria as I have explained to family. Her minute volume is acceptable. She is not having excessive secretions. She appears to have adequate strength and is wide awake. I am going to extubate her today; if we need to, support her intermittently with BiPAP. CRITICAL CARE TIME: 30 minutes. Job ID: [id number]
[2019-09-12 13:16] LABS: Legionella Urinary Ag Negative (Negative)
--- NOTE | 2019-09-12 14:04 | PDOC.HOSPP ---
- Subjective Encounter Date: 09/12/19 Encounter Time: 11:02 Subjective: 84 y/o with COPD, prior CVA with dysphagia, adrenal insufficiency admitted with worsening SOB and chest tightness and started on broad spectrum antibiotic for COPD exacerbation and pneumonia. Later had acute onset of worsening respiratory distress and soon became unresponsive and was coded with prompt ROSC. Clinically improved and was extubated earlier today. Recieved 2 PRBC for acute on chronic anemia. - Objective Vital Signs & Weight: Vital Signs (12 hours) Temp Pulse Resp BP Pulse Ox 09/12/19 14:00 100 09/12/19 13:51 87 21 H 100 09/12/19 12:36 103 H 149/74 H 09/12/19 11:46 93 L 09/12/19 10:39 103 H 149/74 H 09/12/19 10:00 19 09/12/19 08:00 14 09/12/19 07:57 100 09/12/19 07:11 88 117/57 L 09/12/19 07:00 98.2 F 09/12/19 06:00 14 100 09/12/19 04:00 98.1 F 14 09/12/19 03:24 96 Weight Admit Weight 165 lb 6.4 oz Weight 165 lb 12.602 oz Most Recent Monitor Data Heart Rate from ECG 103 NIBP 134/65 NIBP BP-Mean 88 Respiration from ECG 26 SpO2 98 I&O: 09/11/19 09/12/19 09/13/19 06:59 06:59 06:59 Intake Total 1569 1513 250 Output Total 2320 1930 970 Balance -525 -622 -228 Result Diagrams: 09/12/19 03:30 09/12/19 03:30 Hospitalist ROS - Medication Medications: Active Medications Generic Name Dose Route Start Last Admin Trade Name Freq PRN Reason Stop Dose Admin Acetaminophen 650 mg 09/09/19 09:40 09/10/19 22:47 Tylenol PO 650 mg Q4H PRN Administration Headache/Fever/Mild Pain (1-3) Hydrocodone Bitart/Acetaminophen 1 tab 09/09/19 12:00 09/12/19 12:37 [place] 7.5/325 PO Not Given Q6HR LANI Albuterol/Ipratropium 3 ml 09/09/19 13:00 09/12/19 13:51 Duoneb NEB 3 ml [id number] LANI Administration Carvedilol 3.125 mg 09/12/19 12:15 09/12/19 12:39 Coreg PO 09/12/19 14:15 3.125 mg NOW LANI Administration Demeclocycline HCl 300 mg 09/09/19 21:00 09/12/19 09:34 Declomycin PO 300 mg BID LANI Administration Hydrocortisone 40 mg 09/09/19 15:00 09/12/19 09:34 Cortef PO 40 mg TID LANI Administration Levofloxacin 750 mg/ Device 150 mls @ 100 mls/hr 09/11/19 06:00 09/11/19 07: 06 IVPB 150 mls Q2DAYS LANI Administration Cefepime HCl 2 gm/ Sodium 100 mls @ 200 mls/hr 09/10/19 06:00 09/12/19 05:44 Chloride IVPB 100 mls 0600 LANI Administration Levothyroxine Sodium 75 mcg 09/10/19 06:00 09/12/19 05:46 Synthroid PO 75 mcg 0600 LANI Administration Lorazepam 2 mg 09/10/19 16:49 09/11/19 10:44 Ativan SLOW IVP 10/10/19 16:49 2 mg Q1H PRN Administration Breakthrough agitation Pantoprazole Sodium 40 mg 09/10/19 09:00 09/12/19 09:34 Protonix PO 40 mg DAILY LANI Administration Quetiapine Fumarate 25 mg 09/09/19 21:00 09/10/19 21:40 Seroquel PO 25 mg HS LANI Administration Sodium Chloride 1 gm 09/09/19 21:00 09/12/19 09:34 Sodium Chloride PO 1 gm TID LANI Administration - Exam General Appearance: awake alert Eye: anicteric sclera ENT: normocephalic atraumatic, moist mucosa Neck: supple, symmetric, no JVD Heart: RRR, murmur present Respiratory: no wheezes, no ronchi, normal chest expansion Respiratory - other findings: decreased air movement both bases. Gastrointestinal: soft, non-tender, non-distended, normal bowel sounds Extremities: no cyanosis Neurological: cranial nerve grossly intact, no focal deficits Psychiatric: A&O x 3 Hosp A/P (1) Cardiopulmonary arrest with successful resuscitation Code(s): I46.9 - CARDIAC ARREST, CAUSE UNSPECIFIED Status: Acute (2) CAD (coronary artery disease) Code(s): I25.10 - ATHSCL HEART DISEASE OF [place] CORONARY ARTERY W/O ANG PCTRS Status: Acute (3) Diastolic heart failure Code(s): I50.30 - UNSPECIFIED DIASTOLIC (CONGESTIVE) HEART FAILURE Status: Acute (4) Pneumonia Code(s): J18.9 - PNEUMONIA, UNSPECIFIED ORGANISM Status: Acute (5) COPD exacerbation Code(s): J44.1 - CHRONIC OBSTRUCTIVE PULMONARY DISEASE W (ACUTE) EXACERBATION Status: Acute (6) Hyponatremia Code(s): E87.1 - HYPO-OSMOLALITY AND HYPONATREMIA Status: Acute (7) CATHY (acute kidney injury) Code(s): N17.9 - ACUTE KIDNEY FAILURE, UNSPECIFIED Status: Acute (8) Acute respiratory failure with hypoxia and hypercapnia Code(s): J96.01 - ACUTE RESPIRATORY FAILURE WITH HYPOXIA; J96.02 - ACUTE RESPIRATORY FAILURE WITH HYPERCAPNIA Status: Acute (9) Aspiration pneumonia Code(s): J69.0 - PNEUMONITIS DUE TO INHALATION OF FOOD AND VOMIT Status: Acute (10) Dysphagia Code(s): R13.10 - DYSPHAGIA, UNSPECIFIED Status: Acute (11) 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 Code(s): Z86.73 - PRSNL HX OF TIA (TIA), AND CEREB INFRC W/O RESID DEFICITS Status: Acute (12) Adrenal insufficiency Code(s): E27.40 - UNSPECIFIED ADRENOCORTICAL INSUFFICIENCY Status: Chronic (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 Replete serum potassium DC lasix. Start low dose coreg due tachycardia and HTN. DC amlodipine Continue steroid therapy given adrenal insufficiency Supportive care to continue. PT/OT eval and treat.
[2019-09-12] MEDS: Carvedilol 3.125 MG TAB PO SCH (21:54)
[2019-09-13] MEDS: HYDROcodone/Acetaminophen 7.5/325 mg Tablet PO SCH ×5 (02:08→23:39)
[2019-09-13 05:10] LABS: Band 6 % (5-11); Hemoglobin 9.5 g/dL (12.0-16.0); Lymphocytes 2 % (21-51); MDiff Complete? YES; Mean Corpuscular HGB CONC 31.8 g/dL (32.0-36.0); Mean Corpuscular Hemoglobin 26.5 pg (27.0-31.0); Mean Corpuscular Volume 83.3 fL (78.0-98.0); Mean Platelet Volume 12.2 fL (7.4-10.4); Metamyelocyte 1 % (0-0); Monocytes 14 % (0-10); Myelocyte 3 % (0-0); Neutrophil 74 % (42-75); Platelet Count 46 thou/uL (130-400); Platelet Morphology Comment Appears Decreased; RBC Distribution Width 16.1 % (11.5-14.5); White Blood Cell (WBC) Count 20.1 thou/uL (4.8-10.8)
[2019-09-13 05:14] LABS: Anion Gap 13 mmol/L (10-20); BUN (Urea Nitrogen) 24 mg/dL (9.8-20.1); Calc. Creatinine Clearance 54 mL/min (70-130); Calcium 9.2 mg/dL (7.8-10.44); Carbon Dioxide 30 mmol/L (23-31); Chloride 104 mmol/L (98-107); Estimated GFR-MDRD 57; Glucose 108 mg/dL (83-110); Potassium 3.8 mmol/L (3.5-5.1); Sodium 143 mmol/L (136-145)
[2019-09-13] MEDS: Cefepime 2 GM in Sodium Chloride 0.9% 100 ML IVPB SCH (06:12)
[2019-09-13] MEDS: Levothyroxine Sodium 75 MCG TAB PO SCH (06:13)
[2019-09-13] MEDS: Milk Of Magnesia 30 ML UDCUP PO PRN ×2 (07:57→20:12)
[2019-09-13] MEDS: Sodium Chloride 1 GM TAB PO SCH ×3 (09:12→21:38)
[2019-09-13] MEDS: Hydrocortisone 10 mg Tablet PO SCH ×3 (09:12→21:38)
[2019-09-13] MEDS: Carvedilol 3.125 MG TAB PO SCH ×2 (09:12→21:38)
--- NOTE | 2019-09-13 09:19 | RAD ---
CHEST 1 VIEW: Date: 09/13/19 HISTORY: Dyspnea. Follow-up. COMPARISON: 09/12/19. FINDINGS: Cardiac silhouette is magnified and partially obscured by bibasilar infiltrates that are similar in a ppearance to the prior study. Pulmonary vasculature is engorged. Bilateral perihilar infiltrates and right upper lobe infiltrate have improved slightly. Patient is rotated leftward. Prominent calcificat ion in the aorta. Endotracheal catheter and nasogastric tube no longer visible. No evidence of pneumothorax. IMPRESSION: 1. Slight interval continued improvement in bilateral infiltrates. 2. Removal of the endotracheal catheter and nasogastric tube. POS: TPC
--- NOTE | 2019-09-13 10:40 | PDOC.CPN ---
- Subjective Date: 09/13/19 Time: 10:38 Interval history: She was extubated yesterday and is doing well. She has chest pain, mid sternal from chest compressions, worse with coughing. - Review of Systems General: denies: fever/chills, weight/appetite/sleep changes, night sweats, fatigue Respiratory: reports: cough. denies: congestion, shortness of breath, exercise intolerance Cardiovascular: reports: chest pain. denies: palpitation, edema, paroxysmal nocturnal dyspnea, orthopnea Gastrointestinal: denies: nausea, vomiting, diarrhea, constipation, abd pain, GI bleeding Musculoskeletal: reports: pain. denies: tenderness, stiffness, swelling, arthritis/arthralgias Neurological: denies: numbness, syncope, seizure, weakness - Objective Allergies/Adverse Reactions: Allergies Allergy/AdvReac Type Severity Reaction Status Date / Time Sulfa (Sulfonamide Allergy Verified 09/09/19 05:15 Antibiotics) Visit Medications: Current Medications Acetaminophen (Tylenol) 650 mg PO Q4H PRN PRN Reason: Headache/Fever/Mild Pain (1-3) Last Admin: 09/10/19 22:47 Dose: 650 mg Acetaminophen (Tylenol) 650 mg NE Q4H PRN PRN Reason: Headache/Fever/Mild Pain (1-3) Hydrocodone Bitart/Acetaminophen ([place] 7.5/325) 1 tab PO Q6HR [facility] Last Admin: 09/13/19 06:44 Dose: Not Given Albuterol/Ipratropium (Duoneb) 3 ml NEB [id number] [facility] Last Admin: 09/13/19 07:57 Dose: 3 ml Albuterol/Ipratropium (Duoneb) 3 ml NEB [id number] PRN PRN Reason: SOB &/or Wheezing Carvedilol (Coreg) 3.125 mg PO BID [facility] Last Admin: 09/13/19 09:12 Dose: 3.125 mg Demeclocycline HCl (Declomycin) 300 mg PO BID [facility] Last Admin: 09/13/19 09:13 Dose: 300 mg Guaifenesin/Dextromethorphan (Robitussin Dm) 15 ml PO Q4H PRN PRN Reason: Cough Hydrocortisone (Cortef) 40 mg PO TID [facility] Last Admin: 09/13/19 09:12 Dose: 40 mg Levofloxacin 750 mg/ Device 150 mls @ 100 mls/hr IVPB Q2DAYS [facility] Last Admin: 09/13/19 06:53 Dose: 150 mls Cefepime HCl 2 gm/ Sodium (Chloride) 100 mls @ 200 mls/hr IVPB 0600 [facility] Last Admin: 09/13/19 06:12 Dose: 100 mls Levothyroxine Sodium (Synthroid) 75 mcg PO 0600 [facility] Last Admin: 09/13/19 06:13 Dose: 75 mcg Lorazepam (Ativan) 2 mg SLOW IVP Q1H PRN PRN Reason: Breakthrough agitation Stop: 10/10/19 16:49 Last Admin: 09/11/19 10:44 Dose: 2 mg Magnesium Hydroxide (Milk Of Magnesium) 30 ml PO Q12H PRN PRN Reason: Constipation Last Admin: 09/13/19 07:57 Dose: 30 ml Morphine Sulfate (Morphine) 2 mg SLOW IVP Q1H PRN PRN Reason: BREAKTHROUGH PAIN/Agitation Stop: 10/10/19 16:49 Ondansetron HCl (Zofran Odt) 4 mg PO Q6H PRN PRN Reason: Nausea/Vomiting Ondansetron HCl (Zofran) 4 mg IVP Q6H PRN PRN Reason: Nausea/Vomiting Pantoprazole Sodium (Protonix) 40 mg PO DAILY [facility] Last Admin: 09/13/19 09:12 Dose: 40 mg Propofol (Diprivan Bolus) 20 mg IV Q5MIN PRN PRN Reason: BREAKTHROUGH AGITATION Stop: 10/10/19 16:49 Quetiapine Fumarate (Seroquel) 25 mg PO HS [facility] Last Admin: 09/10/19 21:40 Dose: 25 mg Senna/Docusate Sodium (Senokot S) 2 tab PO BIDPRN PRN PRN Reason: Constipation Simethicone (Mylicon Chewable) 80 mg PO PCHS PRN PRN Reason: Gas Pain Sodium Chloride (Sodium Chloride) 1 gm PO TID [facility] Last Admin: 09/13/19 09:12 Dose: 1 gm Vital Signs & Weight: Vital Signs Temp Pulse Resp Pulse Ox 09/13/19 08:00 95 09/13/19 07:57 93 28 H 95 09/13/19 07:46 97 09/13/19 07:00 97.7 F 12/23/19 04:00 98.0 F 09/13/19 00:35 84 16 98 09/13/19 00:06 98 09/13/19 00:00 98.2 F Admit Weight 165 lb 6.4 oz Weight 163 lb 9.328 oz - Physical Exam General: alert & oriented x3 HEENT: mucus membranes moist, normocephaly Neck: supple neck Cardiac: regular rate and rhythm, systolic murmur Lungs: rales - right Neuro: grossly intact Abdomen: active bowel sounds Extremities: no edema Skin: clear Musculoskeletal: normal range of motion - Labs Result Diagrams: 09/13/19 03:24 09/13/19 04:09 Troponin/CKMB Troponin I 1.469 ng/mL (< 0.028) H* 09/10/19 19:35 - Telemetry Sinus rhythms and dysrhythmias: sinus rhythm Supraventricular conduction: atrial escape complexes - Assessment/Plan Assessment/Plan: 1. Pneumonia, possible aspiration. 2. Diastolic dysfunction. 3. Mild to moderate aortic valve stenosis. 4. Acute hypoxic respiratory insufficiency. PLAN: - Ok to transfer to telemetry. - Agree with continued Coreg and stopping amlodipine unless BP starts to increase. - CV stable. Will follow from a distance. Please call with questions. - Follow up in the office in 4-6 wks on discharge.
--- NOTE | 2019-09-13 11:13 | PDOC.HOSPP ---
- Subjective Encounter Date: 09/13/19 Encounter Time: 12:45 Subjective: Patient doing better. High pitched voice since extubation. Patient and family at bedside still very adamant to give her diet with know risk of aspiration. - Objective Vital Signs & Weight: Vital Signs (12 hours) Temp Pulse Resp Pulse Ox 09/13/19 08:00 95 09/13/19 07:57 93 28 H 95 09/13/19 07:46 97 09/13/19 07:00 97.7 F 09/13/19 04:00 98.0 F 09/13/19 00:35 84 16 98 09/13/19 00:06 98 09/13/19 00:00 98.2 F Weight Admit Weight 165 lb 6.4 oz Weight 163 lb 9.328 oz Most Recent Monitor Data Heart Rate from ECG 91 NIBP 128/67 NIBP BP-Mean 87 Respiration from ECG 24 SpO2 97 I&O: 09/12/19 09/13/19 09/14/19 06:59 06:59 06:59 Intake Total 1513 845 290 Output Total 4820 6156 380 Balance -417 -821 -90 Result Diagrams: 09/13/19 03:24 09/13/19 04:09 Hospitalist ROS - Review of Systems Constitutional: denies: fever, chills Respiratory: denies: cough, shortness of breath Cardiovascular: reports: chest pain. denies: palpitations, orthopnea Gastrointestinal: denies: nausea, vomiting, abdominal pain - Medication Medications: Active Medications Generic Name Dose Route Start Last Admin Trade Name Freq PRN Reason Stop Dose Admin Acetaminophen 650 mg 09/09/19 09:40 09/10/19 22:47 Tylenol PO 650 mg Q4H PRN Administration Headache/Fever/Mild Pain (1-3) Hydrocodone Bitart/Acetaminophen 1 tab 09/09/19 12:00 09/13/19 06:44 [place] 7.5/325 PO Not Given Q6HR LANI Albuterol/Ipratropium 3 ml 09/09/19 13:00 09/13/19 07:57 Duoneb NEB 3 ml [id number] LANI Administration Carvedilol 3.125 mg 09/12/19 21:00 09/13/19 09:12 Coreg PO 3.125 mg BID LANI Administration Demeclocycline HCl 300 mg 09/09/19 21:00 09/13/19 09:13 Declomycin PO 300 mg BID LANI Administration Hydrocortisone 40 mg 09/09/19 15:00 09/13/19 09:12 Cortef PO 40 mg TID LANI Administration Levofloxacin 750 mg/ Device 150 mls @ 100 mls/hr 09/11/19 06:00 09/13/19 06: 53 IVPB 150 mls Q2DAYS LANI Administration Cefepime HCl 2 gm/ Sodium 100 mls @ 200 mls/hr 09/10/19 06:00 09/13/19 06:12 Chloride IVPB 100 mls 0600 LANI Administration Levothyroxine Sodium 75 mcg 09/10/19 06:00 09/13/19 06:13 Synthroid PO 75 mcg 0600 LANI Administration Lorazepam 2 mg 09/10/19 16:49 09/11/19 10:44 Ativan SLOW IVP 10/10/19 16:49 2 mg Q1H PRN Administration Breakthrough agitation Magnesium Hydroxide 30 ml 09/13/19 07:29 09/13/19 07:57 Milk Of Magnesium PO 30 ml Q12H PRN Administration Constipation Pantoprazole Sodium 40 mg 09/10/19 09:00 09/13/19 09:12 Protonix PO 40 mg DAILY ALNI Administration Quetiapine Fumarate 25 mg 09/09/19 21:00 09/10/19 21:40 Seroquel PO 25 mg HS LANI Administration Sodium Chloride 1 gm 09/09/19 21:00 09/13/19 09:12 Sodium Chloride PO 1 gm TID LANI Administration - Exam General Appearance: NAD Heart: RRR, no murmur, no gallops Respiratory: CTAB, no wheezes, no rales, no ronchi Respiratory - other findings: TTP sternal area from chest compressions Gastrointestinal: soft, non-tender, non-distended, normal bowel sounds, no palpable masses Psychiatric: normal affect, normal behavior, A&O x 3 Hosp A/P (1) Cardiopulmonary arrest with successful resuscitation Code(s): I46.9 - CARDIAC ARREST, CAUSE UNSPECIFIED Status: Acute (2) Pneumonia Code(s): J18.9 - PNEUMONIA, UNSPECIFIED ORGANISM Status: Acute Qualifiers: Laterality: bilateral (3) CAD (coronary artery disease) Code(s): I25.10 - ATHSCL HEART DISEASE OF [place] CORONARY ARTERY W/O ANG PCTRS Status: Acute (4) COPD exacerbation Code(s): J44.1 - CHRONIC OBSTRUCTIVE PULMONARY DISEASE W (ACUTE) EXACERBATION Status: Acute (5) Diastolic heart failure Code(s): I50.30 - UNSPECIFIED DIASTOLIC (CONGESTIVE) HEART FAILURE Status: Acute (6) Dysphagia Code(s): R13.10 - DYSPHAGIA, UNSPECIFIED Status: Chronic (7) 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 Code(s): Z86.73 - PRSNL HX OF TIA (TIA), AND CEREB INFRC W/O RESID DEFICITS Status: Chronic (8) Acute respiratory failure with hypoxia and hypercapnia Code(s): J96.01 - ACUTE RESPIRATORY FAILURE WITH HYPOXIA; J96.02 - ACUTE RESPIRATORY FAILURE WITH HYPERCAPNIA Status: Acute Plan: extubated, on BIPAP as needed (9) Adrenal insufficiency Code(s): E27.40 - UNSPECIFIED ADRENOCORTICAL INSUFFICIENCY Status: Chronic (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 Code(s): E06.3 - AUTOIMMUNE THYROIDITIS Status: Chronic (11) SIADH (syndrome of inappropriate ADH production) Status: Chronic - Plan continue antibiotics, PT/OT, speech therapy, respiratory therapy Consults: Palliative Care On Levaquin and Cefepime continue supportive steroids Bipap as needed Giving nectar thick liquids and puree diet with risks
--- NOTE | 2019-09-13 14:23 | PRG ---
DATE OF SERVICE: 09/13/2019 SUBJECTIVE: Ramya Greenwood has no complaints. She is pleasant, quickly interactive. OBJECTIVE: VITAL SIGNS: She is afebrile, heart rate is 80, blood pressure stable, respiratory rate in the teens. LUNGS: Clear. HEART: Regular rhythm. ABDOMEN: Soft. EXTREMITIES: no edema or asymmetry LABORATORY DATA: White count 20.1, hemoglobin 9.5, platelets 46,000. Sodium 143, chloride 104, bicarb 30, creatinine 0.94. IMPRESSION: 1. Status post arrest. 2. Pneumonia. 3. Deconditioning ,Diastolic dysfunction. 4. [place] aortic stenosis. Reasonable for transfer out of ICU. We will follow for now. Job ID: [id number] [id number]
--- NOTE | 2019-09-13 14:31 | PQF ---
CAYDEN BLANC, [place] HERNANDEZ MD [id number] CLINICAL DOCUMENTATION IMPROVEMENT CLARIFICATION FORM: ICD-10 Updated PLEASE DO AN ADDENDUM TO THE PROGRESS NOTE WITH ANY DOCUMENTATION UPDATES OR ADDITIONS AND CARRY THROUGH TO DC SUMMARY. THANK YOU. DATE: 2018 ATTN:DR. Patricia FAJARDO Please exercise your independent, professional judgment in responding to the clarification form. Clinical indicators are provided on the bottom of this form for your review. Please check appropriate box(s): AMI TYPE: [ ] Type 1 WA (NSTEMI) [ X ] Type 2 WA (T2MI) secondary to: [ ] hypertension [ ] arrhythmia [ X ] Infection [ ] severe anemia [ ] ischemic stroke [ ] renal failure [ ] heart failure [ ] other [ ] Other: [ ] Takotsubo syndrome [ ] Other diagnosis ___ [ ] Unable to determine In addition, please specify: Present on Admission (POA): [ ] Yes [ X ] No [ ] Unable to determine CLINICAL INDICATORS - SIGNS / SYMPTOMS / LABS / RESULTS AND LOCATION IN EMR 09/09 ED REPORT: PATIENT PRESENTS WITH REPORT OF NAUSEA AND VOMITING X 3 DAYS 09/09 H&P (TANA) CHIEF COMPLAINT, CHEST TIGHTNESS AND SHORTNESS OF BREATH 09/10 TROPONIN 0.630 > 1.469 09/10 CODE RECORD : DAWNA HESS CALL TO ROOM FOR AGONAL BREATHING AND UNRESPONSIVE , NO PULSE, CPR RESUMED,, PT INTUBATED AND TRANSFERRED TO ICU 09/10 PN (OBI) HAD ACUTE RESP DISTRESS EARLIER TODAY AND SOON WAS IN CARDIAC ARREST REQUIRING CPR WITH ROSC. A/P : 1). CARDIOPULMONARY ARREST W/ SUCCESSFUL RESUSCITATION 09/12 PN (OBI) A/P: 17). ELEVATED TROPONIN RISK: MILD TO MODERATE AORTIC VALVE STENOSIS (DIRK/PN) ADVANCED AGE (84) 09/13 HX OF HTN, BACTERIAL PNEUMONIA (H&P/TANA) 09/09 TREATMENTS: ECHO ORDERED 09/11 MECHANICAL VENTILATION 09/10-09/12 THANK YOU! MICHAELA (This form is maintained as a part of the permanent medical record) 2014 [employer]. All Rights Reserved [email or web address] [phone] MTDD
--- NOTE | 2019-09-13 15:18 | PDOC.PALCO ---
Palliative Care Consult - Consult Details Requesting Physician: Dr Maza Reason for Consult: advance directives assistance, assistance with communication prognosis/disease Family Members Present: Daughter of patient - Social History Smoking Status: Former smoker Alcohol Use: none Drug Use History: none Living Situation: independent - Medications MAR Reviewed: Yes - Allergies Allergies/Adverse Reactions: Allergies Allergy/AdvReac Type Severity Reaction Status Date / Time Sulfa (Sulfonamide Allergy Verified 09/09/19 05:15 Antibiotics) - Subjective Awake and alert, admitted for respiratory compromise and had a subsequent respiratory event 09/10 requiring intubation. Currently extubated and should transition from CCU a she is becoming more stable. Patient with frequent episodes of dysphagia, causing recurrent aspiration pneumonia. Has been seen and evaluated by speech for teaching in relation to prevention of aspiration. - ROS Constitutional: alert Eyes: other (Denies visueal changes) ENT: difficulty swallowing Respiratory: dry cough, shortness of breath with extertion Cardiology: other (Chest discomfort from s/p cpr and chest compressions) Gastrointestinal: other (negative for constipation, diarrhea, nausea) Musculoskeletal: other (chest wall discomfort from compression related to CPR) - Objective Vital Signs: Vital Signs - Most Recent Temp Pulse Resp BP Pulse Ox 97.9 F 82 22 H 132/65 96 09/13/19 11:00 09/13/19 13:23 09/13/19 12:46 09/13/19 13:23 09/13/19 13:23 Palliative Performance Scale: 40 - Physical Exam Constitutional: NAD, ill appearing HEENT: EOMI, moist MMs, sclera anicteric Respiratory: clear to auscultation bilateral, labored respirations Cardiovascular: RRR, diminished peripheral pulses Gastrointestinal: non-tender, positive bowel sounds Musculoskeletal: edema present Neurology: moves all 4 limbs Skin: cap refill <2 seconds, bruising Psychiatric: A&O x 3 - Problem List (1) Palliative care encounter Code(s): Z51.5 - ENCOUNTER FOR PALLIATIVE CARE Status: Acute (2) Acute respiratory failure with hypoxia and hypercapnia Code(s): J96.01 - ACUTE RESPIRATORY FAILURE WITH HYPOXIA; J96.02 - ACUTE RESPIRATORY FAILURE WITH HYPERCAPNIA Status: Acute (3) Aspiration pneumonia Code(s): J69.0 - PNEUMONITIS DUE TO INHALATION OF FOOD AND VOMIT Status: Acute (4) COPD exacerbation Code(s): J44.1 - CHRONIC OBSTRUCTIVE PULMONARY DISEASE W (ACUTE) EXACERBATION Status: Acute (5) Cardiopulmonary arrest with successful resuscitation Code(s): I46.9 - CARDIAC ARREST, CAUSE UNSPECIFIED Status: Acute (6) Chronic pain Code(s): G89.29 - OTHER CHRONIC PAIN Status: Acute (7) Diastolic heart failure Code(s): I50.30 - UNSPECIFIED DIASTOLIC (CONGESTIVE) HEART FAILURE Status: Acute (8) Dysphagia Code(s): R13.10 - DYSPHAGIA, UNSPECIFIED Status: Chronic - Plan/Recommendations Plan: Lengthy time spent with daughter and patient discussing disease trajectory of COPD/HF and recurrent pnumonia related to aspiration. Daughter and patient desire for patient to remain full code and appear to have difficulty in understanding the decline related to cardiac and pulmonary disease processes. Will continue to support family and patient. Current goal of care is to return to home setting and pursue all measures to treat the disease processes. Discussed safety measures in relation to dysphagia as well as shortness of breath and weakness associated with chronic disease processes. Communicated with pulmonary and hospitalist following patient [60] minutes spent on this encounter with >50% of the time in counseling and coordination of care. Thank you for this very appropriate consult.
[2019-09-13] MEDS: BIOTENE MOUTH SPRAY 44.3 ML MM SCH (17:54)
[2019-09-14 04:28] LABS: Anion Gap 11 mmol/L (10-20); BUN (Urea Nitrogen) 25 mg/dL (9.8-20.1); Calc. Creatinine Clearance 59 mL/min (70-130); Calcium 9.2 mg/dL (7.8-10.44); Carbon Dioxide 31 mmol/L (23-31); Chloride 101 mmol/L (98-107); Estimated GFR-MDRD 64; Glucose 113 mg/dL (83-110); Potassium 3.9 mmol/L (3.5-5.1); Sodium 139 mmol/L (136-145)
[2019-09-14 05:11] LABS: Hemoglobin 9.3 g/dL (12.0-16.0); Mean Corpuscular HGB CONC 31.9 g/dL (32.0-36.0); Mean Corpuscular Hemoglobin 26.6 pg (27.0-31.0); Mean Corpuscular Volume 83.4 fL (78.0-98.0); RBC Distribution Width 16.2 % (11.5-14.5)
[2019-09-14] MEDS: HYDROcodone/Acetaminophen 7.5/325 mg Tablet PO SCH ×3 (05:34→18:53)
[2019-09-14] MEDS: Levothyroxine Sodium 75 MCG TAB PO SCH (05:34)
[2019-09-14] MEDS: Cefepime 2 GM in Sodium Chloride 0.9% 100 ML IVPB SCH (05:37)
[2019-09-14 05:54] LABS: Anisocytosis SLIGHT = 6-15 cells (100X) (0-5/hpf); Band 16 % (5-11); Lymphocytes 5 % (21-51); MDiff Complete? YES; Mean Platelet Volume 14.3 fL (7.4-10.4); Monocytes 7 % (0-10); Myelocyte 1 % (0-0); Neutrophil 71 % (42-75); Platelet Count 35 thou/uL (130-400); Platelet Morphology Comment Appears Decreased; White Blood Cell (WBC) Count 16.7 thou/uL (4.8-10.8)
[2019-09-14] MEDS: BIOTENE MOUTH SPRAY 44.3 ML MM SCH ×2 (08:30→18:54)
[2019-09-14] MEDS: Carvedilol 3.125 MG TAB PO SCH ×2 (09:29→20:52)
[2019-09-14] MEDS: Hydrocortisone 10 mg Tablet PO SCH ×3 (09:29→20:53)
[2019-09-14] MEDS: Milk Of Magnesia 30 ML UDCUP PO PRN (09:30)
[2019-09-14] MEDS: Sodium Chloride 1 GM TAB PO SCH ×3 (09:30→20:52)
--- NOTE | 2019-09-14 10:15 | PDOC.HOSPP ---
- Subjective Encounter Date: 09/14/19 Encounter Time: 12:40 Subjective: Patient without complaint. Down to 2L O2. Some bloody nose from drying of O2, so switched to humidified O2. - Objective Vital Signs & Weight: Vital Signs (12 hours) Temp Pulse Resp Pulse Ox 09/14/19 07:47 85 21 H 92 L 09/14/19 04:00 98.2 F 09/14/19 00:19 95 09/14/19 00:18 74 20 95 09/14/19 00:00 97.7 F Weight Admit Weight 165 lb 6.4 oz Weight 165 lb 2.02 oz Most Recent Monitor Data Heart Rate from ECG 83 NIBP 131/70 NIBP BP-Mean 90 Respiration from ECG 20 SpO2 96 I&O: 09/13/19 09/14/19 09/15/19 06:59 06:59 06:59 Intake Total 845 1345 Output Total 1666 1091 Balance -821 254 Result Diagrams: 09/14/19 03:49 09/14/19 03:49 Hospitalist ROS - Review of Systems Constitutional: denies: fever, chills Respiratory: denies: cough, shortness of breath Cardiovascular: denies: chest pain Gastrointestinal: denies: nausea, vomiting, abdominal pain - Medication Medications: Active Medications Generic Name Dose Route Start Last Admin Trade Name Freq PRN Reason Stop Dose Admin Acetaminophen 650 mg 09/09/19 09:40 09/10/19 22:47 Tylenol PO 650 mg Q4H PRN Administration Headache/Fever/Mild Pain (1-3) Hydrocodone Bitart/Acetaminophen 1 tab 09/09/19 12:00 09/14/19 05:34 [place] 7.5/325 PO 1 tab Q6HR LANI Administration Albuterol/Ipratropium 3 ml 09/09/19 13:00 09/14/19 07:47 Duoneb NEB 3 ml [id number] LANI Administration Carvedilol 3.125 mg 09/12/19 21:00 09/14/19 09:29 Coreg PO 3.125 mg BID LANI Administration Demeclocycline HCl 300 mg 09/09/19 21:00 09/14/19 09:29 Declomycin PO 300 mg BID LANI Administration Hydrocortisone 40 mg 09/09/19 15:00 09/14/19 09:29 Cortef PO 40 mg TID LANI Administration Levofloxacin 750 mg/ Device 150 mls @ 100 mls/hr 09/11/19 06:00 09/13/19 06: 53 IVPB 150 mls Q2DAYS LANI Administration Cefepime HCl 2 gm/ Sodium 100 mls @ 200 mls/hr 09/10/19 06:00 09/14/19 05:37 Chloride IVPB 100 mls 0600 LANI Administration Levothyroxine Sodium 75 mcg 09/10/19 06:00 09/14/19 05:34 Synthroid PO 75 mcg 0600 LANI Administration Lorazepam 2 mg 09/10/19 16:49 09/11/19 10:44 Ativan SLOW IVP 10/10/19 16:49 2 mg Q1H PRN Administration Breakthrough agitation Magnesium Hydroxide 30 ml 09/13/19 07:29 09/13/19 20:12 Milk Of Magnesium PO 30 ml Q12H PRN Administration Constipation Miscellaneous Medication 0 ml 09/13/19 18:00 09/14/19 08:30 Biotene Moisturizing Mouth MM 1 spr BID-PC LANI Administration Pantoprazole Sodium 40 mg 09/10/19 09:00 09/14/19 09:30 Protonix PO Not Given DAILY LANI Quetiapine Fumarate 25 mg 09/09/19 21:00 09/13/19 21:38 Seroquel PO 25 mg HS LANI Administration Sodium Chloride 1 gm 09/09/19 21:00 09/14/19 09:30 Sodium Chloride PO 1 gm TID LANI Administration - Exam General Appearance: NAD, awake alert Eye: anicteric sclera ENT: moist mucosa Heart: RRR, no murmur, no gallops Respiratory: CTAB, no rales Respiratory - other findings: decent air movement throughout Gastrointestinal: soft, non-tender, non-distended Extremities: no cyanosis Psychiatric: normal affect, normal behavior, A&O x 3 Hosp A/P (1) Cardiopulmonary arrest with successful resuscitation Code(s): I46.9 - CARDIAC ARREST, CAUSE UNSPECIFIED Status: Acute (2) Pneumonia Code(s): J18.9 - PNEUMONIA, UNSPECIFIED ORGANISM Status: Acute Qualifiers: Laterality: bilateral (3) CAD (coronary artery disease) Code(s): I25.10 - ATHSCL HEART DISEASE OF [place] CORONARY ARTERY W/O ANG PCTRS Status: Acute (4) COPD exacerbation Code(s): J44.1 - CHRONIC OBSTRUCTIVE PULMONARY DISEASE W (ACUTE) EXACERBATION Status: Acute (5) Diastolic heart failure Code(s): I50.30 - UNSPECIFIED DIASTOLIC (CONGESTIVE) HEART FAILURE Status: Acute (6) Dysphagia Code(s): R13.10 - DYSPHAGIA, UNSPECIFIED Status: Chronic (7) 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 Code(s): Z86.73 - PRSNL HX OF TIA (TIA), AND CEREB INFRC W/O RESID DEFICITS Status: Chronic (8) Acute respiratory failure with hypoxia and hypercapnia Code(s): J96.01 - ACUTE RESPIRATORY FAILURE WITH HYPOXIA; J96.02 - ACUTE RESPIRATORY FAILURE WITH HYPERCAPNIA Status: Acute (9) Adrenal insufficiency Code(s): E27.40 - UNSPECIFIED ADRENOCORTICAL INSUFFICIENCY Status: Chronic (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 Code(s): E06.3 - AUTOIMMUNE THYROIDITIS Status: Chronic (11) SIADH (syndrome of inappropriate ADH production) Status: Chronic (12) Type 2 AMI (acute myocardial infarction) Code(s): I21.A1 - MYOCARDIAL INFARCTION TYPE 2 Status: Acute Plan: due to the cardiopulmonary arrest - Plan continue antibiotics, PT/OT Consults: Palliative Care On Levaquin and Cefepime continue supportive steroids Bipap as needed Giving nectar thick liquids and puree diet with risks, reiterated to patient that she will likely continue to aspirate food into her lungs which will eventually kill her, but she insists that she still wants to keep eating.
--- NOTE | 2019-09-14 11:25 | PRG ---
DATE OF SERVICE: 09/14/2019 SUBJECTIVE: Ms. Greenwood is awake and alert, in no distress. She is afebrile. Heart rate 85. Her only complaint is chest discomfort from her CPR. OBJECTIVE: VITAL SIGNS: Respiratory rate is 20, oximetry is 92% on 1 L cannula, and blood pressure 131/70. Intake and output positive 254. LUNGS: Clear. HEART: Regular rhythm. ABDOMEN: Soft. LABORATORY DATA: White count 16.7, hemoglobin 9.3, and platelets 35,000. Electrolytes are normal. BUN 25 and creatinine 0.85. IMPRESSION: 1. Pneumonia. 2. Status post cardiorespiratory arrest, resuscitated with no adverse sequela. 3. Normal left ventricular systolic function. 4. Deconditioning. She is stable to transfer out of the telemetry unit when bed becomes available. Job ID: [id number]
[2019-09-15 04:46] LABS: Anion Gap 14 mmol/L (10-20); BUN (Urea Nitrogen) 28 mg/dL (9.8-20.1); Calc. Creatinine Clearance 59 mL/min (70-130); Carbon Dioxide 26 mmol/L (23-31); Chloride 102 mmol/L (98-107); Estimated GFR-MDRD 64; Glucose 115 mg/dL (83-110); Sodium 138 mmol/L (136-145)
[2019-09-15 04:55] LABS: Band 8 % (5-11); Hemoglobin 10.5 g/dL (12.0-16.0); Lymphocytes 7 % (21-51); MDiff Complete? YES; Mean Corpuscular HGB CONC 31.2 g/dL (32.0-36.0); Mean Corpuscular Hemoglobin 26.1 pg (27.0-31.0); Mean Corpuscular Volume 83.5 fL (78.0-98.0); Metamyelocyte 1 % (0-0); Monocytes 6 % (0-10); Myelocyte 6 % (0-0); Neutrophil 72 % (42-75); Platelet Count 33 thou/uL (130-400); RBC Distribution Width 16.1 % (11.5-14.5); Red Blood Cell (RBC) Count 4.04 mill/uL (4.20-5.40)
[2019-09-15] MEDS: HYDROcodone/Acetaminophen 7.5/325 mg Tablet PO SCH ×4 (05:25→17:50)
[2019-09-15] MEDS: Levothyroxine Sodium 75 MCG TAB PO SCH (05:26)
[2019-09-15] MEDS: Cefepime 2 GM in Sodium Chloride 0.9% 100 ML IVPB SCH (05:26)
[2019-09-15] MEDS: Carvedilol 3.125 MG TAB PO SCH ×2 (08:49→21:02)
[2019-09-15] MEDS: Hydrocortisone 10 mg Tablet PO SCH ×3 (08:50→21:02)
[2019-09-15] MEDS: Sodium Chloride 1 GM TAB PO SCH ×3 (08:50→21:03)
[2019-09-15] MEDS: BIOTENE MOUTH SPRAY 44.3 ML MM SCH ×2 (08:51→17:51)
--- NOTE | 2019-09-15 12:56 | PDOC.HOSPP ---
- Subjective Encounter Date: 09/15/19 Encounter Time: 12:45 Subjective: cc: follow-up for in-hospital cardiac arrest, VDF, pneumonia, subjective: patient is new to me. seen and personally examined at bedside. chart , labs, imaging results reviewed. grandson at bedside. feels well. notes chest soreness from CPR. good appetite. constipated but passing gas. participated with PT yesterday and was able to stand. noted martinez catheter in place. nurse notes no acute overnight events. - Objective Vital Signs & Weight: Vital Signs (12 hours) Temp Pulse Resp BP Pulse Ox 09/15/19 12:00 98.6 F 79 18 137/68 91 L 09/15/19 08:00 97.2 F L 87 18 135/60 95 09/15/19 07:08 80 16 09/15/19 03:37 97.3 F L 82 14 161/73 H 94 L Weight Admit Weight 165 lb 6.4 oz Weight 165 lb 2.02 oz Most Recent Monitor Data Heart Rate from ECG 84 NIBP 151/70 NIBP BP-Mean 97 Respiration from ECG 19 SpO2 96 I&O: 09/14/19 09/15/19 09/16/19 06:59 06:59 06:59 Intake Total 1345 480 Output Total 1091 404 Balance 254 76 Result Diagrams: 09/15/19 04:14 09/15/19 04:14 Hospitalist ROS - Review of Systems Other: pertinent positive per SUBJECTIVE; remainder ROS negative - Medication Medications: Active Medications Generic Name Dose Route Start Last Admin Trade Name Freq PRN Reason Stop Dose Admin Acetaminophen 650 mg 09/09/19 09:40 09/10/19 22:47 Tylenol PO 650 mg Q4H PRN Administration Headache/Fever/Mild Pain (1-3) Hydrocodone Bitart/Acetaminophen 1 tab 09/09/19 12:00 09/15/19 12:28 [place] 7.5/325 PO 1 tab Q6HR LANI Administration Albuterol/Ipratropium 3 ml 09/09/19 13:00 09/15/19 07:08 Duoneb NEB 3 ml [id number] LANI Administration Carvedilol 3.125 mg 09/12/19 21:00 09/15/19 08:49 Coreg PO 3.125 mg BID LANI Administration Demeclocycline HCl 300 mg 09/09/19 21:00 09/15/19 09:00 Declomycin PO 300 mg BID LANI Administration Hydrocortisone 40 mg 09/09/19 15:00 09/15/19 08:50 Cortef PO 40 mg TID LANI Administration Cefepime HCl 2 gm/ Sodium 100 mls @ 200 mls/hr 09/10/19 06:00 09/15/19 05:26 Chloride IVPB 100 mls 0600 LANI Administration Levofloxacin 750 mg/ Device 150 mls @ 100 mls/hr 09/15/19 06:00 09/15/19 06: 20 IVPB 150 mls Q2DAYS@0600 LANI Administration Levothyroxine Sodium 75 mcg 09/10/19 06:00 09/15/19 05:26 Synthroid PO 75 mcg 0600 LANI Administration Lorazepam 2 mg 09/10/19 16:49 09/11/19 10:44 Ativan SLOW IVP 10/10/19 16:49 2 mg Q1H PRN Administration Breakthrough agitation Magnesium Hydroxide 30 ml 09/13/19 07:29 09/13/19 20:12 Milk Of Magnesium PO 30 ml Q12H PRN Administration Constipation Miscellaneous Medication 0 ml 09/13/19 18:00 09/15/19 08:51 Biotene Moisturizing Mouth MM 1 spr BID-PC LANI Administration Pantoprazole Sodium 40 mg 09/10/19 09:00 09/15/19 08:49 Protonix PO 40 mg DAILY LANI Administration Quetiapine Fumarate 25 mg 09/09/19 21:00 09/14/19 20:52 Seroquel PO 25 mg HS LANI Administration Sodium Chloride 1 gm 09/09/19 21:00 09/15/19 08:50 Sodium Chloride PO 1 gm TID LANI Administration - Exam General Appearance: awake alert Eye: PERRL, anicteric sclera ENT: normocephalic atraumatic, no oropharyngeal lesions Neck: supple Heart: RRR, no murmur Heart - other findings: reproducible chest wall tenderness. systolic murmur left sternal border Respiratory: CTAB, no wheezes, no rales, normal chest expansion Respiratory - other findings: scattered rhonchi Gastrointestinal: soft, non-tender, non-distended, normal bowel sounds Extremities: no cyanosis, no clubbing, no edema Skin: normal turgor, no lesions, no rashes Musculoskeletal: normal tone, normal strength, no muscle wasting, generalized weakness Psychiatric: normal affect, normal behavior, A&O x 3 Hosp A/P - Plan Acute hypoxic and hypercapnic respiratory faliure. Resolved. Suspected due to pneuomonia. Bilateral Pneumonia unspecified etiology. CXR 09/13/19 with bilateral infiltrates. pulmonology following. wean to oral antibiotics and discontinue IV cefepime and IV levaquin. In-hospital cardiac arrest (09/10/19) with ROSC. TTE with preserved LVEF. VDRF following cardiac arrest s/p extubation 09/12/19 Leukocytosis, likely multifactorial etiology. patient on po solu-cortef 40 mg TID and will wean to 20 mg BID. Generalized weakness and deconditoning. due to multiple acute medical issues. continue PT and OT. discontinue martinez catheter. use purewick prn. History adrenal insufficiency. wean po solucortef to home dose. History SIADH. continue demeclocycline. History diastolic CHF Hypothyroid. continue thyroid repletion. Type 2 [place]. History pontine stroke. patient has dysphagia secondary to this. aspiration precautions. DVT px. start LMWH Dispo: discharge planning code status: Full code, discussed with patient
--- NOTE | 2019-09-15 13:24 | PRG ---
DATE OF SERVICE: 09/15/2019 SUBJECTIVE: The patient is feeling better except for soreness in the midsternal area from chest compressions. OBJECTIVE: VITAL SIGNS: Temperature 98.6, pulse 79, respirations 18, O2 saturation 91%, and blood pressure 137/68. HEENT: Clear. NECK: No adenopathy or JVD. LUNGS: Clear anteriorly. CARDIAC: S1 and S2. Regular. ABDOMEN: Soft. EXTREMITIES: No edema. ASSESSMENT: 1. Pneumonia. 2. Status post cardiac arrest. 3. Normal left ventricular function. PLAN: 1. Transition over to oral antibiotics. 2. Increase activity as tolerated. 3. Hopefully discharge to home soon. Job ID: [id number]
[2019-09-15] MEDS: Milk Of Magnesia 30 ML UDCUP PO PRN (21:02)
[2019-09-16] MEDS: HYDROcodone/Acetaminophen 7.5/325 mg Tablet PO SCH ×5 (00:05→23:18)
[2019-09-16] MEDS: Lorazepam 2 MG/ML VIAL SLOW IVP PRN (04:43)
[2019-09-16] MEDS: Levothyroxine Sodium 75 MCG TAB PO SCH (04:45)
[2019-09-16 05:41] LABS: Anion Gap 12 mmol/L (10-20); Anisocytosis SLIGHT = 6-15 cells (100X) (0-5/hpf); BUN (Urea Nitrogen) 26 mg/dL (9.8-20.1); Band 18 % (5-11); Calc. Creatinine Clearance 67 mL/min (70-130); Calcium 8.5 mg/dL (7.8-10.44); Carbon Dioxide 25 mmol/L (23-31); Chloride 103 mmol/L (98-107); Estimated GFR-MDRD 70; Glucose 87 mg/dL (83-110); Hemoglobin 9.8 g/dL (12.0-16.0); Lymphocytes 13 % (21-51); MDiff Complete? YES; Mean Corpuscular HGB CONC 31.5 g/dL (32.0-36.0); Mean Corpuscular Hemoglobin 26.5 pg (27.0-31.0); Mean Corpuscular Volume 84.3 fL (78.0-98.0); Mean Platelet Volume 14.7 fL (7.4-10.4); Metamyelocyte 1 % (0-0); Monocytes 6 % (0-10); Myelocyte 7 % (0-0); Neutrophil 55 % (42-75); Platelet Count 38 thou/uL (130-400); Platelet Morphology Comment Appears Decreased; Potassium 4.4 mmol/L (3.5-5.1); RBC Distribution Width 16.4 % (11.5-14.5); Sodium 136 mmol/L (136-145); White Blood Cell (WBC) Count 24.8 thou/uL (4.8-10.8)
[2019-09-16] MEDS: Hydrocortisone 10 mg Tablet PO SCH ×3 (08:41→20:05)
[2019-09-16] MEDS: BIOTENE MOUTH SPRAY 44.3 ML MM SCH ×2 (08:41→19:10)
[2019-09-16] MEDS: Carvedilol 3.125 MG TAB PO SCH ×2 (08:42→20:06)
[2019-09-16] MEDS: Sodium Chloride 1 GM TAB PO SCH ×3 (08:42→20:06)
--- NOTE | 2019-09-16 11:38 | PDOC.HOSPP ---
- Subjective Encounter Date: 09/16/19 Encounter Time: 11:38 Subjective: cc: f/u for cardiac arrest, acute on chronic respiratory failure, pneumonia subjective: patient seen at bedside this morning. son at bedside. still complains of chest soreness due to CPR. minimally participated with PT today. not interested in going to rehab facility and would prefer to go home. wants a few days to see her progress. - Objective Vital Signs & Weight: Vital Signs (12 hours) Temp Pulse Resp BP Pulse Ox 09/16/19 07:45 97.6 F 68 16 129/63 97 09/16/19 06:47 69 18 94 L 09/16/19 03:58 97.9 F 75 20 128/65 98 09/16/19 00:39 85 16 94 L Weight Admit Weight 165 lb 6.4 oz Weight 174 lb Most Recent Monitor Data Heart Rate from ECG 84 NIBP 151/70 NIBP BP-Mean 97 Respiration from ECG 19 SpO2 96 I&O: 09/15/19 09/16/19 09/17/19 06:59 06:59 06:59 Intake Total 480 720 Output Total 404 1300 Balance 76 -580 Result Diagrams: 09/16/19 04:40 09/16/19 04:40 Additional Labs: Accuchecks 09/15/19 20:12 POC Glucose 145 H Hospitalist ROS - Review of Systems Other: ROS: pertinent positive per SUBJECTIVE; remainder ROS negative. - Medication Medications: Active Medications Generic Name Dose Route Start Last Admin Trade Name Freq PRN Reason Stop Dose Admin Acetaminophen 650 mg 09/09/19 09:40 09/10/19 22:47 Tylenol PO 650 mg Q4H PRN Administration Headache/Fever/Mild Pain (1-3) Hydrocodone Bitart/Acetaminophen 1 tab 09/09/19 12:00 09/16/19 04:48 [place] 7.5/325 PO 1 tab Q6HR LANI Administration Albuterol/Ipratropium 3 ml 09/09/19 13:00 09/16/19 06:47 Duoneb NEB 3 ml [id number] LANI Administration Carvedilol 3.125 mg 09/12/19 21:00 09/16/19 08:42 Coreg PO 3.125 mg BID LANI Administration Demeclocycline HCl 300 mg 09/09/19 21:00 09/16/19 08:43 Declomycin PO 300 mg BID LANI Administration Hydrocortisone 20 mg 09/15/19 15:00 09/16/19 08:41 Cortef PO 20 mg TID LANI Administration Levothyroxine Sodium 75 mcg 09/10/19 06:00 09/16/19 04:45 Synthroid PO 75 mcg 0600 LANI Administration Lorazepam 2 mg 09/10/19 16:49 09/16/19 04:43 Ativan SLOW IVP 10/10/19 16:49 2 mg Q1H PRN Administration Breakthrough agitation Magnesium Hydroxide 30 ml 09/13/19 07:29 09/15/19 21:02 Milk Of Magnesium PO 30 ml Q12H PRN Administration Constipation Miscellaneous Medication 0 ml 09/13/19 18:00 09/16/19 08:41 Biotene Moisturizing Mouth MM 1 spr BID-PC LANI Administration Pantoprazole Sodium 40 mg 09/10/19 09:00 09/16/19 08:42 Protonix PO 40 mg DAILY LANI Administration Quetiapine Fumarate 25 mg 09/09/19 21:00 09/15/19 21:02 Seroquel PO 25 mg HS LANI Administration Simethicone 80 mg 09/09/19 20:59 09/16/19 00:19 Mylicon Chewable PO 80 mg PCHS PRN Administration Gas Pain Sodium Chloride 1 gm 09/09/19 21:00 09/16/19 08:42 Sodium Chloride PO 1 gm TID LANI Administration - Exam General Appearance: NAD, awake alert Eye: PERRL, anicteric sclera ENT: normocephalic atraumatic, no oropharyngeal lesions Neck: supple, no JVD Heart: RRR, no murmur Heart - other findings: reproducible chest wall tenderness in mid-chest Respiratory: no wheezes, no rales, no ronchi, normal chest expansion Gastrointestinal: soft, non-tender, non-distended, normal bowel sounds Extremities: no cyanosis, no clubbing, no edema Skin: normal turgor Neurological: cranial nerve grossly intact, normal sensation to touch Musculoskeletal: normal tone, normal strength Psychiatric: normal affect, A&O x 3 Hosp A/P - Plan Acute hypoxic and hypercapnic respiratory faliure. Resolved. Suspected due to pneuomonia. Bilateral Pneumonia unspecified etiology. CXR 09/13/19 with bilateral infiltrates. pulmonology following. wean to oral antibiotics. s/p IV cefepime and IV levaquin. In-hospital cardiac arrest (09/10/19) with ROSC. TTE with preserved LVEF. VDRF following cardiac arrest s/p extubation 09/12/19 on home oxygen. Leukocytosis, likely multifactorial etiology. patient on po solu-cortef 40 mg TID and will wean to 20 mg BID. Generalized weakness and deconditoning. due to multiple acute medical issues. continue PT and OT. declines rehab facility. participated with PT today but unable to get out of bed due to musculoskeletal chest pain. History adrenal insufficiency. wean po solucortef to home dose. Chronic thrombocytopenia. History SIADH. continue demeclocycline. History diastolic CHF Hypothyroid. continue thyroid repletion. Type 2 [place]. History pontine stroke. patient has dysphagia secondary to this. aspiration precautions. DVT px. SCD. will hold further LMWH contraindicated due to thrombocytopenia. Dispo: patent medically stable for discharge. unclear discharge planning Home with C vs SNF. allow ongoing PT assessment. code status: Full code, discussed with patient
[2019-09-17] MEDS: Acetaminophen/Codeine 30-300mg Tablet PO PRN ×2 (03:31→08:59)
[2019-09-17 05:14] LABS: Band 2 % (5-11); Hemoglobin 9.6 g/dL (12.0-16.0); Hypochromia SLIGHT = 6-15 cells (100X) (0-5/hpf); Lymphocytes 6 % (21-51); MDiff Complete? YES; Mean Corpuscular HGB CONC 31.4 g/dL (32.0-36.0); Mean Corpuscular Hemoglobin 26.2 pg (27.0-31.0); Mean Corpuscular Volume 83.6 fL (78.0-98.0); Mean Platelet Volume 13.9 fL (7.4-10.4); Monocytes 12 % (0-10); Neutrophil 80 % (42-75); Platelet Count 30 thou/uL (130-400); Platelet Morphology Comment Appears Decreased; RBC Distribution Width 15.9 % (11.5-14.5); Red Blood Cell (RBC) Count 3.65 mill/uL (4.20-5.40); White Blood Cell (WBC) Count 25.5 thou/uL (4.8-10.8)
[2019-09-17] MEDS: Levothyroxine Sodium 75 MCG TAB PO SCH (05:20)
[2019-09-17 05:25] LABS: Anion Gap 10 mmol/L (10-20); BUN (Urea Nitrogen) 25 mg/dL (9.8-20.1); Calc. Creatinine Clearance 69 mL/min (70-130); Calcium 8.5 mg/dL (7.8-10.44); Carbon Dioxide 30 mmol/L (23-31); Chloride 100 mmol/L (98-107); Estimated GFR-MDRD 72; Glucose 116 mg/dL (83-110); Potassium 4.5 mmol/L (3.5-5.1); Sodium 135 mmol/L (136-145)
[2019-09-17 05:33] VITALS: BMI 34.7
[2019-09-17] MEDS: Hydrocortisone 10 mg Tablet PO SCH ×2 (08:59→16:05)
[2019-09-17] MEDS: Carvedilol 3.125 MG TAB PO SCH (09:00)
[2019-09-17] MEDS: BIOTENE MOUTH SPRAY 44.3 ML MM SCH (09:01)
[2019-09-17] MEDS: Milk Of Magnesia 30 ML UDCUP PO PRN (12:41)
[2019-09-17 15:58] VITALS: BP 127/58; TEMP 98.4
--- NOTE | 2019-09-18 01:30 | PQF ---
CAYDEN BLANC SAVAN, MD [id number] [facility]-261 [id number] CLINICAL DOCUMENTATION CLARIFICATION FORM: POST DISCHARGE Addendum to original discharge summary date: ____ Late entry note date: __ DATE: 09/18/19 ATTN: Jostin Edwards Please exercise your independent, professional judgment in responding to the clarification form. Clinical indicators are provided on the bottom of this form for your review Can you please further clarify the specificity of Pneumonia? Please check appropriate box(s): [x ] Aspiration Pneumonia [ ] Simple Pneumonia (community acquired - nosocomial) [x ] Bronchopneumonia [ ] Pneumonia of unknown etiology [ ] Other diagnosis please specify [ ] Unable to determine In addition, please specify: Present on Admission (POA): [ x ] Yes [ ] No [ ] Unable to determine For continuity of documentation, please document condition throughout progress notes and discharge summary. Thank You. CLINICAL INDICATORS - SIGNS / SYMPTOMS / LABS H and P pg.1- In the ER she was found to have some significant hypoxia H and P pg.1- elevated WBC count of 26,000 H and P pg.1- Vital signs BP 104/61, pulse 96, O2 saturation 90% on 4L nasal cannula, RR 20-24 H and P pg.4- acute bacterial pneumonia with hospitalization a couple months ago Cardiology PN 12 09/13 pg.4- Pneumonia, possible aspiration Hospitalist PN 09/17 pg.4- "Bilateral pneumonia unspecified etiology" RISK FACTORS COPD- H and P pg.1 Pneumonia- H and P pg.1 Acute on chronic hypoxic and hypercapnic respiratory failure- H and P pg.4 Cardiac arrest- Hospitalist PM 09/16 TREATMENTS: Pulmonary Consult- Dr. Palmer 09/09 Chest x ray 09/09 IV Antibiotics- NOV O2 Therapy- H and P pg.1 IV Fluids- DEC 01 (This form is maintained as a part of the permanent medical record) 2014 [employer]. All Rights Reserved [email or web address] [not provided] [email or web address]
--- NOTE | 2019-09-24 18:19 | PQF ---
CAYDEN BLANC SAVAN, MD [id number] CLINICAL DOCUMENTATION CLARIFICATION FORM: POST DISCHARGE Addendum to original discharge summary date: ____ Late entry note date: __ DATE: 09/24/19 ATTN: Jostin Edwards Please exercise your independent, professional judgment in responding to the clarification form. Clinical indicators are provided on the bottom of this form for your review Can you please further clarify the diagnosis below based on the clinical indicators below? Please check appropriate box(es): [ ] Sepsis due to: (Pna, UTI, gangrenous gall bladder, etc.) [ ] Severe sepsis with acute organ dysfunction of: (Examples: respiratory failure, encephalopathy, acute kidney failure, other) [ ] Localized infection without sepsis [x ] Other diagnosis _Acute on chronic hypoxic and hypercapnic respiratory failure due to bilateral pneumonia [x ] Unable to determine In addition, please specify: Present on Admission (POA): [ ] Yes [ ] No [ ] Unable to determine For continuity of documentation, please document condition throughout progress notes and discharge summary. Thank You. CLINICAL INDICATORS - SIGNS / SYMPTOMS / LABS H and P pg.1- the patient found to have significantly elevated WBC count of 26, 000 H and P pg.1- X ray that showed bilateral patchy infiltrates consistent with pneumonia H and P pg.3- Vital signs: BP 104/61, pulse 96, respiration ranging between 20 to 24 breaths per minute, Physician Documentation 09/13- Type 2 NSTEMI secondary to infection Laboratory- WBC 15.7H, 20.1H,16.7H,25.0H, 24.8H RISK FACTORS Acute on chronic hypoxic and hypercapnic respiratory failure- H and P pg.4 Acute bacterial pneumonia- H and P pg.4 Hypertension- H and P pg,.4 NSTEMI type 2 -Physician documentation TREATMENTS: Chest X ray 09/09 Pulmonary consult 09/09 Dr. Palmer IV antibiotics- NOV IV Fluids- NOV Daily CBC- Laboratory (This form is maintained as a part of the permanent medical record) 2014 [employer]. All Rights Reserved [email or web address] [not provided] MTDD
== END 2019-09-17 16:05 | DRG 208 ==
LOC: ERS 22:34 → T4-A 09-09 03:40 → OBSVTOIN 09-09 09:40 → CCU 09-10 11:12 → 2NO 09-14 20:27
PROVIDERS: ADMIT Internal Medicine; ATTEND Internal Medicine
PROC: 0BH17EZ Insertion of Endotracheal Airway into Trachea, Via Natural or Artificial Opening (ICD-10-PCS; principal; 2019-09-10)
PROC: 5A1945Z Respiratory Ventilation, 24-96 Consecutive Hours (ICD-10-PCS; 2019-09-10)
PROC: 30233N1 Transfusion of Nonautologous Red Blood Cells into Peripheral Vein, Percutaneous Approach (ICD-10-PCS; 2019-09-10)
PROC: 5A12012 Performance of Cardiac Output, Single, Manual (ICD-10-PCS; 2019-09-10)
DX: J69.0 Pneumonitis due to inhalation of food and vomit (principal); J96.21 Acute and chronic respiratory failure with hypoxia; I46.9 Cardiac arrest, cause unspecified; I21.A1 Myocardial infarction type 2; J96.22 Acute and chronic respiratory failure with hypercapnia; E22.2 Syndrome of inappropriate secretion of antidiuretic hormone; E27.40 Unspecified adrenocortical insufficiency; J44.0 Chronic obstructive pulmonary disease with (acute) lower respiratory infection; I50.32 Chronic diastolic (congestive) heart failure; J44.1 Chronic obstructive pulmonary disease with (acute) exacerbation; N17.9 Acute kidney failure, unspecified; E78.5 Hyperlipidemia, unspecified; E78.00 Pure hypercholesterolemia, unspecified; R13.10 Dysphagia, unspecified; M41.9 Scoliosis, unspecified; I35.0 Nonrheumatic aortic (valve) stenosis; I11.0 Hypertensive heart disease with heart failure; E06.3 Autoimmune thyroiditis; D69.6 Thrombocytopenia, unspecified; D64.9 Anemia, unspecified; E87.6 Hypokalemia; Z90.710 Acquired absence of both cervix and uterus; Z87.891 Personal history of nicotine dependence; Z88.2 Allergy status to sulfonamides; Z79.890 Hormone replacement therapy; Z79.899 Other long term (current) drug therapy; I69.391 Dysphagia following cerebral infarction; M81.0 Age-related osteoporosis without current pathological fracture; I08.1 Rheumatic disorders of both mitral and tricuspid valves; I25.2 Old myocardial infarction; Z90.49 Acquired absence of other specified parts of digestive tract; I25.10 Atherosclerotic heart disease of native coronary artery without angina pectoris; J18.0 Bronchopneumonia, unspecified organism
CPT/HCPCS: 36415; 36416; 36430; 71045; 80048; 80053; 80202; 82805; 83605; 83735; 83880; 84484; 85007; 85025; 85027; 86850; 86900; 86901; 87040; 87899; 92950; 93306; 94002; 94003; 94640; 96365; 96367; J0171; J0692; J1650; J1720; J1940; J1956; J2060; J2704; J3370; J3490; J7050; J7620; P9016

== ENCOUNTER 2019-09-25 14:05 | Inpatient (IN) | payer MEDICARE ==
[2019-09-25 14:24] LABS: Actual Bicarbonate (HCO3a) 38.8 mEq/L (22-28); Analyzer IN Cardio ER; CO2 Tension 71.6 mmHg (35.0-45.0); Calcium, Ionized 1.21 mmol/L (1.12-1.30); Carboxyhemoglobin (COHb) 0.4 gm% (0.0-3.0); Hemoglobin (Hb) 10.6 g/dL (12.0-16.0); Potassium - ABG Lab 4.45 mmol/L (3.70-5.30); pH, Arterial 7.35 (7.35-7.45)
[2019-09-25 14:25] LABS: O2 Tension (PaO2) 52.7 mmHg (> 60.0); Puncture Site LBA
--- NOTE | 2019-09-25 14:28 | RAD ---
XR Chest 1 View Portable HISTORY: Dyspnea and hypotension COMPARISON: 09/10/2019 FINDINGS: Heart size enlarged. There is pulmonary vascular congestion with bibasilar infiltrates/atel ectatic changes. No pneumothoraces or large effusions are seen.
[2019-09-25] MEDS ORDERED: Norepinephrine 8 MG/0.9% NS 250 ML ONE (14:41)
[2019-09-25 15:12] LABS: Hemoglobin 11.2 g/dL (12.0-16.0); Mean Corpuscular HGB CONC 30.1 g/dL (32.0-36.0); Mean Corpuscular Volume 86.4 fL (78.0-98.0); Mean Platelet Volume 10.1 fL (7.4-10.4); Platelet Count 62 thou/uL (130-400); Red Blood Cell (RBC) Count 4.31 mill/uL (4.20-5.40); White Blood Cell (WBC) Count 51.2 thou/uL (4.8-10.8)
--- NOTE | 2019-09-25 15:12 | RAD ---
XR Chest 1 View Portable HISTORY: Dyspnea, hypotension COMPARISON: Same date FINDINGS: There is been interval placement of a right internal jugular central venous catheter with t ip in the right axilla likely within the axillary or subclavian vein. The lung apex has been excluded from the film. No significant pneumothorax is seen. Remainder the exa m is otherwise stable. Discussed over the telephone with ER physician Dr. Ishan Pryor at 3:09 PM
[2019-09-25 15:13] LABS: ALT (SGPT) 48 U/L (8-55); AST (SGOT) 54 U/L (5-34); Albumin 3.2 g/dL (3.4-4.8); Alkaline Phosphatase 210 U/L (40-110); Anion Gap 13 mmol/L (10-20); BUN (Urea Nitrogen) 29 mg/dL (9.8-20.1); Bilirubin, Total 0.9 mg/dL (0.2-1.2); Calc. Creatinine Clearance 0 mL/min (70-130); Calcium 9.3 mg/dL (7.8-10.44); Carbon Dioxide 36 mmol/L (23-31); Chloride 91 mmol/L (98-107); Estimated GFR-MDRD 28; Globulin 3.5 g/dL (2.4-3.5); Glucose 86 mg/dL (83-110); Lipase 6 U/L (8-78); Potassium 4.9 mmol/L (3.5-5.1); Protein, Total 6.7 g/dL (6.0-8.3); Sodium 135 mmol/L (136-145)
[2019-09-25 15:22] LABS: Band 11 % (5-11); Hypochromia SLIGHT = 6-15 cells (100X) (0-5/hpf); Lymphocytes 6 % (21-51); MDiff Complete? YES; Metamyelocyte 3 % (0-0); Monocytes 28 % (0-10); Myelocyte 1 % (0-0); Neutrophil 50 % (42-75); Platelet Morphology Comment Appears Decreased; Reactive Lymphocytes 1 % (0-10); Stomatocytes SLIGHT = 2-5 cells (100X) (0-1/hpf); Vacuoles SLIGHT
[2019-09-25] MEDS ORDERED: Cefepime 2 GM VIAL ONE (15:22)
[2019-09-25 15:49] LABS: CKMB 2.8 ng/mL (0-6.6)
[2019-09-25] MEDS ORDERED: Aspirin 300 MG Suppository ONE (16:08)
[2019-09-25] MEDS ORDERED: VASOSTRICT 40 UNIT in Sodium Chloride 0.9% 100 ML IV SCH (17:15)
[2019-09-25] MEDS ORDERED: CCU Electrolyte Replacement 1 EACH IVPB ONE (17:25)
[2019-09-25] MEDS ORDERED: Ondansetron PF 4 MG/2 ML Vial IVP PRN (17:25)
[2019-09-25] MEDS ORDERED: Acetaminophen 325 MG TAB PO PRN (17:25)
[2019-09-25] MEDS ORDERED: Norepinephrine 8 MG/0.9% NS 250 ML IVPB PRN (17:25)
[2019-09-25] MEDS ORDERED: Magnesium 2 GM/50 ML 2 GM in Premix Bag 1 BAG IVPB PRN (17:48)
[2019-09-25] MEDS ORDERED: Magnesium Oxide 400 MG TAB PO PRN ×2 (17:48)
[2019-09-25] MEDS ORDERED: Potassium Phosphate 15 MMOL in Sodium Chloride 0.9% 250 ML 250 ML IV PRN (17:48)
[2019-09-25] MEDS ORDERED: Potassium Chloride 40 MEQ in Sodium Chloride 0.9% 250 ML 250 ML IVPB PRN (17:48)
[2019-09-25] MEDS ORDERED: Potassium Phosphate 9 MMOL in Sodium Chloride 0.9% 100 ML IVPB PRN (17:48)
[2019-09-25] MEDS ORDERED: Potassium Chloride 40 MEQ in Premix Bag 1 BAG IVPB PRN (17:48)
[2019-09-25] MEDS ORDERED: Potassium Phosphate 12 MMOL in Sodium Chloride 0.9% 250 ML 250 ML IV PRN (17:48)
[2019-09-25] MEDS ORDERED: Potassium Chloride 20 MEQ TAB PO PRN (17:48)
[2019-09-25] MEDS ORDERED: CCU ELECTROLYTE REPLACEMENT PROTOCOL FS PRN (17:48)
[2019-09-25] MEDS ORDERED: PHOS-NAK 1 PKT PACK PO PRN ×2 (17:48)
[2019-09-25 18:03] LABS: Bacteria/HPF None Seen HPF (None Seen); Bilirubin Negative (Negative); Blood, Urine Negative (Negative); Clarity Turbid (Clear); Glucose, Urine (Dipstick) Normal (Negative); Leukocyte Negative Leu/uL (Negative); Nitrite Negative (Negative); Protein, Urine (Dipstick) 30 mg/dL (Neg-Trace); Squamous Epithelial 21-50 HPF (0-3); Urobilinogen Normal mg/dL (Less than 2)
[2019-09-25 18:11] LABS: RBC/HPF 0-3 HPF (0-3)
[2019-09-25 18:13] LABS: Troponin I 0.365 ng/mL (< 0.028)
[2019-09-25] MEDS: Hydrocortisone Sod Succ/PF 100 mg/2 ml Vial IVP SCH (18:27)
[2019-09-25] MEDS: Sodium Chloride 0.9% 1,000 ML IV SCH (18:27)
[2019-09-25 21:04] LABS: Troponin I 0.483 ng/mL (< 0.028)
[2019-09-26] MEDS: Hydrocortisone Sod Succ/PF 100 mg/2 ml Vial IVP SCH ×4 (00:07→17:13)
[2019-09-26] MEDS: Sodium Chloride 0.9% 1,000 ML IV SCH ×2 (00:40→08:15)
[2019-09-26 05:03] LABS: Anisocytosis SLIGHT = 6-15 cells (100X) (0-5/hpf); Band 14 % (5-11); Hemoglobin 8.4 g/dL (12.0-16.0); Hypochromia SLIGHT = 6-15 cells (100X) (0-5/hpf); Large Platelets SLIGHT; Lymphocytes 4 % (21-51); MDiff Complete? YES; Mean Corpuscular HGB CONC 30.2 g/dL (32.0-36.0); Mean Corpuscular Hemoglobin 26.3 pg (27.0-31.0); Mean Corpuscular Volume 87.3 fL (78.0-98.0); Mean Platelet Volume 11.8 fL (7.4-10.4); Metamyelocyte 2 % (0-0); Monocytes 16 % (0-10); Myelocyte 1 % (0-0); Neutrophil 63 % (42-75); Platelet Count 50 thou/uL (130-400); Platelet Morphology Comment Appears Decreased; RBC Distribution Width 17.5 % (11.5-14.5); Red Blood Cell (RBC) Count 3.18 mill/uL (4.20-5.40); Stomatocytes SLIGHT = 2-5 cells (100X) (0-1/hpf); White Blood Cell (WBC) Count 51.2 thou/uL (4.8-10.8)
[2019-09-26 05:15] LABS: Anion Gap 12 mmol/L (10-20); BUN (Urea Nitrogen) 31 mg/dL (9.8-20.1); Calc. Creatinine Clearance 45 mL/min (70-130); Calcium 7.7 mg/dL (7.8-10.44); Carbon Dioxide 29 mmol/L (23-31); Chloride 103 mmol/L (98-107); Estimated GFR-MDRD 42; Glucose 122 mg/dL (83-110); Potassium 4.8 mmol/L (3.5-5.1); Sodium 139 mmol/L (136-145)
[2019-09-26 05:48] VITALS: BMI 31.6
[2019-09-26] MEDS ORDERED: Fentanyl 100 MCG/2 ML VIAL SLOW IVP PRN (08:48)
[2019-09-26] MEDS ORDERED: Simethicone Chewable 80 MG TAB PO PRN (08:48)
[2019-09-26] MEDS ORDERED: Sodium Chloride 0.9% 1,000 ML IV SCH (08:50)
--- NOTE | 2019-09-26 08:52 | PDOC.HOSPP ---
- Subjective Encounter Date: 09/26/19 (f/u acute resp failure) Encounter Time: 08:50 Subjective: Overnight pt managed on bipap. The pressors are weaned off, UOP has increased. Pt c/o pain all over and abdominal pain/gas pain. Daughter reports constipation has been a big issue at the skilled nursing and manual disimpaction was required. One liquid stool noted here - tested and negative for c diff. - Objective Vital Signs & Weight: Vital Signs (12 hours) Temp Pulse Resp Pulse Ox 09/26/19 08:20 98 09/26/19 08:18 73 5 L 99 09/26/19 08:00 98.3 F 09/26/19 07:40 97 09/26/19 07:00 98.3 F 09/26/19 04:00 97.7 F 09/26/19 03:22 78 13 95 09/26/19 00:00 98.0 F 09/25/19 22:49 81 10 L 95 Weight Weight 178 lb 6.4 oz Most Recent Monitor Data Heart Rate from ECG 75 NIBP 116/53 NIBP BP-Mean 74 Respiration from ECG 12 SpO2 97 I&O: 09/25/19 09/26/19 09/27/19 06:59 06:59 06:59 Output Total 840 40 Balance -840 -40 Result Diagrams: 09/26/19 04:10 09/26/19 04:10 EKG Reviewed by me: Yes (tele - sinus 70's without arrhythmia) Hospitalist ROS - Medication Medications: Active Medications Generic Name Dose Route Start Last Admin Trade Name Freq PRN Reason Stop Dose Admin Pantoprazole Sodium 40 mg 09/26/19 09:00 09/26/19 08:41 Protonix IVP 40 mg DAILY LANI Administration - Exam General Appearance: NAD Heart: RRR Heart - other findings: 3/6 systolic murmur unchanged Respiratory - other findings: good air movement, decreased breath sounds at bases Gastrointestinal: soft Gastrointestinal - other findings: ttp throughout, no rebound or guarding, no palpable abnormality Extremities: no cyanosis, no clubbing, no edema Psychiatric: normal affect Hosp A/P (1) Septic shock Code(s): A41.9 - SEPSIS, UNSPECIFIED ORGANISM; R65.21 - SEVERE SEPSIS WITH SEPTIC SHOCK Status: Acute (2) CATHY (acute kidney injury) Code(s): N17.9 - ACUTE KIDNEY FAILURE, UNSPECIFIED Status: Acute (3) Acute on chronic anemia Code(s): D64.9 - ANEMIA, UNSPECIFIED Status: Acute (4) Acute respiratory failure with hypoxia and hypercapnia Code(s): J96.01 - ACUTE RESPIRATORY FAILURE WITH HYPOXIA; J96.02 - ACUTE RESPIRATORY FAILURE WITH HYPERCAPNIA Status: Acute (5) Adrenal insufficiency Code(s): E27.40 - UNSPECIFIED ADRENOCORTICAL INSUFFICIENCY Status: Chronic - Plan H&P dictated yesterday is not in the chart Appreciate Pulm consult Shock attributed to sepsis although no source of infection identified, in the context of adrenal insufficiency - continue broad spectrum abx - reduce steroids to hydrocortisone 50 mg IV q6h - follow cx Resp failure - improved, bipap prn, continue supplemental oxygen Abd pain with hx of constipation - check abd xray - CT if any concerns - schedule bowel meds when able to take PO - pain meds prn - IV PPI Elevated troponin in the context of severe hypotension - likely demand ischemia - obtain echo - resume home carvedilol with hold parameters chronic pain including chest pain from CPR with last admission - prn fentanyl - will add tylenol 3 prn - daughter reports this given at skilled nursing - lidoderm patch to chest for sx management topically acute on chronic anemia - likely a dilutional component - monitor thrombocytopenia - chronic and stable dvt prophy - thrombocytopenia, scd's gi prophy - IV PPI code status full reviewed plan of care with patient/daughter, no questions or further needs at end of eval. pt remains at high risk in current condition 10:49 - called by Radiologist and some free air visualized on XR - recommendation for CT scan with contrast. Reviewed creatinine and with fluids GFR is above 40. Given the presentation with shock, concern of sepsis, and this concerning finding, agree with recommendation and order placed. Will continue IVF hydration through the day and monitor for signs of volume overload.
[2019-09-26] MEDS ORDERED: Acetaminophen/Codeine 30-300mg Tablet PO PRN (08:58)
[2019-09-26] MEDS ORDERED: Aspirin 300 MG Suppository PR SCH (09:00)
[2019-09-26] MEDS ORDERED: Aspirin 325 MG TAB PO SCH (09:00)
[2019-09-26] MEDS ORDERED: Pantoprazole 40 MG VIAL IVP SCH (09:00)
[2019-09-26] MEDS ORDERED: Lidocaine 5% Patch TD SCH (09:00)
[2019-09-26] MEDS: Docusate 100 MG CAP PO SCH ×2 (09:19→20:52)
--- NOTE | 2019-09-26 09:53 | HP ---
CHIEF COMPLAINT: Lethargic. HISTORY OF PRESENT ILLNESS: This is an 84-year-old female, recently discharged from this hospital back on 09/17, for acute hypoxic and hypercapnic respiratory failure secondary to pneumonia for which she experienced in-hospital cardiac arrest with return of spontaneous circulation. The discharge summary is not available for review. The patient has a history of adrenal insufficiency, chronic thrombocytopenia, SIADH, diastolic heart failure, hypothyroidism, experienced a type [address] during that hospitalization, and was transferred to [facility] secondary to weakness associated with the hospitalization. The patient returns today, lethargic and low blood pressure. Some history is obtained from the daughter who states that yesterday patient only ate dinner, but was mentating fine. Today when the daughter saw her, states that she did not look well, and when the blood pressure was checked it was very low, the jail doctor was contacted and the patient was transferred for further evaluation. The only other information is that the patient has been experiencing some bloating and has chronic constipation. In the emergency room, the patient's initial blood pressure was 63/33, and has varied up as high as the mid 90s systolic and in between. Since then, she is on Levophed, currently at 17 mcg/minute, has received 2-1/2 L of normal saline, cefepime 2 g, aspirin 300 mg rectal, vancomycin 2 g, and hospitalist called for admission. ALLERGIES: CONFIRMED WITH HER DAUGHTERS TO BACTRIM. CURRENT MEDICATIONS: I do not have a list for review. On her discharge packet on 09/17, it shows: 1. Duoneb q4h while awake as needed. 2. Tylenol 650 mg every 4 hours as needed. 3. Tylenol No.3 one tablet every 4 hours as needed. 4. Carvedilol 3.125 mg b.i.d. 5. Guaifenesin DM 100/10 of 15 mL every 4 hours as needed. 6. Hydrocortisone 20 mg TID. 7. Levofloxacin 750 mg every two days. No stop date on this list. 8. Milk of magnesia every 12 hours as needed. 9. Senokot-S 2 tablets twice daily as needed. 10. Simethicone 80 mg after meals and at bedtime. 11. Duoneb q6h prn. 12. Sodium chloride tablets 3 times a day. 13. Seroquel, no dose listed, one tablet at bedtime. 14. Zofran 1 tablet sublingual, no dose listed. 15. Omeprazole 1 tablet twice daily, no dose listed. 16. Levothyroxine one tablet daily, no dose listed. 17. Hydrocortisone 20 mg twice daily. 18. Demeclocycline two tablets twice daily, no dose listed. 19. Amlodipine 2 tablets daily, no dose listed. 20. Simethicone 1-2 cap daily as needed for gas pain. PAST MEDICAL HISTORY: Reviewed from her last history and physical for: 1. Hypothyroidism. 2. Adrenal insufficiency. 3. SIADH. 4. Dyslipidemia. 5. Hypertension. 6. History of pontine stroke with some dysphagia. 7. Pituitary tumor status post radiation. 8. Recent admission for pneumonia/acute respiratory failure. 9. Recent cardiac arrest with return of spontaneous circulation. 10. Chest pain secondary to CPR from a cardiac arrest with last hospitalization. 11. History of chronic anemia. PAST SURGICAL HISTORY: 1. PEG tube placement and removal. 2. Hysterectomy. 3. Bladder suspension. SOCIAL HISTORY: The patient has 7 children and is currently at the [facility] after her discharge on 09/17. REVIEW OF SYSTEMS: Not obtainable. PHYSICAL EXAMINATION: VITAL SIGNS: Blood pressure with the patient in Trendelenburg is 94/46 that is on the Levophed after the IV fluids. Pulse 84, respirations 18, temperature 98.6, saturation is 100% on 3 L down to 88% on 3 L. GENERAL: The patient does awaken to voice. She is not in apparent distress. She is easily fall asleep. HEENT: Her pupils are equal and round. Extraocular movements intact. Her oral mucosa is pink and dry. NECK: Supple, nontender. LYMPHATICS: No palpable cervical or supraclavicular lymphadenopathy. LUNGS: Sound clear to auscultation. No audible wheezing, rhonchi, or rales. HEART: She has a 3/6 holosystolic murmur throughout. Regular rate and rhythm. ABDOMEN: Soft, tenderness to palpation along her chest as well as her abdomen with present bowel sounds. No palpable abnormalities. SKIN: No visible rashes. NEUROLOGICAL: She is moving her arms and legs on command. PSYCH: Unable to assess. LABORATORY DATA: Reviewed. CBC; 51.2, 11.2, 37.3, 62. By chart review, platelets are anywhere from the 30s up to 90s. ABG; 7.35, 71.6, 52.7 with a saturation of 85.7. Renal panel; 135, 4.9, 91, 36, 29, 1.75, 86. Creatinine at her last discharge was 0.77. BNP 301. Troponin 0.333. Lipase is 6. EKG is personally reviewed, sinus rhythm, normal axis, normal intervals, no ST changes. Chest x-ray is personally reviewed. The second chest x-ray shows that there is a right internal jugular central venous catheter in the right axilla. The first chest x-ray shows the heart is enlarged, pulmonary vascular congestion with bibasilar infiltrates or atelectatic changes, no pneumothoraces or large effusions. IMPRESSION: 1. Acute hypoxic and hypercarbic respiratory failure. 2. Septic shock with severe hypotension in the context of a markedly elevated white blood cell count in a patient who was recently admitted, who experienced a cardiac arrest with return of spontaneous circulation, who also has adrenal insufficiency. 3. Acute kidney injury in the context of hypotension and septic shock. 4. Elevated troponin in the context of above with an elevated BNP. 5. Adrenal insufficiency with likely adrenal crisis. 6. Hypothyroidism. 7. Thrombocytopenia, chronic and stable by chart review. 8. Weakness and debility after her last hospitalization for pneumonia. 9. Dyslipidemia. 10. History of stroke. 11. History of hypertension. 12. History of a pituitary tumor. 13. Anemia, appears chronic and stable. PLAN: 1. Admission to the ICU. 2. Continue IV fluids and pressor support. 3. Continue renally dosed cefepime and we will ask Pharmacy to dose the vancomycin based on her renal function. Trend WBC count. 4. Consultation with Pulmonary Critical Care. Will order Bipap for combined hypoxic and hypercarbic respiratory failure. 5. Continuing hydrocortisone steroids for the adrenal insufficiency and following blood pressure. 6. Obtain UA and culture and follow the blood cultures. 7. We will continue aspirin and trend the troponins and obtain a current echocardiogram to compare with her last one. 8. Monitor anemia. The patient did require transfusion in the past. 9. Monitor urine output. 10. The patient is at high risk of in-hospital , discussed this with 2 of her daughters who are here. The daughters confirmed with the patient that she is a full code, and they state that their sister, Starr or their brother, Josué would be the surrogate decision makers. I discussed that the current situation is tenuous given the requirement for 2 medications to support her blood pressure. No questions or further needs at end of conversation. 11. DVT prophylaxis, SCDs due to the thrombocytopenia. 12. GI prophylaxis. We will order IV Protonix. 13. Code status is full. 14. The patient is at high risk as noted above, given current presentation with possibilities including in-hospital decompensation. Job ID: [id number] BAILEE
--- NOTE | 2019-09-26 10:51 | RAD ---
Abdomen 2 views HISTORY: Abdomen pain. FINDINGS: Large amount of stool distends the rectum. Moderate gas and stool throughout the colon. Nor mal nondilated gas-filled loops of small bowel throughout the abdomen. On the left lateral decubitus views, a small amount of gas lucency projects just under the right christy diaphragm and right lateral abdomen wall. Severe leftward convex curvature of the lumbar spine. Calcification over the arterial structures. Rig ht femoral central venous catheter in place. Radiopaque wire over the urinary bladder. IMPRESSION: Small amount of free intraperitoneal gas. CT abdomen is pending. Fecal impaction at the rectum. Atherosclerosis. Findings were called to Dr. Kirby at 1041 hours. Code CR.
[2019-09-26] MEDS ORDERED: Morphine 4 MG/ML VIAL ONE (11:22)
[2019-09-26] MEDS ORDERED: Morphine 2 MG/ML SYRINGE SLOW IVP PRN ×2 (11:29→16:25)
[2019-09-26] MEDS ORDERED: metroNIDAZOLE 500 MG in Premix Bag 1 BAG IVPB SCH (12:00)
--- NOTE | 2019-09-26 12:39 | CON ---
DATE OF CONSULTATION: 09/26/2019 SERVICE: Pulmonary Medicine. INTERVAL HISTORY: The patient is doing much better today. She has been weaned off the Levophed. Denies any current chest discomfort, fevers, or chills. Otherwise, she is returning to her usual state of health, but when she became more appropriate, she had complaints of abdominal discomfort. She also has chest discomfort, arm discomfort, and leg discomfort. That being said, an x-ray of the belly was performed, and she ended up having some free air in the belly. As such, Surgical consultation has been initiated. She is more awake today. Otherwise, there has been no change to her condition. PAST MEDICAL HISTORY: 1. Hypothyroidism. 2. Renal insufficiency. 3. Syndrome of inappropriate ADH secretion. 4. Dyslipidemia. 5. Hypertension. 6. History of pontine stroke with dysphagia. 7. History of pituitary tumor, status post radiation. 8. Anemia, chronic. PAST SURGICAL HISTORY: 1. PEG tube placement and subsequent removal. 2. Hysterectomy. 3. Bladder suspension surgery. SOCIAL HISTORY: Negative for alcohol, tobacco, or illicit drug use. She is currently at [facility]. She has no exposure to chemicals , dust, asbestos, or tuberculosis. FAMILY HISTORY: Noncontributory. ALLERGIES: SULFA. MEDICATIONS: Lists of her inpatient medications were reviewed. Couple small updates were made. REVIEW OF SYSTEMS: General, head, ears, eyes, nose, throat, cardiovascular, respiratory, GI, , musculoskeletal, neurologic, and skin are negative except as mentioned in the HPI. PHYSICAL EXAMINATION: VITAL SIGNS: Afebrile, pulse 79, blood pressure 107/46, respirations 18, saturation 97%, currently on 3 L nasal cannula. GENERAL: The patient is awake and alert, in no apparent distress. LUNGS: Good air entry without much of a prolonged expiratory phase or wheezing. Rhonchi are present. No cough. HEART: Normal rate. Regular. ABDOMEN: Diffusely tender. Rebound is present. Bowel sounds are hypoactive. NEUROLOGIC: Grossly nonfocal. : A Petersen catheter is in place. MUSCULOSKELETAL: No cyanosis or clubbing. There is 2+ pitting. LABORATORY DATA: WBC 51.2. Hemoglobin 8.4 and downtrending. 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 Band count 14% on top of 63% neutrophils. INR 1.0 previously. PH 7.35, pCO2 of 71, PO2 of 52. Creatinine 1.21. Basic metabolic profile is otherwise unremarkable. Calcium 7.7. TSH 0.38, troponin is uptrending to 0.48. Lactate 1.9. Liver function studies are essentially unremarkable. BNP is 301 which is below baseline. Urinalysis is unremarkable. C. diff antigen and toxin are unremarkable. Blood cultures x2 are negative to date. IMAGING STUDIES: KUB demonstrates free air in the abdomen with air throughout the entire loop of bowel. Chest x-ray demonstrates no acute cardiopulmonary process. Yesterday, I did not see any free air above the diaphragm. ASSESSMENT: 1. Acute hypoxic respiratory failure. 2. Acute on chronic hypercapnic respiratory failure. 3. Adrenal insufficiency. 4. Septic shock. 5. Gross peritonitis, suspected. DISCUSSION AND PLAN: Surgical consultation will be placed. If surgery is interested in pursuing a CT, we will arrange for that to occur. The vancomycin will be interrupted, we will put her on Flagyl. She will need to remain in the ICU. Obviously, she is not a good candidate for surgical procedure, but without an operation, it is unlikely that she is going to make a spontaneous recovery with medications alone. 70 minutes have been devoted to this patient in various activities. I personally reviewed all imaging studies and laboratory data noted within this document. For fifty percent of this time, I was interacting with the patient at the bedside or coordinating care with the care team. For the remainder of the time I was immediately available to the patient in the hospital unit. Job ID: [id number] MTDD
[2019-09-26] MEDS: Fentanyl 100 MCG/2 ML VIAL SLOW IVP PRN ×2 (13:05→15:13)
[2019-09-26] MEDS ORDERED: Vancomycin HCl 750 MG in Sodium Chloride 0.9% 250 ML 250 ML IVPB SCH (16:00)
[2019-09-26] MEDS ORDERED: Cefepime 2 GM in Sodium Chloride 0.9% 100 ML IVPB SCH (16:00)
[2019-09-26] MEDS ORDERED: Lorazepam 2 MG/ML VIAL SLOW IVP PRN ×2 (16:25→21:00)
--- NOTE | 2019-09-26 16:34 | CON ---
DATE OF CONSULTATION: 09/26/2019 REASON FOR CONSULTATION: Free intraabdominal air. CHIEF COMPLAINT: "My abdomen hurts." HISTORY OF PRESENT ILLNESS: The patient is an 84-year-old female who was brought into the emergency room on September 25. She had recently been discharged for respiratory failure secondary to pneumonia. She actually had a cardiac arrest with return of circulation. She has a significant past medical history for adrenal insufficiency, thrombocytopenia, SIADH, heart failure, hypothyroidism, and myocardial infarction. She was feeling tired and her family checked her blood pressure which was low. She was brought into the emergency room. She was found to be hypotensive and was eventually intubated. Since being in the hospital, she has been weaned off the ventilator. Today, she was complaining of increasing abdominal pain and bloating. A plain film was obtained which demonstrated free intraabdominal air. Her pain is diffuse over her abdomen. It is crampy. Movement makes it worse. It can get up to 8/10. ALLERGIES: BACTRIM. MEDICATIONS: 1. DuoNeb. 2. Tylenol. 3. Carvedilol 3.125 mg twice a day. 4. Hydrocodone 20 mg three times a day. 5. Levofloxacin 250 mg every day. 6. Milk of magnesia as needed. 7. Simethicone 80 mg after meals. 8. Seroquel. 9. Omeprazole 1 tablet twice a day. 10. Levothyroxine every day. 11. Amlodipine 2 tablets every day. PAST MEDICAL HISTORY: Hypothyroid, adrenal insufficiency, SIADH, dyslipidemia, hypertension, stroke, pneumonia, cardiac arrest, anemia. SURGICAL HISTORY: History of PEG tube, hysterectomy, bladder suspension. SOCIAL HISTORY: Lives in a halfway. REVIEW OF SYSTEMS: Positive for chronic constipation, bloating, dysphagia, difficulty walking, low mobility, joint pain. PHYSICAL EXAMINATION: VITAL SIGNS: Blood pressure 102/48, heart rate in the 80s to 100. GENERAL: Elderly female, who appears chronically ill. Appears somewhat uncomfortable. She is mentating and able to answer questions. NECK: Supple with midline trachea. LUNGS: Clear bilaterally. HEART: Regularly regular. ABDOMEN: Distended and diffusely tender. There is evidence of guarding and rebound. SKIN: Good turgor. No jaundice. LABORATORY DATA: White blood cell count 51.2, hemoglobin 8.4, platelets of 50, creatinine of 1.2. IMAGING: I independently viewed the images of the patient's KUB. I also read the radiologist's interpretation. The patient has a large amount of stool within the rectum as well as the colon. There is apparently some free air, especially seen on the right side. ASSESSMENT: Free intraabdominal [id number] patient's constellation of symptoms would suggest that she has a perforation. More than likely, this is from a stercoral ulceration given her history of chronic constipation. I had a very lengthy discussion with the patient and her daughters. The options were presented, such that one-surgery, the operating room would necessitate a laparotomy with, more than likely, colostomy. If she did, in fact, have a perforation in her colon, given her hemodynamics and steroid use, she would not be a candidate for anastomosis. We also discussed her chronic steroid use and how this can complicate wound healing. While these are all not insurmountable, the patient would be at high risk for complications. The other option is to-comfort care/palliative care. This would involve pain management. The patient was actually very clear in her desires. She did not want surgery. Some of the family was in agreement and, initially, some were not. Eventually, the decision was made to not proceed to the operating room. I made myself available multiple times throughout the afternoon to answer questions. I will let Dr. Kirby and Dr. Kapadia know the decisions of the patient's family. PLAN: I recommend Palliative Care consultation for comfort care. Job ID: [id number]
[2019-09-26] MEDS ORDERED: Carvedilol 3.125 MG TAB PO SCH (17:00)
[2019-09-26] MEDS ORDERED: Ondansetron PF 4 MG/2 ML Vial IVP PRN ×2 (17:05→17:40)
[2019-09-26] MEDS ORDERED: Calcium Carbonate 500 MG ChewTAB PO PRN (17:05)
[2019-09-26] MEDS ORDERED: Naloxone HCl 0.4 mg/ml Vial IV PRN ×2 (17:05→17:40)
[2019-09-26] MEDS ORDERED: HYDROmorphone 10 mg/100 ml CADD IVPB PRN ×3 (17:05→17:44)
[2019-09-26] MEDS ORDERED: diphenhydrAMINE 25 MG CAP PO PRN ×2 (17:05→17:40)
[2019-09-26] MEDS ORDERED: diphenhydrAMINE 50 MG/ML VIAL IVP PRN ×2 (17:05→17:40)
[2019-09-26] MEDS ORDERED: Zolpidem Tartrate 5 MG TAB PO PRN ×2 (17:05→17:40)
[2019-09-26] MEDS ORDERED: diphenhydrAMINE 50 MG/ML VIAL IM PRN ×2 (17:05→17:40)
[2019-09-26] MEDS ORDERED: Promethazine HCl 25 MG/ML VIAL IM PRN ×2 (17:05→17:40)
[2019-09-26] MEDS: Furosemide 40 MG/4 ML VIAL ONE ×2 (17:11→17:28)
[2019-09-26] MEDS ORDERED: Communication Order-Pharmacy FS SCH ×2 (17:15→17:45)
--- NOTE | 2019-09-26 17:24 | PDOC.EVN ---
Event Note - Event Note Event Note: Sat down with many family members and reviewed this hospital course, the treatment, and the findings. Dr. Merrill met with patient and family earlier today regarding bowel perforation, risks of surgery, and together they decided on no surgery. With this decision, it is anticipated that this condition will end her life. Discussion with family was over the options for further care, briefly goals of care, code status. They discussed that pt is mentally clear and should be the one to decide on her code status. I answered questions and asked them to consider and discuss that if I'm unable to obtain a clear answer from the patient with regards to goals of care or code status, what they know her wishes to be in this current situation. After above discussion, I discussed with patient the problem with her abdomen, why she is having pain, surgery - for which she stated she does not want, and that this is expected to end her life. In the conversation I asked what she wants at this time, in this situation. At that point, 3 family members entered. They talked with patient and asked if the patient wanted to be moved to another room, focus on managing her pain, and asked if she is ready to join her . They talked about the how things were with another family member that passed. Pt agreed. After the above, I confirmed that the direction we are taking is focusing solely on comfort - they agree. Confirmed the code status change to DNAR - they desire. Confirmed how we will manage pain - requesting BLOCKERS SKIVER through anesthesia to at least deliver some basal pain medication. Can bolus if needed , or can use another IV medication for the times of worsening. Also confirmed other comfort measures - prn ativan - prn simethicone, tums, bentyl - consult hospice to provide additional support and assistance - will d/c the antibiotics - d/c IVF and 20 mg IV lasix now as the pt with increased tachypnea, and decreased breath sounds at the bases No change to steroids - continue current dosing due to known adrenal insufficiency. Time spent with family and patient was 45 minutes Re-evaluated patient around 20:20 - 2 daughters at bedside, current systolic pressure in the 70's. We discussed that this may be the transition for patient , or may be an effect of the BLOCKERS SKIVER. Reviewed orders, no further needs identified. Anticipated in-hospital .
[2019-09-26] MEDS ORDERED: Furosemide 20 MG/2 ML VIAL SLOW IVP SCH (17:30)
[2019-09-26] MEDS ORDERED: Polyethylene Glycol 3350 17 GM Packet PO SCH (21:00)
[2019-09-26] MEDS ORDERED: Dicyclomine 10 MG/5 ML UDCUP PO SCH (21:00)
[2019-09-26] MEDS ORDERED: Lidocaine Patch Removal 1 EACH TOP SCH (21:00)
[2019-09-27] MEDS: Hydrocortisone Sod Succ/PF 100 mg/2 ml Vial IVP SCH ×2 (00:09→05:38)
[2019-09-27 04:22] VITALS: TEMP 97.2
--- NOTE | 2019-09-28 02:49 | DIS ---
DATE OF ADMISSION: 09/25/2019 DATE OF DISCHARGE: 09/27/2019 CONSULTANTS: Pulmonary Critical Care, Dr. Kapadia. Anesthesia for BLACK BELT. FINAL DIAGNOSES: 1. Septic shock secondary to bowel perforation. 2. Acute hypoxic and hypercarbic respiratory failure secondary to above. 3. Acute kidney injury in the context of above. 4. Elevated troponin, likely demand ischemia. 5. Adrenal insufficiency with adrenal crisis. SECONDARY DIAGNOSES: 1. Hypothyroidism. 2. Chronic thrombocytopenia. 3. Weakness and debility after recent hospitalization for pneumonia. 4. Recent cardiac arrest of unknown precipitant. 5. Dyslipidemia. 6. History of stroke. 7. History of hypertension. 8. History of pituitary tumor. 9. Chronic anemia. HISTORY OF PRESENT ILLNESS: Ms. Greenwood was an 84-year-old female, who was discharged from this facility on September 17 for acute hypoxic and hypercapnic respiratory failure secondary to pneumonia. During the hospitalization, she experienced a cardiac arrest with return of spontaneous circulation. The patient was discharged to [facility] due to weakness from the hospitalization. She had been doing better there for few days. However, the night before hospitalization, she had decreased p.o. intake and then had lower energy. The day of hospitalization, she was lethargic, hypotensive, and transferred here. She was found to be significantly hypotensive, received IV fluids and started on Levophed in the emergency room, as well as broad-spectrum antibiotics and aspirin. Please see history and physical for full details. HOSPITAL COURSE: The patient was continued on high-dose IV steroids, broad- spectrum antibiotics, IV fluids, and required overnight the addition of a second pressor. The Levophed and vasopressin were titrated off the next day and her blood pressures were maintaining in the low normal range. The patient was also on BiPAP overnight and tolerated that well. On September 26, the patient was complaining of abdominal pain and diffusely tender. An abdominal x-ray was obtained, which showed free air in the abdomen. Because of this, consultation with General Surgery was obtained and Dr. Merrill met with the patient and the family and discussed the condition, risks and benefits of surgery. From the conversations, decision was made for no surgery. After that, I sat down with first the family and discussed with the goals of care and code status, and they requested that conversation be with the patient. In discussing with the patient , two of the daughters participated in the conversation, and given the patient's decision for no surgery, agreed with switching to comfort measures. The patient demonstrated understanding that this situation would be life ending and confirmed that she did not want surgery. At that point to manage the significant pain she was experiencing, a BLACK BELT was requested from Anesthesia. Additional medications were added to solely focus on the patient's comfort. Antibiotics and IV fluids were discontinued. The patient did also have tachypnea and received 20 mg of IV Lasix to assist with that. The steroids were continued given the history of adrenal insufficiency. The patient remained on comfort measures overnight, and this morning at 6:09. This was anticipated as an in-hospital . VIDES FINDINGS AND TEST RESULTS: Her CBC; 51.2, 8.4, 27.7, 50 on September 26. Renal panel September 26; 139, 4.8, 103, 29, 31, 1.2, 122. Calcium 7.7. TSH 0.0388. Troponin 0.483, 0.365, 0.333. BNP 301. Urinalysis, present protein, 11 to 20 white blood cells, 21 to 50 squamous cells. Urine culture and blood culture showed no growth at 48 hours. C diff antigen and toxin were negative. Echocardiogram on September 26 showed an EF of 55% to 60%, impaired relaxation compatible with diastolic dysfunction. Abdominal x-ray on September 26 showed small amount of free intraperitoneal gas, fecal impaction at the rectum. Chest x-ray: A second chest x-ray showed interval placement of a right IJ central venous catheter with the tip in the right axilla likely within the axillary or subclavian vein. Of note, this was subsequently removed. Chest x-ray same day prior to central line, heart enlarged, pulmonary vascular congestion with bibasilar infiltrates, and atelectasis changes. No pneumothoraces or large effusions seen. Job ID: [id number] [facility]
== END 2019-09-27 12:00 | disposition expired | DRG 871 ==
LOC: ERS 14:05 → CCU 17:06
PROVIDERS: ADMIT Family Medicine; ATTEND Family Medicine
PROC: 3E043XZ Introduction of Vasopressor into Central Vein, Percutaneous Approach (ICD-10-PCS; principal; 2019-09-25)
PROC: 05HM33Z Insertion of Infusion Device into Right Internal Jugular Vein, Percutaneous Approach (ICD-10-PCS; 2019-09-25)
PROC: 5A09357 Assistance with Respiratory Ventilation, Less than 24 Consecutive Hours, Continuous Positive Airway Pressure (ICD-10-PCS; 2019-09-25)
DX: A41.9 Sepsis, unspecified organism (principal); R65.21 Severe sepsis with septic shock; K63.1 Perforation of intestine (nontraumatic); J96.21 Acute and chronic respiratory failure with hypoxia; J96.22 Acute and chronic respiratory failure with hypercapnia; K65.9 Peritonitis, unspecified; I24.8 Other forms of acute ischemic heart disease; E27.40 Unspecified adrenocortical insufficiency; N17.9 Acute kidney failure, unspecified; Z66 Do not resuscitate; Z51.5 Encounter for palliative care; E03.9 Hypothyroidism, unspecified; D69.6 Thrombocytopenia, unspecified; E78.5 Hyperlipidemia, unspecified; I10 Essential (primary) hypertension; D64.9 Anemia, unspecified; Z86.73 Personal history of transient ischemic attack (TIA), and cerebral infarction without residual deficits; Z88.2 Allergy status to sulfonamides; Z79.899 Other long term (current) drug therapy; Z79.890 Hormone replacement therapy
CPT/HCPCS: 36415; 36556; 51702; 71045; 74019; 80048; 80053; 82553; 82805; 83605; 83690; 83880; 84443; 84484; 85007; 85025; 85027; 87040; 87086; 87324; 87449; 93005; 93306; 94660; 96365; 96366; 96367; 96375; 99292; C9113; J0692; J1720; J1940; J2270; J3010; J3370; J3490; J7050